=== PATIENT | female | born 1960 | race Caucasian/White ===

== ENCOUNTER 2021-03-23 08:39 | Outpatient (REF) | payer OTHER, SELFPAY ==
[2021-03-23 09:47] LABS: Binax Internal Control QC Valid; Binax Lot number: 9864; Binax Now Covid-19 Ag Negative (Negative)
== END 2021-03-23 08:40 | disposition home or self-care (01) ==
LOC: HO.LAB 08:39
PROVIDERS: Visit Provider Internal Medicine
DX: Z20.822 Contact with and (suspected) exposure to COVID-19 (principal)
CPT/HCPCS: 36415; C9803

== ENCOUNTER 2022-03-20 13:41 | Outpatient (REF) | payer OTHER, SELFPAY ==
--- NOTE | ~2022-03-20 | US_ITS ---
EXAMINATION: US VENOUS ULTRASOUND WITH DOPPLER LOWER EXTREMITY, RIGHT CLINICAL INFORMATION: Pain right leg COMPARISON: None TECHNIQUE: Ultrasound of the deep veins is performed from the hip to the calf with compression sonography and color and pulse Doppler assessment. Spectral analysis with color-flow imaging is performed. FINDINGS: There is normal venous compression and respiratory variation and augmented flow. The visualized common femoral vein, superficial femoral vein, profunda femoral vein, popliteal vein, and the trifurcation region shows no evidence of deep venous thrombosis. There is no significant popliteal fossa cyst. There is a small echogenic lymph node visualized in right proximal thigh measuring 3.0 x 0.8 x 2.0 cm. If the patient's symptoms persist, followup ultrasound in 5 days 7 days might be of value to exclude proximal propagation from a non-visualized calf vein. US/US venous duplex LE RT IMPRESSION: No DVT demonstrated in the right lower extremity.
== END 2022-03-20 13:42 | disposition home or self-care (01) ==
LOC: HO.US 13:41
PROVIDERS: PCP Physician Assistant Medical; Visit Provider Family Medicine
DX: M79.604 Pain in right leg (principal)
CPT/HCPCS: 93971

== ENCOUNTER → 2022-04-15 10:45 | Outpatient (BNVA) | payer OTHER, SELFPAY | PROVIDERS: PCP Physician Assistant Medical; Visit Provider Surgery | DX: Z13.89 Encounter for screening for other disorder (principal) ==

== ENCOUNTER → 2022-05-27 14:41 | Outpatient (BNVA) | payer OTHER, SELFPAY | PROVIDERS: PCP Physician Assistant Medical; Referring Provider Physician Assistant Medical; Visit Provider Surgery | DX: Z13.89 Encounter for screening for other disorder (principal) ==

== ENCOUNTER 2023-08-23 08:15 | Inpatient (IN) | payer OTHER, SELFPAY ==
[2023-08-23] VITALS (14 sets, daily range): BP systolic 103–144; BP diastolic 49–100; PULSE 54–166; RESP 14–20; TEMP 36.4–37.4; O2SAT 94–95; BMI 49.9; BMI 52.2
--- NOTE | 2023-08-23 | ECG_ITS ---
Test Reason : PALPITATIONS Blood Pressure : / mmHG Vent. Rate : 157 BPM Atrial Rate : 000 BPM P-R Int : 000 ms QRS Dur : 096 ms QT Int : 308 ms P-R-T Axes : 000 044 230 degrees QTc Int : 497 ms Atrial fibrillation with rapid ventricular response Marked ST abnormality, possible inferolateral subendocardial injury Abnormal ECG When compared with ECG of 15-JUN-2014 11:41, Atrial fibrillation has replaced Sinus rhythm Vent. rate has increased BY [address] now depressed in Anterolateral leads T wave inversion less evident in Inferior leads Referred By: Generic ED Physician Electronically Signed By:CYRIL TOUSSAINT
--- NOTE | ~2023-08-23 | XR_ITS ---
EXAMINATION: XR CHEST CLINICAL INFORMATION: Abnormal one view chest COMPARISON: Previous chest x-ray from earlier the same day TECHNIQUE: 2 views of the chest were obtained. FINDINGS: The cardiac and mediastinal contours are stable. There is question of bronchial wall thickening or small infiltrate at the bilateral medial lung bases. This is similar to previous exam. Lungs are otherwise clear. No pleural effusion or pneumothorax. Degenerative changes of the spine. XR/XR chest 2V IMPRESSION: Question bronchial wall thickening or small infiltrates at the lung bases.
--- NOTE | ~2023-08-23 | XR_ITS ---
EXAMINATION: XR PORTABLE CHEST CLINICAL INFORMATION: Palpitation COMPARISON: 06/16/2014 TECHNIQUE: AP portable upright view of the chest FINDINGS: EKG leads overlie the chest. There is relative obscuration of the lung bases to the underpenetration of the overlying soft tissues. Subtle opacities are present at the medial aspect of the lung bases which may correspond to atelectasis. Patchy consolidation is possible. No pneumothorax or pleural effusion identified. Cardiac and mediastinal contours are normal. No acute osseous findings. XR/XR chest 1V IMPRESSION: Subtle opacities at the medial aspect of the lung bases which may correspond to atelectasis or early consolidation. Consider follow-up PA and lateral radiographs with improved penetration.
--- NOTE | 2023-08-23 08:38 | ED.ARRPALP ---
HPI - Arrhythmia/Palpitations General Chief Complaint: Arrhythmia/Palpitations Stated Complaint: Heart palpitations Time Seen by Provider: 08/23/23 08:32 Source: patient and family Mode of arrival: ambulatory Limitations: no limitations History of Present Illness ED Provider: DR. Viveros HPI narrative: 63-year-old female history of hypertension presented today for evaluation of palpitation and chest pain. Woke up this morning with feeling palpitation and her heart is going fast and irregular, feels difficulty breathing only with exertion, no paroxysmal nocturnal dyspnea. Patient also is known to have esophagitis and is complaining of mid chest pain that has been constant since this morning feels similar to the pain when she has a acid reflux. Takes losartan, furosemide, and nifedipine for blood pressure medication. No known history of atrial fibrillation. Related Data Home Medications ?Medication ?Instructions ?Recorded ?Confirmed albuterol sulfate 90 mcg/actuation 2 puff inhalation Q6H PRN 03/20/22 05/28/22 aerosol inhaler budesonide-formoterol HFA 160 2 puff inhalation BID 03/20/22 05/28/22 mcg-4.5 mcg/actuation aerosol inhaler (Symbicort) lovastatin 20 mg tablet 20 mg PO DAILY 03/20/22 05/28/22 furosemide 20 mg tablet 20 mg PO DAILY 04/15/22 05/28/22 losartan 50 mg tablet 50 mg PO DAILY 04/15/22 05/28/22 Previous Rx's ?Medication ?Instructions ?Recorded clobetasol 0.05 % topical cream 1 appl topical BID 2 weeks #60 03/20/22 grams Allergies Allergy/AdvReac Type Severity Reaction Status Date / Time Penicillins [PENICILLINS] Allergy Severe hives/urtic Verified 08/23/23 08:22 aria Review of Systems Review of Systems: All other systems are reviewed and are negative Constitutional: Reports as per HPI and Reports no additional constitutional complaints Eyes: Reports as per HPI and Reports no additional eye complaints Reports system reviewed and no additional complaints, except as documented Cardiovascular: Reports as per HPI and Reports no additional cardiovascular complaints Respiratory: Reports as per HPI and Reports no additional respiratory complaints Gastrointestinal: Reports as per HPI and Reports no additional gastrointestinal complaints Genitourinary: Reports no additional female genitourinary complaints Musculoskeletal: Reports no additional musculoskeletal complaints Skin/Breast: Reports system reviewed and no additional complaints, except as docu Psychiatric: Reports no additional psychiatric complaints Endocrine: Reports no additional endocrine complaints Hematologic/Lymphatic: Reports no additional hematologic/lymphatic complaints Allergic/Immunologic: Reports no additional allergic/immunologic complaints Reports system reviewed and no additional complaints, except as documented and Reports Abnormal speech present [facility] Past Medical History Surgical History History of endoscopy (2004) History of wisdom tooth extraction History of colonoscopy (2014) History of delivery Family History Family History Father Liver cancer Mother Pancreatic cancer Maternal Grandmother Pancreatic cancer Sister Breast cancer Maternal Uncle Lung cancer Social History Social History Alcohol intake: current Alcohol intake frequency: a few times a week Patient Tobacco Use Status: Former Tobacco user Smoked in Last 30 Days: No Use of substances other than those prescribed or required for medical reasons: No Advance Directives: No Advance Directives Information Provided: Yes Do you have a plan to hurt others: No Plan Physical Exam Vital Signs: Vital Signs: Last Vital Signs Temp 97.5 F 08/23/23 08:21 Pulse 57 08/23/23 10:34 Resp 19 08/23/23 09:47 BP 116/59 L 08/23/23 10:34 Pulse Ox 94 08/23/23 09:47 O2 Del Method Room Air 08/23/23 09:47 BMI result Body Mass Index 49.9 Vital signs have been reviewed and appear to be correct. Blood pressure elevated. Heart rate normal. Respiratory rate normal. Temperature normal. Oxygen saturation normal. Appearance: Alert. Oriented X3. No acute distress. Head: Normal external exam. Normocephalic. Atraumatic. No Rubin signs noted. No raccoon eyes noted Eyes: PERRLA. EOMI. Conjunctiva and sclera normal. Eyelids normal. ENT: TM's Normal. Pharynx normal. Uvula midline. Moist mucous membranes. No trismus noted. No drooling noted. No muffled voice noted. Neck: Normal inspection. Neck supple. FROM. No adenopathy. Thyroid Normal. No meningeal signs. No neck mass noted. CVS: rapid AFib. No murmurs noted. Pulses normal throughout. Respiratory: No respiratory distress. Painless inspiration. Breath sounds normal. No wheezes/rales/rhonchi noted. Chest nontender. No accessory muscle usage noted or decreased air movement noted. Abdomen: Soft and nontender. Bowel sounds normal in all 4 quadrants. No distention noted. No organomegaly noted. No visible injury noted. Back: No CVA tenderness. Full range of motion noted. Skin: Skin warm and dry. Normal skin color. Normal skin turgor. No rashes/lesions/lacerations noted. Extremities: No lower extremity edema. Extremities exhibit normal range of motion. Extremities nontender. Neuro: Oriented X 3. Cranial nerve exam: II-XII are grossly intact No motor deficit. No sensory deficit. Reflexes normal. Course Reevaluation(s) Reevaluation #1: 63-year-old female presented with rapid atrial fibrillation that was controlled by giving digoxin and metoprolol in the emergency department patient converted into sinus rhythm. Patient has no symptoms, no chest pain, no SOB. Will admit for further cardiology evaluation. Time: 10:50 Medications Administered Discontinued Medications Generic Name Dose Route Start Last Admin Trade Name Freq PRN Reason Stop Dose Admin Aspirin 81 mg 08/23/23 08:39 08/23/23 08:51 Aspirin 81 Mg Tab.Chew PO 08/23/23 08:40 81 mg ONCE ONE Administration Digoxin 0.25 mg 08/23/23 08:37 08/23/23 08:51 Digoxin 0.5 Mg/2 Ml Ampul IVPUSH 08/23/23 08:38 0.25 mg ONCE ONE Administration Sodium Chloride 1,000 mls @ 999 mls/hr 08/23/23 08:32 08/23/23 10:22 Ns IV 08/23/23 09:32 Infused .Q1H1M ONE Infusion Metoprolol Tartrate 5 mg 08/23/23 08:37 08/23/23 08:51 Metoprolol Tartrate 5 Mg/5 Ml Vial IVPUSH 08/23/23 08:38 5 mg ONCE ONE Administration Protocol Metoprolol Tartrate 5 mg 08/23/23 09:47 08/23/23 10:22 Metoprolol Tartrate 5 Mg/5 Ml Vial IVPUSH 08/23/23 09:48 5 mg ONCE ONE Administration Protocol Medical Decision Making Differential Diagnosis Differential Diagnoses: The differential diagnosis associated with the presentation includes ( ACS, CHF, pneumonia, pneumothorax, pleural effusion, electrolyte derangement, severe anemia, new onset atrial fibrillation.) Admission/Observation Consideration of admission/observation: Escalation of care including admission/observation considered Consult Healthcare Provider Management of the patient was discussed with: Hospitalist ( Dr. Delaney) Lab Data MDM Lab Attestation statement: I reviewed the patient's lab results. 08/23/23 08:45 08/23/23 08:43 Labs: Lab Results 08/23/23 08/23/23 08/23/23 Range/Units 08:43 08:45 09:01 WBC 10.5 (4.8-10.8) X10*3/uL RBC 4.83 (4.20-5.50) X10*6/uL Hgb 12.9 (12.0-16.0) g/dl Hct 40.2 (37.0-47.0) % MCV 83.2 (80.0-98.0) fL MCH 26.7 L (27.0-33.0) pg MCHC 32.1 (31.0-35.0) g/dl RDW 15.7 (11.0-16.0) % Plt Count 236 (160-400) X10*3/uL MPV 9.0 L (9.4-12.3) fL Immature Gran % (Auto) 1.5 H (0.0-0.4) % Neut % (Auto) 72.3 (45-73) % Lymph % (Auto) 16.4 L (20-40) % [place] % (Auto) 5.7 (2-11) % Eos % (Auto) 3.7 (0-4) % Baso % (Auto) 0.4 (0-2) % Lymph # (Auto) 1.7 (1.2-4.9) X10*3/uL [place] # (Auto) 0.6 (0.1-1.2) X10*3/uL Eos # (Auto) 0.4 (0.0-0.4) X10*3/uL Baso # (Auto) 0.0 (0.0-0.2) X10*3/uL Abs Immat Gran (auto) 0.16 H (0.00-0.03) X10*3/uL Absolute Neuts (auto) 7.6 (2.0-8.3) x10*3/uL Absolute Nucleated RBC 0.000 (0.0-0.012) X10*3/uL Nucleated RBC % (auto) 0.0 (0.0-0.2) /100WBC PT 10.8 L (11.1-13.3) SEC INR 0.9 (0.9-1.1) APTT 35.8 (26.0-36.8) SEC Sodium 146 H (135-145) mmol/L Potassium 4.0 (3.3-5.1) mmol/L Chloride 111 H (96-108) mmol/L Carbon Dioxide 20 L (22-29) mmol/L Anion Gap 19 (12-20) BUN 14 (9-16) mg/dL Creatinine 0.61 (0.5-1.4) mg/dL Estim Creat Clear Calc 132.0 Estimated GFR > 60 Random Glucose 139 H (60-115) mg/dL Calcium 9.6 (8.4-10.2) mg/dL Total Bilirubin 0.3 (0.0-1.0) mg/dL Direct Bilirubin 0.1 (0.0-0.5) mg/dL AST 22 (5-31) U/L ALT 25 (0-31) U/L Alkaline Phosphatase 101 (39-117) U/L Troponin I High Sens 2.9 (<3.5-17.0) ng/L B-Natriuretic Peptide 188 H (<100) pg/mL Total Protein 7.5 (6.5-8.0) g/dL Albumin 4.3 (3.5-5.0) g/dL Lipase 20 (8-78) U/L Influenza Type A (PCR) NEGATIVE (Negative) Influenza Type B (PCR) NEGATIVE (Negative) RSV RNA Qual (PCR) NEGATIVE (Negative) SARS-CoV-2 RNA (RT-PCR) NEGATIVE (Negative) Independent Interpretation I performed an independent interpretation of an: Plain X-Ray Critical Care Time Critical Care Time Critical Care Time: Yes Total Critical Care Time: 60 Attestation: The patient was critically ill with a high probability of imminent or life-threatening deterioration. I spent greater than 30 minutes of discontinuous time evaluating the patient, delivering critical care at the bedside, discussing evaluating data with consultants. Critical care time does not include time spent performing separately billable procedures or teaching. Time spent performing critical care was 60 minutes. Discharge Plan Discharge Clinical Impression: New onset a-fib Patient Disposition: Admitted As Inpatient Prescriptions: No Action lovastatin 20 mg tablet 20 mg PO DAILY albuterol sulfate 90 mcg/actuation HFA aerosol inhaler 2 puff inhalation Q6H PRN budesonide-formoterol [Symbicort] 160-4.5 mcg/actuation HFA aerosol inhaler 2 puff inhalation BID clobetasol 0.05 % cream 1 appl topical BID 14 Days Qty: 60 1RF losartan 50 mg tablet 50 mg PO DAILY furosemide 20 mg tablet 20 mg PO DAILY Print Language: Upper Sorbian
[2023-08-23] MEDS: Aspirin 81 MG TAB.CHEW PO (08:51)
[2023-08-23] MEDS: 0.9 % Sodium Chloride 1,000 ML 999 ML IV (08:51)
[2023-08-23] MEDS: Metoprolol Tartrate 5 MG/5 ML VIAL IVPUSH ×2 (08:51→10:22)
[2023-08-23] MEDS: Digoxin 0.5 MG/2 ML AMPUL 0.25 MG IVPUSH (08:51)
[2023-08-23 08:53] LABS: MANUAL DIFF FLAG NO
--- NOTE | 2023-08-23 09:00 | PC.NURSE ---
pt is alert and oriented, skin pwd, respirations even and unlabored, pt reports for the last couple of days having midsternal chest pain that radiates to her back and some intermitten sob, pain at 3/10 and feels like pressure, ls clear, this morning started to have heart palpitations, he ranges from 160-130 in rapid a -fib on the monitor,
[2023-08-23 09:08] LABS: Basophils Percent Auto 0.4 % (0-2); Eosinophils Absolute Auto 0.4 X10*3/uL (0.0-0.4); Eosinophils Percent Auto 3.7 % (0-4); Hematocrit 40.2 % (37.0-47.0); Hemoglobin 12.9 g/dl (12.0-16.0); Imm Gran Abs Auto 0.16 X10*3/uL (0.00-0.03); Imm Gran Pct Auto 1.5 % (0.0-0.4); Lymphocytes Absolute Auto 1.7 X10*3/uL (1.2-4.9); Lymphocytes Percent Auto 16.4 % (20-40); Mean Corpuscular HGB Conc 32.1 g/dl (31.0-35.0); Mean Corpuscular Hemoglobin 26.7 pg (27.0-33.0); Mean Corpuscular Volume 83.2 fL (80.0-98.0); Monocytes Absolute Auto 0.6 X10*3/uL (0.1-1.2); Monocytes Percent Auto 5.7 % (2-11); Neutrophils Absolute Auto 7.6 x10*3/uL (2.0-8.3); Neutrophils Percent Auto 72.3 % (45-73); Platelet Count 236 X10*3/uL (160-400); Red Blood Count 4.83 X10*6/uL (4.20-5.50); Red Cell Distribution Width 15.7 % (11.0-16.0); White Blood Count 10.5 X10*3/uL (4.8-10.8)
[2023-08-23 09:11] LABS: Alanine Aminotransferase 25 U/L (0-31); Albumin Level 4.3 g/dL (3.5-5.0); Alkaline Phosphatase 101 U/L (39-117); Anion Gap 19 (12-20); Aspartate Amino Transferase 22 U/L (5-31); Bilirubin Direct 0.1 mg/dL (0.0-0.5); Bilirubin Total 0.3 mg/dL (0.0-1.0); Blood Urea Nitrogen 14 mg/dL (9-16); Calcium 9.6 mg/dL (8.4-10.2); Carbon Dioxide 20 mmol/L (22-29); Chloride 111 mmol/L (96-108); Estimated Glomerular Filt Rate > 60; Glucose Random 139 mg/dL (60-115); INTERNATIONAL NORM RATIO 0.9 (0.9-1.1); Lipase 20 U/L (8-78); Prothrombin Time 10.8 SEC (11.1-13.3); Sodium 146 mmol/L (135-145); Total Protein 7.5 g/dL (6.5-8.0)
[2023-08-23 09:14] LABS: B Type Natriuretic Peptide 188 pg/mL (<100); Partial Thromboplastin Time 35.8 SEC (26.0-36.8)
[2023-08-23 09:18] LABS: Troponin-I High Sensitivity 2.9 ng/L (<3.5-17.0)
[2023-08-23 09:53] LABS: Influenza A PCR NEGATIVE (Negative); Influenza B PCR NEGATIVE (Negative); Resp Syncy Virus RNA Qual PCR NEGATIVE (Negative); SARS COV2 PCR INHOUSE NEGATIVE (Negative)
--- NOTE | 2023-08-23 10:27 | ECG_ITS ---
Test Reason : RHYTHM CHANGE Blood Pressure : / mmHG Vent. Rate : 055 BPM Atrial Rate : 055 BPM P-R Int : 136 ms QRS Dur : 096 ms QT Int : 454 ms P-R-T Axes : 054 026 029 degrees QTc Int : 434 ms Sinus bradycardia Otherwise normal ECG When compared with ECG of 23-AUG-2023 08:20, Sinus rhythm has replaced Atrial fibrillation Vent. rate has decreased BY [address] no longer depressed in Inferior leads ST no longer depressed in Lateral leads Nonspecific T wave abnormality has replaced inverted T waves in Inferior leads T wave amplitude has increased in Lateral leads Referred By: Lew Viveros Electronically Signed By:ECTOR MITCHELL MD
--- NOTE | 2023-08-23 10:28 | PC.NURSE ---
Addendum entered by Mera Roth 08/23/23 10:33: sinus rhythm at this time Original Note: pt received about 1.5mg of the 5mg metoprolol and drastic rhythm change, hr rate dropped from 154 to 54, pt is asymptomatic with this change and bp stable, md aware and another ekg obtained
--- NOTE | 2023-08-23 11:17 | PM.IMHP ---
History of Present Illness Date of Service: 08/23/23 Attending physician on admission: Radha Donnelly Chief Complaint: Palpitations Pt is a 63-year-old female with a PMH significant for HTN, HLD,?prediabetes, asthma, chronic lower leg edema, and eczema who presents to the ED with chest and back pain x2 days and?palpitations since this morning. Patient reports for the past few days she has experienced constant, substernal chest pain that has radiates to her back. Yesterday patient began experience worsening chronic shortness of breath as well as increased lower leg edema. Has been experiencing SOB for many months, though worsened yesterday with difficulty even going up a half flight of stairs. This morning patient was awoken from sleep with a slight headache and ?racing heart? that prompted her visit to the ED. states has had intermittent palpitations for the past few years. Presented to PCP complaining of symptoms and was sent to Cardiology a few years ago for full workup which was negative. Chronic productive cough in the morning x6+ months at baseline. Denies fever, chills, N/V/D, or abd pain. In the ED pt was tachycardic up to 166 otherwise vitals stable. Labs were significant for sodium 146, chloride 111 , and BNP slightly elevated at 188. No leukocytosis. Stable H&H. Renal and hepatic function WNL. Troponin 2.9. Tested negative for flu, RSV. CXR showed question of bronchial wall thickening or small infiltrates at the lung bases. EKG demonstrated atrial fibrillation with RVR of [address] depression in anterior lateral leads and T-wave inversions in inferior leads. Repeat EKG showed sinus bradycardia of 55 without evidence of significant ST elevations or depressions and T-wave inversion in V1. Pt was treated with metoprolol 5 mg IV x2 doses, digoxin 0.25 mg IV, aspirin, and IVF. Pt will be admitted to the hospital under observation for treatment and further evaluation of new onset AFib with RVR. Review of Systems Review of Systems: Palpitations Substernal chest pain radiating to back Increasing chronic shortness of breath Increasing lower leg edema Headache Chronic cough at baseline Denies fever, chills, nausea, vomiting, abdominal pain PMFSH Medical History Lower leg edema Prediabetes Asthma HLD (hyperlipidemia) HTN (hypertension) Eczema Family History Father Liver cancer Mother Pancreatic cancer Maternal Grandmother Pancreatic cancer Sister Breast cancer Maternal Uncle Lung cancer Surgical History History of endoscopy (2004) History of wisdom tooth extraction History of colonoscopy (2014) History of delivery Social History Household Members: Family Housing: House Do you presently have visiting nurse or other home services: No Alcohol intake: current Alcohol intake frequency: a few times a week Patient Tobacco Use Status: Former Tobacco user Meds Allergies Allergy/AdvReac Type Severity Reaction Status Date / Time Penicillins [PENICILLINS] Allergy Severe hives/urtic Verified 08/23/23 08:22 aria Home Medications ?Medication ?Instructions ?Recorded ?Confirmed ?Last Taken ?Type albuterol sulfate 90 mcg/actuation 2 puff inhalation Q6H PRN 03/20/22 08/23/23 Unknown History aerosol inhaler Shortness Of Breath Or Wheezing furosemide 20 mg tablet 20 mg PO DAILY 04/15/22 08/23/23 08/23/23 09:00 History budesonide-formoterol HFA 80 2 puff inhalation BID 08/23/23 08/23/23 08/23/23 09:00 History mcg-4.5 mcg/actuation aerosol inhaler (Symbicort) cholecalciferol (vitamin D3) 25 25 mcg PO DAILY 08/23/23 08/23/23 08/23/23 09:00 History mcg (1,000 unit) tablet (Vitamin D3) dupilumab 300 mg/2 mL subcutaneous 300 mg subcut Q2W 08/23/23 08/23/23 08/13/23 History pen injector (Dupixent) ferrous sulfate 325 mg (65 mg 325 mg PO Q OTHER DAY 08/23/23 08/23/23 Unknown History iron) tablet,delayed release losartan 100 mg tablet 100 mg PO DAILY 08/23/23 08/23/23 08/23/23 09:00 History multivitamin with minerals-folic 1 tab PO DAILY 08/23/23 08/23/23 08/23/23 09:00 History acid 80 mcg chewable tablet (Centrum Adult 50 Plus) nifedipine 30 mg tablet,extended 30 mg PO DAILY 08/23/23 08/23/23 08/23/23 09:00 History release sertraline 50 mg tablet 50 mg PO DAILY 08/23/23 08/23/23 08/23/23 09:00 History triamcinolone acetonide 0.1 % 1 appl topical BID PRN eczema 08/23/23 08/23/23 Unknown History topical cream Physical Exam Vital Signs and Narrative: Vital Signs: Last Vital Signs Temp 97.5 F 08/23/23 08:21 Pulse 57 08/23/23 10:34 Resp 19 08/23/23 09:47 BP 116/59 L 08/23/23 10:34 Pulse Ox 94 08/23/23 09:47 O2 Del Method Room Air 08/23/23 09:47 BMI result Body Mass Index 49.9 Constitutional: Alert, in no acute distress. Mental Status: Oriented to person, place and time. Eyes: Pupils are equal, round, and reactive to light. Ear, Nose, and Throat: Oropharynx clear, mucous membranes moist. Ears and nose without deformities. Trachea midline. Respiratory: Clear to auscultation bilaterally. No wheezing, rales, or rhonchi. Cardiovascular: S1, S2 regular. 2/6 murmur heard at left sternal border. Gastrointestinal: Abdomen soft, non-tender, non-distended. Normal bowel sounds. Neurologic: Cranial nerves II-XII are grossly intact bilaterally. No focal neurological deficits. Moves all extremities spontaneously. Skin: Warm, dry. Musculoskeletal: No cyanosis or clubbing. Extremities: 2+ bilateral pitting edema. Psychiatric: Normal mood and affect. Results Labs 08/23/23 08:45 08/23/23 08:43 Labs: Laboratory Results - last 24 hr 08/23/23 08/23/23 08/23/23 08:43 08:45 09:01 MCV 83.2 MCH 26.7 L MCHC 32.1 RDW 15.7 Plt Count 236 MPV 9.0 L Immature Gran % (Auto) 1.5 H Neut % (Auto) 72.3 Lymph % (Auto) 16.4 L [place] % (Auto) 5.7 Eos % (Auto) 3.7 Baso % (Auto) 0.4 Lymph # (Auto) 1.7 [place] # (Auto) 0.6 Eos # (Auto) 0.4 Baso # (Auto) 0.0 Abs Immat Gran (auto) 0.16 H Absolute Neuts (auto) 7.6 Absolute Nucleated RBC 0.000 Nucleated RBC % (auto) 0.0 PT 10.8 L INR 0.9 APTT 35.8 Anion Gap 19 Estim Creat Clear Calc 132.0 Estimated GFR > 60 Random Glucose 139 H Calcium 9.6 Total Bilirubin 0.3 Direct Bilirubin 0.1 AST 22 ALT 25 Alkaline Phosphatase 101 Troponin I High Sens 2.9 B-Natriuretic Peptide 188 H Total Protein 7.5 Albumin 4.3 Lipase 20 Influenza Type A (PCR) NEGATIVE Influenza Type B (PCR) NEGATIVE RSV RNA Qual (PCR) NEGATIVE SARS-CoV-2 RNA (RT-PCR) NEGATIVE Imaging Radiologist's Impressions: Impressions Chest X-Ray 08/23/23 09:33 IMPRESSION: Subtle opacities at the medial aspect of the lung bases which may correspond to atelectasis or early consolidation. Consider follow-up PA and lateral radiographs with improved penetration. Assessment and Plan (1) New onset a-fib: Status: Acute Plan Pt is a 63-year-old female with a PMH significant for HTN, HLD,?prediabetes, asthma, chronic lower leg edema, and eczema who presents to the ED with chest and back pain x2 days and?palpitations since this morning. Pt will be admitted to the hospital under observation for treatment and further evaluation of new onset AFib with RVR. New onset symptomatic AFib with RVR Pt awoke with palpitations this; initial EKG showing AFib RVR of 57 Reports intermittent palpations for the past few years; previous Holter monitor negative for AFib Patient received metoprolol 5 mg IV x2 doses and digoxin 0.25 mg IV in ED with good effect Currently in sinus bradycardia in 50s [id number] score 2 points Will start on Eliquis 5mg bid Echocardiogram Cardiology consult Monitor on telemetry Chest pain/pressure radiating to back Ongoing for the past 2-3 days Likely secondary to AFib Initial EKG with T-wave inversions in inferior leads and ST depressions in anteriolateral leads Repeat EKG showing sinus bradycardia of 55 without ischemic changes Initial troponin 2.9 Patient currently asymptomatic Will repeat troponin Pt being monitored on telemetry Chronic lower leg edema 2+ pitting lower leg edema, worse past few days Continue home furosemide Asthma Not in acute exacerbation CXR showing question of bronchial wall thickening or small infiltrates in lung bases Patient with chronic productive morning cough Does not appear to be pneumonia: No fever or leukocytosis, cough limited to mornings only No indication to cover with antibiotics at this time Continue home inhalers Guaifenesin, incentive spirometry HTN BP slightly soft after metoprolol and digoxin Will hold home antihypertensives for now Awaiting cardiology input concerning Obesity class III Weight loss encouraged Full Code Attending:?Dr. Donnelly DVT Prophylaxis: On Patient will be admitted to the hospital under observation for treatment and further evaluation new onset AFib with RVR. Patient currently rate and rhythm controlled, but will require hospitalization for echocardiogram, close monitoring of cardiac function, and specialist consultation with Cardiology. Quality Stroke Does the patient have a stroke diagnosis?: No VTE Prior VTE?: No VTE Risk Level:: Medical - moderate - high VTE Device Contraindication: Treatment Not Indicated VTE Drug Contraindication: N/A - Med Ordered
[2023-08-23] MEDS: Apixaban 5 MG TABLET PO (13:06)
[2023-08-23 13:41] LABS: TSH reflex Free T4 3.63 uIU/mL (0.32-4.0)
[2023-08-23 13:49] LABS: Appearance Urine Clear; Color Urine Yellow; Glucose Urine UA Negative (Negative); Leukocyte Esterase Urine Negative (Negative); Nitrite Urine Negative (Negative); PH 6.5 (5.0-9.0); Urine Blood Negative (Negative); Urine Ketones Negative (Negative); Urine Protein Negative (Neg-Trace)
--- NOTE | 2023-08-23 14:03 | PHA.MEDREC ---
Pharmacy Consult ? Medication Reconciliation Pharmacy has completed the medication reconciliation.
[2023-08-23 15:17] LABS: Troponin-I High Sensitivity 4.5 ng/L (<3.5-17.0)
--- NOTE | 2023-08-23 15:31 | P.CONCA_ITS ---
History of Present Illness History of Present Illness Date of Service: 08/23/23 Chief complaint: new onset afib w/rvr Narrative: This is cardiology consultation regarding atrial fibrillation. Patient states that she underwent some cardiac workup about 5 years ago but she cannot recall much of information. It does not appear that There is any definitive history of coronary disease or myocardial infarction or cardiomyopathy or anything else cardiac. No prior history of atrial fibrillation. For the last few days, she has been having various symptoms. She describes pain in the chest that radiates to the back, but it is constant for the last 4 days with no changes whatsoever. Has chronic shortness of breath but a bit more so recently. Otherwise, today, she had palpitations and that led to ER visit where she was found to be having atrial Fibrillation with rapid ventricular rate. Currently, she is back to normal sinus rhythm. She has morbid obesity, asthma as well as MARGARETH on CPAP. Review of Systems 2 Review of Systems: Yes all other systems are reviewed and are negative Constitutional: Constitutional: Reports as per HPI and Reports no additional constitutional complaints Eyes: Eyes: Reports as per HPI and Denies no additional eye complaints ENT: Denies system reviewed and no additional complaints, except as documented and Reports as per HPI Cardiovascular: Cardiovascular: Reports as per HPI, Reports no additional cardiovascular complaints, Denies acrocyanosis, Denies cool extremities, Denies chest pain, Denies leg edema, Denies lightheadedness, Denies palpitations and Denies dyspnea Respiratory: Respiratory: Reports as per HPI, Denies no additional respiratory complaints and Denies dyspnea Gastrointestinal: Gastrointestinal: Reports as per HPI and Denies no additional gastrointestinal complaints Genitourinary: Genitourinary: Reports as per HPI Musculoskeletal: Musculoskeletal: Reports no additional musculoskeletal complaints and Reports as per HPI Integumentary/Breasts: Skin/Breast: Reports system reviewed and no additional complaints, except as docu Neurologic: Reports system reviewed and no additional complaints, except as documented and Reports as per HPI Psychiatric: Psychiatric: Reports no additional psychiatric complaints and Reports as per HPI Endocrine: Endocrine: Reports no additional endocrine complaints, Reports as per HPI and Denies palpitations Hematologic/Lymphatic: Hematologic/Lymphatic: Reports no additional hematologic/lymphatic complaints and Reports as per HPI Allergic/Immunologic: Allergic/Immunologic: Reports no additional allergic/immunologic complaints and Reports as per HPI REPLACED BY [facility] Past Medical History Medical History (Updated 08/23/23 @ 15:50 by Masood Raymond MD) Lower leg edema Prediabetes Asthma HLD (hyperlipidemia) HTN (hypertension) Eczema Family History Family History Father Liver cancer Mother Pancreatic cancer Maternal Grandmother Pancreatic cancer Sister Breast cancer Maternal Uncle Lung cancer Surgical History Surgical History History of endoscopy (2004) History of wisdom tooth extraction History of colonoscopy (2014) History of delivery Social History Social History Alcohol intake: current Alcohol intake frequency: a few times a week Patient Tobacco Use Status: Former Tobacco user Smoked in Last 30 Days: No Use of substances other than those prescribed or required for medical reasons: No Advance Directives: No Advance Directives Information Provided: Yes Do you have a plan to hurt others: No Plan Meds Allergies Allergy/AdvReac Type Severity Reaction Status Date / Time Penicillins [PENICILLINS] Allergy Severe hives/urtic Verified 08/23/23 08:22 aria Active Medications: Current Medications Acetaminophen (Acetaminophen 325 Mg Tablet) 650 mg PO Q6H PRN PRN Reason: Pain, Mild (Pain Scale 1-3) Albuterol Sulfate (Albuterol Sulfate 90 Mcg 8 Gm Inhaler) 2 puff INHALE Q6H PRN PRN Reason: Shortness Of Breath Or Wheezing Apixaban (Apixaban 5 Mg Tablet) 5 mg PO BID LASHONDA Docusate Sodium (Docusate Sodium 100 Mg Capsule) 100 mg PO DAILY PRN PRN Reason: Constipation Ferrous Sulfate (Ferrous Sulfate 324 Mg Tablet.Dr) 325 mg PO Q2D LASHONDA Furosemide (Furosemide 20 Mg Tablet) 20 mg PO DAILY LASHONDA; Protocol Guaifenesin/Dextromethorphan (Guaifenesin Dm 200/20/10 Ml 10 Ml Syrup) 10 ml PO Q6H PRN PRN Reason: Cough Melatonin (Melatonin 3 Mg Tablet) 6 mg PO BEDTIME PRN PRN Reason: Insomnia Multivitamins/Vitamin C (Multivitamin Tablet) 1 tab PO DAILY LASHONDA Ondansetron HCl (Ondansetron Hcl 4 Mg/2 Ml Vial) 4 mg IVPUSH Q8H PRN PRN Reason: Nausea and Vomiting Sertraline HCl (Sertraline Hcl 50 Mg Tablet) 50 mg PO DAILY [facility] Sodium Chloride (0.9 % Sodium Chloride Flush 3 Ml Syringe) 3 ml IVFLUSH QSHIFT [facility] Vitamin D (Cholecalciferol (Vitamin D3) 25 Mcg Tablet) 25 mcg PO DAILY [facility] Home Medications ?Medication ?Instructions ?Recorded ?Confirmed ?Last Taken ?Type albuterol sulfate 90 mcg/actuation 2 puff inhalation Q6H PRN 03/20/22 08/23/23 Unknown History aerosol inhaler Shortness Of Breath Or Wheezing furosemide 20 mg tablet 20 mg PO DAILY 04/15/22 08/23/23 08/23/23 09:00 History budesonide-formoterol HFA 80 2 puff inhalation BID 08/23/23 08/23/23 08/23/23 09:00 History mcg-4.5 mcg/actuation aerosol inhaler (Symbicort) cholecalciferol (vitamin D3) 25 25 mcg PO DAILY 08/23/23 08/23/23 08/23/23 09:00 History mcg (1,000 unit) tablet (Vitamin D3) dupilumab 300 mg/2 mL subcutaneous 300 mg subcut Q2W 08/23/23 08/23/23 08/13/23 History pen injector (Dupixent) ferrous sulfate 325 mg (65 mg 325 mg PO Q OTHER DAY 08/23/23 08/23/23 Unknown History iron) tablet,delayed release losartan 100 mg tablet 100 mg PO DAILY 08/23/23 08/23/23 08/23/23 09:00 History multivitamin with minerals-folic 1 tab PO DAILY 08/23/23 08/23/23 08/23/23 09:00 History acid 80 mcg chewable tablet (Centrum Adult 50 Plus) nifedipine 30 mg tablet,extended 30 mg PO DAILY 08/23/23 08/23/23 08/23/23 09:00 History release sertraline 50 mg tablet 50 mg PO DAILY 08/23/23 08/23/23 08/23/23 09:00 History triamcinolone acetonide 0.1 % 1 appl topical BID PRN eczema 08/23/23 08/23/23 Unknown History topical cream Physical Exam 2 Vital Signs: Vital Signs: Last Vital Signs Temp 99.3 F 08/23/23 15:28 Pulse 60 06/02/24 15:28 Resp 18 08/23/23 15:28 BP 144/49 H 08/23/23 15:28 Pulse Ox 94 08/23/23 15:28 O2 Del Method Room Air 08/23/23 15:28 BMI result Body Mass Index 49.9 Const: General: comfortable and no acute distress O rientation/consciousness: patient oriented x3 HEENT: Other: Unremarkable Head: Yes normal to inspection Neck: Neck: Yes normal visual inspection Chest: Chest palpation & inspection: normal inspection of the chest Resp: Auscultation: clear to auscultation bilaterally Cardio: Palpation: normal PMI Heart sounds: S1 normal heart sound present, S2 normal heart sound present, no gallops, Murmur heart sound present systolic II/ and at the right sternal border and no rubs GI: Palpation (GI): Soft to palpation Back/Spine/Pelvis: Other: unremarkable Skin: General skin exam: no rashes or lesions noted Neuro: General: patient oriented x3 Extrem: Other: 1+ edema General: Yes normal to inspection Psych: Mental Status: mental status grossly normal Objective Labs and Meds 08/23/23 08:45 08/23/23 08:43 Lab results: Laboratory Results - last 24 hr 08/23/23 08/23/23 08/23/23 08:43 08:45 09:01 WBC 10.5 RBC 4.83 Hgb 12.9 Hct 40.2 MCV 83.2 MCH 26.7 L MCHC 32.1 RDW 15.7 Plt Count 236 MPV 9.0 L Immature Gran % (Auto) 1.5 H Neut % (Auto) 72.3 Lymph % (Auto) 16.4 L [place] % (Auto) 5.7 Eos % (Auto) 3.7 Baso % (Auto) 0.4 Lymph # (Auto) 1.7 [place] # (Auto) 0.6 Eos # (Auto) 0.4 Baso # (Auto) 0.0 Abs Immat Gran (auto) 0.16 H Absolute Neuts (auto) 7.6 Absolute Nucleated RBC 0.000 Nucleated RBC % (auto) 0.0 PT 10.8 L INR 0.9 APTT 35.8 Sodium 146 H Potassium 4.0 Chloride 111 H Carbon Dioxide 20 L Anion Gap 19 BUN 14 Creatinine 0.61 Estim Creat Clear Calc 132.0 Estimated GFR > 60 Random Glucose 139 H Calcium 9.6 Total Bilirubin 0.3 Direct Bilirubin 0.1 AST 22 ALT 25 Alkaline Phosphatase 101 Troponin I High Sens 2.9 B-Natriuretic Peptide 188 H Total Protein 7.5 Albumin 4.3 Lipase 20 TSH 3.63 Urine Color Urine Appearance Urine pH Ur Specific [place] Urine Protein Urine Glucose (UA) Urine Ketones Urine Blood Urine Nitrite Ur Leukocyte Esterase Influenza Type A (PCR) NEGATIVE Influenza Type B (PCR) NEGATIVE RSV RNA Qual (PCR) NEGATIVE SARS-CoV-2 RNA (RT-PCR) NEGATIVE 08/23/23 08/23/23 13:23 13:41 WBC RBC Hgb Hct MCV MCH MCHC RDW Plt Count MPV Immature Gran % (Auto) Neut % (Auto) Lymph % (Auto) [place] % (Auto) Eos % (Auto) Baso % (Auto) Lymph # (Auto) [place] # (Auto) Eos # (Auto) Baso # (Auto) Abs Immat Gran (auto) Absolute Neuts (auto) Absolute Nucleated RBC Nucleated RBC % (auto) PT INR APTT Sodium Potassium Chloride Carbon Dioxide Anion Gap BUN Creatinine Estim Creat Clear Calc Estimated GFR Random Glucose Calcium Total Bilirubin Direct Bilirubin AST ALT Alkaline Phosphatase Troponin I High Sens 4.5 D B-Natriuretic Peptide Total Protein Albumin Lipase TSH Urine Color Yellow Urine Appearance Clear Urine pH 6.5 Ur Specific [place] 1.010 Urine Protein Negative Urine Glucose (UA) Negative Urine Ketones Negative Urine Blood Negative Urine Nitrite Negative Ur Leukocyte Esterase Negative Influenza Type A (PCR) Influenza Type B (PCR) RSV RNA Qual (PCR) SARS-CoV-2 RNA (RT-PCR) ECG Interpretation: EKG with atrial fibrillation with rapid rate; ST depression inferior and lateral leads; repeated with sinus rhythm. Imaging Radiologist's impression: Impressions Chest X-Ray 08/23/23 09:33 IMPRESSION: Subtle opacities at the medial aspect of the lung bases which may correspond to atelectasis or early consolidation. Consider follow-up PA and lateral radiographs with improved penetration. Chest X-Ray 08/23/23 11:10 IMPRESSION: Question bronchial wall thickening or small infiltrates at the lung bases. Assessment and Plan (1) Atrial fibrillation with rapid ventricular response: Status: Acute Unclear if she has had this before as she has had palpitations off and on. Precipitating factors could be obesity, history of asthma, obstructive sleep apnea. We discussed about these today. She was in atrial fibrillation rapid rate on arrival but currently back to sinus rhythm in fact slightly bradycardic. It appears that she got a combination of IV metoprolol, IV digoxin in the emergency room. We can monitor the heart rate, but probably low-dose beta- blockers may be reasonable as long as she has does not get too bradycardic. Otherwise, anticoagulation. (2) Shortness of breath: Status: Acute Presumed asthma but there is also some leg swelling. Need to evaluate for cardiomyopathy. Slight aortic systolic murmur. Echocardiogram tomorrow. (3) Precordial chest pain: Status: Acute Constant pain going from the chest to the back for the last 4 days. Does not sound clearly anginal. Troponins were unremarkable. Possibly outpatient stress test. Plan Discussed with family at bedside. Procedures Date of Service Date of Service: 08/23/23
[2023-08-23] MEDS: 0.9 % Sodium Chloride Flush 3 ML SYRINGE IVFLUSH ×2 (16:10→23:54)
[2023-08-24] VITALS: BP 121/63; PULSE 65; RESP 20; TEMP 37.3; O2SAT 93
[2023-08-24 04:00] VITALS: BP 168/74; PULSE 60; RESP 18; TEMP 36.2; O2SAT 95
--- NOTE | 2023-08-24 07:00 | CA_ITS ---
Transthoracic Echocardiogram Patient (Last, First, Middle): Karina Burks, Gender: Female Date of : 1960 Age: 63 Procedure Date: 08/24/2023 Procedure Type: Transthoracic Echocardiogram Location: [facility] [place] Height: 165.1 cm Weight: 141.98 kg BSA: 2.39 m2 Heart Rate: bpm BP: 168 / 74 mmHg Bulk System Operator: CHESTER Referring MD: Cheri AVALOS Licensed Clinical Psychologist: Henrry Carrington MD Symptoms: New onset AFib w/RVR Study Quality: Technically Difficult ECG Rhythm: Sinus Conclusions: - 1. Technically limited study despite use of contrast agent 2. Hyperdynamic LV ejection fraction of greater than 70% 3. Poorly visualized cardiac valves with Dopplers suggestive of increased gradient across the aortic valve of unclear etiology 4. Normal calculated RV systolic pressure Findings Procedure Information Contrast agent, definity, is being given per protocol without apparent complications. Left Ventricle The left ventricle was not well visualized. Normal left ventricular cavity size. The left ventricular systolic function is hyperdynamic. The visually estimated ejection fraction is >70%. Spectral Doppler is indicative of an impaired relaxation filling pattern. Elevated filling pressures. E/E prime ratio is >15, consistent with elevated filling pressures. Right Ventricle The right ventricle was not well visualized. Mildly increased right ventricular cavity size. There is normal right ventricular systolic function. Atria The left atrium was not well visualized. There is lipomatous hypertrophy of the interatrial septum. Interatrial shunt cannot be excluded. The right atrium was not well visualized. Aortic Valve The aortic valve was not well visualized. there is increased gradient across the aortic valve of unclear etiology could be related to increased stroke volume and/or LVOT obstruction or aortic stenosis. Mitral Valve The mitral valve was not well visualized. There is no mitral valve regurgitation. Pulmonic Valve The pulmonic valve was not well visualized. Tricuspid Valve The tricuspid valve was not well visualized. There is trace tricuspid valve regurgitation. The right ventricular systolic pressure is normal. Normal right atrial pressure. There is no evidence of pulmonary hypertension. Great Vessels The aorta was not well visualized. The pulmonary artery was not well visualized. Venous The inferior vena cava is normal in size and collapses greater than 50% with inspiration. Pericardium/Pleural The pericardium was not well visualized. Prior Study Comparison No prior study available for comparison. Measurements 2D Linear Measurements IVSd: 1.23 0.6-0.9/0.6-1.0 cm 2D Systolic Function EF 4C: 80.80 >55% EF 2C: 70.90 >55% EF BiP: 76.80 >55% Mitral Valve MV Pk E: 1.26 MV PK A: 1.29 MV Decel Time: 240.00 E/A: 1.00 E'Lateral: 8.81 E'Medial: 6.85 E/E' Med: 18.40 E/E' Lat: 14.30 PHT: 70.00 MVA PHT: 3.14 Decel Wells: 5.22 Aortic Valve AoV Pk Lizandro: 2.18 AoV Mn Lizandro: 1.49 AoV VTI: 0.49 AoV Pk Grad: 19.00 Aov Mn Grad: 10.00 LVOT LVOT Pk Lizandro: 1.85 LVOT Mn Lizandro: 1.20 LVOT VTI: 0.38 LVOT Pk Grad: 14.00 LVOT Mn Grad: 7.00 Diastolic Function MV Pk E: 1.26 MV Pk A: 1.29 E/A: 1.00 E'Medial: 6.85 E/E' Med: 18.40 E' Laterial: 8.81 E/E' Lat: 14.30 Right Ventricle TAPSE (mm): 22.50 TVS' Lizandro: 15.30 Tricuspid Valve TR Pk Lizandro: 2.69 TR Pk Grad: 29.00 RA Press: 3.00 RVSP: 32.00 Pulmonary Veins Pulm Vein S/D 1.30 Updated in Other Vendor System with Status of Final Henrry Carrington MD electronically signed on 08/24/2023 9:36:13 AM with status of Final
[2023-08-24 08:00] VITALS: BP 166/77; PULSE 54; RESP 20; TEMP 36.6; O2SAT 93
[2023-08-24 08:45] VITALS: BP 166/77
[2023-08-24] MEDS: Apixaban 5 MG TABLET PO (08:45)
[2023-08-24] MEDS: Furosemide 20 MG TABLET PO (08:45)
[2023-08-24] MEDS: Cholecalciferol (Vitamin D3) 25 MCG TABLET PO (08:45)
[2023-08-24] MEDS: Sertraline HCL 50 MG TABLET PO (08:45)
[2023-08-24] MEDS: Multivitamin TABLET 1 TAB PO (08:45)
[2023-08-24] MEDS: 0.9 % Sodium Chloride Flush 3 ML SYRINGE IVFLUSH (08:46)
[2023-08-24 11:13] VITALS: BP 149/75; PULSE 52; RESP 20; TEMP 36.4; O2SAT 93
--- NOTE | 2023-08-24 11:18 | PM.DS ---
DS: Providers Provider Date of Service: 08/24/23 Date of admission: 08/23/23 12:15 Primary care physician: ROBBIE Mcdonnell Consults: 08/23/23 11:25 Consult to Cardiology Routine Consulting Provider: [facility] Reason for consultation: New onset AFib w/RVR, now converted to NSR DS: Diagnosis Discharge Diagnosis (1) New onset a-fib: Status: Acute DS: Summary Hospital Course Hospital Course: History of present illness: Date of Service: 08/23/23 Attending physician on admission: Radha Donnelly Chief Complaint: Palpitations Pt is a 63-year-old female with a PMH significant for HTN, HLD,?prediabetes, asthma, chronic lower leg edema, and eczema who presents to the ED with chest and back pain x2 days and?palpitations since this morning. Patient reports for the past few days she has experienced constant, substernal chest pain that has radiates to her back. Yesterday patient began experience worsening chronic shortness of breath as well as increased lower leg edema. Has been experiencing SOB for many months, though worsened yesterday with difficulty even going up a half flight of stairs. This morning patient was awoken from sleep with a slight headache and ?racing heart? that prompted her visit to the ED. states has had intermittent palpitations for the past few years. Presented to PCP complaining of symptoms and was sent to Cardiology a few years ago for full workup which was negative. Chronic productive cough in the morning x6+ months at baseline. Denies fever, chills, N/V/D, or abd pain. In the ED pt was tachycardic up to 166 otherwise vitals stable. Labs were significant for sodium 146, chloride 111 , and BNP slightly elevated at 188. No leukocytosis. Stable H&H. Renal and hepatic function WNL. Troponin 2.9. Tested negative for flu, RSV. CXR showed question of bronchial wall thickening or small infiltrates at the lung bases. EKG demonstrated atrial fibrillation with RVR of [address] depression in anterior lateral leads and T-wave inversions in inferior leads. Repeat EKG showed sinus bradycardia of 55 without evidence of significant ST elevations or depressions and T-wave inversion in V1. Pt was treated with metoprolol 5 mg IV x2 doses, digoxin 0.25 mg IV, aspirin, and IVF. Pt will be admitted to the hospital under observation for treatment and further evaluation of new onset AFib with RVR. Hospital course: 63-year-old female with a PMH significant for HTN, HLD,?prediabetes, asthma, chronic lower leg edema, and eczema who presents to the ED with chest and back pain x2 days and?palpitations, noted to be in atrial fibrillation with rapid ventricular response, patient treated in the emergency room with metoprolol 5 mg IV x2 dosages and digoxin 0.25 mg IV x1 patient converted to sinus rhythm with bradycardia heart rate in 50s all symptoms of chest pain and palpitations resolved , troponins were negative, patient's CHADS2 vascular score was 2 therefore started on Eliquis 5 mg b.i.d. patient was admitted to telemetry unit, she remains in normal sinus rhythm, with no recurrent episodes of AFib with RVR patient was evaluated by lead systems developer an echocardiogram was obtained that showed EF greater than 70 , an impaired relaxation filling pattern was noted, since patient is hemodynamically stable she is being discharged home on Toprol-XL 25 mg and Eliquis 5 mg b.i.d., recommend outpatient ischemic workup and follow-up with Cardiology. In regard to chronic lower leg edema she has been continued on furosemide and recommend to continue home antihypertensives. In regard to mild persistent Asthma no acute exacerbation was noted,CXR showed question of bronchial wall thickening or small infiltrates in lung bases, patient was noted to have no fevers has chronic nonproductive cough likely due to asthma patient did not require antibiotic treatment. Obesity class III Weight loss encouraged. Time Attestation Discharge Coordination Time (in mins): 36 Quality: Safe Use of Opioids Does Pt have an Active Cancer Diagnosis on the Problem List?: No Quality: Stroke Does the patient have a stroke diagnosis?: No Physical Exam Vital Signs: Vital Signs: Last Vital Signs Temp 97.5 F 08/24/23 11:13 Pulse 52 08/24/23 11:13 Resp 20 08/24/23 11:13 BP 149/75 H 08/24/23 11:13 Pulse Ox 93 08/24/23 11:13 O2 Del Method Room Air 08/24/23 11:13 BMI result Body Mass Index 52.2 Const: Other: General awake alert x3, resting comfortably in no acute distress. Neck supple no JVD. CVS regular rate rhythm, Respiratory lungs clear to auscultation, no respiratory distress, no wheeze, no rhonchi. Gastrointestinal abdomen soft, non tender, bowel sounds audible Extremities trace edema. Neuro non focal Skin no rash Psych appropriate affect DS: Data Data Completed and Pending Labs on day of discharge: Laboratory Results - last 24 hr 08/23/23 08/23/23 08/23/23 08:43 13:23 13:41 Troponin I High Sens 4.5 D TSH 3.63 Urine Color Yellow Urine Appearance Clear Urine pH 6.5 Ur Specific [place] 1.010 Urine Protein Negative Urine Glucose (UA) Negative Urine Ketones Negative Urine Blood Negative Urine Nitrite Negative Ur Leukocyte Esterase Negative Discharge Plan Discharge Anticipated Discharge Date/Time: 08/24/23 11:06 Patient Disposition: Home, Self-Care Discharge Diagnosis: New onset atrial fibrillation with RVR Referrals: Tj Sandhu PA [Primary Care Provider] - 1 Week Discharge Medications: New Eliquis 5 mg Tablet 5 mg PO BID Qty: 180 0RF metoprolol succinate [Toprol XL] 25 mg tablet extended release 24 hr 25 mg PO DAILY Qty: 30 0RF Continued nifedipine 30 mg tablet extended release 30 mg PO DAILY triamcinolone acetonide 0.1 % cream 1 appl topical BID PRN (Reason: eczema) losartan 100 mg tablet 100 mg PO DAILY sertraline 50 mg tablet 50 mg PO DAILY budesonide-formoterol [Symbicort] 80-4.5 mcg/actuation HFA aerosol inhaler 2 puff inhalation BID Dupixent Pen 300 mg/2 mL pen injector 300 mg subcut Q2W ferrous sulfate 325 mg (65 mg iron) Tablet,Delayed Release (Dr/Ec) 325 mg PO Q OTHER DAY cholecalciferol (vitamin D3) [Vitamin D3] 25 mcg (1,000 unit) Tablet 25 mcg PO DAILY Centrum Adult 50 Plus 80 mcg Tablet,Chewable 1 tab PO DAILY albuterol sulfate 90 mcg/actuation HFA aerosol inhaler 2 puff inhalation Q6H PRN (Reason: Shortness Of Breath Or Wheezing) furosemide 20 mg tablet 20 mg PO DAILY Discharge Orders: Discharge Order (Routine); Ordered 08/24/23 Ordered By: Radha Donnelly Diet: Advance to usual diet Activity on Discharge: As tolerated Stand Alone Forms: Patient Portal Discharge page Print Language: Indonesian Care Plan Goals: Atrial fibrillation with RVR resolved now in normal sinus rhythm take Eliquis 5 mg 1 tablet twice daily and Toprol-XL 25 mg daily Continue all home medications Health Concerns: Asthma/hypertension Plan of Treatment: Outpatient follow-up with primary care physician and lead systems developer Dr. Gardner call for appointment Assessment: As above
[2023-08-24 11:37] VITALS: BP 149/75
[2023-08-24] MEDS: Losartan Potassium 50 MG TABLET 100 MG PO (11:37)
--- NOTE | 2023-08-24 11:40 | MHC.CM.PN ---
PT REPORTS SHE LIVES WITH HER DAUGHTER AND IS INDEPENDENT WITH CARE SHE HAS A CPAP FOR DME PCP: AFSHAN BUTTS PT COMPLETED A HCP TODAY, NOW ON FILE PT WILL DC HOME TODAY WITH NO SERVICES VIA PRIVATE TRANSPORT
--- NOTE | 2023-08-24 12:40 | PM.PNCARD ---
Subjective Subjective Date of Service: 08/24/23 Principal diagnosis: Atrial fibrillation Interval history: Patient is feeling well. He is converted to sinus rhythm. Echocardiogram showed hyperdynamic LV systolic ejection fraction as well as mildly increased gradient across the aortic valve unclear etiology. Study was of borderline quality. Blood pressure is slightly elevated. Patient denies any new symptoms Review of Systems Review of Systems Yes all other systems are reviewed and are negative Physical Exam Vital Signs: Last Vital Signs Temp 97.5 F 08/24/23 11:13 Pulse 52 08/24/23 11:13 Resp 20 08/24/23 11:13 BP 149/75 H 08/24/23 11:37 Pulse Ox 93 08/24/23 11:13 O2 Del Method Room Air 08/24/23 11:13 BMI result Body Mass Index 52.2 Const General: comfortable and no acute distress Orientation/consciousness: patient oriented x3 HEENT Other: Unremarkable Head: Yes normal to inspection Neck Neck: Yes normal visual inspection Chest Chest palpation & inspection: normal inspection of the chest Resp Auscultation: clear to auscultation bilaterally Cardio Palpation: normal PMI Heart sounds: S1 normal heart sound present, S2 normal heart sound present, no gallops, Murmur heart sound present systolic II/ and at the right sternal border and no rubs GI Palpation (GI): Soft to palpation Back/Spine/Pelvis Other: unremarkable Skin General skin exam: no rashes or lesions noted Neuro General: patient oriented x3 Extrem Other: 1+ edema General: Yes normal to inspection Psych Mental Status: mental status grossly normal Objective Labs and Meds 08/23/23 08:45 08/23/23 08:43 Lab results: Laboratory Results - last 24 hr 08/23/23 08/23/23 08/23/23 08:43 13:23 13:41 Troponin I High Sens 4.5 D TSH 3.63 Urine Color Yellow Urine Appearance Clear Urine pH 6.5 Ur Specific [place] 1.010 Urine Protein Negative Urine Glucose (UA) Negative Urine Ketones Negative Urine Blood Negative Urine Nitrite Negative Ur Leukocyte Esterase Negative Progress Note: A&P Assessment and plan (1) New onset a-fib: Status: Acute Assessment and Plan: New onset atrial fibrillation this middle-aged woman most likely related to her underlying risk factors of morbid obesity as well as obstructive sleep apnea and underlying hypertension. Pathophysiology of atrial fibrillation was discussed again with her. For now she is converted back to sinus rhythm will continue pursue rhythm control approach as she appears to be highly symptomatic. We discussed about approaches of treatment including aggressive weight loss program, and she is willing to pursue bariatric referral. Continue treatment for sleep apnea. Will start her on Toprol-XL 25 mg daily and agree with oral anticoagulation therapy, Eliquis 5 mg b.i.d.. Will set up for outpatient follow-up. Patient can be discharged home. (2) Precordial chest pain: Status: Acute Assessment and Plan: Precordial chest pain related to atrial fibrillation. Most likely related to symptomatic fast heart rate. Although myocardial ischemia needs to be ruled out given her multiple risk factors. Will set her up for outpatient vasodilating myocardial perfusion imaging to assess for the same. Continue aggressively rhythm control approach. Time Spent With Patient Time: Total time managing care of this patient today ____ minutes. Progress Note: Quality Stroke Does the patient have a stroke diagnosis?: No Procedures Date of Service Date of Service: 08/24/23
== END 2023-08-24 12:10 | disposition home or self-care (01) | DRG 309 ==
LOC: HO.ED 10:54 → HO.EDOVER 12:29 → HO.IMC 18:23
PROVIDERS: Admitting Provider Student in an Organized Health Care Education/Training Program; Emergency Provider Emergency Medicine; PCP Physician Assistant Medical; Visit Provider Hospitalist
DX: I48.91 Unspecified atrial fibrillation (principal); Z68.43 Body mass index [BMI] 50.0-59.9, adult; I10 Essential (primary) hypertension; R73.03 Prediabetes; E78.5 Hyperlipidemia, unspecified; L30.9 Dermatitis, unspecified; J45.909 Unspecified asthma, uncomplicated; E66.01 Morbid (severe) obesity due to excess calories; Z71.3 Dietary counseling and surveillance; Z20.822 Contact with and (suspected) exposure to COVID-19; Z87.891 Personal history of nicotine dependence; Z79.01 Long term (current) use of anticoagulants; Z79.899 Other long term (current) drug therapy
CPT/HCPCS: 0241U; 36415; 71045; 71046; 80048; 80076; 81003; 83690; 83880; 84443; 84484; 85025; 85610; 85730; 93005; 93306; 94660; 99222; 99285; J1160; Q9957

== ENCOUNTER → 2023-08-23 08:20 | Outpatient (BNV) | payer OTHER, SELFPAY | PROVIDERS: Emergency Provider Emergency Medicine; PCP Physician Assistant Medical; Visit Provider Internal Medicine | DX: R00.1 Bradycardia, unspecified (principal); I48.91 Unspecified atrial fibrillation | CPT/HCPCS: 93010 ==

== ENCOUNTER 2023-08-23 12:15 | Outpatient (BNV) | payer OTHER, SELFPAY | END 2023-08-24 07:00 | PROVIDERS: Admitting Provider Student in an Organized Health Care Education/Training Program; Emergency Provider Emergency Medicine; PCP Physician Assistant Medical; Visit Provider Internal Medicine Cardiovascular Disease | DX: I48.91 Unspecified atrial fibrillation (principal); R93.1 Abnormal findings on diagnostic imaging of heart and coronary circulation | CPT/HCPCS: 93306 ==

== ENCOUNTER → 2023-08-23 12:15 | Outpatient (BNV) | payer OTHER, SELFPAY | PROVIDERS: Admitting Provider Student in an Organized Health Care Education/Training Program; Emergency Provider Emergency Medicine; PCP Physician Assistant Medical; Visit Provider Internal Medicine | DX: I48.91 Unspecified atrial fibrillation (principal); R07.2 Precordial pain | CPT/HCPCS: 99223; 99233 ==

== ENCOUNTER → 2023-08-23 12:15 | Outpatient (BNV) | payer OTHER, SELFPAY | PROVIDERS: Admitting Provider Student in an Organized Health Care Education/Training Program; Emergency Provider Emergency Medicine; PCP Physician Assistant Medical; Visit Provider Student in an Organized Health Care Education/Training Program | DX: I48.91 Unspecified atrial fibrillation (principal) | CPT/HCPCS: 99222; 99239 ==

== ENCOUNTER 2023-09-23 07:00 | Outpatient (RCR) | payer OTHER, SELFPAY | END 2023-09-23 07:59 | disposition home or self-care (01) | LOC: HO.OT 07:00 | PROVIDERS: PCP Physician Assistant Medical; Visit Provider Physician Assistant | DX: S63.602D Unspecified sprain of left thumb, subsequent encounter (principal) | CPT/HCPCS: 97110; 97140; 97166; 97535 ==

== ENCOUNTER → 2023-10-15 07:58 | Outpatient (REF) | payer OTHER, SELFPAY ==
--- NOTE | ~2023-10-15 | NM_ITS ---
Lexiscan Myocardial perfusion study Indication: Shortness of breath Technique: The patient was brought in for a Lexiscan perfusion study on 10/15/2023 and was injected 0.4 mg of Lexiscan intravenously. Within a minute of this injection 40 mCi of sestamibi was given intravenously. Images were obtained using the SPECT gamma camera interlaced with the gating device. Images were obtained in supine position. Resting perfusion study was performed on 10/16/2023. Patient was administered 30 mCi of sestamibi intravenously at rest. Images were then obtained in supine position. Images were processed with the software and compared side to side in short axis, horizontal long axis and vertical long axis views. Total DLP 181mGy-cm. Findings: Raw acquisition reviewed. The stress perfusion study showed somewhat reduced uptake globally and suspect is technical. There is improvement with CT attenuation correction and hence suggestive of soft tissue attenuation/diaphragmatic attenuation artifact. There is also adjacent subdiaphragmatic tracer uptake. The gated study shows normal LV systolic function with calculated LVEF of 55%. LV cavity is normal in size. The gated study shows normal wall thickening and contraction of segments. Resting study shows no significant perfusion abnormality. Gating at rest reveals normal wall motion with ejection fraction at 56%. The findings are consistent with no definitive reversible or fixed defects. Due to suboptimal image quality, inferior wall assessment not definitive. NV/NV cardiolite stress test Impression: 1. Myocardial perfusion imaging study shows no clear evidence of any ischemia or infarction within limitation of image quality. Cannot exclude abnormalities in the basal part of inferior wall. 2. Gated LVEF is 55% during stress and 56% during rest. 3. Transient ischemic dilatation not present. EKG component of the test reported separately.
--- NOTE | 2023-10-15 08:02 | CA_ITS ---
Acquisition Time: 2023-10-15 08:17:56 Total Exercise Time: 00:02:00 Test Indications: SOB Medications: Protocol: LEXISCAN Max HR: 090 BPM 57% of Pred: 157 BPM Max BP: 118/062 mmHG Max Work Load: 1.0 METS Pharmacological stress test with Lexiscan injection while sitting and slowly kicking, without anginal symptoms, without arrhythmias, with normotensive response to injection, with nondiagnoisitic EKGs. Aminophylline 75mg IVP given to reverse Lexiscan. Nuclear images pending. Test reviewed with Dr. Raymond. Referred By: Henrry Carrington Overread By: Nu Hdez
--- NOTE | 2023-10-15 08:02 | HM_ITS ---
* Total monitoring time 3 days. * Underlying rhythm is sinus with an average rate of 62/Min. * Rare supraventricular ectopy. * Rare ventricular ectopy. * No significant pauses or AV blocks. * Patient markers used in association with sinus rhythm and supraventricular ectopy. * Shortness of breath, rapid/fast heartbeat, fluttering, flushed, headache, high BP, jittery, in patient diary associated with sinus rhythm and mild sinus tachycardia. MTDD
== END ==
LOC: HO.CARD 07:58
PROVIDERS: PCP Physician Assistant Medical; Visit Provider Internal Medicine Cardiovascular Disease
DX: R07.2 Precordial pain (principal); I48.91 Unspecified atrial fibrillation; R06.02 Shortness of breath
CPT/HCPCS: 78452; 93017; 93242; A9500; J0280; J2785

== ENCOUNTER → 2023-10-15 08:02 | Outpatient (BNV) | payer OTHER, SELFPAY | PROVIDERS: PCP Physician Assistant Medical; Visit Provider Nurse Practitioner | DX: I47.10 Supraventricular tachycardia, unspecified (principal) | CPT/HCPCS: 78452; 93016; 93018; 93244 ==

== ENCOUNTER 2023-11-18 14:28 | Outpatient (AMB) | payer OTHER, SELFPAY ==
[2023-11-18 15:03] VITALS: BP 120/60; PULSE 54; BMI 52.1
--- NOTE | 2023-11-18 15:03 | A.OFFVIS_ITS ---
Vital Signs 11/18/23 15:03 Height 5 ft 5 in Weight 313 lb 0.902 oz BMI 52.1 BP 120/60 Blood Pressure Location Lt brachial Position Sitting Pulse 54 Pulse Source Pulse Oximeter Intake Visit Reasons: F/U after testing Allergies Penicillins [PENICILLINS] Allergy (Severe, Verified 08/23/23 08:22) hives/urticaria Medication List - Last Reconciled 11/18/23 by Nu Hdez NP albuterol sulfate 90 mcg/actuation 2 puffs inhalation Q6H PRN apixaban (Eliquis) 5 mg PO BID budesonide-formoterol 80-4.5 mcg/actuation (Symbicort) 2 puffs inhalation BID cholecalciferol (vitamin D3) (Vitamin D3) 25 mcg PO DAILY dupilumab (Dupixent) 300 mg subcut Q2W ferrous sulfate 325 mg PO Q OTHER DAY furosemide 20 mg PO DAILY losartan 100 mg PO DAILY metoprolol succinate ER (Toprol XL) 25 mg PO DAILY multivit with min-folic acid 80 mcg (Centrum Adult 50 Plus) 1 tab PO DAILY nifedipine ER 30 mg PO DAILY sertraline 50 mg PO DAILY triamcinolone acetonide 0.1% 1 appl topical BID PRN HPI Comments Details: 63-year-old female presents today for hospitalization follow up for new onset atrial fibrillation. Dr. Raymond consulted on this patient back on 08/23/2023 for new onset atrial fibrillation. She was having some palpitations which brought her to the emergency room and was found to be in atrial fibrillation with rapid ventricular rate in which she was converted to sinus rhythm. She still reports some shortness of breath on exertion and an occasional flutter. She has a history of morbid obesity, asthma well as obstructive sleep apnea and uses her CPAP nightly. Since her discharge she has cut back alcohol to 190 week and has increased her walking. [facility] Medical History (Updated 11/30/23 @ 14:02 by Nu Hdez NP) MARGARETH (obstructive sleep apnea) Atrial fibrillation BMI 50.0-59.9, adult Lower leg edema Prediabetes Asthma HLD (hyperlipidemia) HTN (hypertension) Eczema Surgical History History of endoscopy (2004) History of wisdom tooth extraction History of colonoscopy (2014) History of delivery Family History Father Liver cancer Mother Pancreatic cancer Maternal Grandmother Pancreatic cancer Sister Breast cancer Maternal Uncle Lung cancer Social History Household Members: Family Housing: House Do you presently have visiting nurse or other home services: No Alcohol intake: current Alcohol intake frequency: a few times a week Patient Tobacco Use Status: Former Tobacco user service: No Review of Systems Const Denies weakness ENT Denies dizziness Card Denies chest pain, Denies chest pain with activity, Denies syncope, Denies rapid heart rate, Denies pedal edema, Denies edema, Denies leg edema, Denies lightheadedness, Denies palpitations, Denies dyspnea, Denies dyspnea on exertion and Denies orthopnea Resp Denies cough, Denies dyspnea and Denies dyspnea on exertion GI Denies hematochezia and Denies change in stool character Musc Denies abnormal gait, Denies muscle cramps, Denies muscle weakness, Denies numbn ess, Denies radiating pain into limb and Denies tingling Neuro Denies abnormal gait, Denies dizziness, Denies syncope, Denies numbness, Denies tingling and Denies weakness Endo Denies palpitations Physical Exam Vital Signs: Last Vital Signs Pulse 54 11/18/23 15:03 BP 120/60 11/18/23 15:03 BMI result Body Mass Index 52.1 Results Reviewed Results Reviewed: * Total monitoring time 3 days. * Underlying rhythm is sinus with an average rate of 62/Min. * Rare supraventricular ectopy. * Rare ventricular ectopy. * No significant pauses or AV blocks. * Patient markers used in association with sinus rhythm and supraventricular ectopy. * Shortness of breath, rapid/fast heartbeat, fluttering, flushed, headache, high BP, jittery, in patient diary associated with sinus rhythm and mild sinus tachycardia. NM/NM cardiolite stress test Impression: 1. Myocardial perfusion imaging study shows no clear evidence of any ischemia or infarction within limitation of image quality. Cannot exclude abnormalities in the basal part of inferior wall. 2. Gated LVEF is 55% during stress and 56% during rest. 3. Transient ischemic dilatation not present. Assessment & Plan Assessment & Plan (1) Atrial fibrillation: Code(s): I48.91 - Unspecified atrial fibrillation Category: Medical (2) HTN (hypertension): Code(s): I10 - Essential (primary) hypertension Category: Medical (3) MARGARETH (obstructive sleep apnea): Code(s): G47.33 - Obstructive sleep apnea (adult) (pediatric) Category: Medical (4) BMI 50.0-59.9, adult: Code(s): Z68.43 - Body mass index [BMI] 50.0-59.9, adult Category: Medical Plan New onset atrial fibrillation she is on Eliquis and metoprolol 25 mg q.day. Signs and symptoms of bleeding reviewed. Patient denies any current bleeding. Reports an occasional flutter feeling. Advised to avoid any stimulants. Importance of medication compliance reviewed. Blood pressure well optimized today. Continue use of CPAP machine. Patient's BMI is 52.1. She is interested in discussing options with the weight loss clinic. Referral put in. Patient advised to exercise as tolerated. Orders: Referrals Medical Weight Management Referral Z68.43 - Body mass index [BMI] 50.0-59.9, adult Coding Level of Care Code Est Pt Level 4 (47855) Diagnoses Atrial fibrillation I48.91 HTN (hypertension) I10 MARGARETH (obstructive sleep apnea) G47.33 BMI 50.0-59.9, adult Z68.43
== END 2023-11-18 15:54 | disposition home or self-care (01) ==
PROVIDERS: PCP Physician Assistant Medical; Visit Provider Nurse Practitioner
DX: I48.91 Unspecified atrial fibrillation (principal); I10 Essential (primary) hypertension; G47.33 Obstructive sleep apnea (adult) (pediatric); Z68.43 Body mass index [BMI] 50.0-59.9, adult
CPT/HCPCS: 99214

== ENCOUNTER → 2023-11-18 14:28 | Outpatient (BNVA) | payer OTHER, SELFPAY | PROVIDERS: PCP Physician Assistant Medical; Visit Provider Nurse Practitioner | DX: I48.91 Unspecified atrial fibrillation (principal); I10 Essential (primary) hypertension; G47.33 Obstructive sleep apnea (adult) (pediatric); Z79.01 Long term (current) use of anticoagulants; Z79.899 Other long term (current) drug therapy ==

== ENCOUNTER 2024-05-12 13:40 | Outpatient (AMB) | payer BC, SELFPAY ==
[2024-05-12 13:47] VITALS: BP 136/60; PULSE 61; BMI 53.9
--- NOTE | 2024-05-12 13:47 | A.OFFVIS_ITS ---
Vital Signs 05/12/24 13:47 Height 5 ft 5 in Weight 324 lb 1.272 oz BMI 53.9 BP 136/60 Blood Pressure Location Rt brachial Position Sitting Pulse 61 Pulse Source Pulse Oximeter Intake Visit Reasons: 6 mth f/'up Environmental Services Assistant Required: No Accompanied by: Daughter Allergies Penicillins [PENICILLINS] Allergy (Severe, Verified 08/23/23 08:22) hives/urticaria Medication List - Last Reconciled 05/12/24 by Masood Raymond MD albuterol sulfate 90 mcg/actuation 2 puffs inhalation Q6H PRN apixaban (Eliquis) 5 mg PO BID atenolol 25 mg PO DAILY budesonide-formoterol 80-4.5 mcg/actuation (Symbicort) 2 puffs inhalation BID cholecalciferol (vitamin D3) (Vitamin D3) 25 mcg PO DAILY dupilumab (Dupixent) 300 mg subcut Q2W ferrous sulfate 325 mg PO Q OTHER DAY furosemide 20 mg PO DAILY losartan 100 mg PO DAILY multivit with min-folic acid 80 mcg (Centrum Adult 50 Plus) 1 tab PO DAILY nifedipine ER 30 mg PO DAILY sertraline 50 mg PO DAILY HPI Comments Details: Karina is here for follow-up regarding atrial fibrillation. Last year, she was seen in inpatient consultation. At that time, she was admitted for chest pain, shortness of breath, palpitations and found to be in atrial fibrillation with rapid rate. She converted to sinus rhythm in the hospital. Has been on beta- blockers. For the most part she feels okay. She still gets some palpitations with activity which most likely suggest sinus tachycardia/deconditioning. Otherwise, chest pain episodes off and on with and without activity. Sounds somewhat atypical angina. She states it is in the front but goes all the way into the back. No known coronary disease or myocardial infarction. Has morbid obesity. Has obstructive sleep apnea on CPAP. [facility] Medical History (Updated 05/12/24 @ 14:19 by Masood Raymond MD) MARGARETH (obstructive sleep apnea) Atrial fibrillation BMI 50.0-59.9, adult Lower leg edema Prediabetes Asthma HLD (hyperlipidemia) HTN (hypertension) Eczema Surgical History History of endoscopy (2004) History of wisdom tooth extraction History of colonoscopy (2015) History of delivery Family History Father Liver cancer Mother Pancreatic cancer Maternal Grandmother Pancreatic cancer Sister Breast cancer Maternal Uncle Lung cancer Social History Household Members: Family Housing: House Do you presently have visiting nurse or other home services: No Alcohol intake: current Alcohol intake frequency: a few times a week Patient Tobacco Use Status: Former Tobacco user service: No Review of Systems Const Denies chills, Reports fatigue, Denies fever(s), Denies weight gain and Denies weight loss ENT Denies dizziness Card Reports chest pain, Reports irregular heart rhythm, Denies leg edema, Denies lightheadedness, Denies palpitations, Reports dyspnea on exertion, Denies orthopnea and Denies other Resp Denies cough and Reports dyspnea on exertion GI Denies hematochezia and Denies change in stool character Musc Denies abnormal gait, Denies muscle weakness, Denies numbness, Denies radiating pain into limb and Denies tingling Neuro Denies abnormal gait, Denies dizziness, Denies numbness and Denies tingling Endo Reports fatigue and Denies palpitations Physical Exam Vital Signs: Last Vital Signs Pulse 61 05/12/24 13:47 BP 136/60 05/12/24 13:47 BMI result Body Mass Index 53.9 Const General: comfortable and no acute distress Orientation/consciousness: patient oriented x3 HEENT Other: Unremarkable Head: Yes normal to inspection Neck Neck: Yes normal visual inspection Chest Chest palpation & inspection: normal inspection of the chest Resp Auscultation: clear to auscultation bilaterally Cardio Palpation: normal PMI Heart sounds: S1 normal heart sound present, S2 normal heart sound present, no gallops, Murmur heart sound present systolic II/ and no rubs GI Palpation (GI): Soft to palpation Back/Spine/Pelvis Other: unremarkable Skin General skin exam: no rashes or lesions noted Neuro General: patient oriented x3 Extrem General: Yes normal to inspection Psych Mental Status: mental status grossly normal Assessment & Plan Assessment & Plan (1) Paroxysmal atrial fibrillation: Code(s): I48.0 - Paroxysmal atrial fibrillation Category: Medical Plan: Has tiredness with metoprolol. Change to atenolol. Continue Eliquis. (2) HTN (hypertension): Code(s): I10 - Essential (primary) hypertension Category: Medical Plan: On losartan/nifedipine. (3) MARGARETH (obstructive sleep apnea): Code(s): G47.33 - Obstructive sleep apnea (adult) (pediatric) Category: Medical Plan: On CPAP. (4) BMI 50.0-59.9, adult: Code(s): Z68.43 - Body mass index [BMI] 50.0-59.9, adult Category: Medical Plan: Strongly advised weight loss. She may go for bariatric consultation. (5) Precordial chest pain: Code(s): R07.2 - Precordial pain Category: Medical Plan: Somewhat atypical as she has not at rest and exertion. In the past, perfusion imaging was unremarkable. Check coronary CTA. Orders: Orders CT Cardiac Coronary Angio Today I25.10 - Atherosclerotic heart disease of [place] coronary artery without angina pectoris, R07.2 - Precordial pain Basic Metabolic Panel Today R07.2 - Precordial pain Medications: New atenolol 25 mg PO DAILY 90 tabs 3RF Discontinued metoprolol succinate ER (Toprol XL) Discontinued Reason: Doctor's Order 25 mg PO DAILY 30 tabs 0RF Coding Level of Care Code Est Pt Level 4 (54177) Complex EM visit Add On G2211 Diagnoses Paroxysmal atrial fibrillation I48.0 HTN (hypertension) I10 MARGARETH (obstructive sleep apnea) G47.33 BMI 50.0-59.9, adult Z68.43 Precordial chest pain R07.2
--- OUTSIDE RECORDS SUMMARY | 2024-05-12 14:38 | XMS_ITS | Encounter Summary ---
Author Organization [facility] Address [address] [place] [address] Care Team Providers Care Management Planner Name Role Phone Tj Sandhu PA-C Primary Care Provider [phone] Encounter Details Date Type Department Care Team Description 06/16/2023 Pt. Non Urgent Medical Question Adult Medicine [address] [id number] Tj Sandhu PA-C [address] [place] [id number] Social History Tobacco Use Types Packs/Day Years Used Date Smoking Tobacco: Former Cigarettes 0 04/15/1971 - 10/23/1981 Smokeless Tobacco: Never Alcohol Use Standard Drinks/Week Comments Yes 0 (1 standard drink = 0.6 oz pur e alcohol) occ Alcohol Habits Answer Date Recorded How often do you have a drink containing alcohol ? 2-3 times a week 10/11/2019 How many drinks containing a lcohol do you have on a typical day when you are drinking? 3 or 4 10/11/2019 How often do you have six or more drinks on one occasion? Not asked Sex Assigned at Date Recorded Not on file Job Start Date Occupation Industry Not on file Not on file Not on file documented as of this encounter Miscellaneous Notes * Telephone Encounter - Niru Smith C.M.A - 06/16/2023 10:14 AM EDTFrom: Karina Burks To: Quintin Sandhu Sent: 06/16/2023 10:11 AM EDT Subject: Hand injury On April I tripped and when I tried to catch myself I hyper extended my thumb. I had bruising, swelling and pain. I went to urgent care, and they sent me to [facility] for x-rays. Nothing was broken so they told me to wear a splint for a few days. I am still experiencing some pain and although most of my range of motion has returned , I still have some limitations. I also have a lump on theinner knuckle of my thumb. I'm wondering if I should have it checked again. It looks like it may have been dislocated. documented in this encounter Plan of Treatment Not on file documented as of this encounter Visit Diagnoses Not on filedocumented in this encounter Care Teams Management Planner Relationship Specialty Start Date End Date Tj Sandhu PA-C [address] [place] [address] PCP - General Internal Medicine 06/14/20 documented as of this encounter
--- OUTSIDE RECORDS SUMMARY | 2024-05-12 14:38 | XMS_ITS | Encounter Summary ---
Author Organization [facility] Address [address] [place] [address] Care Team Providers Care Head Animal Trainer Name Role Phone Jaskaran García MD Primary Care Provider [phone] Tj Sandhu PA-C Primary Care Provider [phone] Reason for Referral * Non SERGEY (Routine) - Authorized/Booked Specialty Diagnoses / Procedures Referred By Yasmeen vinson Referred To Contact Gastroenterology Diagnoses History of colonic polyps Procedures REFERRAL TO GASTROENTEROLOGY Jaskaran García MD [address] [place] [id number] Wilmar Addison MD [address] [place] [id number] Referral ID Status Reason Start Date Expiration Date V isits Requested Visits Authorized [id number] Authorized/B ooked 10/11/2019 03/22/2020 12 12 Reason for Visit * Reason Onset Date Comments DME Request 09/28/2019 Encounter Details Date Type Department Care Team Description 09/28/2019 Pt. Non Urgent Medical Question Adult Medicine [address] [address] Jaskaran García MD [address] [place] [id number] MARGARETH (obstructive sleep apnea) mild AHI 12 (Primary Dx); History of colonic polyps Social History Tobacco Use Types Packs/Day Years Used Date Smoking Tobacco: Former Cigarettes 0 04/15/1971 - 10/23/1981 Smokeless Tobacco: Never Alcohol Use Standard Drinks/Week Comments Yes 0 (1 standard drink = 0.6 oz pur e alcohol) socially Alcohol Habits Answer Date Recorded How often [...] encounter Miscellaneous Notes * Telephone Encounter - Vivi Carrion M.A. - 09/28/2019 12:58 PM EDTFrom: Karina Burks To: Jaskaran García MD Sent: 09/28/2019 12:46 PM EDT Subject: C-PAP and colonoscopy The company where I have been getting my C-PAP supplies is not covered under my new insurance. Can you give me a new prescription so I can get them from [employer] ([phone]) Also, I believe I am supposed to be having a colonoscopy this year. Will that be scheduled. I'm asking mostly b ecause I have been having some pain/cramping or the last 8 days that have me concerned. Thanks Karina documented in this encounter Plan of Treatment Not on file documented as of this encounter Procedures Procedure Name Priority Date/Time Associated Diagnosis Comments CPAP/BIPAP ORDER Routine 10/12/2019 2:39 PM EDT CPAP SUPPLIES Routine 10/12/2019 2:39 PM EDT CPAP/BIPAP ORDER Routine 10/12/2019 2:36 PM EDT CPAP SUPPLIES Routine 10/12/2019 2:36 PM EDT CPAP/BIPAP ORDER Routine 10/11/2019 12:07 PM EDT MARGARETH (obstructive sleep apnea) mild AHI 12 CPAP SUPPLIES Routine 10/11/2019 12:07 PM EDT MARGARETH (obstructive sleep apnea) mild AHI 12 documented in this encounter Visit Diagnoses Diagnosis MARGARETH (obstructive sleep apnea) mild AHI 12- Primary Obstructive sleep apnea (adult) (pediatric) History of colonic polyps Personal history of colonic polyps documented in this encounter Care Teams Head Animal Trainer Relationship Specialty Start Date End Date Jaskaran García MD [address] [place] [address] [phone] PCP - General 04/03/00 06/13/20 Tj Sandhu PA-C [address] [place] [address] [id number] PCP - General Internal Medicine 06/14/20 documented as of this encounter
--- OUTSIDE RECORDS SUMMARY | 2024-05-12 14:38 | XMS_ITS | Clinical Summary ---
Author Organization [address] Address [address] [place] [id number] Phone Care Team Providers Care Secretary To The Vice President Name Role Phone Tj Sandhu Primary Care Provider [phone] Allergies Active Allergy Reactions Criticality Noted Date Comments Ceramides 1,3,6-Ii Itching,Cough Medium 01/09/2023 Cerave Hydrating Cleanser Penicillins Hives 08/24/2007 Medications Symbicort 80-4.5 mcg/actuation inhaler INHALE 2 PUFFS INTO THE LUNGS TWO TIMES A DAY 10.2 g 5 4 Active ALBUTEROL INHL Inhale into the lungs. Active diphenhydramine HCl (BENADRYL ALLERGY ORAL) Take by mouth daily as needed. Active reservoir inhalation (INSPIREASE) device Use with inhaler regularly 0 Active albuterol 2.5 mg /3 mL (0.083 %) nebulizer solution Take 1 Vial by nebulization every 4 hours as needed for Wheezing. 3 Active albuterol HFA (PROAIR HFA ; PROVENTIL HFA ; VENTOLIN HFA) 90 mcg/actuation inhaler Inhale 2 Puffs into the lungs every 4 hours as needed for Cough or Wheezing. 4 Active budesonide-form oteroL (Symbicort) 80-4.5 mcg/actuation inhaler INHALE 2 PUFFS INTO THE LUNGS TWICE A DAY 4 Active clobetasoL (TEMOVATE) 0.05 % cream APPLY TOPICALLY TO AFFECTED AREA S) TWO TIMES A DAY FOR 2 WEEKS 2 Active dupilumab (Dupixent Pen) 300 mg/2 mL pen 4 Active hydrOXYzine HCL (ATARAX) 10 mg tablet Take 1 Tablet by mouth 3 times daily as needed for Itching. 3 Active NIFEdipine (ADALAT CC) 30 mg 24 hr tablet TAKE ONE TABLET BY MOUTH EVERY DAY 4 Active semaglutide (Ozempic) 0.25 mg or 0.5 mg(2 mg/1.5 mL) injection pen Inject 0.25 mg into the skin once a week for 28 days, THEN 0.5 mg once a week for 180 days. 4 08/16/19 25 Active tirzepatide, weight loss, (Zepbound) 2.5 mg/0.5 mL injection Inject 2.5 mg into the skin once a week. 4 Active triamcinolone (KENALOG) 0.1 % cream Apply to affected areas one or two times per day for two to four weeks 3 Active Eliquis 5 mg tablet TAKE ONE TABLET BY MOUTH TWICE A DAY 180 tablet 1 4 Active metoprolol succinate (TOPROL-XL) 25 mg 24 hr tablet TAKE ONE TABLET BY MOUTH EVERY DAY 90 tablet 1 4 Active furosemide (LASIX) 20 mg tablet TAKE ONE TABLET BY MOUTH EVERY DAY 90 tablet 5 Active losartan (COZAAR) 100 mg tablet TAKE ONE TABLET BY MOUTH EVERY DAY 90 tablet 5 Active sertraline (ZOLOFT) 50 mg tablet TAKE ONE TABLET BY MOUTH EVERY DAY 90 tablet 5 Active Active Problems Problem Noted Date Diagnosed Date Morbid obesity with BMI of 45.0-49.9, adult 02/20 Prediabetes 06/22/2023 Hyperlipidemia 11/13/2020 Overview (03/04/2024): ASCVD score 5.2% Calcific tendinitis of right shoulder 2018 Intramural leiomyoma of uterus 01/08/2015 Heart murmur 03/02/2014 Overview (03/04/2024): Echo 2013 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 HTN (hypertension), benign 04/14/2011 Vitamin D deficiency 10/21/2010 MARGARETH (obstructive sleep apnea) 01/30/2009 Overview (03/04/2024): [facility] Home Polysomnogram: Date 03/04/2017; AHI 12, Unclassified apneas 1; Obstructive apneas 3; Central apneas 2; Mixed apneas 0; hypopneas 7; average oxygen saturation 93% (lowest 80% without saturations <88% for 5% or more of study) Anxiety and depression 11/09/2007 Asthma 07/04/2005 Encounters Date Type Department Care Team Description 03/18/2024 Telephone Adult Medicine [facility] [address] [place] [address] Tj Sandhu PA from Last 3 Months Immunizations Name Administration Dates Next Due COVID-19 (Moderna/Spikevax) 12yo and older 12/12/2023 Hepatitis B (Zkflcxs-Z-Fvpgc , Recombivax HB-Adult) 19yo and older 07/19/2008,02/22/2008,01/19/2008 Influenza Quadravalent, MDCK , 0.5ml, preservative free (Flucelvax) 6mo and older 12/05/2021,03/31/2019,04/15/2018 Influenza Quadravalent, MDCK , 0.5ml, with preservative (Flucelvax) 6mo and older 11/27/2016 Influenza trivalent, 0.5mL, preservative free (Fluarix; FluLaval; Fluzone) ages 6mo and older (Afluria) 3 years and older 12/12/2023,03/13/2016,02/02/2014,04/08 Influenza, Unspecified 12/20/2022 Moderna SARS-CoV-2 COVID-19, mRNA, LNP-S, preservative free 07/05/2021,02/05/2021,06/16/2020 Pfizer SARS-CoV-2 COVID-19, mRNA, LNP-S, preservative free 12/20/2022 Pneumococcal polysaccharide 23 valent (Pneumovax 23) 2yo and older 06/16/2014 Td Tetanus diptheria (Tdvax) 7yo and older 07/20/2023,05/30/2005 Tdap Tetanus diptheria acell ular pertussis (Boostrix; Adacel) 7yo and older 09/20/2012 Zoster recombinant (Shingrix ) 19yo and older 04/30/2021,01/13/2021 Surgical History Surgery Date Site/Laterality Comments COLONOSCOPY 2004 PROCEDURE: HISTORICAL COLONOSCOPY; COMMENT: normal SECTION PROCEDURE: HISTORICAL UPPER GASTROINTESTINAL ENDOSCOPY 2004 PROCEDURE: [place] UPPER GI ENDOSCOPY PERFORMED; COMMENT: normal COLONOSCOPY 2014 PROCEDURE: HISTORICAL COLONOSCOPY; COMMENT: [facility] next due 2017 WISDOM TOOTH EXTRACTION PROCEDURE: HISTORICAL WISDOM TEETH EXTRACTION OTHER SURGICAL HISTORY PROCEDURE: OUTSIDE ENDOSCOPY; COMMENT: dr. 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 History of colonic polyps 10/16/2014 DX:His tory of colonic polyps Family History Medical History Relation Name Comments Prostate cancer Brother Other cancer Father liver Diabetes Maternal Grandmother Pancreatic cancer Maternal Grandmother Breast cancer Sister 1 71 Ovarian cancer Neg Hx Relation Name Status Comments Brother Alive Daughter Alive Father (Age 68) liver canc er Maternal Grandmother Mother (Age 84) pancreatic cancer Sister 1 71 Alive mvp Sister 2 Alive mvp Sister 3 Alive mvp Social History Tobacco Use Types Packs/Day Years Used Date Smoking Tobacco: Former Cigarettes 0 04/15/1971 - 10/23/1981 Smokeless Tobacco: Never Alcohol Use Standard Drinks/Week Comments Yes 0 (1 standard drink = 0.6 oz pur e alcohol) Comments Unknown Sex and Gender Information Value Date Recorded Sex Assigned at Not on file Legal Sex Female 4:26 PM EST Gender Identity Not on file Sexual Orientation Not on file Obstetrics History Last Filed Vital Signs Vital Sign Reading Time Taken Comments Blood Pressure 130/70 01/19/2024 4:01 PM EDT Pulse 54 01/19/2024 3:41 PM EDT Temperature - - Respiratory Rate - - Oxygen Saturation - - Inhaled Oxygen Concentration - - Weight 147 kg (323 lb) 01/19/2024 3:41 PM EDT Height 165.1 cm (5' 5 ) 01/19/2024 3:41 PM EDT Body Mass Index 53.75 01/19/2024 3:41 PM EDT Plan of Treatment Upcoming Encounters Date Type Department Care Team (Late st Contact Info) Description 07/09/2024 12:30 PM EDT Appointment Radiology Department - [address] [phone] 07/19/2024 2:30 PM EDT Office Visit Adult Medicine East - [address] [phone] Tj Sandhu PA [address] [place] [address] Health Maintenance Due Date Last Done Comments Hepatitis A Vaccines (1 of 2 - Risk 2-dose series) 01/11/1979 Pneumococcal Vaccine: 50+ Years (2 of 2 - PCV) 06/17/2015 06/16/2014 Pneumococcal Vaccine: Pediatrics (0 to 5 Years) and At-Risk Patients (6 to 64 Years) (2 of 2 - PCV) 06/17/2015 06/16/2014 RSV Immunization Patients 60+ Years Old (1 - Risk 60-74 years 1-dose series) 2020 Depression Screening 03/01/2022 HIV Screening 03/01/2022 Social Influencers of Health Screening 03/01/2022 Cervical Cancer Screening: HPV 05/19/2024 05/19/2019 Hypertension/CHF/CAD Annual BMP Blood Test 03/22/2025 03/22/2024, 06/19/2023 Breast Cancer Screening 07/03/2025 07/04/19 24, 01/02/2023, 06/14/2022, Additional history exists Cholesterol Screening (Lipid Panel) 03/22/2029 03/22/2024, 06/19/2023 Colorectal Cancer Screening: Colonoscopy 07/23/2032 07/23/2022 DTaP,Tdap,and Td Vaccines (4 - Td or Tdap) 07/19/2033 07/20/2023, 09/20/2012, 05/30/2005 Hepatitis B Vaccines Completed 07/19/2008, 02/22/2008, 01/19/2008 Hepatitis C Screening Completed 08/19/2012 Zoster Vaccines Completed 04/30/2021, 01/13/2021 COVID-19 Vaccine Completed 12/12/2023, , 01/03/2022, Additional history exists Influenza Vaccine Completed 12/12/2023, , 12/05/2021, Additional history exists HIB Vaccines Aged Out No longer eligi ble based on patient's age to complete this topic HPV Vaccines Aged Out No longer eligi ble based on patient's age to complete this topic IPV Vaccines Aged Out No longer eligi ble based on patient's age to complete this topic MMR Vaccines Aged Out No longer eligi ble based on patient's age to complete this topic Meningococcal ACWY Vaccine Aged Out N o longer eligible based on patient's age to complete this topic Meningococcal B Vacine Aged Out No lo nger eligible based on patient's age to complete this topic RSV Immunization Patients Under 20 months Aged Out No longer eligible based on patient's age to complete this topic Varicella Vaccines Aged Out No longer eligible based on patient's age to complete this topic Procedures Procedure Name Priority Date/Time Associated Diagnosis Comments CBC WITH AUTO DIFFERENTIAL Routine 03/22/2024 11:10 AM EST HTN (hypertension), benign Vitamin D deficiency Hyperlipidemia Prediabetes VITAMIN D 25 HYDROXY Routine 03/22/2024 11:10 AM EST HTN (hypertension), benign Vitamin D deficiency Hyperlipidemia Prediabetes CBC AND DIFFERENTIAL Routine 03/22/2024 11:10 AM EST HTN (hypertension), benign Vitamin D deficiency Hyperlipidemia Prediabetes IRON AND TIBC Routine 03/22/2024 11:10 AM EST HTN (hypertension), benign Vitamin D deficiency Hyperlipidemia Prediabetes COMPREHENSIVE METABOLIC PANEL Routine 03/22/2024 11:10 AM EST HTN (hypertension), benign Vitamin D deficiency Hyperlipidemia Prediabetes LIPID PANEL WITH REFLEX TO DIRECT LDL Routine 03/22/2024 11:10 AM EST HTN (hypertension), benign Vitamin D deficiency Hyperlipidemia Prediabetes HEMOGLOBIN A1C Routine 03/22/2024 11:10 AM EST HTN (hypertension), benign Vitamin D deficiency Hyperlipidemia Prediabetes SCREENING MAMMOGRAPHY BI 2-VIEW BREAST INC CAD Routine 07/04/2023 12:24 PM EDT Encounter for screening mammogram for malignant neoplasm of breast HM COLONOSCOPY Routine 07/23/2022 HM HPV Routine 05/19/2019 HEPATITIS C SCREENING Routine 08/19/2012 from Last 3 Months or Most Recently Relevant to Health Maintenance Results * (ABNORMAL) Lipid panel with reflex to direct LDL (03/22/2024 11:10 AM EST) Cholesterol 188 0 - 200 mg/dL LAB CHEMISTRY METHOD 03/22/2024 3:10 PM [facility] Triglycerides 318(H) 0 - 150 mg/dL LAB CHEMISTRY METHOD 03/22/2024 3:10 PM [facility] HDL 36(L) >=40 mg/dL LAB CHEMISTRY METHOD 03/22/2024 3:10 PM [facility] LDL Calculated 88 0 - 100 mg/dL LAB CHEMISTRY METHOD 03/22/2024 3:10 PM [facility] VLDL Cholesterol Howard 63.6 mg/dL LAB CHEMISTRY METHOD 03/22/2024 3:10 PM [facility] Non HDL Chol. (LDL+VLDL) 152(H) <145 mg/dL LAB CHEMISTRY METHOD 03/22/2024 3:10 PM [facility] Chol/HDL Ratio 5.2(H) 0.0 - 4.4 LAB CHEMISTRY METHOD 03/22/2024 3:10 PM [facility] Blood Venous blood specimen / Unknown Venipuncture / Unknown 03/22/2024 11:10 AM EST 03/22/2024 11:10 AM EST Tj AVALOS LAB BLOOD ORDERABLES Amy l Result [facility] [address] [place] [address], * (ABNORMAL) CBC auto differential (03/22/2024 11:10 AM EST) WBC 10.7 4.8 - 10.8 K/mcL LAB HEMETOLOGY METHOD 03/22/2024 2:30 PM [facility] RBC 4.70 3.80 - 4.80 M/mcL LAB HEMETOLOGY METHOD 03/22/2024 2:30 PM [facility] Hemoglobin 12.2 11.5 - 16.0 g/dL LAB HEMETOLOGY METHOD 03/22/2024 2:30 PM [facility] Hematocrit 40.3 35.0 - 47.0 % LAB HEMETOLOGY METHOD 03/22/2024 2:30 PM [facility] MCV 85.7 79.0 - 98.0 FL LAB HEMETOLOGY METHOD 03/22/2024 2:30 PM [facility] MCH 26.0(L) 27.0 - 32.0 pcg LAB HEMETOLOGY METHOD 03/22/2024 2:30 PM [facility] MCHC 30.3(L) 32.0 - 37.0 g/dL LAB HEMETOLOGY METHOD 03/22/2024 2:30 PM [facility] RDW 14.8 11.0 - 15.0 % LAB HEMETOLOGY METHOD 03/22/2024 2:30 PM [facility] Platelets 289 130 - 400 K/mcL LAB HEMETOLOGY METHOD 03/22/2024 2:30 PM [facility] MPV 9.6 7.0 - 11.0 FL LAB HEMETOLOGY METHOD 03/22/2024 2:30 PM [facility] NRBC 0.0 <1.0 % LAB HEMETOLOGY METHOD 03/22/2024 2:30 PM [facility] NRBC Absolute 0.00 <0.10 K/mcL LAB HEMETOLOGY METHOD 03/22/2024 2:30 PM [facility] Neutrophils Relative 75.0 % LAB HEMETOLOGY METHOD 03/22/2024 2:30 PM [facility] Lymphocytes Relative 15.3 % LAB HEMETOLOGY METHOD 03/22/2024 2:30 PM [facility] Monocytes Relative 5.4 % LAB HEMETOLOGY METHOD 03/22/2024 2:30 PM [facility] Eosinophils Relative 3.0 % LAB HEMETOLOGY METHOD 03/22/2024 2:30 PM [facility] Basophils Relative 0.6 % LAB HEMETOLOGY METHOD 03/22/2024 2:30 PM [facility] Immature Granulocytes Relative 0.7 % LAB HEMETOLOGY METHOD 03/22/2024 2:30 PM [facility] Neutrophils Absolute 8.04(H) 1.50 - 7.00 K/mcL LAB HEMETOLOGY METHOD 03/22/2024 2:30 PM [facility] Lymphocytes Absolute 1.64 1.00 - 5.00 K/mcL LAB HEMETOLOGY METHOD 03/22/2024 2:30 PM [facility] Monocytes Absolute 0.58 0.20 - 1.00 K/mcL LAB HEMETOLOGY METHOD 03/22/2024 2:30 PM [facility] Eosinophils Absolute 0.32 0.00 - 0.50 K/mcL LAB HEMETOLOGY METHOD 03/22/2024 2:30 PM EST [facility] Basophils Absolute 0.06 0.00 - 0.20 K/mcL LAB HEMETOLOGY METHOD 03/22/2024 2:30 PM EST [facility] Immature Granulocytes Absolute 0.07(H) 0.00 - 0.03 K/mcL LAB HEMETOLOGY METHOD 03/22/2024 2:30 PM EST [facility] Blood Venous blood specimen / Unknown Venipuncture / Unknown 03/22/2024 11:10 AM EST 03/22/2024 11:10 AM EST Tj AVALOS LAB BLOOD ORDERABLES Amy l Result Performing Organization Address [facility]/ZIP Co de Phone Number [facility] [address] [place] [address], * (ABNORMAL) Iron and TIBC (03/22/2024 11:10 AM EST) Iron 40 40 - 150 mcg/dL LAB CHEMISTRY METHOD 03/22/2024 3:10 PM EST [facility] TIBC 403 250 - 450 mcg/dL LAB CHEMISTRY METHOD 03/22/2024 3:10 PM EST [facility] Iron Saturation 10(L) 15 - 50 % LAB CHEMISTRY METHOD 03/22/2024 3:10 PM EST [facility] Blood Venous blood specimen / Unknown Venipuncture / Unknown 03/22/2024 11:10 AM EST 03/22/2024 11:10 AM EST Tj AVALOS LAB BLOOD ORDERABLES Amy l Result Performing Organization Address City/[facility]/ZIP Co de Phone Number [facility] [address] [place] [address], [place] [phone] * (ABNORMAL) Vitamin D 25 hydroxy (03/22/2024 11:10 AM EST) Pathologist [facility] Vit D, 25-Hydroxy 25.7(L) 30.0 - 80.0 ng/mL LAB CHEMISTRY METHOD 03/22/2024 2:55 PM EST [facility] Blood Venous blood specimen / Unknown Venipuncture / Unknown 03/22/2024 11:10 AM EST 03/22/2024 11:10 AM EST Tj AVALOS LAB BLOOD ORDERABLES Amy l Result Performing Organization Address [facility]/ZIP Co de Phone Number [facility] [address] [place] [address], [place] [phone] * Hemoglobin A1c (03/22/2024 11:10 AM EST) [facility] Hemoglobin A1C 6.3 <6.5 % LAB CHEMISTRY METHOD 03/22/2024 8:08 PM EST [facility] Mean Bld Glu Estim. 134 mg/dL LAB CHEMISTRY METHOD 03/22/2024 8:08 PM [facility] Blood Venous blood specimen / Unknown Venipuncture / Unknown 03/22/2024 11:10 AM EST 03/22/2024 11:10 AM EST Tj AVALOS LAB BLOOD ORDERABLES Amy l Result Performing Organization Address City/[facility]/ZIP Co de Phone Number [facility] [address] [place] [address], [place] [phone] * (ABNORMAL) Comprehensive metabolic panel (03/22/2024 11:10 AM EST) [facility] Sodium 142 133 - 145 mmol/L LAB CHEMISTRY METHOD 03/22/2024 3:10 PM [facility] Potassium 3.8 3.5 - 5.5 mmol/L LAB CHEMISTRY METHOD 03/22/2024 3:10 PM [facility] Chloride 106 96 - 110 mmol/L LAB CHEMISTRY METHOD 03/22/2024 3:10 PM [facility] CO2 28 21 - 32 mmol/L LAB CHEMISTRY METHOD 03/22/2024 3:10 PM [facility] Anion Gap 8 3 - 11 LAB CHEMISTRY METHOD 03/22/2024 3:10 PM [facility] Glucose 200(H) 70 - 100 mg/dL LAB CHEMISTRY METHOD 03/22/2024 3:10 PM [facility] BUN 17 5 - 25 mg/dL LAB CHEMISTRY METHOD 03/22/2024 3:10 PM [facility] Creatinine 0.80 0.50 - 1.10 mg/dL LAB CHEMISTRY METHOD 03/22/2024 3:10 PM [facility] eGFR 82 >=60 mL/min/1. 73m2 LAB CHEMISTRY METHOD 03/22/2024 3:10 PM [facility] Comment:Calculation based on the??Chronic Kidney Disease Epidemiology Collaboration (CKD-EPI) equation refit??without adjustment for race. BUN/Creatinine Ratio 21.3 LAB CHEMISTRY METHOD 03/22/2024 3:10 PM [facility] Calcium 8.9 8.5 - 10.5 mg/dL LAB CHEMISTRY METHOD 03/22/2024 3:10 PM [facility] AST (SGOT) 14 10 - 42 unit/L LAB CHEMISTRY METHOD 03/22/2024 3:10 PM [facility] ALT (SGPT) 23 10 - 60 unit/L LAB CHEMISTRY METHOD 03/22/2024 3:10 PM [facility] Alkaline Phosphatase 104 42 - 121 unit/L LAB CHEMISTRY METHOD 03/22/2024 3:10 PM [facility] Total Protein 6.6 6.0 - 8.0 g/dL LAB CHEMISTRY METHOD 03/22/2024 3:10 PM [facility] Albumin 3.7 3.2 - 5.0 g/dL LAB CHEMISTRY METHOD 03/22/2024 3:10 PM EST [facility] Total Bilirubin 0.3 0.0 - 1.4 mg/dL LAB CHEMISTRY METHOD 03/22/2024 3:10 PM EST [facility] Blood Venous blood specimen / Unknown Venipuncture / Unknown 03/22/2024 11:10 AM EST 03/22/2024 11:10 AM EST Tj AVALOS LAB BLOOD ORDERABLES Amy l Result [facility] [address] [place] [address], * SCREENING MAMMOGRAPHY BI 2-VIEW BREAST INC CAD (07/04/2023 12:24 PM EDT) Anatomical Region Laterality Modality Radiographic Anais ging 06/14/2022 11:3 4 AM EDT Narrative 07/04/2023 2:25 PM EDT This is a summary report. The complete report is available in the patient's medical record. If you cannot access the medical record, please contact the sending organization for a detailed fax or copy. Study: SCREENING MAMMOGRAPHY BI 2-VIEW BREAST INC CAD Technique: Bilateral full-field digital screening mammography is obtained and read in conjunction with computer aided detection. ??Tomosynthesis as well as 2D C-View imaging were obtained. Comparison: Comparison made to multiple prior, most recent left diagnostic mammogram on January 02, 2023, and most remote bilateral mammogram on December 14, 2013. Breast composition: There are scattered areas of fibroglandular density. Bilateral breasts: No significant masses, suspicious calcifications or other abnormalities are seen in either breast. IMPRESSION: Impression: Bilateral breasts: Negative, no specific mammographic evidence of malignancy. ??Normal interval follow-up is recommended in 12 months. BI-RADS: Category 1: Negative Procedure Note Sam Morgan MD - 11/09/2023 This is a summary report. The complete report is available in thepatient's medical record. If you cannot access the medical record, pleasecontact the sending organization for a detailed fax or copy. Study: SCREENING MAMMOGRAPHY BI 2-VIEW BREAST INC CAD Technique: Bilateral full-field digital screening mammography is obtainedand read in conjunction with computer aided detection. Tomosynthesis aswell as 2D C-View imaging were obtained. Comparison: Comparison made to multiple prior, most recent left diagnosticmammogram on January 02, 2023, and most remote bilateral mammogram onSept2013. Breast composition: There are scattered areas of fibroglandular density. Bilateral breasts: No significant masses, suspicious calcifications orother abnormalities are seen in either breast. IMPRESSION: Impression: Bilateral breasts: Negative, no specific mammographic evidence ofmalignancy. Normal interval follow-up is recommended in 12 months. BI-RADS: Category 1: Negative Tj AVALOS IMG XR PROCEDURES Final R esult * Colonoscopy (07/23/2022) Pathologist [facility] Colonoscopy No Interpretation , Abstracted Anatomical Region Laterality Modality Other [facility] Provider HEALTH MAINTENANCE Final Result * Cervical Cancer Screening: HPV (05/19/2019) Pathologist [facility] Cervical Cancer Screening: HPV Negative, Abstracted Historical Provider HEALTH MAINTENANCE Final Result * Hepatitis C Screening (08/19/2012) Pathologist [facility] Hepatitis C Screening Abstracted Historical Provider HEALTH MAINTENANCE Final Result from Last 3 Months or Most Recently Relevant to Health Maintenance Insurance [facility] Care Teams Secretary To The Vice President Relationship Specialty Start Date End Date Tj Sandhu PA [address] [place] [address] PCP - General Internal Medicine 06/14/20
--- OUTSIDE RECORDS SUMMARY | 2024-05-12 14:38 | XMS_ITS | Encounter Summary ---
Author Organization [facility] Address [address] [place] [address] Care Team Providers Care Combination Welder Name Role Phone Tj Sandhu PA-C Primary Care Provider [phone] Reason for Visit * Reason Comments E-prescribe Rx Request Encounter Details Date Type Department Care Team Description 08/31/2021 Refill Adult Medicine [address] [phone] Tj Sandhu PA-C [address] [place] [address] [phone] E-prescribe Rx Request Social History Tobacco Use Types Packs/Day Years [...] on file documented as of this encounter Plan of Treatment Not on file documented as of this encounter Visit Diagnoses Not on filedocumented in this encounter Care Teams Combination Welder Relationship Specialty Start Date End Date Tj Sandhu PA-C [address] [place] [phone] PCP - General Internal Medicine 06/14/20 documented as of this encounter
--- OUTSIDE RECORDS SUMMARY | 2024-05-12 14:38 | XMS_ITS | Encounter Summary ---
Author Organization [facility] Address [address] [place] [address] Care Team Providers Care Elevator Mechanic Name Role Phone Jaskaran García MD Primary Care Provider + [phone] Tj Sandhu PA-C Primary Care Provider [phone] Reason for Visit * Reason Comments E-prescribe Rx Request Encounter Details Date Type Department Care Team Description 03/13/2016 Refill Adult Medicine [facility] [address] [place] [address] [phone] Jaskaran García MD [address] [place] [address] [phone] E-prescribe Rx Request Social History Tobacco Use Types Packs/Day Years Used Date Smoking Tobacco: Former Cigarettes Q uit: 10/23/1981 Smokeless Tobacco: Never Alcohol Use Standard [...] encounter Miscellaneous Notes * Telephone Encounter - Martha Braydon - 03/13/2016 8:56 AM EST Patient would like script to be: E-PRESCRIBED/FAXED TO PHARMACY WHEN WAS THE PATIENT'S LAST APPOINTMENT IN ADULT MEDICINE? 09/02/15 WHEN WAS THE LAST TIME THE PATIENT SAW THEIR PCP? Same as above Does patient have an upcoming appointment? Yes 03/13/16 (THE MEDICATION REQUESTED IS ON THE MED LIST ABOVE) All of the medications requested were on the CURRENT MEDS list Did you check the Pharmacy information above?: YES Patient wants: 30 -day supply Is this a mail order prescription request ? NO Patients current insurance carrier is: Payor: General [employer] / Plan: [employer] $20 DOMENIC [id number] / Product Type: [employer] [id number] documented in this encounter Plan of Treatment Not on file documented as of this encounter Visit Diagnoses Not on filedocumented in this encounter Care Teams Elevator Mechanic Relationship Specialty Start Date End Date Jaskaran García MD [address] [place] [phone] PCP - General 04/03/00 06/13/20 Tj Sandhu PA-C [address] [place] [phone] PCP - General Internal Medicine 06/14/20 documented as of this encounter
--- OUTSIDE RECORDS SUMMARY | 2024-05-12 14:38 | XMS_ITS | Encounter Summary ---
Author Organization [facility] Address [address] [place] [address] Care Team Providers Care Underwriting Assistant Name Role Phone Jaskaran García MD Primary Care Provider + [phone] Tj Sandhu PA-C Primary Care Provider +[phone] Encounter Details Date Type Department Care Team Description 12/28/2018 Refill Pulmonology [address] [place] [phone] Ferny Swanson MD Social History Tobacco Use Types Packs/Day Years [...] documented as of this encounter Visit Diagnoses Diagnosis GANDARA (dyspnea on exertion) Other dyspnea and respiratory abnormality documented in this encounter Care Teams Underwriting Assistant Relationship Specialty Start Date End Date Jaskaran García MD [address] [place] [address] [phone] PCP - General 04/03/00 06/13/20 Tj Sandhu PA-C [address] [place] [address] PCP - General Internal Medicine 06/14/20 documented as of this encounter
--- OUTSIDE RECORDS SUMMARY | 2024-05-12 14:38 | XMS_ITS | Encounter Summary ---
Author Organization [facility] Address [address] [place] [address] Care Team Providers Care Precinct I Police Sergeant Name Role Phone Jaskaran García MD Primary Care Provider + [phone] Tj Sandhu PA-C Primary Care Provider + [phone] Reason for Visit * Reason Onset Date Comments immunizations 05/31/2019 Encounter Details Date Type Department Care Team Description 05/31/2019 Telephone Adult Medicine [address] [phone] Jaskaran García MD [address] [place] [address] [phone] immunizations Social History Tobacco Use Types Packs/Day Years [...] encounter Miscellaneous Notes * Telephone Encounter - Irma Flores L.P.N. - 05/31/2019 4:35 PM EDT Called Pt msge left to call back to schedule chronic nurse appt for Thursday for pneumonia 23 Irma Flores L.P.N. * Telephone Encounter - Jaskaran García MD - 05/31/2019 4:18 PM EDT There is an order in the chart already for the Pneumovax 23. I spoke to patient about the pneumoniavaccines once available but recommended. At this point Please call the patient and book her for a nurse only appointment to get the Pneumovax 23 booster Next year she can get the Prevnar 13 * Telephone Encounter - Laura Ocampo M.A. - 05/31/2019 11:11 AM EDT Please order pneumonia 13 * Telephone Encounter - Danika Madrigal - 05/31/2019 10:35 AM EDT Payor: [facility] / Plan: POS $25 PRASAD [id number] / Product Type: POS [id number]-Edtgnhq Patient is requesting a list of their previous immunizations NO Does the patient have an immunization form to be completed? NO Is the patient requesting immunizations to be administered? YES If yes, which immunizations are needed? BOOSTER FOR PNEUMONIA Is the patient traveling to a foreign country: NO If traveling: Which country: Date patient is leaving: documented in this encounter Plan of Treatment Not on file documented as of this encounter Visit Diagnoses Not on filedocumented in this encounter Care Teams Precinct I Police Sergeant Relationship Specialty Start Date End Date Jaskaran García MD [address] [place] [address] 17148 PCP - General 04/03/00 06/13/20 Tj Sandhu PA-C [address] [place] [address] PCP - General Internal Medicine 06/14/20 documented as of this encounter
--- OUTSIDE RECORDS SUMMARY | 2024-05-12 14:38 | XMS_ITS | Encounter Summary ---
Author Organization [facility] Address [address] [place] [address] Care Team Providers Care Electronics Test Engineer Name Role Phone Tj Sandhu PA-C Primary Care Provider +1 [phone] Encounter Details Date Type Department Care Team Description 08/23/2023 Hospital Medical Records [address] [place], [place] [id number] [place] [address] Social History Tobacco Use Types Packs/Day Years Used Date Smoking Tobacco: Former Cigarettes 0 04/15/1971 - 10/23/1981 Smokeless Tobacco: Never Comments:Quit 40 yrs Alcohol Use Standard Drinks/Week Comments Yes 0 [...] on filedocumented in this encounter Care Teams Electronics Test Engineer Relationship Specialty Start Date End Date Tj Sandhu PA-C [address] [place], [place] [phone] PCP - General Internal Medicine 06/14/20 documented as of this encounter
--- OUTSIDE RECORDS SUMMARY | 2024-05-12 14:38 | XMS_ITS | Encounter Summary ---
Author Organization [facility] Address [address] [place] [address] Care Team Providers Care Group Account Director Name Role Phone Jaskaran García MD Primary Care Provider + [phone] Tj Sandhu PA-C Primary Care Provider + [phone] Encounter Details Date Type Department Care Team Description 08/31/2013 Orders Only Adult Medicine [address] [phone] Cherelle Chaparro PA-C Social History Tobacco Use Types Packs/Day Years [...] on filedocumented in this encounter Care Teams Group Account Director Relationship Specialty Start Date End Date Jaskaran García MD [address] [place] [address] [phone] PCP - General 04/03/00 06/13/20 Tj Sandhu PA-C [address] [place] [address] PCP - General Internal Medicine 06/14/20 documented as of this encounter
--- OUTSIDE RECORDS SUMMARY | 2024-05-12 14:38 | XMS_ITS | Encounter Summary ---
Author Organization [facility] Address [address] [place] [address] Care Team Providers Care Bank Accountant Name Role Phone Jaskaran García MD Primary Care Provider + [phone] Tj Sandhu PA-C Primary Care Provider + [phone] Encounter Details Date Type Department Care Team Description 12/22/2016 Orders Only Adult Medicine [address] [phone] Chon Griggs PA-C Abnormal cardiovascular stress test (Primary Dx) Social History Tobacco Use Types Packs/Day Years [...] as of this encounter Visit Diagnoses Diagnosis Abnormal cardiovascular stress test- Primary Other nonspecific abnormal cardiovascular system function study documented in this encounter Care Teams Bank Accountant Relationship Specialty Start Date End Date Jaskaran García MD [address] [place] [address] PCP - General 04/03/00 06/13/20 Tj Sandhu PA-C [address] [place] [address] 26[address] PCP - General Internal Medicine 06/14/20 documented as of this encounter
--- OUTSIDE RECORDS SUMMARY | 2024-05-12 14:38 | XMS_ITS | Continuity of Care Document ---
Author Organization [facility] Address [address] [place] [address]- Care Team Providers Care Program Control Analyst Name Role Phone Tj Camarena Primary Care Physician En[place] [facility] Date(s): 03/17/24 - 04/16/24 [facility] [address] [place] [id number] Encounter Type: Triage Allergies, Adverse Reactions, Alerts Substance Criticality Severity Reaction Reaction Severity Status penicillin High criticality Severe Anaphylaxis Active Immunizations Given and Recorded Vaccine Date Status Refusal Reason SARS-CoV-2 (COVID-19) mRNA-1273 vaccine 06/16/20 G iven SARS-CoV-2 (COVID-19) mRNA-1273 vaccine 05/19/20 G iven Medications Albuterol (Eqv-ProAir HFA) 90 mcg/inh inhalation aerosol 0 Refills, Maintenance, 02/04/23 3:49:00 PM EST, Partial fill upon patient request if the prescription is for a schedule II opioid drug. Start Date: 02/04/23 Status: Ordered Repeat number: 1 codeine-guaifenesin 10 mg-100 mg/5 mL oral syrup 200 mL, 0 Refill(s), TAKE 5ML BY MOUTH THREE TIMES A DAY NEEDED FOR COUGH FOR UP TO 10 DAYS, 0 Refills, 02/04/23 3:48:00 PM EST, Partial fill upon patient request if the prescription is for a schedule II opioid drug. Start Date: 02/04/23 Status: Ordered Repeat number: 1 Dupixent Pre-filled Syringe 300 mg/2 mL subcutaneous solution = 300 mg, Subcutaneous Infusion, Once, 0 Refills, Maintenance, 03/11/24 3:39:00 PM EST, Partial fill upon patient request if the prescription is for a schedule II opioid drug. Start Date: 03/11/24 Status: Ordered Repeat number: 1 Eliquis 5 mg oral tablet 1 tablet = 5 mg, By Mouth, 2 times a day, 0 Refills, Maintenance, 03/11/24 3:40:00 PM EST, Partial fill upon patient request if the prescription is for a schedule II opioid drug. Start Date: 03/11/24 Status: Ordered Repeat number: 1 fluconazole 200 mg oral tablet See Instructions, Take two tabs by mouth on day 1, then take 1 tab by mouth once daily for 14 days,# 15 tablet, 0 Refills, Maintenance, 07/19/23 3:35:00 PM EDT, Tablet, [facility], Please review side effects and dosing with patient., 165.1, cm, 07/16/23 6:56:00 EDT, Height, 135, kg, 07/16/23 6:56:00 EDT, Dry Weight Start Date: 07/19/23 Status: Ordered Quantity: 15.0 Unit: tablet Repeat number: 1 Indication: Candidal esophagitis furosemide 20 mg oral tablet 30 each, 0 Refill(s), TAKE ONE TABLET BY MOUTH EVERY DAY, Refills 0, 02/04/23 3:48:00 PM EST, Partial fill upon patient request if the prescription is for a schedule II opioid drug. Start Date: 02/04/23 Status: Ordered Repeat number: 1 LORazepam 1 mg oral tablet 1 tablet = 1 mg, By Mouth, Once, 60 min before MRI; repeat in 30 minutes if necessary for claustrophobia, # 2 tablet, 0 Refills, Soft Stop, 03/11/24 4:09:00 PM EST, [facility], Partial fill upon patient request if the prescription is for a schedule II opioid drug., 165.1, cm, 03/11/24 15:28:00 EST, Height, 147.5, kg, 03/11/24 15:28:00 EST, Dry Weight Start Date: 03/11/24 Status: Ordered Quantity: 2.0 Unit: tablet Repeat number: 1 losartan 100 mg oral tablet 30 each, 0 Refill(s), TAKE ONE TABLET BY MOUTH EVERY DAY, 0 Refills, 02/04/23 3:48:00 PM EST, Partial fill upon patient request if the prescription is for a schedule II opioid drug. Start Date: 02/04/23 Status: Ordered Repeat number: 1 metoprolol 25 mg oral tablet 25 mg, 1, tablet, By Mouth, 2 times a day, Refills 0, Maintenance, 03/11/24 3:40:00 PM EST, Partialfill upon patient request if the prescription is for a schedule II opioid drug. Start Date: 03/11/24 Status: Ordered Repeat number: 1 NIFEdipine 30 mg oral tablet, extended release 30 Unknown, Oral, 5 Refill(s), Take 1 Tablet by mouth daily., Refills 0, 07/06/22 8:00:00 PM EDT, Partial fill upon patient request if the prescription is for a schedule II opioid drug. Start Date: 07/06/22 Status: Ordered Repeat number: 1 predniSONE 20 mg oral tablet 18 each, 0 Refill(s), TAKE 3 TABLETS BY MOUTH ONCE A DAY FOR 3 DAYS, 2 TABLETS DAILY FOR 3 DAYS, THEN TAKE 1 TABLET DAILY X 3 DAYS., 0 Refills, 02/04/23 3:48:00 PM EST, Partial fill upon patient request if the prescription is for a schedule II opioid drug. Start Date: 02/04/23 Status: Ordered Repeat number: 1 sertraline 50 mg oral tablet 30 each, 0 Refill(s), TAKE ONE TABLET BY MOUTH EVERY DAY, 0 Refills, 02/04/23 3:48:00 PM EST, Partial fill upon patient request if the prescription is for a schedule II opioid drug. 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
--- OUTSIDE RECORDS SUMMARY | 2024-05-12 14:38 | XMS_ITS | Encounter Summary ---
Author Organization [facility] Address [address] [place] [address] Care Team Providers Care Licensed Nuclear Control Room Operator Name Role Phone Jaskaran García MD Primary Care Provider + [phone] Tj Sandhu PA-C Primary Care Provider +[phone] Encounter Details Date Type Department Care Team Description 05/25/2017 Pt. Non Urgent Medic al Question Pulmonology - [address] [place] [address] Ferny Swanson MD Social History Tobacco Use [...] on file documented as of this encounter Progress Notes * Shaniqua Coronado M.A. - 05/25/2017 3:22 PM ESTFrom: Karina Torrie Kimmie To: Ferny Swanson MD Sent: 05/25/2017 1:19 PM EST Subject: C-Pap Orders I spoke with [facility] to make sure that I had pre-approval for my new C-Pap machine and they said they have not received anything from your office. I have an appointment this that I may have to reschedule. Please advise. Thanks Karina documented in this encounter Plan of Treatment Not on file documented as of this encounter Visit Diagnoses Not on filedocumented in this encounter Care Teams Licensed Nuclear Control Room Operator Relationship Specialty Start Date End Date Jaskaran García MD [address] [place] [address] PCP - General 04/03/00 06/13/20 Tj Sandhu PA-C [address] [place] [address] PCP - General Internal Medicine 06/14/20 documented as of this encounter
--- OUTSIDE RECORDS SUMMARY | 2024-05-12 14:38 | XMS_ITS | Encounter Summary ---
Author Organization [facility] Address [address] [place] [address] Care Team Providers Care Research Program Intern Name Role Phone Tj Sandhu PA-C Primary Care Provider [phone] Reason for Visit * Reason Comments E-prescribe Rx Request Encounter Details Date Type Department Care Team Description 10/20/2021 Refill Adult Medicine [facility] [address] [place] [address] [phone] Tj Sandhu PA-C [address] [place] [address] [phone] E-prescribe Rx Request Social History Tobacco Use [...] encounter Miscellaneous Notes * Telephone Encounter - Jemma Lam - 10/21/2021 2:11 PM EDT Patient would like script to be: E-PRESCRIBED/FAXED TO PHARMACY WHEN WAS THE PATIENT'S LAST APPOINTMENT IN ADULT MEDICINE? 07/03/21 WHEN WAS THE LAST TIME THE PATIENT SAW THEIR PCP? Same as above Does patient have an upcoming appointment? Yes 12/05/21 (THE MEDICATION REQUESTED IS ON THE MED LIST ABOVE) All of the medications requested were on the CURRENT MEDS list Did you check the Pharmacy information above?: YES Patient wants: 90 -day supply Is this a mail order prescription request ? NO If the refill is from a FAXED refill request what is the RX # listed on the fax? N/A Patients current insurance carrier is: Payor: [employer] / Plan: POS $25 PRASAD [id number] / Product Type: POS [id number]-[id number] documented in this encounter Plan of Treatment Not on file documented as of this encounter Visit Diagnoses Not on filedocumented in this encounter Care Teams Research Program Intern Relationship Specialty Start Date End Date Tj Sandhu PA-C [address] [place] [address] PCP - General Internal Medicine 06/14/20 documented as of this encounter
--- OUTSIDE RECORDS SUMMARY | 2024-05-12 14:38 | XMS_ITS | Encounter Summary ---
Author Organization [facility] Address [address] [place] [address] Care Team Providers Care Seaming Machine Operator Name Role Phone Jaskaran García MD Primary Care Provider + [phone] Tj Sandhu PA-C Primary Care Provider [phone] Encounter Details Date Type Department Care Team Description 06/18/2014 Hospital Medical Records [address] [place] [address] Radha Donnelly Social History Tobacco Use Types Packs/Day Years [...] on filedocumented in this encounter Care Teams Seaming Machine Operator Relationship Specialty Start Date End Date Jaskaran García MD [address] [place] [address] PCP - General 04/03/00 06/13/20 Tj Sandhu PA-C [address] [place] [address] PCP - General Internal Medicine 06/14/20 documented as of this encounter
--- OUTSIDE RECORDS SUMMARY | 2024-05-12 14:38 | XMS_ITS | Encounter Summary ---
Author Organization [facility] Address [address] [place] [address] Care Team Providers Care Beverage Specialist Name Role Phone Tj Sandhu PA-C Primary Care Provider +[phone] Encounter Details Date Type Department Care Team Description 01/07/2023 Centrifuge Operator Report Medical Records [address] [place] [address] Moises Gonzalez Np Social History Tobacco Use Types Packs/Day Years [...] file Not on file Not on file COVID-19 Exposure Response Date Recorded In the last 10 days, have yo u been in contact with someone who was confirmed or suspected to have Coronavirus/COVID-19? No / Unsure 01/09/2023 10:10 AM EDT documented as of this encounter Plan of Treatment Not on file documented as of this encounter Visit Diagnoses Not on filedocumented in this encounter Care Teams Beverage Specialist Relationship Specialty Start Date End Date Tj Sandhu PA-C [address] [place], [place] [phone] PCP - General Internal Medicine 06/14/20 documented as of this encounter
--- OUTSIDE RECORDS SUMMARY | 2024-05-12 14:38 | XMS_ITS | Encounter Summary ---
Author Organization [facility] Address [address] [place] [address] Care Team Providers Care Clay Dry Press Helper Name Role Phone Jaskaran García MD Primary Care Provider + [phone] Tj Sandhu PA-C Primary Care Provider +[phone] Encounter Details Date Type Department Care Team Description 12/28/2019 Orders Only Medical Records [address] [place] [address] Wilmar Addison MD [address] [place], [place] [phone] Social History Tobacco Use Types Packs/Day Years Used Date Smoking Tobacco: Former Cigarettes 0 04/15/1971 - 10/23/1981 Smokeless Tobacco: Never Alcohol Use Standard Drinks/Week Comments Yes 0 (1 standard drink = 0.6 oz pur e alcohol) Alcohol Habits Answer Date Recorded How often [...] as of this encounter Progress Notes * Ricarda Addison MD - 01/08/2020 11:39 AM EDT Dear Karina, The polyp(s) that were removed during your colonoscopy were precancerous, but benign. Fortunately, we removed them and therefore, they will not cause any more problems in the future. Based on the number, the size, and the features of the polyp(s) removed, I recommend a follow-up colonoscopy in 3 years. Before, the 3 years are due, we will send you a reminder in the mail asking you to contact our office to have the colonoscopy scheduled. I would like to personally thank you for allowing us to take care of you. Please don't hesitate to call us for any questions or concerns. Regards, Manuel Addison MD Board Certified Gastroenterology and Internal Medicine Transplant Hepatology [facility] documented in this encounter Plan of Treatment Not on file documented as of this encounter Procedures Procedure Name Priority Date/Time Associated Diagnosis Comments OUTSIDE PATHOLOGY Routine 12/26/2019 documented in this encounter Results * OUTSIDE PATHOLOGY (12/26/2019) Wilmar Addison MD OUTSIDE LAB documented in this encounter Visit Diagnoses Not on filedocumented in this encounter Care Teams Clay Dry Press Helper Relationship Specialty Start Date End Date Jaskaran García MD [address] [place] [address] PCP - General 04/03/00 06/13/20 Tj Sandhu PA-C [address] [place] [address] PCP - General Internal Medicine 06/14/20 documented as of this encounter
--- OUTSIDE RECORDS SUMMARY | 2024-05-12 14:38 | XMS_ITS | Encounter Summary ---
Author Organization [facility] Address [address] [place] [address] Care Team Providers Care Exhibitor Sales Name Role Phone Tj Sandhu PA-C Primary Care Provider [phone] [phone] Encounter Details Date Type Department Care Team Description 04/15/2022 Automotive Brake Adjuster Report Medical Records [address] [place] [address] Ernie Martinez MD Social History Tobacco Use Types Packs/Day [...] suspected to have Coronavirus/COVID-19? No / Unsure 04/16/2022 1:58 PM EST documented as of this encounter Plan of Treatment Not on file documented as of this encounter Visit Diagnoses Not on filedocumented in this encounter Care Teams Exhibitor Sales Relationship Specialty Start Date End Date Tj Sandhu PA-C [address] [place] [address] [phone] PCP - General Internal Medicine 06/14/20 documented as of this encounter
--- OUTSIDE RECORDS SUMMARY | 2024-05-12 14:38 | XMS_ITS | Encounter Summary ---
Author Organization [facility] Address [address] [place] [address] Care Team Providers Care Pug Mill Operator Helper Name Role Phone Tj Sandhu PA-C Primary Care Provider [phone] Reason for Referral * EXTERNAL (Urgent) - Closed Specialty Diagnoses / Procedures Referred By Yasmeen vinson Referred To Contact Allergy & Immunology / Allergy Procedures REFERRAL TO ALLERGY Tj Sandhu PA-C [address] [place] [address] External Allergy Referral ID Status Reason Start Date Expiration Date Visits Re quested Visits Authorized [id number] Closed 02/09/2023 1 1 Encounter Details Date Type Department Care Team Description 02/09/2023 Pt. Non Urgent Medical Question Adult Medicine [address] [address] Tj Sandhu PA-C [address] [place] [address] Social History Tobacco Use Types Packs/Day Years [...] Recorded In the last 10 days, have alexander judd been in contact with someone who was confirmed or suspected to have Coronavirus/COVID-19? No / Unsure 01/19/2023 9:55 AM EDT documented as of this encounter Progress Notes * Mei Soto R.N. - 02/09/2023 12:56 PM EST Seen 01/19 and extended taper and started on ABX Wheezing and whistle is improved. Still congested and feels like the skin around her eyes are still breaking out and puffy Occasional phlegm production, SOB with stairs Taking Claritin every morning but does not feel it offers relief Feels like she is a little better but not improving any farther. Does not feel like the breathing is an urgent matter like before. She is speaking in complete sentences. Sounds congested, no cough, wheeze or distress noted. Please advise documented in this encounter Miscellaneous Notes * Telephone Encounter - Vivi Carrion M.A. - 02/09/2023 10:56 AM ESTFrom: Karina Burks To: Quintin Sandhu Sent: 02/09/2023 10:47 AM EST Subject: Continued Congestion Good morning, I have finished my steroids but continue to be congested, my face is irritated and I get out of breathe. My breathing is not as bad as when I saw you last but still uncomfortable. documented in this encounter Plan of Treatment Not on file documented as of this encounter Visit Diagnoses Not on filedocumented in this encounter Care Teams Pug Mill Operator Helper Relationship Specialty Start Date End Date Tj Sandhu PA-C [address] [place] [address] PCP - General Internal Medicine 06/14/20 documented as of this encounter
--- OUTSIDE RECORDS SUMMARY | 2024-05-12 14:38 | XMS_ITS | Encounter Summary ---
Author Organization [facility] Address [address] [place] [address] Care Team Providers Care Skin Piler Name Role Phone Tj Sandhu Primary Care Provider +1 [phone] Encounter Details Date Type Department Care Team (Late Contact Info) Description 03/18/2024 Telephone Adult Medicine [address] [phone] Tj Sandhu, PA [address] [place] [address] Social History Tobacco Use Types Packs/Day Years [...] on file Sexual Orientation Not on file documented as of this encounter Plan of Treatment Upcoming Encounters Date Type Department Care Team (Late Contact Info) Description 07/09/2024 12:30 PM EDT Appointment Radiology Department - [address] [phone] 07/19/2024 2:30 PM EDT Office Visit Adult Medicine [address] [phone] Tj Sandhu PA [address] [place] [address] documented as of this encounter Visit Diagnoses Not on filedocumented in this encounter Care Teams Skin Piler Relationship Specialty Start Date End Date Tj Sandhu PA [address] [place] [address] PCP - General Internal Medicine 06/14/20 documented as of this encounter
--- OUTSIDE RECORDS SUMMARY | 2024-05-12 14:38 | XMS_ITS | Continuity of Care Document ---
Author Organization [facility] Address [address] [place] [address]- Care Team Providers Care Hogshead Packer Name Role Phone Tj Camarena Primary Care Physician ( [phone] [place] [facility] [place] 03/25/24 - 04/24/24 [facility] [address] [place] [id number] Attending Physician: Ana Ramirez Admitting Physician: AdmAna segundo Referring Physician: Admtr ArJerry Encounter Type: Triage Allergies, Adverse Reactions, Alerts [...] List Condition Confirmation Course Effective Dates Status Health St [facility] Informant 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
== END 2024-05-12 14:25 | disposition home or self-care (01) ==
PROVIDERS: PCP Physician Assistant Medical; Visit Provider Internal Medicine
DX: I48.0 Paroxysmal atrial fibrillation (principal); I10 Essential (primary) hypertension; G47.33 Obstructive sleep apnea (adult) (pediatric); Z68.43 Body mass index [BMI] 50.0-59.9, adult; R07.2 Precordial pain
CPT/HCPCS: 99214

== ENCOUNTER 2024-06-14 19:30 | Inpatient (IN) | payer BC, SELFPAY ==
[2024-06-14] VITALS (7 sets, daily range): BP systolic 143–190; BP diastolic 64–73; PULSE 42–52; RESP 16–20; TEMP 36.3; O2SAT 86–95; BMI 51.6
--- NOTE | ~2024-06-14 | CT_ITS ---
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 No acute process in sinuses or mastoids. No acute bony abnormality. Impression: No acute intracranial process This document has been electronically signed by: Jeet Estrella MD on 06/14/2024 21:06:51
--- NOTE | ~2024-06-14 | XR_ITS ---
CLINICAL HISTORY: cough sob 1 view chest x-ray Comparison: 08/23/2023 Findings: Lungs are clear without acute infiltrates. No pneumothorax. Heart size enlarged. No acute bony abnormalities. Impression: No acute processes This document has been electronically signed by: Jeet Estrella MD on 06/14/2024 20:27:44
--- NOTE | ~2024-06-14 | CT_ITS ---
CLINICAL HISTORY: hypoxic CT chest without contrast Comparison: None Findings: Bilateral lower lobe atelectasis versus scar. No other significant parenchymal abnormality. No significant mediastinal adenopathy. No significant free pleural fluid. Moderate coronary artery calcification. No significant focal bony abnormalities. Impression: Bilateral lower lobe atelectasis versus scar This document has been electronically signed by: Jeet Estrella MD on 06/14/2024 22:15:30
--- NOTE | 2024-06-14 19:43 | ECG_ITS ---
Test Reason : HYPERTENSION Blood Pressure : */* mmHG Vent. Rate : 50 BPM Atrial Rate : 50 BPM P-R Int : 138 ms QRS Dur : 102 ms QT Int : 484 ms P-R-T Axes : 66 23 26 degrees QTcB Int : 441 ms Sinus bradycardia Otherwise normal ECG When compared with ECG of 23-Aug-2023 10:30, No significant change was found Referred By: Shiloh Cedeno Electronically Signed By: ECTOR MITCHELL MD
--- NOTE | 2024-06-14 19:46 | ED.GENADULT ---
HPI - General Adult General Chief complaint: General Medical Stated complaint: headache-high blood pressure/sob Time Seen by Provider: 06/14/24 21:04 Source: patient Mode of arrival: ambulatory Limitations: no limitations History of Present Illness ED Provider: Dr. Penny Kilgore HPI narrative: Patient comes to the emergency room complaining of high blood pressure and headache. Patient states that yesterday blood pressure was above 190s systolic which is unusual for her. Patient usually takes losartan , metoprolol, losartan, nifedipine. Patient states that she did not take any medication for headache including acetaminophen. Patient denies any chest pain or shortness of breath. Denies any nausea vomiting or diarrhea, denies visual changes. Related Data Home Medications ?Medication ?Instructions ?Recorded ?Confirmed albuterol sulfate 90 mcg/actuation 2 puff inhalation Q6H PRN 03/20/22 05/12/24 aerosol inhaler Shortness Of Breath Or Wheezing furosemide 20 mg tablet 20 mg PO DAILY 04/15/22 05/12/24 budesonide-formoterol HFA 80 2 puff inhalation BID 08/23/23 05/12/24 mcg-4.5 mcg/actuation aerosol inhaler (Symbicort) cholecalciferol (vitamin D3) 25 25 mcg PO DAILY 08/23/23 05/12/24 mcg (1,000 unit) tablet (Vitamin D3) dupilumab 300 mg/2 mL subcutaneous 300 mg subcut Q2W 08/23/23 05/12/24 pen injector (Dupixent) ferrous sulfate 325 mg (65 mg 325 mg PO Q OTHER DAY 08/23/23 05/12/24 iron) tablet,delayed release losartan 100 mg tablet 100 mg PO DAILY 08/23/23 05/12/24 multivitamin with minerals-folic 1 tab PO DAILY 08/23/23 05/12/24 acid 80 mcg chewable tablet (Centrum Adult 50 Plus) nifedipine 30 mg tablet,extended 30 mg PO DAILY 08/23/23 05/12/24 release sertraline 50 mg tablet 50 mg PO DAILY 08/23/23 05/12/24 Previous Rx's ?Medication ?Instructions ?Recorded apixaban 5 mg tablet (Eliquis) 5 mg PO BID #180 tabs 08/24/23 atenolol 25 mg tablet 25 mg PO DAILY #90 tabs 05/12/24 Allergies Allergy/AdvReac Type Severity Reaction Status Date / Time Penicillins [PENICILLINS] Allergy Severe hives/urtic Verified 06/14/24 19:53 aria Review of Systems Review of Systems: Constitutional : No Weight loss, No Fever, No Chills, No Night Sweats, No Fatigue, No Malaise ENT/Mouth : No Hearing loss, No Ear Pain, No Nasal Congestion, No Sinus Pain, No Hoarseness, No sore throat, No Rhinorrhea, No Swallowing Difficulty Eyes: No Eye Pain, No Swelling, No Redness, No Foreign Body, No Discharge, No Vision Changes Cardiovascular : No Chest Pain, No SOB, No Dyspnea on Exertion, No Orthopnea, No Edema, No Palpitations, complaining of high blood pressure Respiratory : No Cough, No Sputum, No Wheezing, No Smoke Exposure, No Dyspnea Gastrointestinal : No Nausea, No Vomiting, No Diarrhea, No Constipation, No abdominal Pain, No Hematochezia, No Melena Genitourinary : no irregular bleeding, No Dysuria, No Urinary Frequency, No Hematuria, No Urinary Incontinence, No Urgency, No Flank Pain, No Urinary Flow Changes, No Hesitancy Musculoskeletal : No joint pain, No Myalgias, No Joint Swelling Skin : No Skin Lesions, No rash Neuro : No Weakness, No Numbness, No Paresthesias, No Loss of Consciousness, No Dizziness, complaining of Headache Psych : No Anxiety/Panic, No Depression, No SI/HI/AH/VH, No Social Issues, Heme/Lymph: No Bruising, No Bleeding,No Lymphadenopathy Endocrine : No Polyuria, No Polydipsia, No Temperature Intolerance [facility] Past Medical History Medical History MARGARETH (obstructive sleep apnea) Atrial fibrillation BMI 50.0-59.9, adult Lower leg edema Prediabetes Asthma HLD (hyperlipidemia) HTN (hypertension) Eczema Surgical History History of endoscopy (2004) History of wisdom tooth extraction History of colonoscopy (2014) History of delivery Family History Family History Father Liver cancer Mother Pancreatic cancer Maternal Grandmother Pancreatic cancer Sister Breast cancer Maternal Uncle Lung cancer Social History Social History (Reviewed 05/12/24 @ 13:55 by REJI Hernadnez Household Members: Family Housing: House Do you presently have visiting nurse or other home services: No Alcohol intake: current Alcohol intake frequency: a few times a week Patient Tobacco Use Status: Former Tobacco user Smoked in Last 30 Days: No Use of substances other than those prescribed or required for medical reasons: No Advance Directives: No Advance Directives Information Provided: Yes Do you have a plan to hurt others: No Plan service: No Physical Exam ED Vital Signs: Vital Signs - 24 hr 06/14/24 19:43 06/14/24 21:08 06/14/24 21:40 Temperature 97.4 F Pulse Rate 52 49 L Pulse Rate [Monitor] Respiratory Rate 16 16 20 Blood Pressure 190/73 H 143/64 H Pulse Oximetry 93 93 Oxygen Delivery Method Room Air Room Air Oxygen Flow Rate 06/14/24 21:47 06/14/24 21:52 06/14/24 22:28 Temperature Pulse Rate Pulse Rate [Monitor] 46 L Respiratory Rate 16 Blood Pressure Pulse Oximetry 86 L Oxygen Delivery Method Oxygen Flow Rate 06/14/24 22:29 06/14/24 22:29 Temperature Pulse Rate 42 L 47 L Pulse Rate [Monitor] Respiratory Rate 18 Blood Pressure 156/66 H Pulse Oximetry 95 Oxygen Delivery Method Nasal Cannula Oxygen Flow Rate 2 BMI result Body Mass Index 51.6 Const Other: Appearance: Alert. Oriented X3. No acute distress. Well-appearing Eyes: Pupils equal, round and reactive to light. ENT: Pharynx normal. Neck: Normal inspection. Neck supple. No lymph nodes noted. No crepitus CVS: Normal heart rate and rhythm. Pulses normal. Normal S1 and S2 Respiratory: No respiratory distress. Breath sounds normal. No Wheezing. No rales Abdomen: Soft and nontender. No rigidity. No distention. Skin: Skin warm and dry. Normal skin color. Normal skin turgor. Small eczema lesions in bilateral arms Extremities: No lower extremity edema. No Lacerations. No Rash Neuro: Oriented X 3. No motor deficit. No sensory deficit. Moving all extremities. No slurred speech. CN 2 through 12 grossly intact Psych: calm, cooperative, normal affect Course Course Course Narrative: This is a rapid medical exam performed by Shiloh Cedeno PA-C. The patient is a 64-year-old female with a history of hypertension, AFib on Eliquis, asthma, morbid obesity, sleep apnea who presents with hypertensive urgency. Patient states she has been recently treated for an asthma exacerbation she has been on a steroid taper. She has also been taking [id number] cough and cold remedies I have been using her inhaler. Over the past few days the patient was noted that her blood pressure has been markedly elevated. Patient also states that she has been having an extreme headache. Associated chest tightness with dyspnea on exertion. Patient states she does not feel significantly improved with her current treatment for her asthma exacerbation. On exam, the patient has been active bronchospasm cough with faint expiratory wheezes. She is neurologically intact and ambulating with a steady gait. We will be screening basic labs cardiac enzyme, BNP chest x-ray and a head CT with a viral panel. Patient was stable and can return to the waiting room pending her full medical assessment. Medications Administered Discontinued Medications Generic Name Dose Route Start Last Admin Trade Name Freq PRN Reason Stop Dose Admin Metoclopramide HCl 5 mg 06/14/24 21:14 06/14/24 21:40 Metoclopramide Hcl 5 Mg Tablet PO 06/14/24 21:15 5 mg ONCE ONE Administration Morphine Sulfate 2 mg 06/14/24 21:14 06/14/24 21:40 Morphine Sulfate 2 Mg/Ml Cartridge IM 06/14/24 21:15 2 mg ONCE ONE Administration Protocol Medical Decision Making Medical Decision Making [facility] Narrative: My interpretation of EKG: My interpretation of EKG: Sinus bradycardia, heart rate 50, no ST segment depression or elevation, no T-wave inversion, QTC 441 My interpretation of lab: Patient's white blood cell count 14.9, patient is on prednisone, normal chemistry, normal LFTs, BNP 185 which is at baseline for the patient, troponin 3.4, serology negative. CT scan of the head does not show any acute abnormality Chest x-ray does not show any acute abnormalities Patient was ambulated around the emergency room, oxygen saturation dropped to 86% on room air. Patient is not oxygen dependent. Discussed with the patient that admission is recommended. Patient does not have supplemental O2 at home. CT scan of the chest does not show any obvious abnormality. No signs of pneumonia. Differential Diagnosis Differential Diagnoses: The differential diagnosis associated with the presentation includes (Asthma, CHF, pneumonia) Admission/Observation Consideration of admission/observation: Escalation of care including admission/observation considered Consult Healthcare Provider Management of the patient was discussed with: Hospitalist Lab Data [facility] Lab Attestation statement: I reviewed the patient's lab results. 06/14/24 19:55 06/14/24 19:55 Labs: Lab Results 06/14/24 Range/Units 19:55 WBC 14.9 H (4.8-10.8) X10*3/uL RBC 4.77 (4.20-5.50) X10*6/uL Hgb 12.4 (12.0-16.0) g/dl Hct 39.2 (37.0-47.0) % MCV 82.2 (80.0-98.0) fL MCH 26.0 L (27.0-33.0) pg MCHC 31.6 (31.0-35.0) g/dl RDW 14.9 (11.0-16.0) % Plt Count 315 D (160-400) X10*3/uL MPV 9.2 L (9.4-12.3) fL Immature Gran % (Auto) 2.0 H (0.0-0.4) % Neut % (Auto) 80.8 H (45-73) % Lymph % (Auto) 12.0 L (20-40) % Jack % (Auto) 4.8 (2-11) % Eos % (Auto) 0.1 (0-4) % Baso % (Auto) 0.3 (0-2) % Lymph # (Auto) 1.8 (1.2-4.9) X10*3/uL Jack # (Auto) 0.7 (0.1-1.2) X10*3/uL Eos # (Auto) 0.0 (0.0-0.4) X10*3/uL Baso # (Auto) 0.1 (0.0-0.2) X10*3/uL Abs Immat Gran (auto) 0.30 H (0.00-0.03) X10*3/uL Absolute Neuts (auto) 12.1 H (2.0-8.3) x10*3/uL Absolute Nucleated RBC 0.000 (0.0-0.012) X10*3/uL Nucleated RBC % (auto) 0.0 (0.0-0.2) /100WBC Sodium 140 (135-145) mmol/L Potassium 4.4 (3.3-5.1) mmol/L Chloride 105 (96-108) mmol/L Carbon Dioxide 26 (22-29) mmol/L Anion Gap 13 (12-20) BUN 18 H (9-16) mg/dL Creatinine 0.66 (0.5-1.4) mg/dL Estim Creat Clear Calc 127.2 Estimated GFR > 60 Random Glucose 114 (60-115) mg/dL Calcium 10.0 (8.4-10.2) mg/dL Magnesium 2.4 (1.6-2.6) mg/dL Total Bilirubin 0.3 (0.0-1.0) mg/dL AST 22 (5-31) U/L ALT 47 H (0-31) U/L Alkaline Phosphatase 82 (39-117) U/L Troponin I High Sens 3.4 (<3.5-17.0) ng/L B-Natriuretic Peptide 185 H (<100) pg/mL Total Protein 6.7 (6.5-8.0) g/dL Albumin 4.0 (3.5-5.0) g/dL Influenza Type A (PCR) NEGATIVE (Negative) Influenza Type B (PCR) NEGATIVE (Negative) RSV RNA Qual (PCR) NEGATIVE (Negative) SARS-CoV-2 RNA (RT-PCR) NEGATIVE (Negative) Independent Interpretation I performed an independent interpretation of an: Plain X-Ray and CT Scan Radiology Impression Discussion of test interpretation with radiology: I have reviewed the radiologist's reading. Radiologist Impression: Lungs are clear without acute infiltrates. No pneumothorax. Heart size enlarged. No acute bony abnormalities. Impression: No acute processes No intracranial mass, midline shift, hydrocephalus, or acute hemorrhage. No acute process in sinuses or mastoids. No acute bony abnormality. Impression: No acute intracranial process Critical Care Time Critical Care Time Critical Care Time: Yes Total Critical Care Time: 60 Attestation: I have personally provided critical care time. Time includes review of lab data, radiology results, discussion with consultants, and monitoring for potential decompensation. Intervention performed as documented. Discharge Plan Discharge Clinical Impression: Hypertensive urgency, URI (upper respiratory infection) Patient Disposition: Admitted As Inpatient Print Language: Setswana
[2024-06-14 20:10] LABS: MANUAL DIFF FLAG NO
[2024-06-14 20:12] LABS: Basophils Absolute Auto 0.1 X10*3/uL (0.0-0.2); Basophils Percent Auto 0.3 % (0-2); Eosinophils Percent Auto 0.1 % (0-4); Hematocrit 39.2 % (37.0-47.0); Hemoglobin 12.4 g/dl (12.0-16.0); Lymphocytes Absolute Auto 1.8 X10*3/uL (1.2-4.9); Mean Corpuscular HGB Conc 31.6 g/dl (31.0-35.0); Mean Corpuscular Volume 82.2 fL (80.0-98.0); Mean Platelet Volume 9.2 fL (9.4-12.3); Monocytes Absolute Auto 0.7 X10*3/uL (0.1-1.2); Monocytes Percent Auto 4.8 % (2-11); Neutrophils Absolute Auto 12.1 x10*3/uL (2.0-8.3); Neutrophils Percent Auto 80.8 % (45-73); Platelet Count 315 X10*3/uL (160-400); Red Blood Count 4.77 X10*6/uL (4.20-5.50); Red Cell Distribution Width 14.9 % (11.0-16.0); White Blood Count 14.9 X10*3/uL (4.8-10.8)
[2024-06-14 20:25] LABS: Alanine Aminotransferase 47 U/L (0-31); Alkaline Phosphatase 82 U/L (39-117); Anion Gap 13 (12-20); Aspartate Amino Transferase 22 U/L (5-31); Bilirubin Total 0.3 mg/dL (0.0-1.0); Blood Urea Nitrogen 18 mg/dL (9-16); Carbon Dioxide 26 mmol/L (22-29); Chloride 105 mmol/L (96-108); Creatinine Clr Calc Pharmacy 127.2; Estimated Glomerular Filt Rate > 60; Glucose Random 114 mg/dL (60-115); Magnesium 2.4 mg/dL (1.6-2.6); Potassium 4.4 mmol/L (3.3-5.1); Sodium 140 mmol/L (135-145); Total Protein 6.7 g/dL (6.5-8.0)
[2024-06-14 20:31] LABS: B Type Natriuretic Peptide 185 pg/mL (<100); Troponin-I High Sensitivity 3.4 ng/L (<3.5-17.0)
[2024-06-14 20:48] LABS: Influenza A PCR NEGATIVE (Negative); Influenza B PCR NEGATIVE (Negative); Resp Syncy Virus RNA Qual PCR NEGATIVE (Negative); SARS COV2 PCR INHOUSE NEGATIVE (Negative)
[2024-06-14] MEDS: Metoclopramide HCl 5 MG TABLET PO (21:40)
[2024-06-14] MEDS: Morphine Sulfate 2 MG/ML CARTRIDGE IM (21:40)
--- NOTE | 2024-06-14 23:18 | P.HPHOSP_ITS ---
History of Present Illness Date of Service: 06/14/24 <BROOKE Plata Last Filed: 06/14/24 23:31> Attending physician on admission: Krzysztof Johnson <BROOKE Plata Last Filed: 06/14/24 23:31> Chief Complaint: HTN, headache, GANDARA <BROOKE Plata Last Filed: 06/14/24 23:31> Patient is a 64-year-old female with a past medical history significant for mild persistent asthma, MARGARETH on CPAP, paroxysmal AFib, prediabetes, morbid obesity and HTN, who presented to the ED due to hypertension since yesterday, systolic into the 190s, headache and dyspnea on exertion. She is currently being treated for an asthma exacerbation with p.o. steroids and reports that she has also been taking mfft-yic-sjisrkg cough medicine. She recently had a change in her blood pressure meds and started atenolol, her pulse has been low she reports that she is symptomatic an feels her heart jump . She has been using albuterol nebulizers every 4 hours at home and does not usually use oxygen. She is ambulatory hypoxia requiring admission at this time. <BROOKE Plata Last Filed: 06/14/24 23:31> Review of Systems 2 Constitutional: Constitutional: Denies body ache(s), Reports chills, Denies fatigue, Denies fever(s) and Reports headache(s) <BROOKE Plaat Last Filed: 06/14/24 23:31> Eyes: Eyes: Denies change in vision and Denies photophobia <BROOKE Plata Last Filed: 06/14/24 23:31> ENT: Reports headache(s), Denies nasal congestion, Denies nasal discharge and Denies sore throat <BROOKE Plata Last Filed: 06/14/24 23:31> Cardiovascular: Cardiovascular: Reports chest pain (with cough), Denies rapid heart rate, Reports leg edema, Denies lightheadedness and Reports dyspnea on exertion <BROOKE Plata Last Filed: 06/14/24 23:31> Respiratory: Respiratory: Reports cough, Reports dyspnea on exertion and Reports wheezing <Ailyn Sanders PA-C - Last Filed: 06/14/24 23:31> Gastrointestinal: Gastrointestinal: Denies diarrhea, Denies nausea and Denies vomiting <Ailyn Sanders PA-C - Last Filed: 06/14/24 23:31> Genitourinary: Genitourinary: Denies hematuria, Denies dysuria and Denies urinary urgency <Ailyn Sanders PA-C - Last Filed: 06/14/24 23:31> Musculoskeletal: Musculoskeletal: Denies back pain and Denies myalgias < Ailyn Sanders PA-C - Last Filed: 06/14/24 23:31> Integumentary/Breasts: Skin/Breast: Denies rash <Ailyn Sanders PA-C - Last Filed: 06/14/24 23:31> Neurologic: Denies confusion and Reports headache(s) <FRANKO Plata - Last Filed: 06/14/24 23:31> Psychiatric: Psychiatric: Denies confusion <Ailyn Sanders PA-C - Last Filed: 06/14/24 23:31> Endocrine: Endocrine: Denies fatigue <Ailyn Sanders PA-C - Last Filed: 06/14/24 23:31> Hematologic/Lymphatic: Hematologic/Lymphatic: Denies easy bleeding and Denies easy bruising <Ailyn Sanders PA-C - Last Filed: 06/14/24 23:31> Allergic/Immunologic: Allergic/Immunologic: Reports wheezing <Ailyn Sanders PA-C - Last Filed: 06/14/24 23:31> [facility] Medical History: Medical History MARGARETH (obstructive sleep apnea) Atrial fibrillation BMI 50.0-59.9, adult Lower leg edema Prediabetes Asthma HLD (hyperlipidemia) HTN (hypertension) Eczema <Ailyn Sanders PA-C - Last Filed: 06/14/24 23:31> Functional capacity: independent ambulation <Ailyn Sanders PA-C - Last Filed: 06/14/24 23:31> Family History: Family History Father Liver cancer Mother Pancreatic cancer Maternal Grandmother Pancreatic cancer Sister Breast cancer Maternal Uncle Lung cancer <Ailyn Sanders PA-C - Last Filed: 06/14/24 23:31> Surgical History: Surgical History History of endoscopy (2004) History of wisdom tooth extraction History of colonoscopy (2014) History of delivery <Ailyn Sanders PA-C - Last Filed: 06/14/24 23:31> Social History: Social History Household Members: Family Housing: House Do you presently have visiting nurse or other home services: No Alcohol intake: current Alcohol intake frequency: a few times a week Patient Tobacco Use Status: Former Tobacco user Smoked in Last 30 Days: No Use of substances other than those prescribed or required for medical reasons: No Advance Directives: No Advance Directives Information Provided: Yes Do you have a plan to hurt others: No Plan service: No <Ailyn Sanders PA-C - Last Filed: 06/14/24 23:31> Narrative: No smoking, social occasional alcohol, no drug use <Ailyn Sanders PA-C - Last Filed: 06/14/24 23:31> Meds Allergies/Adverse reactions: Allergies Allergy/AdvReac Type Severity Reaction Status Date / Time Penicillins [PENICILLINS] Allergy Severe hives/urtic Verified 06/14/24 19:53 aria <Ailyn Sanders PA-C - Last Filed: 06/14/24 23:31> Home medications: Home Medications ?Medication ?Instructions ?Recorded ?Confirmed ?Last Taken ?Type albuterol sulfate 90 mcg/actuation 2 puff inhalation Q6H PRN 03/20/22 05/12/24 Unknown History aerosol inhaler Shortness Of Breath Or Wheezing furosemide 20 mg tablet 20 mg PO DAILY 04/15/22 05/12/24 08/23/23 09:00 History budesonide-formoterol HFA 80 2 puff inhalation BID 08/23/23 05/12/24 08/23/23 09:00 History mcg-4.5 mcg/actuation aerosol inhaler (Symbicort) cholecalciferol (vitamin D3) 25 25 mcg PO DAILY 08/23/23 05/12/24 08/23/23 09:00 History mcg (1,000 unit) tablet (Vitamin D3) dupilumab 300 mg/2 mL subcutaneous 300 mg subcut Q2W 08/23/23 05/12/24 08/13/23 History pen injector (Dupixent) ferrous sulfate 325 mg (65 mg 325 mg PO Q OTHER DAY 08/23/23 05/12/24 Unknown History iron) tablet,delayed release losartan 100 mg tablet 100 mg PO DAILY 08/23/23 05/12/24 08/23/23 09:00 History multivitamin with minerals-folic 1 tab PO DAILY 08/23/23 05/12/24 08/23/23 09:00 History acid 80 mcg chewable tablet (Centrum Adult 50 Plus) nifedipine 30 mg tablet,extended 30 mg PO DAILY 08/23/23 05/12/24 08/23/23 09:00 History release sertraline 50 mg tablet 50 mg PO DAILY 08/23/23 05/12/24 08/23/23 09:00 History <Ailyn Sanders PA-C - Last Filed: 06/14/24 23:31> Physical Exam 2 Vital Signs and Narrative: Vital Signs: Last Vital Signs Temp 97.4 F 06/14/24 19:43 Pulse 47 L 06/14/24 22:29 Resp 18 06/14/24 22:29 BP 156/66 H 06/14/24 22:29 Pulse Ox 95 06/14/24 22:29 O2 Del Method Nasal Cannula 06/14/24 22:29 O2 Flow Rate 2 06/14/24 22:29 BMI result Body Mass Index 51.6 <Ailyn Sanders PA-C - Last Filed: 06/14/24 23:31> General: AOx3, no acute distress Resp: wheezing bilaterally, no crackles. diminished throughout CVS: bradycardic, regular rhythm, no murmur GI: +BS, NT, no distention Skin: Warm, dry Neuro: Cranial nerves II-XII grossly intact bilaterally. Motor grossly intact bilaterally Extremities: 1-2+ pitting edema Psych: Appropriate affect <Ailyn Sanders PA-C - Last Filed: 06/14/24 23:31> Const: General: No confusion <Ailyn Sanders PA-C - Last Filed: 06/14/24 23:31> Orientation/consciousness: No confusion <Ailyn Sanders PA-C - Last Filed: 06/14/24 23:31> Eyes: Direct Ophthalmoscopy: No photophobia <Ailyn Sanders PA-C - Last Filed: 06/14/24 23:31> Neuro: General: No confusion <Ailyn Sanders PA-C - Last Filed: 06/14/24 23:31> Results Labs CBC and Chem 7: 06/14/24 19:55 06/14/24 19:55 <Ailyn Sanders PA-C - Last Filed: 06/14/24 23:31> Labs: Laboratory Results - last 24 hr 06/14/24 19:55 MCV 82.2 MCH 26.0 L MCHC 31.6 RDW 14.9 Plt Count 315 D MPV 9.2 L Immature Gran % (Auto) 2.0 H Neut % (Auto) 80.8 H Lymph % (Auto) 12.0 L [place] % (Auto) 4.8 Eos % (Auto) 0.1 Baso % (Auto) 0.3 Lymph # (Auto) 1.8 [place] # (Auto) 0.7 Eos # (Auto) 0.0 Baso # (Auto) 0.1 Abs Immat Gran (auto) 0.30 H Absolute Neuts (auto) 12.1 H Absolute Nucleated RBC 0.000 Nucleated RBC % (auto) 0.0 Anion Gap 13 Estim Creat Clear Calc 127.2 Estimated GFR > 60 Random Glucose 114 Calcium 10.0 Magnesium 2.4 Total Bilirubin 0.3 AST 22 ALT 47 H Alkaline Phosphatase 82 B-Natriuretic Peptide 185 H Total Protein 6.7 Albumin 4.0 Influenza Type A (PCR) NEGATIVE Influenza Type B (PCR) NEGATIVE RSV RNA Qual (PCR) NEGATIVE SARS-CoV-2 RNA (RT-PCR) NEGATIVE <BROOKE Plata Last Filed: 06/14/24 23:31> Assessment and Plan (1) Acute hypoxic respiratory failure: Status: Acute <ROBBIE Plata-C - Last Filed: 06/14/24 23:31> (2) Acute asthma exacerbation: Status: Acute <ROBBIE Plata-C - Last Filed: 06/14/24 23:31> (3) Leg edema: Status: Acute <Ailyn Sanders PA-C - Last Filed: 06/14/24 23:31> (4) HTN (hypertension): Status: Acute <Ailyn Sanders PA-C - Last Filed: 06/14/24 23:31> (5) Bradycardia: Status: Acute <Ailyn Sanders PA-C - Last Filed: 06/14/24 23:31> (6) BMI 50.0-59.9, adult: Status: Acute <ROBBIE Plata-C - Last Filed: 06/14/24 23:31> Patient is a 64-year-old female with a past medical history significant for mild persistent asthma, MARGARETH on CPAP, paroxysmal AFib, prediabetes, morbid obesity and HTN, who presented to the ED due to hypertension since yesterday, systolic into the 190s, headache and dyspnea on exertion. Acute hypoxic respiratory failure secondary to acute asthma exacerbation - patient currently being treated with p.o. prednisone outpatient and albuterol nebulizers q.4h - wheezing on exam - WBC 10.9, likely secondary to prednisone use, no tachycardia or tachypnea, no infection - CXR and chest CT negative - COVID/flu/RSV negative - given solumedrol 145mg in ED, continue prednisone 40mg PO QD - duonebs Q4H - titrate O2 as appropriately - monitor CBC and BMP Bilateral leg edema - BNP 185 - CXR and chest CT without pulmonary edema - echo 08/2023 without CHF, already evaluated outpt for LE edema by cardiology - continue lasix 20mg QD HTN/headache - likely secondary to OTC cough medication use, counseled pt - BP better now, continue to monitor - hold atenolol due to bradycardia Bradycardia - hold atenolol - monitor on tele MAGRARETH - CPAP at bedtime paroxysmal a fib - EKG with sinus venkata - hold atenolol, continue eliquis BID prediabetes - no home meds - random glucose normal Class 3 morbid obesity - BMI 51.6 - likely contributing to pulmonary issues - weight loss encouraged full code VTE prophy: juana Patient with acute hypoxic respiratory failure secondary to acute asthma exacerbation, requiring admission for at least 2 midnights stay for IV steroids, breathing treatments and monitoring <Ailyn Sanders PA-C - Last Filed: 06/14/24 23:31> Patient is a 64-year-old female with a past medical history significant for mild persistent asthma, MARGARETH on CPAP, paroxysmal AFib, prediabetes, morbid obesity and HTN, who presented to the ED due to hypertension since yesterday, systolic into the 190s, headache and dyspnea on exertion. Acute hypoxic respiratory failure secondary to acute asthma exacerbation - patient currently being treated with p.o. prednisone outpatient and albuterol nebulizers q.4h - wheezing on exam - WBC 10.9, likely secondary to prednisone use, no tachycardia or tachypnea, no infection - CXR and chest CT negative - COVID/flu/RSV negative - given solumedrol 145mg in ED, continue - duonebs Q4H - titrate O2 as appropriately - monitor CBC and BMP Bilateral leg edema - BNP 185 - CXR and chest CT without pulmonary edema - echo 08/2023 without CHF, already evaluated outpt for LE edema by cardiology - continue lasix 20mg QD HTN/headache - likely secondary to OTC cough medication use, counseled pt - BP better now, continue to monitor - hold atenolol due to bradycardia Bradycardia - hold atenolol - monitor on tele MARGARETH - CPAP at bedtime paroxysmal a fib - EKG with sinus venkata - hold atenolol, continue eliquis BID prediabetes - no home meds - random glucose normal Class 3 morbid obesity - BMI 51.6 - likely contributing to pulmonary issues - weight loss encouraged full code VTE prophy: juana Patient with acute hypoxic respiratory failure secondary to acute asthma exacerbation, requiring admission for at least 2 midnights stay for IV steroids, breathing treatments and monitoring <Krzysztof Jhonson MD - Last Filed: 06/14/24 23:35> Quality Stroke Does the patient have a stroke diagnosis?: No <Ailyn Sanders PA-C - Last Filed: 06/14/24 23:31> VTE Prior VTE?: No <Ailyn Sanders PA-C - Last Filed: 06/14/24 23:31> VTE Risk Level:: Medical - moderate - high <Ailyn Sanders PA-C - Last Filed: 06/14/24 23:31> VTE Device Contraindication: Treatment Not Indicated <Ailyn Sanders PA-C - Last Filed: 06/14/24 23:31> VTE Drug Contraindication: N/A - Med Ordered <Ailyn Sanders PA-C - Last Filed: 06/14/24 23:31>
[2024-06-15] VITALS (13 sets, daily range): BP systolic 127–154; BP diastolic 46–68; PULSE 46–72; RESP 15–22; TEMP 36.5–36.6; O2SAT 92–96
[2024-06-15] MEDS: methylPREDNISolone Sod Succ 125 MG/2 ML VIAL IVPUSH (00:08)
[2024-06-15] MEDS: Apixaban 5 MG TABLET PO ×3 (00:08→20:21)
[2024-06-15] MEDS: 0.9 % Sodium Chloride Flush 3 ML SYRINGE IVFLUSH ×3 (00:08→18:33)
--- NOTE | 2024-06-15 04:21 | MHC.EDTECH ---
This tech took over care of pt at 0330AM,rounds and vitals completed,HR is low,49 RN aware, morning labs drawn,pt is resting quietly,call de jesus within reach
[2024-06-15 04:40] LABS: MANUAL DIFF FLAG NO
[2024-06-15 04:41] LABS: Basophils Absolute Auto 0.1 X10*3/uL (0.0-0.2); Basophils Percent Auto 0.3 % (0-2); Eosinophils Percent Auto 0.2 % (0-4); Hematocrit 40.4 % (37.0-47.0); Hemoglobin 13.3 g/dl (12.0-16.0); Imm Gran Abs Auto 0.27 X10*3/uL (0.00-0.03); Imm Gran Pct Auto 1.7 % (0.0-0.4); Lymphocytes Absolute Auto 2.2 X10*3/uL (1.2-4.9); Lymphocytes Percent Auto 13.4 % (20-40); Mean Corpuscular HGB Conc 32.9 g/dl (31.0-35.0); Mean Corpuscular Hemoglobin 26.5 pg (27.0-33.0); Mean Corpuscular Volume 80.6 fL (80.0-98.0); Mean Platelet Volume 9.1 fL (9.4-12.3); Monocytes Absolute Auto 0.4 X10*3/uL (0.1-1.2); Monocytes Percent Auto 2.6 % (2-11); Neutrophils Absolute Auto 13.2 x10*3/uL (2.0-8.3); Neutrophils Percent Auto 81.8 % (45-73); Platelet Count 304 X10*3/uL (160-400); Red Blood Count 5.01 X10*6/uL (4.20-5.50); Red Cell Distribution Width 15.3 % (11.0-16.0); White Blood Count 16.1 X10*3/uL (4.8-10.8)
--- NOTE | 2024-06-15 04:41 | MHC.EDTECH ---
Patient ambulated to the bathroom with a steady gait and portable oxygen
[2024-06-15 04:56] LABS: Anion Gap 16 (12-20); Blood Urea Nitrogen 21 mg/dL (9-16); Calcium 9.9 mg/dL (8.4-10.2); Carbon Dioxide 23 mmol/L (22-29); Chloride 106 mmol/L (96-108); Creatinine Clr Calc Pharmacy 107.7; Estimated Glomerular Filt Rate > 60; Glucose Random 163 mg/dL (60-115); Potassium 4.5 mmol/L (3.3-5.1); Sodium 140 mmol/L (135-145)
[2024-06-15] MEDS: Albuterol/Iprat 2.5/0.5MG 3 ML AMPUL.NEB INHALE ×4 (07:07→18:57)
[2024-06-15] MEDS: methylPREDNISolone Sod Succ 40 MG/ML VIAL IVPUSH ×2 (07:15→20:21)
--- NOTE | 2024-06-15 08:36 | PHA.MEDREC ---
Addendum entered by Jennifer Brown RPh 06/15/24 08:44: reviewed by [facility]. Original Note: Pharmacy Consult ? Medication Reconciliation Pharmacy has completed the medication reconciliation. Spoke with patient and she confirmed her medications. Patient confirmed her Eliquis 5mg tab and confirmed she takes it twice a day. Patient confirmed her Dupixent Pen once every 2 weeks and confirmed she is due for it next Saturday 06/24. The patient confirmed she was still taking the Prednisone 20mg regimen and stated she was on day 6 of and which was her last dose of 2 tabs, which she took yesterday morning, and she was gonna be starting 1 tab for 3 days today. She confirmed she took all her medication yesterday morning and stated she got her 2nd dose of Eliquis from nurses in the ED last night.
[2024-06-15] MEDS: NIFEdipine ER 30 MG TAB.ER.24 PO (09:00)
--- NOTE | 2024-06-15 10:52 | PC.NURSE ---
Report received from MAHESH Garcia. Taken over care at this time.
--- NOTE | 2024-06-15 11:46 | CA_ITS ---
Transthoracic Echocardiogram Patient (Last, First, Middle): Karina Burks, Gender: Female Date of : 1960 Age: 64 Procedure Date: 06/15/2024 Procedure Type: Transthoracic Echocardiogram Location: ER Height: 167.64 cm Weight: 145.15 kg BSA: 2.44 m2 Heart Rate: bpm BP: 127 / 46 mmHg Marble Setter: TO Referring MD: Jn Escudero MD Knitter Mechanic: Henrry Carrington MD Symptoms: chf Study Quality: Technically Difficult/Contrast ECG Rhythm: Sinus Conclusions: - 1. Normal LV ejection fraction of 65-70% 2. Calcific aortic valve changes noted with increased gradient of unclear significance 3. Mildly elevated right ventricular systolic pressure with mildly elevated right atrial pressures 4. Mildly dilated ascending aorta at 3.8 cm Findings Procedure Information Contrast agent, definity, is being given per protocol without apparent complications. Left Ventricle Normal left ventricular size, thickness, and systolic function. The visually estimated ejection fraction is between 65-70%. Spectral Doppler is indicative of a normal filling pattern. Right Ventricle The right ventricle was not well visualized. Atria The left atrium is likely dilated. Interatrial shunt cannot be excluded. The right atrium was not well visualized. Aortic Valve The aortic valve was not well visualized. There is mild calcification of the aortic valve. The peak aortic gradient is 20 mmHg.The mean gradient is 10 mmHg. There is no aortic valve regurgitation. Mitral Valve The mitral valve was not well visualized. There is moderate mitral annular calcification. There is trace mitral valve regurgitation. There is no mitral valve stenosis. Pulmonic Valve The pulmonic valve was not well visualized. Tricuspid Valve The tricuspid valve was not well visualized. There is mild tricuspid valve regurgitation. Mildly elevated right atrial pressure. Mild pulmonary hypertension is present. Great Vessels The aorta was not well visualized. The pulmonary artery was not well visualized. There is mild dilatation of the ascending aorta measuring 3.80 cm. Venous The inferior vena cava is moderately dilated and collapses greater than 50% with inspiration. Pericardium/Pleural The pericardium was not well visualized. Prior Study Comparison Changes noted compared to prior study dated: 08/24/2023. RV systolic pressure is mildly elevated Measurements 2D Linear Measurements IVSd: 1.11 0.6-0.9/0.6-1.0 cm LVIDd: 4.71 3.9-5.3/4.2-5.9 cm LVIDd Index: 1.93 2.4-3.2/2.2-3.1 cm/m2 LVIDs: 3.30 2.0-3.6 cm LVPWd: 1.07 0.7-1.1 cm LA Diam: 3.90 2.7-3.8/3.0-4.0 cm LAIDs Index: 1.60 1.5-2.3 cm/m2 LV Mass: 231.50 67-162/88-224 g LV Mass Index: 94.88 43-95/49-115 g/m2 LVOT Diam: 2.30 3.0+(-)1.3 cm 2D Systolic Function EF 4C: 70.40 >55% EF 2C: 67.20 >55% EF BiP: 69.10 >55% Mitral Valve MV Pk E: 1.02 MV PK A: 0.97 MV Decel Time: 287.00 E/A: 1.10 E'Lateral: 9.25 E'Medial: 8.16 E/E' Med: 12.50 E/E' Lat: 11.00 PHT: 84.00 MVA PHT: 2.62 Decel Dyer: 3.56 Aortic Valve AoV Pk Lizandro: 2.25 AoV Mn Lizandro: 1.45 AoV VTI: 0.50 AoV Pk Grad: 20.00 Aov Mn Grad: 10.00 HENRIK Cont.VTI: 3.10 LVOT LVOT Pk Lizandro: 1.81 LVOT Mn Lizandro: 1.18 LVOT VTI: 0.37 LVOT Pk Grad: 13.00 LVOT Mn Grad: 6.00 LVOT Diam: 2.30 LVOT Area: 4.15 Diastolic Function MV Pk E: 1.02 MV Pk A: 0.97 E/A: 1.10 E'Medial: 8.16 E/E' Med: 12.50 E' Laterial: 9.25 E/E' Lat: 11.00 Right Ventricle TAPSE (mm): 31.50 TVS' Lizandro: 17.50 Tricuspid Valve TR Pk Lizandro: 2.86 TR Pk Grad: 33.00 RA Press: 8.00 RVSP: 41.00 Great Vessels Aorta Sinus of Valsalva: 3.53 2.0-3.5 cm Ao Asc: 3.80 2.1-3.4 cm Updated in Other Vendor System with Status of Final Henrry Carrington MD electronically signed on 06/15/2024 4:29:38 PM with status of Final
--- NOTE | 2024-06-15 11:52 | P.PNIM_ITS ---
Subjective Subjective Date of Service: 06/15/24 Interval History: sob Physical Exam 2 Vital Signs: Vital Signs: Last Vital Signs Temp 97.7 F 06/15/24 08:53 Pulse 49 L 06/15/24 11:16 Resp 15 06/15/24 11:16 BP 127/46 L 06/15/24 09:00 Pulse Ox 94 06/15/24 08:53 O2 Del Method Nasal Cannula 06/15/24 08:53 O2 Flow Rate 2 06/15/24 08:53 BMI result Body Mass Index 51.6 General: AO X 3, no acute distress Resp: wheezing bilateral, no accessory muscles used CVS: S1,S2,RRR, edema GI: soft, non tender, non distended Neuro: motor grossly intact, alert Psych: appropriate affect, appropriate insight Objective Data Active Medications Acetaminophen (Acetaminophen 325 Mg Tablet) 650 mg PO Q6H PRN PRN Reason: Pain, Mild 1-3,fever,headache Albuterol/Ipratropium (Albuterol/Iprat 2.5/0.5mg 3 Ml Ampul.Neb) 3 ml INHALE RQ4H WHILE AWAKE [facility] Last Admin: 06/15/24 11:14 Dose: 3 ml Documented By: BELKIS Albuterol/Ipratropium (Albuterol/Iprat 2.5/0.5mg 3 Ml Ampul.Neb) 3 ml INHALE Q4H PRN PRN Reason: Wheezing Apixaban (Apixaban 5 Mg Tablet) 5 mg PO BID [facility] Last Admin: 06/15/24 09:00 Dose: 5 mg Documented By: CARMELLA Calcium Carbonate (Calcium Carbonate 750 Mg Tab.Chew) 750 mg PO Q4H PRN PRN Reason: Heartburn Furosemide (Furosemide 20 Mg Tablet) 20 mg PO DAILY [facility]; Protocol Furosemide (Furosemide 40 Mg/4 Ml Vial) 40 mg IVPUSH ONCE ONE; Protocol Stop: 06/15/24 11:52 Losartan Potassium (Losartan Potassium 50 Mg Tablet) 100 mg PO DAILY [facility]; Protocol Magnesium Hydroxide (Milk Of Magnesia 30 Ml Oral.Susp) 30 ml PO DAILY PRN PRN Reason: Constipation Melatonin (Melatonin 3 Mg Tablet) 6 mg PO BEDTIME PRN PRN Reason: Insomnia Methylprednisolone Sodium Succinate (Methylprednisolone Sod Succ 40 Mg/Ml Vial) 40 mg IVPUSH Q12H [facility] Last Admin: 06/15/24 07:15 Dose: 40 mg Documented By: CARMELLA Nifedipine (Nifedipine Er 30 Mg Tab.Er.24) 30 mg PO DAILY [facility]; Protocol Last Admin: 06/15/24 09:00 Dose: 30 mg Documented By: CARMELLA Non-Formulary Medication (Budesonide-Formoterol [Symbicort]) 2 puff INHALE BID [facility] Non-Formulary Medication (Ferrous Sulfate) 325 mg PO Q48H [facility] Ondansetron HCl (Ondansetron Hcl 4 Mg/2 Ml Vial) 4 mg IVPUSH Q8H PRN PRN Reason: Nausea and Vomiting Sertraline HCl (Sertraline Hcl 50 Mg Tablet) 50 mg PO DAILY [facility] Sodium Chloride (0.9 % Sodium Chloride Flush 3 Ml Syringe) 3 ml IVFLUSH QSHIFT [facility] Last Admin: 06/15/24 07:15 Dose: 3 ml Documented By: CARMELLA Vitamin D (Cholecalciferol (Vitamin D3) 25 Mcg Tablet) 25 mcg PO DAILY [facility] Labs 06/15/24 04:26 06/15/24 04:26 Labs: Laboratory Results - last 24 hr 06/14/24 06/15/24 19:55 04:26 MCV 82.2 80.6 MCH 26.0 L 26.5 L MCHC 31.6 32.9 RDW 14.9 15.3 Plt Count 315 D 304 MPV 9.2 L 9.1 L Immature Gran % (Auto) 2.0 H 1.7 H Neut % (Auto) 80.8 H 81.8 H Lymph % (Auto) 12.0 L 13.4 L [place] % (Auto) 4.8 2.6 Eos % (Auto) 0.1 0.2 Baso % (Auto) 0.3 0.3 Lymph # (Auto) 1.8 2.2 [place] # (Auto) 0.7 0.4 Eos # (Auto) 0.0 0.0 Baso # (Auto) 0.1 0.1 Abs Immat Gran (auto) 0.30 H 0.27 H Absolute Neuts (auto) 12.1 H 13.2 H Absolute Nucleated RBC 0.000 0.000 Nucleated RBC % (auto) 0.0 0.0 Anion Gap 13 16 Estim Creat Clear Calc 127.2 107.7 Estimated GFR > 60 > 60 Random Glucose 114 163 H Calcium 10.0 9.9 Magnesium 2.4 Total Bilirubin 0.3 AST 22 ALT 47 H Alkaline Phosphatase 82 B-Natriuretic Peptide 185 H Total Protein 6.7 Albumin 4.0 Influenza Type A (PCR) NEGATIVE Influenza Type B (PCR) NEGATIVE RSV RNA Qual (PCR) NEGATIVE SARS-CoV-2 RNA (RT-PCR) NEGATIVE Assessment and Plan (1) Hypertensive urgency: Status: Acute Plan 64F PMH moderate persistent asthma, morbid obesity, MARGARETH on CPAP, paroxysmal AFib, prediabetes, hypertension presented with shortness of breath Acute hypoxic respiratory failure secondary to moderate persistent asthma with acute decompensation Steroids, nebs, wean O2 as tolerated Acute on chronic unspecified CHF We will give 1 dose of IV Lasix and continue orals, check echo Hypertensive urgency Likely due to decongestants, Hold decongestants, holding atenolol due to bradycardia, continue nifedipine, much improved Bradycardia Hold atenolol and monitor MARGARETH CPAP at bedtime Morbid obesity Weight loss recommended Paroxysmal AFib Continue Eliquis DVT prophylaxis on Eliquis Full Code reason for continued hospitalization: Hypoxia Quality Stroke Does the patient have a stroke diagnosis?: No VTE Prior VTE?: No VTE Risk Level:: Medical - moderate - high VTE Device Contraindication: Treatment Not Indicated VTE Drug Contraindication: N/A - Med Ordered
[2024-06-15] MEDS: Ferrous Sulfate 324 MG TABLET.DR PO (13:05)
[2024-06-15] MEDS: Furosemide 40 MG/4 ML VIAL IVPUSH (13:05)
--- NOTE | 2024-06-15 13:36 | MHC.CM.PN ---
Pt lives with her daughter, she does not have home health services, for DME, she has a CPAP machine. PCP confirmed: Tj Sandhu, HCP discussed, pt. will complete form here and it will be added to chart. Dtr to transport pt. home at DC. DCP: home, self care. CM to follow for DC needs.
--- NOTE | 2024-06-15 22:47 | PC.NURSE ---
Report given to MAHESH Catalan.
[2024-06-16] VITALS (10 sets, daily range): BP systolic 134–146; BP diastolic 47–54; PULSE 50–89; RESP 14–20; TEMP 36.6–36.7; O2SAT 91–96
--- NOTE | 2024-06-16 01:03 | PC.NURSE ---
this rn assumed care of pt at 2300, pt a&ox4, respirations even and unlabored, pt offers no complaints at this time.
[2024-06-16 06:11] LABS: Hematocrit 38.2 % (37.0-47.0); Hemoglobin 12.4 g/dl (12.0-16.0); Mean Corpuscular HGB Conc 32.5 g/dl (31.0-35.0); Mean Corpuscular Hemoglobin 26.3 pg (27.0-33.0); Mean Corpuscular Volume 81.1 fL (80.0-98.0); Mean Platelet Volume 9.5 fL (9.4-12.3); Platelet Count 330 X10*3/uL (160-400); Red Blood Count 4.71 X10*6/uL (4.20-5.50); White Blood Count 17.9 X10*3/uL (4.8-10.8)
[2024-06-16 06:29] LABS: Anion Gap 15 (12-20); Blood Urea Nitrogen 24 mg/dL (9-16); Calcium 9.3 mg/dL (8.4-10.2); Carbon Dioxide 27 mmol/L (22-29); Chloride 104 mmol/L (96-108); Creatinine Clr Calc Pharmacy 127.2; Estimated Glomerular Filt Rate > 60; Glucose Random 142 mg/dL (60-115); Potassium 4.8 mmol/L (3.3-5.1); Sodium 141 mmol/L (135-145)
[2024-06-16] MEDS: Albuterol/Iprat 2.5/0.5MG 3 ML AMPUL.NEB INHALE ×2 (07:44→11:24)
[2024-06-16] MEDS: NIFEdipine ER 30 MG TAB.ER.24 PO (09:11)
[2024-06-16] MEDS: Cholecalciferol (Vitamin D3) 25 MCG TABLET PO (09:12)
[2024-06-16] MEDS: Apixaban 5 MG TABLET PO (09:12)
[2024-06-16] MEDS: Sertraline HCL 50 MG TABLET PO (09:12)
[2024-06-16] MEDS: Furosemide 20 MG TABLET PO (09:12)
[2024-06-16] MEDS: Losartan Potassium 50 MG TABLET 100 MG PO (09:12)
[2024-06-16] MEDS: Fluticasone/Vilanterol 100/25 BLST.W.DEV 1 PUFF INHALE (09:13)
[2024-06-16] MEDS: 0.9 % Sodium Chloride Flush 3 ML SYRINGE IVFLUSH (09:16)
[2024-06-16] MEDS: methylPREDNISolone Sod Succ 40 MG/ML VIAL IVPUSH (09:16)
--- NOTE | 2024-06-16 10:47 | PM.DS ---
DS: Providers Provider Date of Service: 06/16/24 Date of admission: 06/14/24 23:16 Date of discharge: 06/16/24 Primary care physician: ROBBIE Mcdonnell DS: Diagnosis Discharge Diagnosis (1) Hypertensive urgency: Status: Acute DS: Summary Hospital Course Hospital Course: from initial hpi: 64-year-old female with a past medical history significant for mild persistent asthma, MARGARETH on CPAP, paroxysmal AFib, prediabetes, morbid obesity and HTN, who presented to the ED due to hypertension since yesterday, systolic into the 190s, headache and dyspnea on exertion. She is currently being treated for an asthma exacerbation with p.o. steroids and reports that she has also been taking kjtw-sdb-imdeamv cough medicine. She recently had a change in her blood pressure meds and started atenolol, her pulse has been low she reports that she is symptomatic an feels her heart jump . She has been using albuterol nebulizers every 4 hours at home and does not usually use oxygen. She is ambulatory hypoxia requiring admission at this time. hospital course: Patient was admitted for acute hypoxic respiratory failure secondary to moderate persistent asthma with acute decompensation. Was treated with steroids nebulizers and weaned off of oxygen. Her symptoms are much improved and will be discharged on 5 more days of prednisone. For acute on chronic diastolic CHF received 1 dose of IV Lasix and then continued on maintenance. Echocardiogram showed normal ejection fraction, mild elevated right ventricular systolic pressure. For hypertensive urgency likely due to decongestants blood pressure improved to normal. Was continued on nifedipine and losartan. For bradycardia her atenolol has been held, heart rate stable in the 50s. For MARGARETH continued on CPAP at night. For morbid obesity weight loss recommended. For paroxysmal AFib was continued on Eliquis. Patient is feeling better will be discharged home. Time Attestation Discharge Coordination Time (in mins): 41 Quality: Safe Use of Opioids Does Pt have an Active Cancer Diagnosis on the Problem List?: No Quality: Stroke Does the patient have a stroke diagnosis?: No Physical Exam Vital Signs: Vital Signs: Last Vital Signs Temp 98.0 F 06/16/24 09:10 Pulse 55 06/16/24 09:10 Resp 20 06/16/24 09:10 BP 146/51 H 06/16/24 09:12 Pulse Ox 94 06/16/24 09:10 O2 Del Method Nasal Cannula 06/16/24 09:10 O2 Flow Rate 2 06/16/24 09:10 BMI result Body Mass Index 51.6 General: AO X 3, no acute distress Resp: CTA bilateral, no accessory muscles used CVS: S1,S2,RRR GI: soft, non tender, non distended Neuro: motor grossly intact, alert Psych: appropriate affect, appropriate insight trace edema DS: Data Data Completed and Pending Labs on day of discharge: Laboratory Results - last 24 hr 06/16/24 05:04 WBC 17.9 H RBC 4.71 Hgb 12.4 Hct 38.2 MCV 81.1 MCH 26.3 L MCHC 32.5 RDW 15.0 Plt Count 330 MPV 9.5 Absolute Nucleated RBC 0.000 Nucleated RBC % (auto) 0.0 Sodium 141 Potassium 4.8 Chloride 104 Carbon Dioxide 27 Anion Gap 15 BUN 24 H Creatinine 0.66 Estim Creat Clear Calc 127.2 Estimated GFR > 60 Random Glucose 142 H Calcium 9.3 D Discharge Plan Discharge Anticipated Discharge Date/Time: 06/16/24 10:45 Patient Disposition: Home, Self-Care Discharge Diagnosis: asthma Referrals: Tj Sandhu PA [Primary Care Provider] - 1 Week Discharge Medications: New prednisone 20 mg tablet 40 mg PO DAILY Qty: 10 0RF Continued nifedipine 30 mg tablet extended release 30 mg PO DAILY losartan 100 mg tablet 100 mg PO DAILY sertraline 50 mg tablet 50 mg PO DAILY budesonide-formoterol [Symbicort] 80-4.5 mcg/actuation HFA aerosol inhaler 2 puff inhalation BID Dupixent Pen 300 mg/2 mL pen injector 300 mg subcut Q2W ferrous sulfate 325 mg (65 mg iron) Tablet,Delayed Release (Dr/Ec) 325 mg PO Q48H cholecalciferol (vitamin D3) [Vitamin D3] 25 mcg (1,000 unit) Tablet 25 mcg PO DAILY Centrum Adult 50 Plus 80 mcg Tablet,Chewable 1 tab PO DAILY Eliquis 5 mg Tablet 5 mg PO BID Qty: 180 0RF albuterol sulfate 2.5 mg /3 mL (0.083 %) solution for nebulization 2.5 mg inhalation Q4H PRN (Reason: Shortness Of Breath Or Wheezing) prednisone 20 mg tablet 20 mg PO DAILY Taper: Prednisone 20 mg daily for 3 Days and 0 Hour Rx Instructions: TAKE 3 TABLETS BY MOUTH EVERY MORNING FOR 3 DAYS, THEN 2 TABLETS EVERY MORNING FOR 3 DAYS, THEN 1 TABLET EVERY MORNING FOR 3 DAYS triamcinolone acetonide 0.1 % cream 1 appl topical BID PRN (Reason: Active Rash) Rx Instructions: APPLY A SMALL AMOUNT ALONG WITH CERAVE MOISTURIZER FROM OTC ONTO ACTIVE AREAS OF RASH NEEDED UP TO TWO TIMES DAILY AND TWO WEEKS AT A TIMe albuterol sulfate 90 mcg/actuation HFA aerosol inhaler 2 puff inhalation Q6H PRN (Reason: Shortness Of Breath Or Wheezing) furosemide 20 mg tablet 20 mg PO DAILY Discontinued atenolol 25 mg tablet 25 mg PO DAILY Qty: 90 3RF Discharge Orders: Discharge Order (Routine); Ordered 06/16/24 Ordered By: Jn Escudero Diet: Advance to usual diet Activity on Discharge: As tolerated Stand Alone Forms: Patient Portal Discharge page Print Language: Divehi Care Plan Goals: recovery Health Concerns: asthma Plan of Treatment: 5 more days prednisone Assessment: see above
--- NOTE | 2024-06-16 11:23 | MHC.CM.PN ---
Received notification patient will be d/c'd home without services. Met with patient. Patient verifies this is the d/c plan. Patient will call her daughter to arrange transport home. Daughter will be here around 12pm. Continue to monitor for d/c needs.
== END 2024-06-16 12:38 | disposition home or self-care (01) | DRG 199 ==
LOC: HO.ED 22:21 → HO.EDOVER 23:20
PROVIDERS: Physician Assistant Medical; Admitting Provider Student in an Organized Health Care Education/Training Program; Emergency Provider Emergency Medicine; PCP Physician Assistant Medical; Visit Provider Internal Medicine
DX: I16.0 Hypertensive urgency (principal); J96.01 Acute respiratory failure with hypoxia; I50.33 Acute on chronic diastolic (congestive) heart failure; Z68.43 Body mass index [BMI] 50.0-59.9, adult; J45.41 Moderate persistent asthma with (acute) exacerbation; E66.813 Obesity, class 3; I11.0 Hypertensive heart disease with heart failure; T48.5X5A Adverse effect of other anti-common-cold drugs, initial encounter; R00.1 Bradycardia, unspecified; R73.03 Prediabetes; I48.0 Paroxysmal atrial fibrillation; G47.33 Obstructive sleep apnea (adult) (pediatric); Z71.3 Dietary counseling and surveillance; Z20.822 Contact with and (suspected) exposure to COVID-19; Z79.52 Long term (current) use of systemic steroids; Z79.899 Other long term (current) drug therapy
CPT/HCPCS: 0241U; 36415; 70450; 71045; 71250; 80048; 80053; 83735; 83880; 84484; 85025; 85027; 93005; 93306; 94640; 99285; J1940; J2270; J2919; Q9957

== ENCOUNTER → 2024-06-14 19:43 | Outpatient (BNV) | payer BC, SELFPAY | PROVIDERS: PCP Physician Assistant Medical; Visit Provider Radiology Diagnostic Radiology | DX: R06.02 Shortness of breath (principal); J06.9 Acute upper respiratory infection, unspecified; R51.9 Headache, unspecified; I16.0 Hypertensive urgency | CPT/HCPCS: 70450; 71045; 71250 ==

== ENCOUNTER → 2024-06-14 19:43 | Outpatient (BNV) | payer BC, SELFPAY | PROVIDERS: Admitting Provider Student in an Organized Health Care Education/Training Program; Emergency Provider Emergency Medicine; PCP Physician Assistant Medical; Visit Provider Internal Medicine Cardiovascular Disease | DX: R00.1 Bradycardia, unspecified (principal); I10 Essential (primary) hypertension | CPT/HCPCS: 93010 ==

== ENCOUNTER 2024-06-14 23:16 | Outpatient (BNV) | payer BC, SELFPAY | END 2024-06-15 11:46 | PROVIDERS: Admitting Provider Student in an Organized Health Care Education/Training Program; Emergency Provider Emergency Medicine; PCP Physician Assistant Medical; Visit Provider Internal Medicine Cardiovascular Disease | DX: I27.20 Pulmonary hypertension, unspecified (principal); I35.8 Other nonrheumatic aortic valve disorders; I34.81 Nonrheumatic mitral (valve) annulus calcification; I36.1 Nonrheumatic tricuspid (valve) insufficiency | CPT/HCPCS: 93306 ==

== ENCOUNTER → 2024-06-14 23:16 | Outpatient (BNV) | payer BC, SELFPAY | PROVIDERS: Admitting Provider Student in an Organized Health Care Education/Training Program; Emergency Provider Emergency Medicine; PCP Physician Assistant Medical; Visit Provider Physician Assistant | DX: I16.0 Hypertensive urgency (principal) | CPT/HCPCS: 99223; 99233; 99239 ==

== ENCOUNTER 2024-06-24 13:06 | Outpatient (AMB) | payer BC, SELFPAY ==
--- NOTE | 2024-06-24 13:10 | MHC.OFFVIS ---
Vital Signs 06/24/24 13:11 Height 5 ft 6 in Weight 323 lb BMI 52.1 BP 136/80 Blood Pressure Location Rt brachial Position Sitting Pulse 56 Pulse Source Pulse Oximeter Pulse Oximetry (%) 96 Oxygen Delivery Method Room Air Intake Visit Reasons: Obstructive sleep apnea Frame Polisher Required: No Analyst Competitive Intelligence: Analyst Competitive Intelligence offered & declined Accompanied by: Self / Same As Patient Allergies Penicillins [PENICILLINS] Allergy (Severe, Verified 06/24/24 13:16) hives/urticaria Medication List - Last Reconciled 06/24/24 by Sadie Farrar LPN albuterol sulfate 2.5 mg inhalation Q4H PRN albuterol sulfate 90 mcg/actuation 2 puffs inhalation Q6H PRN apixaban (Eliquis) 5 mg PO BID cholecalciferol (vitamin D3) (Vitamin D3) 25 mcg PO DAILY dupilumab (Dupixent) 300 mg subcut Q2W ferrous sulfate 325 mg PO Q48H qyujgxcduvz-zqqqjhmho-xxthqggc 200-62.5-25 mcg (Trelegy Ellipta) 1 inh inhalation DAILY furosemide 20 mg PO DAILY losartan 100 mg PO DAILY multivit with min-folic acid 80 mcg (Centrum Adult 50 Plus) 1 tab PO DAILY nifedipine ER 30 mg PO DAILY sertraline 50 mg PO DAILY triamcinolone acetonide 0.1% 1 appl topical BID PRN HPI HPI Obstructive sleep apnea: Details: Karina is a pleasant 64 year old female, former 5 pack smoker, quit 30+years ago with underlying asthma, atrial fibrillation on Eliquis, HTN, eczema on Dupixent ( started 1 year) and MARGARETH. She was referred by PCP for pulmonary evaluation for MARGARETH currently on CPAP x 10 years and benefitting from use. Prior sleep study >5 years ago. DME is Ish. Of note, patient recently admitted to [facility] 06/14-06/16 for acute hypoxic respiratory failure secondary to moderate persistent asthma with acute decompensation. She attributes this to intake of decongestants and nebulized therapy resulting in hypertension. She was treated with steroids nebulizers and weaned off of oxygen, in ED desaturation to 86% on room air. She improved and was discharged on 5 more days of prednisone. She also was treated for acute on chronic diastolic CHF received 1 dose of IV Lasix, dishcarged on baseline 20 mg. Echocardiogram showed normal ejection fraction, mild elevated right ventricular systolic pressure. CT chest unremarkable. She is under the care of [facility] Cardiology, last evaluated 05/17. She recently completed prednisone two days ago and feels symptoms are significantly better. She continues with dyspnea on exertion and dry cough. She was switched from Symbicort to Trelegy a few days ago. She has albuterol MDI and neb however using infrequently. She reports asthma dx as a child, never requiring intubation. She endorses seasonal allergies and dogs at home. No recent allergy testing. [facility] Medical History (Updated 06/24/24 @ 13:56 by Penny Monte NP) MARGARETH (obstructive sleep apnea) Atrial fibrillation BMI 50.0-59.9, adult Lower leg edema Prediabetes Asthma HLD (hyperlipidemia) HTN (hypertension) Eczema Surgical History History of endoscopy (2004) History of wisdom tooth extraction History of colonoscopy (2014) History of delivery Family History Father Liver cancer Mother Pancreatic cancer Maternal Grandmother Pancreatic cancer Sister Breast cancer Maternal Uncle Lung cancer Social History (Updated 06/24/24 @ 13:20 by Sadie Farrar LPN) Household Members: Family Housing: House Do you presently have visiting nurse or other home services: No Alcohol intake: current Alcohol intake frequency: a few times a week Patient Tobacco Use Status: Former Tobacco user Cigarettes Per Day: 5 Years Smoked: 10 service: No Review of Systems Const Denies chills, Denies excessive sweating, Denies fever(s), Denies headache(s) and Denies night sweats Eyes Denies dry eyes, Denies irritation and Denies itchy eyes ENT Reports Normal hearing present, Denies headache(s), Denies nasal congestion, Denies nasal discharge, Denies post nasal drip and Denies sore throat Card Denies chest pain, Denies chest pain at rest, Denies chest pain with activity, Denies claudication, Denies orthopnea and Denies paroxysmal nocturnal dyspnea Resp Denies chest congestion, Denies excessive phlegm production, Denies pain on inspiration, Denies pain with cough, Denies stridor and Denies wheezing Musc Denies myalgias Neuro Reports Normal hearing present and Denies headache(s) Endo Denies excessive sweating Octavio/Lymph Denies lymphadenopathy Aller/Immun Denies itchy eyes, Denies seasonal rhinorrhea and Denies wheezing Physical Exam Vital Signs: Last Vital Signs Pulse 56 06/24/24 13:11 BP 136/80 06/24/24 13:11 Pulse Ox 96 06/24/24 13:11 Oxygen Delivery Method Room Air 06/24/24 13:11 BMI result Body Mass Index 52.1 Const General: cooperative, healthy appearing, comfortable, no acute distress, well developed and alert Nutritional Appearance: obese Orientation/consciousness: patient oriented x3 Limitations: no limitations HEENT Head: Yes normal to inspection, Yes normocephalic and Yes atraumatic Ears: hearing grossly normal bilaterally and external ears normal Eyes General: appearance normal, both eyes and all related structures Eyelids: Yes eyelids normal Sclerae: sclerae normal EOM: EOMs intact bilaterally Neck Neck: Yes normal visual inspection and Yes no lymphadenopathy Lymphatic: no lymphadenopathy noted Chest Chest palpation & inspection: normal inspection of the chest Resp Effort & Inspection: normal respiratory effort, able to speak in complete sentences, no audible wheezes, no cough, no stridor, not tachypneic, no tripod positioning and no use of accessory muscles Auscultation: clear to auscultation bilaterally Cardio Jugular venous distension: no JVD Rate: regular rate Rhythm: regular rhythm Skin Other: warm, dry General skin exam: no rashes or lesions noted Neuro General: patient oriented x3 Cranial nerves: Yes Normal hearing present Cognition (Neuro): normal cognition Gait exam (Neuro): Normal gait present Extrem Other: 1+pitting edema BLE Psych Appearance: grossly normal and well kempt Speech and movement: Normal speech and movement present and Clear speech present Affect: normal affect Attitude: cooperative Thought process: Normal thought process present Thought content: Normal thought content present Insight: Good insight present (Psych) Judgement: Good judgement present (Psych) Assessment & Plan Assessment & Plan (1) Asthma: Code(s): J45.909 - Unspecified asthma, uncomplicated Category: Medical (2) Environmental allergies: Code(s): Z91.09 - Other allergy status, other than to drugs and biological substances Category: Medical (3) MARGARETH on CPAP: Code(s): G47.33 - Obstructive sleep apnea (adult) (pediatric) Category: Medical Plan Karina presents for pulmonary evaluation for known h/o MARGARETH currently on CPAP therapy, in need of a new machine. Since last sleep study from 5+ years ago, will repeat. Her symptoms are likely multifactorial with contribution from pulmonary, cardiac and obesity/deconditioning. Patient recently admitted for acute respiratory failure with hypoxia, significantly improved and newly switched to Trelegy. Will reassess response at next visit. Will also send for RAST to assess for an allergic component. Last PFT performed 08/[address] [facility], will obtain report. All questions were answered and patient is in agreement of plan. Will follow up in 6-8 weeks or sooner if needed. Orders: Orders Resp Allergy Profile Region I Today Z91.09 - Other allergy status, other than to drugs and biological substances Immunoglobulin E Today Z91.09 - Other allergy status, other than to drugs and biological substances RT home sleep study Today G47.33 - Obstructive sleep apnea (adult) (pediatric) Coding Level of Care Code New Pt Level 4 (58089) Diagnoses Asthma J45.909 Environmental allergies Z91.09 MARGARETH on CPAP G47.33
[2024-06-24 13:11] VITALS: BP 136/80; PULSE 56; O2SAT 96; BMI 52.1
--- OUTSIDE RECORDS SUMMARY | 2024-06-24 14:58 | XMS_ITS | Encounter Summary ---
Author Organization [facility] Address [address] [place] [address] Care Team Providers Care Client Engagement Manager Name Role Phone Tj Sandhu Primary Care Provider [phone] Reason for Visit * Reason Comments [place] [facility] Asthma & Hypertension Encounter Details Date Type Department Care Team (Late st Contact Info) Description 06/21/2024 9:30 AM EDT Office Visit Adult Medicine [facility] [address] [place] [phone] Tj Sandhu PA [address] [place] [address] Hospital discharge follow-up (Primary Dx); Upper respiratory tract infection, unspecified type; Respiratory distress; Asthma with status asthmaticus, unspecified asthma severity, unspecified whether persistent; Morbid obesity with BMI of 45.0-49.9, adult ([facility]); MARGARETH (obstructive sleep apnea) Social History Tobacco Use Types Packs/Day Years Used Date Smoking Tobacco: Former Cigarettes 0 04/15/1971 - 10/23/1981 Smokeless Tobacco: Never Tobacco Cessation:Counseling Given: Not Answered Alcohol Use Standard Drinks/Week Comments Yes 0 (1 standard drink = 0.6 oz pur e alcohol) Housing Instability Answer Date Recorde d Are you worried that in the next 2 months you may not have stable housing? No 06/20/2024 Food Access & Nutrition Answer Date Rec orded Do you have access to a vari ety of food including fruits and vegetables? Yes 06/20/2024 Access to Healthcare Answer Date Record ed Within the last 3 months, ho w many times did you visit the emergency department for your medical care? 1 06/20/2024 Health Literacy Answer Date Recorded How often do you need to hav e someone help you when you read instructions, pamphlets, or other written material from your doctor or pharmacy? Never 06/20/2024 Caregiver: How often do you need to have someone help you when you read instructions, pamphlets, or other written material from your doctor or pharmacy? Not on file 06/20/2024 Financial Risk Answer Date Recorded How hard is it for you to pa y for the very basics like food, housing, medical care, and air conditioning / heating? Not very hard 06/20/2024 Transportation Answer Date Recorded Has the lack of transportati on kept you from meetings, work, or from getting things needed for daily living? No Has the lack of transportati on kept you from medical appointments or from getting medications? No 06/20/2024 Social Isolation Answer Date Recorded How often do you feel lonely or isolated from th ose around you? Rarely 06/20/2024 Food Risk Answer Date Recorded Within the past 12 months we worried whether our food would run out before we got money to buy more. Never true 06/20/2024 Within the past 12 months th e food we bought just didn't last and we didn't have money to get more. Never true 06/20/2024 Education Answer Date Recorded Do you think completing more education or training, like finishing a GED, going to college, or learning a trade, would be helpful for you? No 06/20/2024 Employment and Income Answer Date Recor ded During the last four weeks, have you been actively looking for work? No 06/20/2024 Living Situation Answer Date Recorded What is your living situation? 0 06/20/2024 Comments Unknown Sex and Gender Information Value Date Recorded Sex Assigned at Not on file Legal Sex Female 4:26 PM EST Gender Identity Not on file Sexual Orientation Not on file documented as of this encounter Last Filed Vital Signs Vital Sign Reading Time Taken Comments Blood Pressure 130/70 06/21/2024 9:27 AM EDT Pulse 48 06/21/2024 9:27 AM EDT Temperature 35.9 ??C (96.7 ??F) 06/21/2024 9:27 AM ED T Respiratory Rate 15 06/21/2024 9:27 AM EDT Oxygen Saturation 97% 06/21/2024 9:27 AM EDT Inhaled Oxygen Concentration - - Weight 146 kg (321 lb 3.2 oz) 06/21/2024 9:27 AM EDT Height 167.6 cm (5' 6 ) 06/21/2024 9:27 AM EDT Body Mass Index 51.84 06/21/2024 9:27 AM EDT documented in this encounter Ordered Prescriptions Prescription Sig Dispense Quantity Refills Last Filled Start Date End Date predniSONE (DELTASONE) 10 mg tablet Take 4 tablets (40 mg total) by mouth 1 (one) time each day for 3 days, THEN 3 tablets (30 mg total) 1 (one) time each day for 3 days, THEN 2 tablets (20 mg total) 1 (one) time each day for 3 days, THEN 1 tablet (10 mg total) 1 (one) time each day for 3 days, THEN 0.5 tablets (5 mg total) 1 (one) time each day for 4 days. 32 tablet 06/21/2024 fluticasone-umecli dinium-vilanterol (Trelegy Ellipta) 200-62.5-25 mcg inhaler Inhale 1 puff (200 mcg total) by mouth 1 (one) time each day. Rinse mouth with water after use to reduce aftertaste and incidence of candidiasis. Do not swallow. 1 each 12 06/21/2024 documented in this encounter Progress Notes * ROBBIE Mcdonnell - 06/21/2024 9:30 AM EDT CHIEF COMPLAINT: Hospital Follow-up [place]/16/[place] Asthma & Hypertension) IDENTIFIER: Karina Burks is a 64 y.o. old female. HPI: This pleasant patient presents today for hospital discharge follow-up. She was recently hospitalized at [facility] after developing cold symptoms. She had worsening wheezing and shortness of breath decided to do a telemetry doc appointment and was prescribed some steroids. She was carrying her 19-year-old dog up some stairs and felt a severe headache and felt very short of breath doing this the following day she was extremely short of breath with even minimal exertion. She also had some fairly high blood pressure readings at home decided to go to the ER for further evaluation. She did have some chest imaging which looked good. She was diagnosed with respiratory failure, treated with steroids. She was given a dose of IV Lasix and her normal Lasix regimen was resumed afterwards as well she didhave an echocardiogram which showed a preserved ejection fraction. Her blood pressure readings eventually came down in the hospital. Her atenolol was held due to bradycardia she has restarted this since discharge. She states that her breathing is doing much better. She has been taking 40 mg of prednisone since discharge and it sounds like today is her last day for blood pressure readings in the morning tend to be high still although perhaps getting a little bit better interestingly in the office her blood pressure seems to be very well-controlled. ROS: GENERAL: Negative for malaise, significant weight loss and fever RESPIRATORY: See HPI CARDIOVASCULAR: Negative for chest pain, leg swelling and palpitations ENDOCRINE: Negative for cold or heat intolerance, polyuria, polydipsia and goiter NEURO: No persistent headache, fainting, seizures, strokes, TIAs, weakness, numbness or tingling PAST MEDICAL HISTORY: Patient Active Problem List Diagnosis Date Noted Morbid obesity with BMI of 45.0-49.9, adult ([facility]) 03/04/2024 Prediabetes 06/22/2023 Hyperlipidemia 11/13/2020 Calcific tendinitis of right shoulder 2018 Intramural leiomyoma of uterus 01/08/2015 Heart murmur 03/02/2014 HTN (hypertension), benign 04/14/2011 Vitamin D deficiency 10/21/2010 MARGARETH (obstructive sleep apnea) 01/30/2009 Anxiety and depression 11/09/2007 Asthma 07/04/2005 Past Surgical History: Procedure Laterality Date SECTION PROCEDURE: HISTORICAL COLONOSCOPY 2004 PROCEDURE: HISTORICAL COLONOSCOPY; COMMENT: normal COLONOSCOPY 2014 PROCEDURE: HISTORICAL COLONOSCOPY; COMMENT: [facility] next due 2017 COLONOSCOPY 07/23/2022 PROCEDURE: HISTORICAL COLONOSCOPY OTHER SURGICAL HISTORY PROCEDURE: OUTSIDE ENDOSCOPY; COMMENT: dr. carter - esophageal polyp UPPER GASTROINTESTINAL ENDOSCOPY 2004 PROCEDURE: [place] UPPER GI ENDOSCOPY PERFORMED; COMMENT: normal WISDOM TOOTH EXTRACTION PROCEDURE: HISTORICAL WISDOM TEETH EXTRACTION SOCIAL HISTORY: Social History Tobacco Use Smoking status: Former Current packs/day: 0.00 Types: Cigarettes Start date: 04/15/1971 Quit date: 10/23/1981 Years since quittin.6 Smokeless tobacco: Never Substance Use Topics Alcohol use: Yes FAMILY HISTORY: Family History Problem Relation Name Age of Onset Other cancer Father liver Breast cancer Sister 71 Prostate cancer Brother Diabetes Maternal Grandmother Pancreatic cancer Maternal Grandmother 85.00 Ovarian cancer Neg Hx Family Status Relation Name Status Father at age 68 liver cancer Sister 71 Alive mvp Brother Alive MGM (Not Specified) Neg Hx (Not Specified) Mother at age 84 pancreatic cancer Sister Alive mvp Sister Alive mvp Daughter Alive No partnership data on file MEDICATIONS DISCONTINUED/REORDERED: Medications Discontinued During This Encounter Medication Reason diphenhydramine HCl (BENADRYL ALLERGY ORAL) Patient Discharge metoprolol succinate (TOPROL-XL) 25 mg 24 hr tablet Patient Discharge semaglutide (Ozempic) 0.25 mg or 0.5 mg(2 mg/1.5 mL) injection pen Patient Discharge Symbicort 80-4.5 mcg/actuation inhaler Duplicate order tirzepatide, weight loss, (Zepbound) 2.5 mg/0.5 mL injection Patient Discharge predniSONE (DELTASONE) 20 mg tablet ACTIVE MEDICATIONS: Outpatient Medications Marked as Taking for the 06/21/24 encounter (Office Visit) with ROBBIE Mcdonnell Medication Sig Dispense Refill albuterol 2.5 mg /3 mL (0.083 %) nebulizer solution Take 3 mL (2.5 mg total) by nebulization every 4 (four) hours if needed for wheezing. 75 mL 1 albuterol HFA (PROAIR HFA ; PROVENTIL HFA ; VENTOLIN HFA) 90 mcg/actuation inhaler Inhale 2 Puffs into the lungs every 4 hours as needed for Cough or Wheezing. ALBUTEROL INHL Inhale into the lungs. budesonide-formoteroL (Symbicort) 80-4.5 mcg/actuation inhaler INHALE 2 PUFFS INTO THE LUNGS TWICE A DAY clobetasoL (TEMOVATE) 0.05 % cream APPLY TOPICALLY TO AFFECTED AREA S) TWO TIMES A DAY FOR 2 WEEKS dupilumab (Dupixent Pen) 300 mg/2 mL pen Eliquis 5 mg tablet TAKE ONE TABLET BY MOUTH TWICE A DAY 180 tablet 1 furosemide (LASIX) 20 mg tablet TAKE ONE TABLET BY MOUTH EVERY DAY 90 tablet 0 hydrOXYzine HCL (ATARAX) 10 mg tablet Take 1 Tablet by mouth 3 times daily as needed for Itching. losartan (COZAAR) 100 mg tablet TAKE ONE TABLET BY MOUTH EVERY DAY 90 tablet 0 NIFEdipine (ADALAT CC) 30 mg 24 hr tablet TAKE ONE TABLET BY MOUTH EVERY DAY reservoir inhalation (INSPIREASE) device Use with inhaler regularly sertraline (ZOLOFT) 50 mg tablet TAKE ONE TABLET BY MOUTH EVERY DAY 90 tablet 0 triamcinolone (KENALOG) 0.1 % cream Apply to affected areas one or two times per day for two to four weeks ALLERGIES: Allergies Allergen Reactions Penicillins Hives PHYSICAL EXAM: Visit Vitals BP 130/70 Pulse (!) 48 Temp 35.9 ??C (96.7 ??F) (Temporal) Resp 15 Ht 1.676 m (66 ) Wt 146 kg (321 lb 3.2 oz) SpO2 97% BMI 51.84 kg/m?? Smoking Status Former BSA 2.45 m?? General appearance: alert and oriented, in no acute distress Lungs: clear to auscultation bilaterally Heart: regular rate and rhythm, S1, S2 normal, no murmur, click, rub or gallop Extremities: extremities normal, warm and well-perfused; no cyanosis, clubbing, or edema Neurologic: Grossly normal LABS/IMAGING: Hospital notes reviewed IMPRESSION: 1. Hospital discharge follow-up 2. Upper respiratory tract infection, unspecified type 3. Respiratory distress 4. Asthma with status asthmaticus, unspecified asthma severity, unspecified whether persistent 5. Morbid obesity with BMI of 45.0-49.9, adult ([facility]) 6. MARGARETH (obstructive sleep apnea) PLAN: 1. Patient status post hospitalization after upper respiratory infection and asthma exacerbation. After treatment with steroids for about 13 days total she does seem to be breathing a lot better lungs are clear on exam. Today is her last day of prednisone. I did prescribe another prednisone taper in case she needs to take this although I think she can try stopping the prednisone to see how she feels. Her blood pressure is another concern. Readings have been high at home from 170 to 190 systolic. Surprisingly in the office her blood pressure seems to be doing well I rechecked her around 118 systolic on the left side. at this point I recommended continuing the same medications but I suggestedthat she take 1 or 2 of them at night instead of altogether in the morning. We discussed inhaled medications I suggested that we try switching to Trelegy on not sure if this will be covered by insurance but it might offer an advantage over the Symbicort she does have follow-up with pulmonary scheduled and she did see cardiology fairly recently. We decided to keep our scheduled follow-up for later in June so we can recheck her blood pressure. I have spent 42 minutes during this encounter including preparing to see the patient, reviewing notes from specialists among previous encounter notes, reviewing hospital notes,labs and imaging, performing a medically appropriate examination, extensive counseling/education on the above issues in particular the breathing and asthma, discussing benefits/side effects of pharmacologic therapeutic options and documenting clinical information in the electronic health record including today's office note. Advised the patient to call me if any problems. Patient understands the plan. Patient is in agreement with the plan. documented in this encounter Plan of Treatment Upcoming Encounters Date Type Department Care Team (Late st Contact Info) Description 07/09/2024 12:30 PM EDT Appointment Radiology Department - [address] [phone] 07/19/2024 2:30 PM EDT Office Visit Adult Medicine [address] [phone] Tj Sandhu PA [address], [place] 10/06/2024 1:30 PM EDT Office Visit Bariatric Surgery - [place] [address] [phone] Marii Guan MD [address] [facility] [address] [place] [address] documented as of this encounter Visit Diagnoses Diagnosis Hospital discharge follow-up- Primary Other follow-up examination Upper respiratory tract infection, unspecified type Respiratory distress Other dyspnea and respiratory abnormality Asthma with status asthmaticus, unspecified asthma severity, unspecified whether persistent Morbid obesity with BMI of 45.0-49.9, adult ([facility]) MARGARETH (obstructive sleep apnea) Obstructive sleep apnea (adult) (pediatric) Encounter for screening mammogram for breast cancer documented in this encounter Discontinued Medications Medication Sig Discontinue Reason Start Date End Da te diphenhydramine HCl (BENADRYL ALLERGY ORAL) Take by mouth daily as needed. Patient Discharge 06/21/2024 metoprolol succinate (TOPROL-XL) 25 mg 24 hr tablet TAKE ONE TABLET BY MOUTH EVERY DAY Patient Discharge 03/15/2024 06/21/2024 semaglutide (Ozempic) 0.25 mg or 0.5 mg(2 mg/1.5 mL) injection pen Inject 0.25 mg into the skin once a week for 28 days, THEN 0.5 mg once a week for 180 days. Patient Discharge 01/21/2024 06/21/2024 Symbicort 80-4.5 mcg/actuation inhaler INHALE 2 PUFFS INTO THE LUNGS TWO TIMES A DAY Duplicate order 03/15/2024 06/21/2024 tirzepatide, weight loss, (Zepbound) 2.5 mg/0.5 mL injection Inject 2.5 mg into the skin once a week. Patient Discharge 01/19/2024 06/21/2024 predniSONE (DELTASONE) 20 mg tablet Take 2 tablets (40 mg total) by mouth 1 (one) time each day. 06/21/2024 documented as of this encounter Historical Medications * This list may reflect changes made after this encounter. predniSONE (DELTASONE) 20 mg tablet Take 2 tablets (40 mg total) by mouth 1 (one) time each day. 06/21/2024 added in this encounter Additional Health Concerns Assessment Noted Time PHQ-9 Depression Total Score: 0 06/21/19 25 6:39 PM EDT documented as of this encounter Care Teams Client Engagement Manager Relationship Specialty Start Date End Date Tj Sandhu PA [address] [place] [address] PCP - General Internal Medicine 06/14/20 documented as of this encounter
--- OUTSIDE RECORDS SUMMARY | 2024-06-24 14:58 | XMS_ITS | Clinical Summary ---
Author Organization [address] Address [address] [place] [address] Phone Care Team Providers Care Gunner'S Mate Name Role Phone Tj Sandhu Primary Care Provider [phone] [phone] Allergies Active Allergy Reactions Criticality Noted Date Comments Penicillins Hives 08/24/2007 Medications ALBUTEROL INHL Inhale into the lungs. Active reservoir inhalation (INSPIREASE) device Use with inhaler regularly 12/22/19 20 Active albuterol HFA (PROAIR HFA ; PROVENTIL HFA ; VENTOLIN HFA) 90 mcg/actuation inhaler Inhale 2 Puffs into the lungs every 4 hours as needed for Cough or Wheezing. 07/20/19 24 Active budesonide-fo rmoteroL (Symbicort) 80-4.5 mcg/actuation inhaler INHALE 2 PUFFS INTO THE LUNGS TWICE A DAY 09/07/19 24 Active clobetasoL (TEMOVATE) 0.05 % cream APPLY TOPICALLY TO AFFECTED AREA S) TWO TIMES A DAY FOR 2 WEEKS 03/21/20 22 Active dupilumab (Dupixent Pen) 300 mg/2 mL pen 07/10/19 24 Active hydrOXYzine HCL (ATARAX) 10 mg tablet Take 1 Tablet by mouth 3 times daily as needed for Itching. 02/25/20 23 Active NIFEdipine (ADALAT CC) 30 mg 24 hr tablet TAKE ONE TABLET BY MOUTH EVERY DAY 01/04/20 24 Active triamcinolone (KENALOG) 0.1 % cream Apply to affected areas one or two times per day for two to four weeks 02/25/20 23 Active Eliquis 5 mg tablet TAKE ONE TABLET BY MOUTH TWICE A DAY 180 tablet 1 03/15/20 24 Active furosemide (LASIX) 20 mg tablet TAKE ONE TABLET BY MOUTH EVERY DAY 90 tablet 04/07/19 25 Active losartan (COZAAR) 100 mg tablet TAKE ONE TABLET BY MOUTH EVERY DAY 90 tablet 04/07/19 25 Active sertraline (ZOLOFT) 50 mg tablet TAKE ONE TABLET BY MOUTH EVERY DAY 90 tablet 04/07/19 25 Active albuterol 2.5 mg /3 mL (0.083 %) nebulizer solution Take 3 mL (2.5 mg total) by nebulization every 4 (four) hours if needed for wheezing. 75 mL 1 06/14/19 25 Active fluticasone-u meclidinium-v ilanterol (Trelegy Ellipta) 200-62.5-25 mcg inhaler Inhale 1 puff (200 mcg total) by mouth 1 (one) time each day. Rinse mouth with water after use to reduce aftertaste and incidence of candidiasis. Do not swallow. 1 each 06/22/19 Active predniSONE (DELTASONE) 10 mg tablet Take 4 [...] each day for 4 days. 32 tablet 06/22/19 25 025 Active Symbicort 80-4.5 mcg/actuation inhaler INHALE 2 PUFFS INTO THE LUNGS TWO TIMES A DAY 10.2 g 5 03/15/20 24 025 Discontinued(D uplicate order) diphenhydrami ne HCl (BENADRYL ALLERGY ORAL) Take by mouth daily as needed. 025 Discontinued(P atient Discharge) albuterol 2.5 mg /3 mL (0.083 %) nebulizer solution Take 1 Vial by nebulization every 4 hours as needed for Wheezing. 01/20/20 025 Discontinued(R eorder) semaglutide (Ozempic) 0.25 mg or 0.5 mg(2 mg/1.5 mL) injection pen Inject 0.25 mg into the skin once a week for 28 days, THEN 0.5 mg once a week for 180 days. 01/21/20 025 Discontinued(P atient Discharge) tirzepatide, weight loss, (Zepbound) 2.5 mg/0.5 mL injection Inject 2.5 mg into the skin once a week. 01/19/20 025 Discontinued(P atient Discharge) metoprolol succinate (TOPROL-XL) 25 mg 24 hr tablet TAKE ONE TABLET BY MOUTH EVERY DAY 90 tablet 1 03/15/20 025 Discontinued(P atient Discharge) predniSONE (DELTASONE) 20 mg tablet Take 2 tablets (40 mg total) by mouth 1 (one) time each day. 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 HTN (hypertension), benign 04/14/2011 Vitamin D deficiency 10/21/2010 MARGARETH (obstructive sleep apnea) 01/30/2009 Overview (03/04/2024): [facility] Home Polysomnogram: Date 03/04/2017; AHI 12, Unclassified apneas 1; Obstructive apneas 3; Central apneas 2; Mixed apneas 0; hypopneas 7; average oxygen saturation 93% (lowest 80% without saturations <88% for 5% or more of study) Anxiety and depression 11/09/2007 Asthma 07/04/2005 Encounters Date Type Department Care Team Description 06/21/2024 9:30 AM EDT Office Visit Adult Medicine [address] [phone] Tj Sandhu PA Hospital discharge follow-up (Primary Dx); Upper respiratory tract infection, unspecified type; Respiratory distress; Asthma with status asthmaticus, unspecified asthma severity, unspecified whether persistent; Morbid obesity with BMI of 45.0-49.9, adult ([facility]); MARGARETH (obstructive sleep apnea) 06/17/2024 Telephone Adult Medicine [address] [phone] Tj Sandhu PA Hospital Follow-up from Last 3 Months Immunizations Name Administration Dates Next Due COVID-19 (Moderna/Spikevax) 12yo and older 12/12/2023 Hepatitis B (Pxwkapk-R-Ondyv , Recombivax HB-Adult) 19yo and older 07/19/2008,02/22/2008,01/19/2008 [...] PROCEDURE: HISTORICAL UPPER GASTROINTESTINAL ENDOSCOPY 2004 PROCEDURE: IN UPPER GI ENDOSCOPY PERFORMED; COMMENT: normal COLONOSCOPY [...] Mass Index 51.84 06/21/2024 9:27 AM EDT Plan of Treatment Upcoming Encounters Date Type Department Care Team (Late st Contact Info) Description 07/09/2024 12:30 PM EDT Appointment Radiology Department - [address] [phone] 07/19/2024 2:30 PM EDT Office Visit Adult Medicine [place] [address] [phone] Tj Sandhu PA [address] [place], [place] 10/06/2024 1:30 PM EDT Office Visit Bariatric Surgery - [place] [address] [phone] Marii Guan MD [address] [phone] Health Maintenance Due Date Last Done Comments Hepatitis A Vaccines (1 of 2 - Risk 2-dose series) 01/11/1979 Pneumococcal Vaccine: 50+ Years (2 of 2 - PCV) 06/17/2015 06/16/2014 Pneumococcal Vaccine: Pediatrics (0 to 5 Years) and At-Risk Patients (6 to 64 Years) (2 of 2 - PCV) 06/17/2015 06/16/2014 RSV Immunization Adult Patients (1 - Risk 60-74 years 1-dose series) 2020 HIV Screening 03/01/2022 Cervical Cancer Screening: HPV 05/19/2024 05/19/2019 Hypertension/CHF/CAD Annual BMP Blood Test 03/22/2025 03/22/2024, 06/19/2023 Depression Screening 06/20/2025 06/20/2024 Social Influencers of Health Screening 06/20/2025 06/20/2024 Breast Cancer Screening 07/03/2025 07/04/19, 01/02/2023, 06/14/2022, Additional history exists Cholesterol Screening [...] Procedure Name Priority Date/Time Associated Diagnosis Comments EXTERNAL VASCULAR ULTRASOUND 06/20/[address] REPORT 06/14/[address] REPORT 06/14/[address] REPORT 06/14/[address] REPORT 06/14/2024 EXTERNAL XRAY REPORT 06/14/2024 EXTERNAL XRAY REPORT 06/14/2024 COMPREHENSIVE METABOLIC PANEL Routine 03/22/2024 11:10 AM EST HTN (hypertension), benign Vitamin D deficiency Hyperlipidemia Prediabetes LIPID PANEL WITH REFLEX TO DIRECT LDL Routine 03/22/2024 11:10 AM EST HTN (hypertension), benign Vitamin D deficiency Hyperlipidemia Prediabetes SCREENING MAMMOGRAPHY BI 2-VIEW BREAST INC CAD Routine 07/04/2023 12:24 PM EDT Encounter for screening mammogram for malignant neoplasm of breast HM COLONOSCOPY Routine 07/23/2022 HPV Routine 05/19/2019 HEPATITIS C SCREENING Routine 08/19/2012 from Last 3 Months or Most Recently Relevant to Health Maintenance Results * External Vascular Ultrasound (06/20/2024) Anatomical Region Laterality Modality Ultrasound us Provider [facility] CV VASCULAR PROCEDURES F inal Result * External Xray Report (06/14/2024) Only the most recent of2 resultswithin the time period is included. Anatomical Region Laterality Modality Radiographic Anais ging us Provider [facility] IMG XR PROCEDURES Final Result * External CT Report (06/14/2024) Only the most recent of4 resultswithin the time period is included. Anatomical Region Laterality Modality Computed Tomogra phy us Provider [facility] IMG CT PROCEDURES Final Result * (ABNORMAL) Lipid panel with reflex to direct LDL (03/22/2024 11:10 AM EST) Cholesterol 188 0 - 200 mg/dL LAB CHEMISTRY METHOD 03/22/2024 3:10 PM EST [facility] Triglycerides 318(H) 0 - 150 mg/dL LAB CHEMISTRY METHOD 03/22/2024 3:10 PM EST [facility] HDL 36(L) >=40 mg/dL LAB CHEMISTRY METHOD 03/22/2024 3:10 PM EST [facility] LDL Calculated 88 0 - 100 mg/dL LAB CHEMISTRY METHOD 03/22/2024 3:10 PM EST [facility] VLDL Cholesterol Howard 63.6 mg/dL LAB CHEMISTRY METHOD 03/22/2024 3:10 PM [facility] Non HDL Chol. (LDL+VLDL) 152(H) <145 mg/dL LAB CHEMISTRY METHOD 03/22/2024 3:10 PM [facility] Chol/HDL Ratio 5.2(H) 0.0 - 4.4 LAB CHEMISTRY METHOD 03/22/2024 3:10 PM [facility] Blood Venous blood specimen / Unknown Venipuncture / Unknown 03/22/2024 11:10 AM EST 03/22/2024 11:10 AM EST Tj AVALOS LAB BLOOD ORDERABLES Amy wallace Result [facility] [address] [place] [address], [place] [phone] * (ABNORMAL) Comprehensive metabolic panel (03/22/2024 11:10 AM EST) Sodium 142 133 - 145 mmol/L LAB CHEMISTRY METHOD 03/22/2024 3:10 PM [facility] Potassium 3.8 3.5 - 5.5 mmol/L LAB CHEMISTRY METHOD 03/22/2024 3:10 PM [facility] Chloride 106 96 - 110 mmol/L LAB CHEMISTRY METHOD 03/22/2024 3:10 PM [facility] CO2 28 21 - 32 mmol/L LAB CHEMISTRY METHOD 03/22/2024 3:10 PM [facility] Anion Gap 8 3 - 11 LAB CHEMISTRY METHOD 03/22/2024 3:10 PM [facility] Glucose 200(H) 70 - 100 mg/dL LAB CHEMISTRY METHOD 03/22/2024 3:10 PM [facility] BUN 17 5 - 25 mg/dL LAB CHEMISTRY METHOD 03/22/2024 3:10 PM [facility] Creatinine 0.80 0.50 - 1.10 mg/dL LAB CHEMISTRY METHOD 03/22/2024 3:10 PM [facility] eGFR 82 >=60 mL/min/1. 73m2 LAB CHEMISTRY METHOD 03/22/2024 3:10 PM [facility] Comment:Calculation based on the??Chronic Kidney Disease Epidemiology Collaboration (CKD-EPI) equation refit??without adjustment for race. BUN/Creatinine Ratio 21.3 LAB CHEMISTRY METHOD 03/22/2024 3:10 PM [facility] Calcium 8.9 8.5 - 10.5 mg/dL LAB CHEMISTRY METHOD 03/22/2024 3:10 PM [facility] AST (SGOT) 14 10 - 42 unit/L LAB CHEMISTRY METHOD 03/22/2024 3:10 PM [facility] ALT (SGPT) 23 10 - 60 unit/L LAB CHEMISTRY METHOD 03/22/2024 3:10 PM [facility] Alkaline Phosphatase 104 42 - 121 unit/L LAB CHEMISTRY METHOD 03/22/2024 3:10 PM [facility] Total Protein 6.6 6.0 - 8.0 g/dL LAB CHEMISTRY METHOD 03/22/2024 3:10 PM [facility] Albumin 3.7 3.2 - 5.0 g/dL LAB CHEMISTRY METHOD 03/22/2024 3:10 PM [facility] Total Bilirubin 0.3 0.0 - 1.4 mg/dL LAB CHEMISTRY METHOD 03/22/2024 3:10 PM [facility] Blood Venous blood specimen / Unknown Venipuncture / Unknown 03/22/2024 11:10 AM EST 03/22/2024 11:10 AM EST Tj AVALOS LAB BLOOD ORDERABLES Amy wallace Result [facility] [address] [place] [address], * SCREENING MAMMOGRAPHY BI 2-VIEW BREAST INC [...] 02, 2023, and most remote bilateral mammogram [id number]. Breast composition: There are scattered areas of fibroglandular density. Bilateral breasts: No significant masses, suspicious calcifications orother abnormalities are seen in either breast. IMPRESSION: Impression: Bilateral breasts: Negative, no specific mammographic evidence ofmalignancy. Normal interval follow-up is recommended in 12 months. BI-RADS: Category 1: Negative Tj AVALOS IMG XR PROCEDURES Final R esult * Colonoscopy (07/23/2022) Colonoscopy No Interpretation , Abstracted Anatomical Region Laterality Modality Other Result [facility] Provider HEALTH MAINTENANCE Final Result * Cervical Cancer Screening: HPV (05/19/2019) Pathologist [facility] Cervical Cancer Screening: HPV Negative, Abstracted Result [facility] Provider HEALTH MAINTENANCE Final Result * Hepatitis C Screening (08/19/2012) Pathologist [facility] Hepatitis C Screening Abstracted [facility] Provider HEALTH MAINTENANCE Final Result from Last 3 Months or Most Recently Relevant to Health Maintenance Insurance [facility] [[email or web address]] Care Teams Gunner'S Mate Relationship Specialty Start Date End Date Tj Sandhu PA [address] [place] [address] PCP - General Internal Medicine 06/14/20
== END 2024-06-24 13:52 | disposition home or self-care (01) ==
LOC: HO.HPSW 13:06
PROVIDERS: PCP Physician Assistant Medical; Visit Provider Nurse Practitioner Family
DX: J45.909 Unspecified asthma, uncomplicated (principal); Z91.09 Other allergy status, other than to drugs and biological substances; G47.33 Obstructive sleep apnea (adult) (pediatric)
CPT/HCPCS: 99204

== ENCOUNTER 2024-06-24 13:55 | Outpatient (REF) | payer BC, SELFPAY ==
--- OUTSIDE RECORDS SUMMARY | 2024-06-24 15:42 | XMS_ITS | Encounter Summary ---
Author Organization [employer] [facility] Address [address] [place] [address] Care Team Providers Care Coffee Roaster Name Role Phone Tj Sandhu PA-C Primary Care Provider [phone] Encounter Details Date Type Department Care Team Description 09/04/2023 Orders Only Medical Records [address] [place] [address] [facility] Social History Tobacco Use Types Packs/Day Years [...] Name Priority Date/Time Associated Diagnosis Comments OUTSIDE EKG Routine 08/23/2023 documented in this encounter Results * OUTSIDE EKG (08/23/2023) [facility] CARDIOLOGY documented in this encounter Visit Diagnoses Not on filedocumented in this encounter Care Teams Coffee Roaster Relationship Specialty Start Date End Date Tj Sandhu PA-C [address] [place] [id number] PCP - General Internal Medicine 06/14/20 documented as of this encounter
--- OUTSIDE RECORDS SUMMARY | 2024-06-24 15:42 | XMS_ITS | Encounter Summary ---
Author Organization [employer] [facility] Address [address] [place] [address] Care Team Providers Care Director Occupational Name Role Phone Tj Sandhu PA-C Primary Care Provider [phone] Encounter Details Date Type Department Care Team Description 08/04/2020 Release of Information Medical Records [address] [place], [place] [id number] [place] [address] Social History Tobacco Use Types Packs/Day Years [...] Exposure Response Date Recorded In the last month, have you been in contact with someone who was confirmed or suspected to have Coronavirus / COVID-19? No / Unsure 07/20/2020 2:49 PM EDT documented as of this encounter Plan of Treatment Not on file documented as of this encounter Visit Diagnoses Not on filedocumented in this encounter Care Teams Director Occupational Relationship Specialty Start Date End Date Tj Sandhu PA-C [address] [place] [phone] PCP - General Internal Medicine 06/14/20 documented as of this encounter
--- OUTSIDE RECORDS SUMMARY | 2024-06-24 15:43 | XMS_ITS | Encounter Summary ---
Author Organization [facility] Address [address] [place] [address] Care Team Providers Care Java J2Ee Software Engineer Name Role Phone Tj Sandhu PA-C Primary Care Provider [phone] Reason for Visit * Reason Onset Date Comments Medication 07/09/2022 Encounter Details Date Type Department Care Team Description 07/09/2022 Refill Gastroenterology - [place] [address] [facility] [address] [place] [phone] Keo Forte MD [address] [facility] [address] [place] [address] Medication Social History Tobacco Use Types Packs/Day Years [...] suspected to have Coronavirus/COVID-19? No / Unsure 07/07/2022 11:49 AM EDT documented as of this encounter Plan of Treatment Not on file documented as of this encounter Visit Diagnoses Not on filedocumented in this encounter Care Teams Java J2Ee Software Engineer Relationship Specialty Start Date End Date Tj Sandhu PA-C [address] [place] [id number] PCP - General Internal Medicine 06/14/20 documented as of this encounter
--- OUTSIDE RECORDS SUMMARY | 2024-06-24 15:43 | XMS_ITS | Encounter Summary ---
Author Organization [facility] Address [address] [place] [address] Care Team Providers Care Shipping Manager Name Role Phone Tj Sandhu PA-C Primary Care Provider [phone] Reason for Referral * EXTERNAL (Urgent) - Closed Specialty Diagnoses / Procedures Referred By Yasmeen vinson Referred To Contact Allergy & Immunology / Allergy Procedures REFERRAL TO ALLERGY Tj Sandhu PA-C [address] [place] [address] External Allergy Referral ID Status Reason Start Date Expiration Date Visits Re quested Visits Authorized [id number] Closed 02/09/2023 1 1 Encounter Details Date Type Department Care Team Description 02/09/2023 Pt. Non Urgent Medical Question Adult Medicine [address] [address] Tj Sandhu PA-C [address] [place] [address] Social History Tobacco Use Types Packs/Day Years [...] on filedocumented in this encounter Care Teams Shipping Manager Relationship Specialty Start Date End Date Tj Sandhu PA-C [address] [place] [phone] PCP - General Internal Medicine 06/14/20 documented as of this encounter
--- OUTSIDE RECORDS SUMMARY | 2024-06-24 15:43 | XMS_ITS | Encounter Summary ---
Author Organization [facility] Address [address] [place] [address] Care Team Providers Care Die Cutter Operator Name Role Phone Jaskaran García MD Primary Care Provider + [phone] Tj Sandhu PA-C Primary Care Provider [phone] Encounter Details Date Type Department Care Team Description 05/25/2017 Pt. Non Urgent Medic al Question Pulmonology - [address] [place] [address] Ferny Swanson MD Social History [...] EST Subject: C-Pap Orders I spoke with [facility] to make sure that I had pre-approval for my new C-Pap machine and they said they have not received anything from your office. I have an appointment this that I may have to reschedule. Please advise. Thanks Karina documented in this encounter Plan of Treatment Not on file documented as of this encounter Visit Diagnoses Not on filedocumented in this encounter Care Teams Die Cutter Operator Relationship Specialty Start Date End Date Jaskaran García MD [address] [place] [phone] PCP - General 04/03/00 06/13/20 Tj Sandhu PA-C [address] [place] [phone] PCP - General Internal Medicine 06/14/20 documented as of this encounter
--- OUTSIDE RECORDS SUMMARY | 2024-06-24 15:43 | XMS_ITS | Clinical Summary ---
Author Organization [facility] Address [address] [place] [address] Care Team Providers Care Hardboard Press Operator Name Role Phone Tj Sandhu PA-C Primary Care Provider [phone] [phone] Allergies Active Allergy Reactions Severity Noted Date Comments Cerave Hydrating Cleanser Itching/Pruritus,Cough Medium 01/09/2023 Penicillins Hives/Urticaria 08/24/2007 Medications Medication Sig Dispensed Refills Start Date End Date Status DiphenhydrAMINE HCl (BENADRYL ALLERGY OR) Take by mouth daily as needed. 0 Active SPACER DEVICE-ADULT Use with inhaler regularly 1 Device 0 12/22/2019 Active clobetasol (TEMOVATE) 0.05 % cream APPLY TOPICALLY TO AFFECTED AREA S) TWO TIMES A DAY FOR 2 WEEKS 0 03/21/2022 Active albuterol (PROVENTIL) (2.5 MG/3ML) 0.083% nebulizer solution Take 1 Vial by nebulization every 4 hours as needed for Wheezing. 150 mL 0 01/19/2023 Active ALBUTEROL IN Inhale into the lungs. 0 Active hydrOXYzine (ATARAX) 10 MG tablet Take 1 Tablet by mouth 3 times daily as needed for Itching. 90 Tablet 0 02/24/2023 Active triamcinolone (KENALOG) 0.1 % cream Apply to affected areas one or two times per day for two to four weeks 100 g 1 02/24/2023 Active Dupixent 300 MG/2ML Solution Pen-injector 0 07/10/2023 Active ALBUTEROL SULFATE 108 (90 Base) MCG/ACT Aero Soln Inhale 2 Puffs into the lungs every 4 hours as needed for Cough or Wheezing. 8.5 g 11 07/20/2023 Active Symbicort 80-4.5 MCG/ACT inhalerIndications :Mild persistent asthma without complication INHALE 2 PUFFS INTO THE LUNGS TWICE A DAY 10.2 g 5 09/07/2023 Active Eliquis 5 MG Tab Take 1 Tablet by mouth 2 times daily. 180 Tablet 1 09/17/2023 Active metoprolol (TOPROL-XL) 25 MG 24 hr tablet Take 1 Tablet by mouth daily. 90 Tablet 1 09/17/2023 Active NIFEdipine (ADALAT CC) 30 MG 24 hr tablet TAKE ONE TABLET BY MOUTH EVERY DAY 90 Tablet 1 01/04/2024 Active sertraline (ZOLOFT) 50 MG tablet TAKE ONE TABLET BY MOUTH EVERY DAY 90 Tablet 0 01/05/2024 Active losartan (COZAAR) 100 MG tablet TAKE ONE TABLET BY MOUTH EVERY DAY 90 Tablet 0 01/05/2024 Active furosemide (LASIX) 20 MG tablet TAKE ONE TABLET BY MOUTH EVERY DAY 90 Tablet 0 01/05/2024 Active Tirzepatide-Weight Management (Zepbound) 2.5 MG/0.5ML Solution Auto-injector Inject 2.5 mg into the skin once a week. 6 mL 3 01/19/2024 Active Semaglutide,0.25 or 0.5MG/DOS, (Ozempic, 0.25 or 0.5 MG/DOSE,) 2 MG/1.5ML Solution Pen-injector Inject 0.25 mg into the skin once a week for 28 days, THEN 0.5 mg once a week for 180 days. 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 HTN (hypertension), benign 04/14/2011 Vitamin D deficiency 10/21/2010 MARGARETH (obstructive sleep apnea) mild AHI 1 2 01/30/2009 Overview: [facility] Home Polysomnogram: Date 03/04/2017; AHI 12, Unclassified apneas 1; Obstructive apneas 3; Central apneas 2; Mixed apneas 0; hypopneas 7; average oxygen saturation 93% (lowest 80% without saturations <88% for 5% or more of study) Anxiety and depression 11/09/2007 Asthma 07/04/2005 Resolved Problems Problem Noted Date Resolved Date Acute shoulder bursitis, right 2018 0 06/28/2019 Leiomyoma of uterus 04/14/2011 01/08/2015 Unspecified essential hypertension 07/27/2009 06/28/2019 OBESITY, UNSPECIFIED 07/04/2005 06/28/2019 Immunizations Name Administration Dates Next Due COVID-19 (Moderna) 07/05/2021,02/05/2021 COVID-19 (Moderna) PT Reported 06/16/2020,2020 COVID-19 (Pfizer) Pt Reported 12/20/2022 Covid-19 Moderna Omicron (PT Reported)- Spikevax 12/12/2023 Hepatitis B > 19yrs 07/19/2008,02/22/2008,2007 Influenza (> 6 Months) 12/12/2023,2015,02/02/2014,04/08 Influenza Flu (PT Reported) 12/20/2022 Influenza Vaccine-preservati ve Free-quadrivalent 4 Years 12/05/2021,03/31/2019,04/15/2018 Influenza Vaccine-quadrivale nt 4 Years Plus 11/27/2016 Pneumoccoccal(Adult) Polysac charide PPSV23 06/16/2014 Shingrix (Recombinant zoster vaccine) 04/30/2021 ,01/13/2021 TD (STATE SUPPLIED FOR ADULT S AND CHILDREN) 07/20/2023,05/30/2005 Tdap 09/20/2012 Family History Medical History Relation Name Comments CA Prostate Brother Cancer, Other Father liver Cancer of the Pancreas Maternal Grandmother Diabetes Maternal Grandmother CA Breast Sister 1 71 CA Ovarian Negative Hx Relation Name Status Comments Brother Alive Daughter Alive Father (Age 68) liver canc er Maternal Grandmother Mother (Age 84) pancreatic cancer Sister 1 71 Alive mvp Sister 2 Alive mvp Sister 3 Alive mvp Social History Tobacco Use Types Packs/Day Years Used Date Smoking Tobacco: Former Cigarettes 0 04/15/1971 - 10/23/1981 Smokeless Tobacco: Never Tobacco Cessation:Counseling Given: Not Answered Comments:Quit 40 yrs Alcohol Use Standard Drinks/Week [...] file Not on file Not on file Last Filed Vital Signs Vital Sign Reading Time Taken Comments Blood Pressure 130/70 01/19/2024 4:01 PM EDT Pulse 54 01/19/2024 3:41 PM EDT Temperature 36.5 ??C (97.7 ??F) 01/19/2024 3:41 PM ED T Respiratory Rate 18 01/19/2024 3:41 PM EDT Oxygen Saturation 94% 01/19/2023 10:37 AM EDT Inhaled Oxygen Concentration - - Weight 146.5 kg (323 lb) 01/19/2024 3:41 PM EDT Height 165.1 cm (5' 5 ) 01/19/2024 3:41 PM EDT Body Mass Index 53.75 01/19/2024 3:41 PM EDT Plan of Treatment Health Maintenance Due Date Last Done Comments CERVICAL CANCER SCREENING 05/19/20222019, 01/31/2016, 08/19/2012, Additional history exists Covid-19 Vaccine (2022-04 4 season) 2024 12/12/2023, 12/20/2022, 07/05/2021, Additional history exists BMI CHECK/ADVISE 03/23/2024 01/19/2024, 02/2024, 07/20/2023, Additional history exists MAMMOGRAM 07/03/2024 07/04/2023, 12/21, 06/14/2022, Additional history exists PNEUMOCOCCAL VACCINE FOR HIG H RISK PATIENTS (#2) 01/11/2025 03/13/2016 (External Complet ion of Vaccination per patient), 06/16/2014 COLON CANCER SCREENING 07/23/2025 , 12/26/2019, 10/16/2014 (External Completion), Additional history exists CHOLESTEROL SCREENING 06/18/2028 06/19/2023 , 06/27/2022, 12/31/2021, Additional history exists DTAP/TDAP/TD (3 - Td or Tdap) 07/19/2033, 09/20/2012, 05/30/2005 HEPATITIS C SCREENING Completed 08/19/2012 SHINGLES VACCINE Discontinued 04/30/2021, 01/13/2021 INFLUENZA Completed 12/12/2023, 11/23, 12/20/2022, Additional history exists Care Teams Hardboard Press Operator Relationship Specialty Start Date End Date Tj Sandhu PA-C [address] [place] [address] [phone] PCP - General Internal Medicine 06/14/20
--- OUTSIDE RECORDS SUMMARY | 2024-06-24 15:43 | XMS_ITS | Encounter Summary ---
Author Organization [facility] Address [address] [place] [address] Care Team Providers Care Cleat Thrower Name Role Phone Tj Sandhu PA-C Primary Care Provider +1 [phone] Encounter Details Date Type Department Care Team Description 05/27/2022 [employer] Weapons Sergeant Report Medical Records [address] [place] [address] Ernie Martinez MD Social History Tobacco Use [...] on filedocumented in this encounter Care Teams Cleat Thrower Relationship Specialty Start Date End Date Tj Sandhu PA-C [address] [place], [place] [phone] PCP - General Internal Medicine 06/14/20 documented as of this encounter
--- OUTSIDE RECORDS SUMMARY | 2024-06-24 15:43 | XMS_ITS | Encounter Summary ---
Author Organization [facility] Address [address] [place] [address] Care Team Providers Care Registered Representative Name Role Phone Tj Sandhu PA-C Primary Care Provider [phone] [phone] Encounter Details Date Type Department Care Team Description 09/02/2023 Orders Only Medical Records [address] [place] [address] [facility] Social History Tobacco Use Types Packs/Day [...] Name Priority Date/Time Associated Diagnosis Comments OUTSIDE PLAIN FILM Routine 08/23/2023 documented in this encounter Results * OUTSIDE PLAIN FILM (08/23/2023) [facility] RADIOLOGY documented in this encounter Visit Diagnoses Not on filedocumented in this encounter Care Teams Registered Representative Relationship Specialty Start Date End Date Tj Sandhu PA-C [address] [place] [id number] PCP - General Internal Medicine 06/14/20 documented as of this encounter
--- OUTSIDE RECORDS SUMMARY | 2024-06-24 15:43 | XMS_ITS | Encounter Summary ---
Author Organization [facility] Address [address] [place] [address] Care Team Providers Care Pediatric Registered Nurse Name Role Phone Tj Sandhu PA-C Primary Care Provider [phone] [phone] Encounter Details Date Type Department Care Team Description 01/08/2023 Pt. Non Urgent Medical Question Adult Medicine [address] [phone] Tj Sandhu PA-C [address] [place] [id number] Social History Tobacco Use Types Packs/Day Years [...] AM EDT documented as of this encounter Miscellaneous Notes * Telephone Encounter - Kenneth Hale - 01/08/2023 9:32 AM EDTFrom: Karina Burks To: Quintin Sandhu Sent: 01/08/2023 9:27 AM EDT Subject: Cough and inflamed skin I think I am having an allergic reaction to something coupled with a possible cold. It started with redness and flaky skin on my upper lip and around my nostrils. Now my arms are really itchy (unfortunately I have been scratching them like crazy) I have some congestion and have beentaking dayquil and nightquil for 8 days. It seems like my lungs are clear though and the congestionis upper respirtory. I do not have a fever. Just wondering what I should be doing at this point. documented in this encounter Plan of Treatment Not on file documented as of this encounter Visit Diagnoses Not on filedocumented in this encounter Care Teams Pediatric Registered Nurse Relationship Specialty Start Date End Date Tj Sandhu PA-C [address] [place] [id number] PCP - General Internal Medicine 06/14/20 documented as of this encounter
--- OUTSIDE RECORDS SUMMARY | 2024-06-24 15:43 | XMS_ITS | Encounter Summary ---
[facility] Address [address] [place] [address] Care Team Providers Care Cranberry Farm Supervisor Name Role Phone Tj Sandhu Primary Care Provider +1 [phone] Reason for Visit * Reason Comments Hospital Follow-up [facility] 06/14/24-06/16/24 Asthma & Hypertension Encounter Details Date Type Department Care Team (Late st Contact Info) Description 06/21/2024 9:30 AM EDT Office Visit Adult Medicine [facility] [address] [place] [address] Tj Sandhu PA [address] [place] [address] Hospital discharge follow-up (Primary Dx); Upper respiratory tract infection, unspecified type; Respiratory distress; Asthma with status asthmaticus, unspecified asthma severity, unspecified whether persistent; Morbid obesity with BMI of 45.0-49.9, adult ([facility]); MARGARETH (obstructive sleep apnea) Social History Tobacco [...] 9:30 AM EDT CHIEF COMPLAINT: Hospital Follow-up ([facility] 06/14/24-06/16/24 Asthma & Hypertension) IDENTIFIER: Karina Burks is a 64 y.o. old female. HPI: This pleasant patient presents today for hospital discharge follow-up. She was recently hospitalized at [facility] after developing cold symptoms. She had worsening [...] Morbid obesity with BMI of 45.0-49.9, adult ([facility]) 03/04/2024 Prediabetes 06/22/2023 Hyperlipidemia 11/13/2020 Calcific tendinitis [...] esophageal polyp UPPER GASTROINTESTINAL ENDOSCOPY 2004 PROCEDURE: [place] UPPER GI ENDOSCOPY PERFORMED; COMMENT: normal WISDOM [...] Morbid obesity with BMI of 45.0-49.9, adult ([facility]) 6. MARGARETH (obstructive sleep apnea) PLAN: 1. [...] 12:30 PM EDT Appointment Radiology Department - [address] [phone] 07/19/2024 2:30 PM EDT Office Visit Adult Medicine [address] [phone] Tj Sandhu PA [address] [place], [place] 10/06/2024 1:30 PM EDT Office Visit Bariatric Surgery - [place] [address] [phone] Marii Guan MD 175 [facility] [address] [place] [address] documented as of this encounter Visit Diagnoses Diagnosis Hospital discharge follow-up- Primary Other follow-up examination Upper respiratory tract infection, unspecified type Respiratory distress Other dyspnea and respiratory abnormality Asthma with status asthmaticus, unspecified asthma severity, unspecified whether persistent Morbid obesity with BMI of 45.0-49.9, adult ([facility]) MARGARETH (obstructive sleep apnea) Obstructive sleep apnea [...] documented as of this encounter Care Teams Cranberry Farm Supervisor Relationship Specialty Start Date End Date Tj Sandhu PA [address] [place] [address] PCP - General Internal Medicine 06/14/20 documented as of this encounter
--- OUTSIDE RECORDS SUMMARY | 2024-06-24 15:43 | XMS_ITS | Clinical Summary ---
Author Organization [address] Address [address] [place] [address] Phone Care Team Providers Care Sole Cutter Name Role Phone Tj Sandhu Primary Care Provider +1 [phone] Allergies Active Allergy Reactions Criticality Noted Date [...] MARGARETH (obstructive sleep apnea) 01/30/2009 Overview (03/04/2024): [facility] Home Polysomnogram: Date 03/04/2017; AHI 12, Unclassified apneas 1; Obstructive apneas 3; Central apneas 2; Mixed apneas 0; hypopneas 7; average oxygen saturation 93% (lowest 80% without saturations <88% for 5% or more of study) Anxiety and depression 11/09/2007 Asthma 07/04/2005 Encounters Date Type Department Care Team Description 06/21/2024 9:30 AM EDT Office Visit Adult Medicine [address] [phone] Tj Sandhu PA Hospital discharge follow-up (Primary Dx); Upper respiratory tract infection, unspecified type; Respiratory distress; Asthma with status asthmaticus, unspecified asthma severity, unspecified whether persistent; Morbid obesity with BMI of 45.0-49.9, adult ([facility]); MARGARETH (obstructive sleep apnea) 06/17/2024 Telephone Adult Medicine [address] [phone] Tj Sandhu PA Hospital Follow-up from Last 3 Months Immunizations Name Administration Dates Next Due COVID-19 (Moderna/Spikevax) 12yo and older 12/12/2023 Hepatitis B (Xokfpdy-Q-Pljak , Recombivax HB-Adult) 19yo and older 07/19/2008,02/22/2008,01/19/2008 [...] PROCEDURE: HISTORICAL UPPER GASTROINTESTINAL ENDOSCOPY 2004 PROCEDURE: [place] UPPER GI ENDOSCOPY PERFORMED; COMMENT: normal COLONOSCOPY [...] 12:30 PM EDT Appointment Radiology Department - [address] [phone] 07/19/2024 2:30 PM EDT Office Visit Adult Medicine [place] [address] [phone] Tj Sandhu PA [address] [place], [place] 10/06/2024 1:30 PM EDT Office Visit Bariatric Surgery - [place] [address] [phone] Marii Guan MD [address] [address] Health Maintenance Due Date Last Done Comments [...] Region Laterality Modality Ultrasound us Provider [facility] CV VASCULAR PROCEDURES F inal Result * [...] Modality Computed Tomogra phy us Provider [facility] IMG CT PROCEDURES Final Result * (ABNORMAL) Lipid panel with reflex to direct LDL (03/22/2024 11:10 AM EST) Cholesterol 188 0 - 200 mg/dL LAB CHEMISTRY METHOD 03/22/2024 3:10 PM EST [facility] Triglycerides 318(H) 0 - 150 mg/dL LAB CHEMISTRY METHOD 03/22/2024 3:10 PM EST [facility] HDL 36(L) >=40 mg/dL LAB CHEMISTRY METHOD 03/22/2024 3:10 PM EST [facility] LDL Calculated 88 0 - 100 mg/dL LAB CHEMISTRY METHOD 03/22/2024 3:10 PM EST [facility] VLDL Cholesterol Howard 63.6 mg/dL LAB CHEMISTRY METHOD 03/22/2024 3:10 PM [facility] Non HDL Chol. (LDL+VLDL) 152(H) <145 mg/dL LAB CHEMISTRY METHOD 03/22/2024 3:10 PM [facility] Chol/HDL Ratio 5.2(H) 0.0 - 4.4 LAB CHEMISTRY METHOD 03/22/2024 3:10 PM [facility] Blood Venous blood specimen / Unknown Venipuncture / Unknown 03/22/2024 11:10 AM EST 03/22/2024 11:10 AM EST Tj AVALOS LAB BLOOD ORDERABLES Amy wallace Result [facility] [address] [place] [address], [place] [phone] * (ABNORMAL) Comprehensive metabolic panel (03/22/2024 11:10 AM EST) Sodium 142 133 - 145 mmol/L LAB CHEMISTRY METHOD 03/22/2024 3:10 PM [facility] Potassium 3.8 3.5 - 5.5 mmol/L LAB CHEMISTRY METHOD 03/22/2024 3:10 PM [facility] Chloride 106 96 - 110 mmol/L LAB CHEMISTRY METHOD 03/22/2024 3:10 PM [facility] CO2 28 21 - 32 mmol/L LAB CHEMISTRY METHOD 03/22/2024 3:10 PM [facility] Anion Gap 8 3 - 11 LAB CHEMISTRY METHOD 03/22/2024 3:10 PM [facility] Glucose 200(H) 70 - 100 mg/dL LAB CHEMISTRY METHOD 03/22/2024 3:10 PM [facility] BUN 17 5 - 25 mg/dL LAB CHEMISTRY METHOD 03/22/2024 3:10 PM [facility] Creatinine 0.80 0.50 - 1.10 mg/dL LAB CHEMISTRY METHOD 03/22/2024 3:10 PM [facility] eGFR 82 >=60 mL/min/1. 73m2 LAB CHEMISTRY METHOD 03/22/2024 3:10 PM [facility] Comment:Calculation based on the??Chronic Kidney Disease Epidemiology Collaboration (CKD-EPI) equation refit??without adjustment for race. BUN/Creatinine Ratio 21.3 LAB CHEMISTRY METHOD 03/22/2024 3:10 PM [facility] Calcium 8.9 8.5 - 10.5 mg/dL LAB CHEMISTRY METHOD 03/22/2024 3:10 PM [facility] AST (SGOT) 14 10 - 42 unit/L LAB CHEMISTRY METHOD 03/22/2024 3:10 PM [facility] ALT (SGPT) 23 10 - 60 unit/L LAB CHEMISTRY METHOD 03/22/2024 3:10 PM [facility] Alkaline Phosphatase 104 42 - 121 unit/L LAB CHEMISTRY METHOD 03/22/2024 3:10 PM [facility] Total Protein 6.6 6.0 - 8.0 g/dL LAB CHEMISTRY METHOD 03/22/2024 3:10 PM [facility] Albumin 3.7 3.2 - 5.0 g/dL LAB CHEMISTRY METHOD 03/22/2024 3:10 PM [facility] Total Bilirubin 0.3 0.0 - 1.4 mg/dL LAB CHEMISTRY METHOD 03/22/2024 3:10 PM [facility] Blood Venous blood specimen / Unknown Venipuncture / Unknown 03/22/2024 11:10 AM EST 03/22/2024 11:10 AM EST Tj AVALOS LAB BLOOD ORDERABLES Amy wallace Result [facility] [address] [place] [address], * SCREENING MAMMOGRAPHY BI 2-VIEW BREAST INC [...] Abstracted Anatomical Region Laterality Modality Other Result [facility] Provider HEALTH MAINTENANCE Final Result * Cervical Cancer Screening: HPV (05/19/2019) Pathologist [facility] Cervical Cancer Screening: HPV Negative, Abstracted Result [facility] Provider HEALTH MAINTENANCE Final Result * Hepatitis C Screening (08/19/2012) Pathologist [facility] Hepatitis C Screening Abstracted [facility] Provider HEALTH MAINTENANCE Final Result from Last 3 Months or Most Recently Relevant to Health Maintenance Insurance [facility] Care Teams Sole Cutter Relationship Specialty Start Date End Date Tj Sandhu PA [address] [place] [address] PCP - General Internal Medicine 06/14/20
--- OUTSIDE RECORDS SUMMARY | 2024-06-24 15:43 | XMS_ITS | Encounter Summary ---
Author Organization [facility] Address [address] [place] [address] Care Team Providers Care Java Android Developer Name Role Phone Jaskaran García MD Primary Care Provider [phone] Tj Sandhu PA-C Primary Care Provider + [phone] Encounter Details Date Type Department Care Team Description 08/31/2013 Orders Only Adult Medicine [address] [phone] Cherelle Chaparro PA-C Social History Tobacco Use [...] filedocumented in this encounter Care Teams Java Android Developer Relationship Specialty Start Date End Date Jaskaran García MD [address] [place] [address] [phone] PCP - General 04/03/00 06/13/20 Tj Sandhu PA-C [address] [place] [address] PCP - General Internal Medicine 06/14/20 documented as of this encounter
--- OUTSIDE RECORDS SUMMARY | 2024-06-24 15:43 | XMS_ITS | Encounter Summary ---
Author Organization [facility] Address [address] [place] [address] Care Team Providers Care Transformer Stock Clerk Name Role Phone Tj Sandhu PA-C Primary Care Provider [phone] Reason for Visit * Reason Comments E-prescribe Rx Request Encounter Details Date Type Department Care Team Description 10/20/2021 Refill Adult Medicine [facility] [address] [place] [address] [phone] Tj Sandhu PA-C [address] [place] [address] [phone] E-prescribe Rx Request Social History Tobacco Use [...] N/A Patients current insurance carrier is: Payor: [place] [employer] / Plan: POS $25 PRASAD [id number] / Product Type: POS [id number] documented in this encounter Plan of Treatment Not on file documented as of this encounter Visit Diagnoses Not on filedocumented in this encounter Care Teams Transformer Stock Clerk Relationship Specialty Start Date End Date Tj Sandhu PA-C [address] [place] [address] PCP - General Internal Medicine 06/14/20 documented as of this encounter
--- OUTSIDE RECORDS SUMMARY | 2024-06-24 15:43 | XMS_ITS | Encounter Summary ---
Author Organization [facility] Address [address] [place] [address] Care Team Providers Care Malt House Kiln Operator Name Role Phone Jaskaran García MD Primary Care Provider [phone] Tj Sandhu PA-C Primary Care Provider [phone] Encounter Details Date Type Department Care Team Description 03/06/2017 Orders Only Medical Records [address] [place] [address] Jaskaran García MD [address] [place] [address] Social History Tobacco Use Types Packs/Day Years [...] Name Priority Date/Time Associated Diagnosis Comments OUTSIDE SLEEP STUDY Routine 03/04/2017 documented in this encounter Results * OUTSIDE SLEEP STUDY (03/04/2017) Jaskaran García MD PULMONOLOGY documented in this encounter Visit Diagnoses Not on filedocumented in this encounter Care Teams Malt House Kiln Operator Relationship Specialty Start Date End Date Jaskaran García MD [address] [place] [phone] PCP - General 04/03/00 06/13/20 Tj Sandhu PA-C [address] [place] [phone] PCP - General Internal Medicine 06/14/20 documented as of this encounter
--- OUTSIDE RECORDS SUMMARY | 2024-06-24 15:43 | XMS_ITS | Encounter Summary ---
Author Organization [facility] Address [address] [place] [address] Care Team Providers Care Gauge And Weigh Machine Operator Name Role Phone Jaskaran García MD Primary Care Provider + [phone] Tj Sandhu PA-C Primary Care Provider +[phone] Reason for Referral * Non SERGEY (Routine) - Authorized/Booked Specialty Diagnoses / Procedures Referred By Yasmeen vinson Referred To Contact Gastroenterology Diagnoses History of colonic polyps Procedures REFERRAL TO GASTROENTEROLOGY Jaskaran García MD [address] [place] [address] Wilmar Addison MD [address] [place] [address] Referral ID Status Reason Start Date Expiration Date V isits Requested Visits Authorized [id number] Authorized/B ooked 10/11/2019 03/22/2020 12 12 Reason for Visit * Reason Onset Date Comments DME Request 09/28/2019 Encounter Details Date Type Department Care Team Description 09/28/2019 Pt. Non Urgent Medical Question Adult Medicine [address] [address] Jaskaran García MD [address] [place] [phone] MARGARETH (obstructive sleep apnea) mild AHI 12 [...] prescription so I can get them from [employer] ([phone]) Also, I believe I am supposed to [...] polyps documented in this encounter Care Teams Gauge And Weigh Machine Operator Relationship Specialty Start Date End Date Jaskaran García MD [address] [place] [address] [phone] PCP - General 04/03/00 06/13/20 Tj Sandhu PA-C [address] [place] [address] [phone] PCP - General Internal Medicine 06/14/20 documented as of this encounter
--- OUTSIDE RECORDS SUMMARY | 2024-06-24 15:43 | XMS_ITS | Encounter Summary ---
Author Organization [facility] Address [address] [place] [address] Care Team Providers Care Helper Maintenance Cleaning Name Role Phone Tj Sandhu PA-C Primary Care Provider +[phone] Reason for Visit * Reason Comments E-prescribe Rx Request Encounter Details Date Type Department Care Team Description 08/31/2021 Refill Adult Medicine [address] [phone] Tj Sandhu PA-C [address] [place] [address] [phone] E-prescribe Rx Request Social History Tobacco Use [...] on filedocumented in this encounter Care Teams Helper Maintenance Cleaning Relationship Specialty Start Date End Date Tj Sandhu PA-C [address] [place] [address] PCP - General Internal Medicine 06/14/20 documented as of this encounter
--- OUTSIDE RECORDS SUMMARY | 2024-06-24 15:43 | XMS_ITS | Encounter Summary ---
Author Organization [facility] Address [address] [place] [address] Care Team Providers Care Mayonnaise Mixer Name Role Phone Jaskaran García MD Primary Care Provider + [phone] Tj Sandhu PA-C Primary Care Provider +[phone] Reason for Visit * Reason Onset Date Comments Faxed Refill 11/12/2017 Encounter Details Date Type Department Care Team Description 11/12/2017 Telephone Pulmonology - [address] [place] [phone] Ferny Swanson MD Faxed Refill Social History Tobacco Use Types Packs/Day Years [...] encounter Miscellaneous Notes * Telephone Encounter - Ferny Swanson MD - 11/17/2017 8:45 AM EDT Ordered. * Telephone Encounter - Marina JaredDiannpapi - 11/12/2017 10:52 AM EDT Patient would like script to be: E-PRESCRIBED/FAXED TO PHARMACY WHEN WAS THE PATIENT'S LAST APPOINTMENT WITH THE PRESCRIBING PROVIDER? 05/13/17 Does patient have an upcoming appointment? Yes (THE MEDICATION REQUESTED IS ON THE MED LIST ABOVE) All of the medications requested were on the CURRENT MEDS list Did you check the Pharmacy information above?: YES Patient wants: 90 -day supply Is this a mail order prescription request ? NO Patients current insurance carrier is: Payor: [employer]KS [employer] / Plan: [employer] $20 [place] [id number] / Product Type: IntercastingO [id number] documented in this encounter Plan of Treatment Not on file documented as of this encounter Visit Diagnoses Diagnosis GANDARA (dyspnea on exertion) Other dyspnea and respiratory abnormality documented in this encounter Care Teams Mayonnaise Mixer Relationship Specialty Start Date End Date Jaskaran García MD [address] [place] [address] PCP - General 04/03/00 06/13/20 Tj Sandhu PA-C [address] [place] [address] [phone] PCP - General Internal Medicine 06/14/20 documented as of this encounter
--- OUTSIDE RECORDS SUMMARY | 2024-06-24 15:43 | XMS_ITS | Encounter Summary ---
Author Organization [facility] Address [address] [place] [address] Care Team Providers Care Bottom Cager Name Role Phone Jaskaran García MD Primary Care Provider + [phone] Tj Sandhu PA-C Primary Care Provider +[phone] Reason for Visit * Reason Onset Date Comments REFERRAL 11/20/2014 Encounter Details Date Type Department Care Team Description 11/20/2014 Telephone Podiatry - [address] [phone] Ailyn Forde DPM REFERRAL Social History Tobacco Use Types Packs/Day Years [...] encounter Miscellaneous Notes * Telephone Encounter - Tarun Lopez - 11/20/2014 1:28 PM EDT Pt was referred to Podiatry re foot pain. Pt had a scheduled appt with . Pt cancelled appt with and did not wish to reschedule appt-FYI documented in this encounter Plan of Treatment Not on file documented as of this encounter Visit Diagnoses Not on filedocumented in this encounter Care Teams Bottom Cager Relationship Specialty Start Date End Date Jaskaran García MD [address] [place] [address] PCP - General 04/03/00 06/13/20 Tj Sandhu PA-C [address] [place] [address] PCP - General Internal Medicine 06/14/20 documented as of this encounter
--- OUTSIDE RECORDS SUMMARY | 2024-06-24 15:43 | XMS_ITS | Encounter Summary ---
Author Organization [facility] Address [address] [place] [address] Care Team Providers Care Rewriter Name Role Phone Jaskaran García MD Primary Care Provider + [phone] Tj Sandhu PA-C Primary Care Provider [phone] Reason for Visit * Reason Onset Date Comments Medication 02/20/2017 Encounter Details Date Type Department Care Team Description 02/20/2017 Pt. Non Urgent Medical Question Adult Medicine [address] [phone] Jaskaran García MD [address] [place] [address] Social History Tobacco Use Types Packs/Day Years [...] as of this encounter Progress Notes * Pooja Murray M.A. - 02/20/2017 4:49 PM ESTFrom: Karina Burks To: Jaskaran García MD Sent: 02/20/2017 2:17 PM EST Subject: Prescriptions My insurance plan is changing and my prescriptions are going up. I know I have asked about genericsbefore but wanted to ask again. Specifically for Symbicort and Albuteral. Thanks Karina documented in this encounter Plan of Treatment Not on file documented as of this encounter Visit Diagnoses Not on filedocumented in this encounter Care Teams Rewriter Relationship Specialty Start Date End Date Jaskaran García MD [address] [place] [address] PCP - General 04/03/00 06/13/20 Tj Sandhu PA-C [address] [place] [address] PCP - General Internal Medicine 06/14/20 documented as of this encounter
--- OUTSIDE RECORDS SUMMARY | 2024-06-24 15:43 | XMS_ITS | Encounter Summary ---
Author Organization [facility] Address [address] [place] [address] Care Team Providers Care Ticket Collector Name Role Phone Jaskaran García MD Primary Care Provider + [phone] Tj Sandhu PA-C Primary Care Provider [phone] Reason for Visit * Reason Onset Date Comments Medication 11/30/2019 prep Encounter Details Date Type Department Care Team Description 11/30/2019 Refill Gastroenterology - [address] [place] [phone] Wilmar Addison MD [address] [place] [address] [phone] Medication (prep) Social History Tobacco Use Types Packs/Day Years [...] on filedocumented in this encounter Care Teams Ticket Collector Relationship Specialty Start Date End Date Jaskaran García MD [address] [place] [address] PCP - General 04/03/00 06/13/20 Tj Sandhu PA-C [address] [place] [address] PCP - General Internal Medicine 06/14/20 documented as of this encounter
--- OUTSIDE RECORDS SUMMARY | 2024-06-24 15:43 | XMS_ITS | Encounter Summary ---
Author Organization [facility] Address [address] [place] [address] Care Team Providers Care Retention Representative Name Role Phone Jaskaran García MD Primary Care Provider + [phone] Tj Sandhu PA-C Primary Care Provider + [phone] Encounter Details Date Type Department Care Team Description 12/22/2016 Orders Only Adult Medicine [address] [phone] Chon Griggs PA-C Abnormal cardiovascular stress test [...] study documented in this encounter Care Teams Retention Representative Relationship Specialty Start Date End Date Jaskaran García MD [address] [place] [address] PCP - General 04/03/00 06/13/20 Tj Sandhu PA-C [address] [place] [address] PCP - General Internal Medicine 06/14/20 documented as of this encounter
--- OUTSIDE RECORDS SUMMARY | 2024-06-24 15:43 | XMS_ITS | Encounter Summary ---
Author Organization [facility] Address [address] [place] [address] Care Team Providers Care Cns Name Role Phone Jaskaran García MD Primary Care Provider + [phone] Tj Sandhu PA-C Primary Care Provider [phone] Reason for Visit * Reason Comments E-prescribe Rx Request Encounter Details Date Type Department Care Team Description 03/13/2016 Refill Adult Medicine [facility] [address] [place] [address] [phone] Jaskaran García MD [address] [place] [address] [phone] E-prescribe Rx Request Social History Tobacco Use [...] Miscellaneous Notes * Telephone Encounter - Martha Bryson - 03/13/2016 8:56 AM EST Patient would [...] NO Patients current insurance carrier is: Payor: [employer] / Plan: [employer] $20 [place] [id number] / Product Type: VidientO [id number] documented in this encounter Plan of Treatment Not on file documented as of this encounter Visit Diagnoses Not on filedocumented in this encounter Care Teams Cns Relationship Specialty Start Date End Date Jaskaran García MD [address] [place] [address] PCP - General 04/03/00 06/13/20 Tj Sandhu PA-C [address] [place] [address] PCP - General Internal Medicine 06/14/20 documented as of this encounter
[2024-06-24 17:53] LABS: Anion Gap 13 (12-20); Blood Urea Nitrogen 18 mg/dL (9-16); Calcium 9.6 mg/dL (8.4-10.2); Carbon Dioxide 27 mmol/L (22-29); Chloride 103 mmol/L (96-108); Estimated Glomerular Filt Rate > 60; Glucose Random 92 mg/dL (60-115); Potassium 4.2 mmol/L (3.3-5.1); Sodium 139 mmol/L (135-145)
[2024-06-26 15:13] LABS: Class Alternaria alternata 0; Class Aspergillus fumigatus 0; Class Bermuda Grass 0; Class Birch 0; Class Cat Dander 0/1; Class Cladosporium herbarum 0; Class Cockroach 0; Class Common Ragweed 0; Class Cottonwood 0; Class Derm. pterony 0; Class Dermatophagoides farinae 0; Class Dog Dander 0/1; Class Elm 0; Class Maple Box Elder 0; Class Mountain Cedar 0; Class Mouse Urine Protein 0; Class Mugwort 0; Class Oak 0; Class Penicillium crysogenum 0; Class Rough Pigweed 0; Class Sheep Sorrel 0; Class Sycamore 0; Class Timothy Grass 0; Class Walnut Tree 0; Class White Ash 0; Class White Mulberry 0; D001 IgE D pteronyssinus <0.10 kU/L; D002 - IgE D farinae <0.10 kU/L; E001 - IgE Cat Dander 0.16 kU/L; E005 - IgE Dog Dander 0.11 kU/L; E072-IgE Mouse Urine <0.10 kU/L; G002 IgE Bermuda Grass <0.10 kU/L; G006 - IgE Timothy Grass <0.10 kU/L; I006-IgE Cockroach, German <0.10 kU/L; Immunoglobulin E 5 kU/L (<OR=114); M001 IgE Penicillium chrysogen <0.10 kU/L; M002 - IgE Cladosporium herbar <0.10 kU/L; M003 - IgE Aspergillus fumigat <0.10 kU/L; M006 - IgE Alternaria alternat <0.10 kU/L; T001 IgE Maple/Box Elder <0.10 kU/L; T003 IgE Common Silver Birch <0.10 kU/L; T006 - IgE Cedar, Mountain <0.10 kU/L; T007 - IgE Oak, White <0.10 kU/L; T008 IgE Elm, American <0.10 kU/L; T010 - IgE Walnut <0.10 kU/L; T011 - IgE Maple Leaf Sycamore <0.10 kU/L; T014 - IgE Cottonwood <0.10 kU/L; T015 - IgE Ash, White <0.10 kU/L; T070 - IgE White Mulberry <0.10 kU/L; W001 - IgE Ragweed, Short <0.10 kU/L; W006 - IgE Mugwort <0.10 kU/L; W014 IgE Pigweed, Common <0.10 kU/L; W018 IgE Sheep Sorrel <0.10 kU/L
== END 2024-06-24 13:56 | disposition home or self-care (01) ==
LOC: HO.WFDLDS 13:55
PROVIDERS: Referring Provider Internal Medicine; Visit Provider Nurse Practitioner Family
DX: R07.2 Precordial pain (principal); Z91.09 Other allergy status, other than to drugs and biological substances
CPT/HCPCS: 36415; 80048; 82785; 86003

== ENCOUNTER 2024-07-27 13:17 | Outpatient (AMB) | payer BC, SELFPAY ==
[2024-07-27 13:24] VITALS: BP 122/60; PULSE 58; O2SAT 94; BMI 52.3
--- NOTE | 2024-07-27 13:24 | A.OFFVIS_ITS ---
Vital Signs 07/27/24 13:24 Height 5 ft 6 in Weight 324 lb 6 oz BMI 52.3 BP 122/60 Blood Pressure Location Lt brachial Position Sitting Pulse 58 Pulse Source Pulse Oximeter Pulse Oximetry (%) 94 Oxygen Delivery Method Room Air Intake Visit Reasons: short of breath with exertion Allergies Penicillins [PENICILLINS] Allergy (Severe, Verified 07/27/24 13:30) hives/urticaria HPI HPI short of breath with exertion: Details: Karina is a pleasant 64 year old female, former 5 pack smoker, quit 30+years ago with underlying asthma, atrial fibrillation on Eliquis, HTN, eczema on Dupixent ( started 1 year) and MARGARETH. Patient recently admitted to [facility] 06/14-06/16 for acute hypoxic respiratory failure secondary to moderate persistent asthma with acute decompensation. She attributes this to intake of decongestants and nebulized therapy resulting in hypertension. She was treated with steroids nebulizers and weaned off of oxygen, in ED desaturation to 86% on room air. She improved and was discharged on 5 more days of prednisone without the need for supplemental oxygen. She also was treated for acute on chronic diastolic CHF received 1 dose of IV Lasix, discharged on baseline 20 mg. Echocardiogram showed normal ejection fraction, mild elevated right ventricular systolic pressure. CT chest unremarkable. She is under the care of [facility] Cardiology, last evaluated 05/17. At the last visit, she had recently completed prednisone and felt symptoms were significantly better. Unfortunately, a few days later symptoms recurred and PCP placed on abx and prednisone. Today she presents for an acute visit. She has noticed increased episodes of hypoxia, desatting to 85-85% on room air with minimal exertion with associated chest tightness. She denies fever, chills, cough, chest congestion or other symptoms suggestive of infectious process. She also notes increased BLE edema and orthopnea. [facility] Medical History (Updated 07/27/24 @ 14:57 by Penny Monte NP) MARGARETH (obstructive sleep apnea) Atrial fibrillation BMI 50.0-59.9, adult Lower leg edema Prediabetes Asthma HLD (hyperlipidemia) HTN (hypertension) Eczema Surgical History History of endoscopy (2004) History of wisdom tooth extraction History of colonoscopy (2014) History of delivery Family History Father Liver cancer Mother Pancreatic cancer Maternal Grandmother Pancreatic cancer Sister Breast cancer Maternal Uncle Lung cancer Social History Household Members: Family Housing: House Do you presently have visiting nurse or other home services: No Alcohol intake: current Alcohol intake frequency: a few times a week Patient Tobacco Use Status: Former Tobacco user Cigarettes Per Day: 5 Years Smoked: 10 service: No Review of Systems Const Denies chills, Denies excessive sweating, Denies fever(s), Denies headache(s) and Denies night sweats Eyes Denies dry eyes, Denies irritation and Denies itchy eyes ENT Reports Normal hearing present, Denies headache(s), Denies nasal congestion, Denies nasal discharge, Denies post nasal drip and Denies sore throat Card Denies chest pain, Denies chest pain at rest, Denies chest pain with activity, Denies claudication, Denies leg edema, Reports dyspnea, Reports dyspnea on exertion, Reports orthopnea and Denies paroxysmal nocturnal dyspnea Resp Denies chest congestion, Reports cough, Denies excessive phlegm production, Denies pain on inspiration, Denies pain with cough, Reports dyspnea, Reports dyspnea on exertion, Denies stridor and Reports wheezing Musc Denies myalgias Neuro Reports Normal hearing present and Denies headache(s) Endo Denies excessive sweating Octavio/Lymph Denies lymphadenopathy Aller/Immun Denies itchy eyes, Denies seasonal rhinorrhea and Reports wheezing Physical Exam Vital Signs: Last Vital Signs Pulse 58 07/27/24 13:24 BP 122/60 07/27/24 13:24 Pulse Ox 94 07/27/24 13:24 Oxygen Delivery Method Room Air 07/27/24 13:24 BMI result Body Mass Index 52.3 Const General: cooperative, healthy appearing, comfortable, no acute distress, well developed and alert Nutritional Appearance: obese Orientation/consciousness: patient oriented x3 Limitations: no limitations HEENT Head: Yes normal to inspection, Yes normocephalic and Yes atraumatic Ears: hearing grossly normal bilaterally and external ears normal Eyes General: appearance normal, both eyes and all related structures Eyelids: Yes eyelids normal Sclerae: sclerae normal EOM: EOMs intact bilaterally Neck Neck: Yes normal visual inspection and Yes no lymphadenopathy Lymphatic: no lymphadenopathy noted Chest Chest palpation & inspection: normal inspection of the chest Resp Other: faint inspiratory bibasilar crackles L>R Effort & Inspection: normal respiratory effort, able to speak in complete sen tences, no audible wheezes, no cough, no stridor, not tachypneic, no tripod positioning and no use of accessory muscles Auscultation: clear to auscultation bilaterally Cardio Jugular venous distension: no JVD Rate: regular rate Rhythm: regular rhythm Skin Other: warm, dry General skin exam: no rashes or lesions noted Neuro General: patient oriented x3 Cranial nerves: Yes Normal hearing present Cognition (Neuro): normal cognition Gait exam (Neuro): Normal gait present Extrem Other: 2+pitting edema BLE Psych Appearance: grossly normal and well kempt Speech and movement: Normal speech and movement present and Clear speech present Affect: normal affect Attitude: cooperative Thought process: Normal thought process present Thought content: Normal thought content present Insight: Good insight present (Psych) Judgement: Good judgement present (Psych) Office Procedures 6 Minute Walk Time:: 14:06 SPO2 % at rest: 93 Pulse at rest: 60 SPO2 % during excercise: 84 Pulse during excercise: 86 SPO2 % after excercise: 92 Pulse after excercise: 96 Distance in yards walked: 150 Marley Score: 8 Performance Observations:: Patient walked unassisted on level ground at a moderate pace. After walking for less than 1 minute O2 saturation dropped to 84% with pulse of 86. Stopped and O2 applied at 1L via nasal cannula and O2 saturation increased to 92% pulse of 78. Continued walk for another minute with O2 saturation dropped to 85%..O2 increased to 2L with saturation returned to 92% and pulse 93.Continued walk for 2 minutes and O2 saturation dropped to 87%..O2 increased to 3L O2 saturation recovered to 91. Patient finished the walk using 3L of oxygen at 89-90% O2 saturation with pulse of 96. Patient very short of breath at the completion of walk. [id number] - 6 Minute Walk Assessment & Plan Assessment & Plan (1) Asthma: Code(s): J45.909 - Unspecified asthma, uncomplicated Category: Medical (2) Environmental allergies: Code(s): Z91.09 - Other allergy status, other than to drugs and biological substances Category: Medical (3) MARGARETH on CPAP: Code(s): G47.33 - Obstructive sleep apnea (adult) (pediatric) Category: Medical (4) Hypoventilation associated with obesity: Code(s): E66.2 - Morbid (severe) obesity with alveolar hypoventilation Category: Medical Plan Karina's symptoms are likely multifactorial with contribution from pulmonary, cardiac and obesity/deconditioning. We had long discussion regarding dyspnea and possible need for supplemental oxygen. 6MWT performed today and patient requires 3-4L supplemental oxygen with exertion. We discussed the adverse effects of hypoxia and patient agreeable to trial. She also noted difficulty expectorating mucous, denying chest congestion or other symptoms suggestive of infectious process. Encouraged use of nebulizer and will send Acapella valve to facilitate mucous clearance. Patient with faint inspiratory bibasilar crackles, 2+ pitting edema BLE, orthopnea with isolated diffusion capacity on prior PFT, questioning cardiac involvement. Will send for BNP today, will likely increase 40mg for the next three days to assess for improvement. Patient with h/o MARGARETH currently on CPAP therapy, in need of a new machine, current machine broken beyond repair, will change home sleep study to inlab titration given new onset hypoxia. All questions were answered and patient is in agreement of plan. Will follow up for regularly scheduled appointment or sooner if needed. Orders: Orders AMB 6 minute walk Today J45.909 - Unspecified asthma, uncomplicated B Type Natriuretic Peptide Today R06.00 - Dyspnea, unspecified Coding Level of Care Code Est Pt Level 4 (17690) Complex EM visit Add On G2211 Diagnoses Asthma J45.909 Environmental allergies Z91.09 MARGARETH on CPAP G47.33 Hypoventilation associated with obesity E66.2 CPT Codes Coding ([id number])
--- OUTSIDE RECORDS SUMMARY | 2024-07-27 14:33 | XMS_ITS | Encounter Summary ---
Author Organization [facility] Address [address] [place] [address] Care Team Providers Care Acid Tank Liner Name Role Phone Jaskaran García MD Primary Care Provider + [phone] Tj Sandhu PA-C Primary Care Provider [phone] Reason for Visit * Reason Onset Date Comments Medication 11/30/2019 prep Encounter Details Date Type Department Care Team Description 11/30/2019 Refill Gastroenterology - [address] [place] [phone] Wilmar Addison MD [address] [place] [address] [phone] Medication (prep) Social History Tobacco Use Types [...] on filedocumented in this encounter Care Teams Acid Tank Liner Relationship Specialty Start Date End Date Jaskaran García MD [address] [place] [address] PCP - General 04/03/00 06/13/20 Tj Sandhu PA-C [address] [place] [address] PCP - General Internal Medicine 06/14/20 documented as of this encounter
--- OUTSIDE RECORDS SUMMARY | 2024-07-27 14:33 | XMS_ITS | Encounter Summary ---
Author Organization [facility] Address [address] [place] [address] Care Team Providers Care Perfect Binder Setter Name Role Phone Tj Sandhu PA-C Primary Care Provider [phone] Encounter Details Date Type Department Care Team Description 08/23/2023 Hospital Medical Records [address] [place], [place] [phone] [place] [address] Social History Tobacco Use Types Packs/Day Years [...] on filedocumented in this encounter Care Teams Perfect Binder Setter Relationship Specialty Start Date End Date Tj Sandhu PA-C [address] [place], [place] [phone] PCP - General Internal Medicine 06/14/20 documented as of this encounter
--- OUTSIDE RECORDS SUMMARY | 2024-07-27 14:33 | XMS_ITS | Continuity of Care Document ---
Author Organization [facility] Address [address] [place] [address] [address] [place] [phone] Phone Care Team Providers Care Health Support Specialist Name Role Phone Jorge Luis FONG, ASHLIE, [...] Mins- [place] & [place] [facility], [address] [place] [address] [address], [place], [id number], [place] tel:[phone] [facility] - [place] - [place] Pain in right lower legPain in left lower legLocalized edemaCramp and spasmVenous insufficiency (chronic) (peripheral)P ruritus, unspecified May- 5 Jorge Luis FONG, APRIL DAILEY. [address] [facility], [address], [place], [id number] , [place]. tel:[phone] Referring Provider: Dave Miller, [address], [place], [address]. tel:[phone] [facility], [address] [facility] [address], [place], [id number], tel:[phone] [facility] - [place] - [place] Chronic venous hypertension (idiopathic) with other complications of bilateral lower extremity Jorge Luis FONG, RVT, RPVI Isr[place]. [address] [facility], [address], [place], [place], [id number] , [place]. tel:[phone] Referring Provider: Dave Miller, [address], [place], [address]. tel:[phone] Family History Family Member Type Diagnosis Age At Onset No Information Payers Payer name Insurance type Covered democrat ID Authorshaggy pinon(s) [facility] [id number] Social History Type Description Quantity Date Captured [...]
--- OUTSIDE RECORDS SUMMARY | 2024-07-27 14:33 | XMS_ITS | Encounter Summary ---
Author Organization [facility] Address [address] [place] [address] Care Team Providers Care Rn Training Name Role Phone Tj Sandhu PA-C Primary Care Provider [phone] Reason for Visit * Reason Onset Date Comments Failed COVID Screening 2022 Encounter Details Date Type Department Care Team Description 2022 Pt. Non Urgent Medical Question Adult Medicine [address] [address] Tj Sandhu PA-C [address] [place] [address] [phone] Social History Tobacco Use Types Packs/Day Years [...] suspected to have Coronavirus/COVID-19? No / Unsure 12/31/2021 3:41 PM EDT documented as of this encounter Miscellaneous Notes * Telephone Encounter - Vivi Carrion M.A. - 01/13/2022 7:56 AM EDTFrom: Karina Burks To: Quintin Sandhu Sent: 2022 9:07 AM EDT Subject: Covid I tested positive for Covid on Thursday. My symptoms started evening. I have head cold like symptoms. Should I be taking an anti-viral med? Thanks Karina documented in this encounter Plan of Treatment Not on file documented as of this encounter Visit Diagnoses Not on filedocumented in this encounter Care Teams Rn Training Relationship Specialty Start Date End Date jT Sandhu PA-C [address] [place] [address] PCP - General Internal Medicine 06/14/20 documented as of this encounter
--- OUTSIDE RECORDS SUMMARY | 2024-07-27 14:33 | XMS_ITS | Encounter Summary ---
Author Organization [facility] Address [address] [place] [address] Care Team Providers Care Shellfish Checker Name Role Phone Tj Sandhu PA-C Primary Care Provider +1 [phone] Reason for Visit * Reason Onset Date Comments Cellulitis 03/27/2022 Encounter Details Date Type Department Care Team Description 03/27/2022 Pt. Non Urgent Medical Question Adult Medicine [address] [address] Tj Sandhu PA-C [address] [place] [address] [phone] Social History Tobacco Use Types Packs/Day Years [...] suspected to have Coronavirus/COVID-19? No / Unsure 03/28/2022 3:14 PM EST documented as of this encounter Miscellaneous Notes * Telephone Encounter - Leanne Robertson M.A. - 03/27/2022 8:17 AM ESTFrom: Karina Burks To: Quintin Sandhu Sent: 03/27/2022 8:06 AM EST Subject: Cellulitis I was seen last Thursday for cellulitis on my right leg cause by scratching my dermatitis that I had earlier. I went to urgent care because there were no opening at [place]. I have been on antibiotics for 7 of a 10 day prescription. It has improved and I will finish the prescription but every morning when I get up, I have a lump on my le g where the cellulitis is. During the day it shrinks in size most likely due to gravity or activity but I wanted to ask if this was reason for concern. Silvia Collins documented in this encounter Plan of Treatment Not on file documented as of this encounter Visit Diagnoses Not on filedocumented in this encounter Care Teams Shellfish Checker Relationship Specialty Start Date End Date Tj Sandhu PA-C [address] [place] [address] PCP - General Internal Medicine 06/14/20 documented as of this encounter
--- OUTSIDE RECORDS SUMMARY | 2024-07-27 14:33 | XMS_ITS | Encounter Summary ---
Author Organization [facility] Address [address] [place] [address] Care Team Providers Care Tax Agent Name Role Phone Jaskaran García MD Primary Care Provider + [phone] Tj Sandhu PA-C Primary Care Provider [phone] Encounter Details Date Type Department Care Team Description 03/06/2017 Orders Only Medical Records [address] [place] [address] Jaskaran García MD [address] [place] [address] Social History Tobacco Use Types Packs/Day Years [...] on filedocumented in this encounter Care Teams Tax Agent Relationship Specialty Start Date End Date Jaskaran García MD [address] [place] [address] PCP - General 04/03/00 06/13/20 Tj Sandhu PA-C [address] [place] [address] PCP - General Internal Medicine 06/14/20 documented as of this encounter
--- OUTSIDE RECORDS SUMMARY | 2024-07-27 14:33 | XMS_ITS | Clinical Summary ---
Author Organization [facility] [address] [place] [address] [place] [address] Phone Care Team Providers Care Filling Room Operator Name Role Phone Tj Sandhu Primary Care Provider +1 [phone] Allergies Active Allergy Reactions Criticality Noted Date Comments Penicillins Hives 08/24/2007 Medications ALBUTEROL INHL Inhale into the lungs. Active reservoir inhalation (INSPIREASE) device Use with inhaler regularly 12/22/19 20 Active albuterol HFA (PROAIR HFA ; PROVENTIL HFA ; VENTOLIN HFA) 90 mcg/actuation inhaler Inhale 2 Puffs into the lungs every 4 hours as needed for Cough or Wheezing. 07/20/19 24 Active budesonide-for moteroL (Symbicort) 80-4.5 mcg/actuation inhaler INHALE 2 PUFFS [...] as needed for Itching. 02/25/20 23 Active triamcinolone (KENALOG) 0.1 % cream Apply to affected areas one or two times per day for two to four weeks 02/25/20 23 Active Eliquis 5 mg tablet TAKE ONE TABLET BY MOUTH TWICE A DAY 180 tablet 1 03/15/20 24 Active albuterol 2.5 mg /3 mL (0.083 %) nebulizer solution Take 3 mL (2.5 mg total) by nebulization every 4 (four) hours if needed for wheezing. 75 mL 1 06/14/19 25 Active fluticasone-um eclidinium-marino anterol (Trelegy Ellipta) 200-62.5-25 mcg inhaler Inhale 1 puff (200 mcg total) by mouth 1 (one) time each day. Rinse mouth with water after use to reduce aftertaste and incidence of candidiasis. Do not swallow. 1 each 12 06/22/19 25 Active NIFEdipine (ADALAT CC) 30 mg 24 hr tablet TAKE ONE TABLET BY MOUTH EVERY DAY 90 tablet 1 07/05/19 25 Active furosemide (LASIX) 20 mg tablet TAKE ONE TABLET BY MOUTH EVERY DAY 90 tablet 07/05/19 25 Active losartan (COZAAR) 100 mg tablet TAKE ONE TABLET BY MOUTH EVERY DAY 90 tablet 07/05/19 25 Active sertraline (ZOLOFT) 50 mg tablet TAKE ONE TABLET BY MOUTH EVERY DAY 90 tablet 07/05/19 25 Active predniSONE (DELTASONE) 20 mg tablet Take 3 tabs (60mg) daily for 3 days, then take 2 tabs (40mg) daily for 3 days, then take 1 tab (20mg) daily for 3 days. 18 tablet 07/20/19 25 025 Active NIFEdipine (ADALAT CC) 30 mg 24 hr tablet TAKE ONE TABLET BY MOUTH EVERY DAY 01/04/20 24 025 Discontinued furosemide (LASIX) 20 mg tablet TAKE ONE TABLET BY MOUTH EVERY DAY 90 tablet 04/07/19 25 025 Discontinued losartan (COZAAR) 100 mg tablet TAKE ONE TABLET BY MOUTH EVERY DAY 90 tablet 04/07/19 25 025 Discontinued sertraline (ZOLOFT) 50 mg tablet TAKE ONE TABLET BY MOUTH EVERY DAY 90 tablet 04/07/19 25 025 Discontinued predniSONE (DELTASONE) 10 mg tablet Take 4 [...] 4 days. 32 tablet 06/22/19 25 025 moxifloxacin (AVELOX) 400 mg tablet Take 1 tablet (400 mg total) by mouth 1 (one) time each day for 10 days. 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 HTN (hypertension), benign 04/14/2011 Vitamin D deficiency 10/21/2010 MARGARETH (obstructive sleep apnea) 01/30/2009 Overview (03/04/2024): [facility] Home Polysomnogram: Date 03/04/2017; AHI 12, Unclassified apneas 1; Obstructive apneas 3; Central apneas 2; Mixed apneas 0; hypopneas 7; average oxygen saturation 93% (lowest 80% without saturations <88% for 5% or more of study) Anxiety and depression 11/09/2007 Asthma 07/04/2005 Encounters Date Type Department Care Team Description 07/19/2024 2:30 PM EDT Office Visit Adult Medicine [address] [phone] Tj Sandhu PA Asthma with status asthmaticus, unspecified asthma severity, unspecified whether persistent (Primary Dx); Anxiety and depression; Other hyperlipidemia; HTN (hypertension), benign; Vitamin D deficiency; Morbid obesity with BMI of 45.0-49.9, adult ([facility], [facility]28); MARGARETH (obstructive sleep apnea); Prediabetes 07/05/2024 Telephone Adult Medicine [address] [phone] Khadijah Holbrook MA Shortness of Breath; Fatigue 06/21/2024 9:30 AM EDT Office Visit Adult [address] [phone] Tj Sandhu PA Hospital discharge follow-up (Primary Dx); Upper respiratory tract infection, unspecified type; Respiratory distress; Asthma with status asthmaticus, unspecified asthma severity, unspecified whether persistent; Morbid obesity with BMI of 45.0-49.9, adult ([facility]24, 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 No 07/18/2024 Food Access & Nutrition Answer Date Rec orded Do you have access to a vari ety of food including fruits and vegetables? Yes 07/18/2024 Access to Healthcare Answer Date Record ed Within the last 3 months, ho w many times did you visit the emergency department for your medical care? 1 07/18/2024 Health Literacy Answer Date Recorded How often do you need to hav e someone help you when you read instructions, pamphlets, or other written material from your doctor or pharmacy? Rarely 07/18/2024 Caregiver: How often do you need to have someone help you when you read instructions, pamphlets, or other written material from your doctor or pharmacy? Not on file 07/18/2024 Financial Risk Answer Date Recorded How hard is it for you to pa y for the very basics like food, housing, medical care, and air conditioning / heating? Not very hard 07/18/2024 Transportation Answer Date Recorded Has the lack of transportati on kept you from meetings, work, or from getting things needed for daily living? No Has the lack of transportati on kept you from medical appointments or from getting medications? No 07/18/2024 Social Isolation Answer Date Recorded How often do you feel lonely or isolated from th ose around you? Rarely 07/18/2024 Food Risk Answer Date Recorded Within the past 12 months we worried whether our food would run out before we got money to buy more. Never true 07/18/2024 Within the past 12 months th e food we bought just didn't last and we didn't have money to get more. Never true 07/18/2024 Dependent Care Answer Date Recorded Do you need help finding or paying for care for your loved ones. For example, child care director or elderly care for an older adult? No 07/18/2024 Education Answer Date Recorded Do you think completing more education or training, like finishing a GED, going to college, or learning a trade, would be helpful for you? N/A 07/18/2024 Employment and Income Answer Date Recor ded During the last four weeks, have you been actively looking for work? No 07/18/2024 Living Situation Answer Date Recorded What is your living situation? 0 07/18/2024 Comments Unknown Sex and Gender Information Value Date Recorded Sex Assigned at Not on file Legal Sex Female 4:26 PM EST Gender Identity Not on file Sexual Orientation Not on file Obstetrics History Last Filed Vital Signs Vital Sign Reading Time Taken Comments Blood Pressure 136/62 07/19/2024 2:06 PM EDT Pulse 63 07/19/2024 2:06 PM EDT Temperature 36.7 ??C (98 ??F) 07/19/2024 2:06 PM EDT Respiratory Rate 17 07/19/2024 2:06 PM EDT Oxygen Saturation 97% 06/21/2024 9:27 AM EDT Inhaled Oxygen Concentration - - Weight 145 kg (320 lb) 07/19/2024 2:06 PM EDT Height 167.6 cm (5' 6 ) 06/21/2024 9:27 AM EDT Body Mass Index 51.65 06/21/2024 9:27 AM EDT Plan of Treatment Upcoming Encounters Date Type Department Care Team (Late st Contact Info) Description 10/06/2024 1:30 PM EDT Office Visit Bariatric Surgery - [place] [address] [phone] Marii Guan MD 175 [facility] [address] [place] [address] Health Maintenance Due Date Last Done Comments [...] 07/04/19 24, 01/02/2023, 06/14/2022, Additional history exists Depression Screening 07/18/2025 07/18/2024 Social Influencers of Health Screening 07/18/2025 07/18/2024 Cholesterol Screening (Lipid Panel) 03/22/2029 03/22/2024, 06/19/2023 [...] age to complete this topic Meningococcal B Vaccine Aged Out No l onger eligible based on patient's age to complete [...] Region Laterality Modality Ultrasound us Provider [facility] CV VASCULAR PROCEDURES F inal Result * [...] Modality Computed Tomogra phy us Provider [facility] IMG CT PROCEDURES Final Result * (ABNORMAL) Lipid panel with reflex to direct LDL (03/22/2024 11:10 AM EST) Cholesterol 188 0 - 200 mg/dL LAB CHEMISTRY METHOD 03/22/2024 3:10 PM EST [facility] Triglycerides 318(H) 0 - 150 mg/dL LAB CHEMISTRY METHOD 03/22/2024 3:10 PM EST [facility] HDL 36(L) >=40 mg/dL LAB CHEMISTRY METHOD 03/22/2024 3:10 PM EST [facility] LDL Calculated 88 0 - 100 mg/dL LAB CHEMISTRY METHOD 03/22/2024 3:10 PM EST [facility] VLDL Cholesterol Howard 63.6 mg/dL LAB CHEMISTRY METHOD 03/22/2024 3:10 PM [facility] Non HDL Chol. (LDL+VLDL) 152(H) <145 mg/dL LAB CHEMISTRY METHOD 03/22/2024 3:10 PM [facility] Chol/HDL Ratio 5.2(H) 0.0 - 4.4 LAB CHEMISTRY METHOD 03/22/2024 3:10 PM [facility] Blood Venous blood specimen / Unknown Venipuncture / Unknown 03/22/2024 11:10 AM EST 03/22/2024 11:10 AM EST Tj AVALOS LAB BLOOD ORDERABLES Amy wallace Result [facility] [address] [place] [address], [place] [phone] * (ABNORMAL) Comprehensive metabolic panel (03/22/2024 11:10 AM EST) Sodium 142 133 - 145 mmol/L LAB CHEMISTRY METHOD 03/22/2024 3:10 PM [facility] Potassium 3.8 3.5 - 5.5 mmol/L LAB CHEMISTRY METHOD 03/22/2024 3:10 PM [facility] Chloride 106 96 - 110 mmol/L LAB CHEMISTRY METHOD 03/22/2024 3:10 PM [facility] CO2 28 21 - 32 mmol/L LAB CHEMISTRY METHOD 03/22/2024 3:10 PM [facility] Anion Gap 8 3 - 11 LAB CHEMISTRY METHOD 03/22/2024 3:10 PM [facility] Glucose 200(H) 70 - 100 mg/dL LAB CHEMISTRY METHOD 03/22/2024 3:10 PM [facility] BUN 17 5 - 25 mg/dL LAB CHEMISTRY METHOD 03/22/2024 3:10 PM [facility] Creatinine 0.80 0.50 - 1.10 mg/dL LAB CHEMISTRY METHOD 03/22/2024 3:10 PM [facility] eGFR 82 >=60 mL/min/1. 73m2 LAB CHEMISTRY METHOD 03/22/2024 3:10 PM [facility] Comment:Calculation based on the??Chronic Kidney Disease Epidemiology Collaboration (CKD-EPI) equation refit??without adjustment for race. BUN/Creatinine Ratio 21.3 LAB CHEMISTRY METHOD 03/22/2024 3:10 PM [facility] Calcium 8.9 8.5 - 10.5 mg/dL LAB CHEMISTRY METHOD 03/22/2024 3:10 PM [facility] AST (SGOT) 14 10 - 42 unit/L LAB CHEMISTRY METHOD 03/22/2024 3:10 PM [facility] ALT (SGPT) 23 10 - 60 unit/L LAB CHEMISTRY METHOD 03/22/2024 3:10 PM [facility] Alkaline Phosphatase 104 42 - 121 unit/L LAB CHEMISTRY METHOD 03/22/2024 3:10 PM [facility] Total Protein 6.6 6.0 - 8.0 g/dL LAB CHEMISTRY METHOD 03/22/2024 3:10 PM [facility] Albumin 3.7 3.2 - 5.0 g/dL LAB CHEMISTRY METHOD 03/22/2024 3:10 PM [facility] Total Bilirubin 0.3 0.0 - 1.4 mg/dL LAB CHEMISTRY METHOD 03/22/2024 3:10 PM [facility] Blood Venous blood specimen / Unknown Venipuncture / Unknown 03/22/2024 11:10 AM EST 03/22/2024 11:10 AM EST Tj AVALOS LAB BLOOD ORDERABLES Amy wallace Result [facility] [address] [place] [address], * SCREENING MAMMOGRAPHY BI 2-VIEW BREAST INC [...] Abstracted Anatomical Region Laterality Modality Other Result [facility] Provider HEALTH MAINTENANCE Final Result * Cervical Cancer Screening: HPV (05/19/2019) Pathologist [facility] Cervical Cancer Screening: HPV Negative, Abstracted Result [facility] Provider HEALTH MAINTENANCE Final Result * Hepatitis C Screening (08/19/2012) Pathologist [facility] Hepatitis C Screening Abstracted [facility] Provider HEALTH MAINTENANCE Final Result from Last 3 Months or Most Recently Relevant to Health Maintenance Insurance [facility] Care Teams Filling Room Operator Relationship Specialty Start Date End Date Tj Sandhu PA [address] [place] [address] PCP - General Internal Medicine 06/14/20
--- OUTSIDE RECORDS SUMMARY | 2024-07-27 14:33 | XMS_ITS | Encounter Summary ---
Author Organization [facility] Address [address] [place] [address] Care Team Providers Care Petroleum Sampler Name Role Phone Jaskaran García MD Primary Care Provider + [phone] Tj Sandhu PA-C Primary Care Provider +[phone] -[phone] Reason for Visit * Reason Onset Date Comments Faxed Refill 11/12/2017 Encounter Details Date Type Department Care Team Description 11/12/2017 Telephone Pulmonology - [address] [place] [phone] Ferny Swanson MD Faxed Refill Social [...] NO Patients current insurance carrier is: Payor: [employer] [address] / Plan: [employer] $[address] [place] [id number] / Product Type: BalzoO Ego-nut-Obbawtb documented in this encounter Plan of Treatment Not on file documented as of this encounter Visit Diagnoses Diagnosis GANDARA (dyspnea on exertion) Other dyspnea and respiratory abnormality documented in this encounter Care Teams Petroleum Sampler Relationship Specialty Start Date End Date Jaskaran García MD [address] [place] [address] PCP - General 04/03/00 06/13/20 Tj Sandhu PA-C [address] [place] [address] [id number] PCP - General Internal Medicine 06/14/20 documented as of this encounter
--- OUTSIDE RECORDS SUMMARY | 2024-07-27 14:33 | XMS_ITS | Encounter Summary ---
Author Organization [facility] Address [address] [place] [address] Care Team Providers Care Refrigeration Engine Operator Name Role Phone Jaskaran García MD Primary Care Provider + [phone] Tj Sandhu PA-C Primary Care Provider [phone] Reason for Visit * Reason Onset Date Comments Medication 02/20/2017 Encounter Details Date Type Department Care Team Description 02/20/2017 Pt. Non Urgent Medical Question Adult Medicine [address] [phone] Jaskaran García MD [address] [place] [address] Social History Tobacco Use Types Packs/Day Years [...] on filedocumented in this encounter Care Teams Refrigeration Engine Operator Relationship Specialty Start Date End Date Jaskaran García MD [address] [place] [address] PCP - General 04/03/00 06/13/20 Tj Sandhu PA-C [address] [place] [address] PCP - General Internal Medicine 06/14/20 documented as of this encounter
--- OUTSIDE RECORDS SUMMARY | 2024-07-27 14:33 | XMS_ITS | Encounter Summary ---
Author Organization [facility] Address [address] [place] [address] Care Team Providers Care Belt Sander Name Role Phone Jaskaran García MD Primary Care Provider + [phone] Tj Sandhu PA-C Primary Care Provider [phone] Encounter Details Date Type Department Care Team Description 12/28/2019 Orders Only Medical Records [address] [place] [address] Wilmar Addison MD [address] [place], [place] [phone] Social History Tobacco Use Types Packs/Day Years [...] Certified Gastroenterology and Internal Medicine Transplant Hepatology [facility] documented in this encounter Plan of Treatment Not on file documented as of this encounter Procedures Procedure Name Priority Date/Time Associated Diagnosis Comments OUTSIDE PATHOLOGY Routine 12/26/2019 documented in this encounter Results * OUTSIDE PATHOLOGY (12/26/2019) Wilmar Addison MD OUTSIDE LAB documented in this encounter Visit Diagnoses Not on filedocumented in this encounter Care Teams Belt Sander Relationship Specialty Start Date End Date Jaskaran García MD [address] [place] [address] PCP - General 04/03/00 06/13/20 Tj Sandhu PA-C [address] [place] [address] PCP - General Internal Medicine 06/14/20 documented as of this encounter
--- OUTSIDE RECORDS SUMMARY | 2024-07-27 14:33 | XMS_ITS | Encounter Summary ---
Author Organization [facility] Address [address] [place] [address] Care Team Providers Care Digital Advisor Name Role Phone Tj Sandhu PA-C Primary Care Provider [phone] Reason for Visit * Reason Comments E-prescribe Rx Request Encounter Details Date Type Department Care Team Description 08/31/2021 Refill Adult Medicine [address] [phone] Tj Sandhu PA-C [address] [place] [address] [phone] E-prescribe Rx Request Social History Tobacco Use [...] on filedocumented in this encounter Care Teams Digital Advisor Relationship Specialty Start Date End Date Tj Sandhu PA-C [address] [place] [address] PCP - General Internal Medicine 06/14/20 documented as of this encounter
--- OUTSIDE RECORDS SUMMARY | 2024-07-27 14:33 | XMS_ITS | Encounter Summary ---
Author Organization [facility] [employer] [facility] Address [address] [place] [address] Care Team Providers Care Utility Spray Operator Name Role Phone Tj Sandhu PA-C Primary Care Provider [phone] Encounter Details Date Type Department Care Team Description 09/04/2023 Orders Only Medical Records [address] [place] [address] [facility] Social History Tobacco Use Types Packs/Day [...] this encounter Results * OUTSIDE EKG (08/23/2023) [facility] CARDIOLOGY documented in this encounter Visit Diagnoses Not on filedocumented in this encounter Care Teams Utility Spray Operator Relationship Specialty Start Date End Date Tj Sandhu PA-C [address] [place] [address] PCP - General Internal Medicine 06/14/20 documented as of this encounter
--- OUTSIDE RECORDS SUMMARY | 2024-07-27 14:33 | XMS_ITS | Encounter Summary ---
Author Organization [facility] Address [address] [place] [address] Care Team Providers Care Perinatal Social Worker Name Role Phone Jaskaran García MD Primary Care Provider + [phone] Tj Sandhu PA-C Primary Care Provider + [phone] Encounter Details Date Type Department Care Team Description 12/22/2016 Orders Only Adult Medicine [address] [phone] Chon Griggs PA-C Abnormal cardiovascular stress test [...] study documented in this encounter Care Teams Perinatal Social Worker Relationship Specialty Start Date End Date Jaskaran García MD [address] [place] [address] PCP - General 04/03/00 06/13/20 Tj Sandhu PA-C [address] [place] [address] PCP - General Internal Medicine 06/14/20 documented as of this encounter
--- OUTSIDE RECORDS SUMMARY | 2024-07-27 14:33 | XMS_ITS | Encounter Summary ---
Author Organization [facility] Address [address] [place] [address] Care Team Providers Care Machine Binding Folder Name Role Phone Tj Sandhu PA-C Primary Care Provider [phone] Encounter Details Date Type Department Care Team Description 01/07/2023 Information Services Assistant Report Medical Records [address] [place] [address] Moises Gonzalez Np Social History Tobacco Use [...] on filedocumented in this encounter Care Teams Machine Binding Folder Relationship Specialty Start Date End Date Tj Sandhu PA-C [address] [place], [place] [phone] PCP - General Internal Medicine 06/14/20 documented as of this encounter
--- OUTSIDE RECORDS SUMMARY | 2024-07-27 14:33 | XMS_ITS | Encounter Summary ---
Author Organization [facility] [employer] [facility] Address [address] [place] [address] Care Team Providers Care Ship Engines Operating Engineer Name Role Phone Tj Sandhu PA-C Primary Care Provider [phone] Encounter Details Date Type Department Care Team Description 05/27/2022 Head Kiln Operator Report Medical Records [address] [place] [address] Ernie Martinez MD Social History Tobacco Use [...] on filedocumented in this encounter Care Teams Ship Engines Operating Engineer Relationship Specialty Start Date End Date Tj Sandhu PA-C [address] [place], [place] [phone] PCP - General Internal Medicine 06/14/20 documented as of this encounter
--- OUTSIDE RECORDS SUMMARY | 2024-07-27 14:33 | XMS_ITS | Encounter Summary ---
Author Organization [facility] Address [address] [place] [address] Care Team Providers Care Blow Mold Operator Name Role Phone Jaskaran García MD Primary Care Provider + [phone] Tj Sandhu PA-C Primary Care Provider [phone] Encounter Details Date Type Department Care Team Description 06/18/2014 Hospital Medical Records [address] [place] [address] Radha Donnelly Social History Tobacco Use Types [...] on filedocumented in this encounter Care Teams Blow Mold Operator Relationship Specialty Start Date End Date Jaskaran García MD [address] [place] [address] PCP - General 04/03/00 06/13/20 Tj Sandhu PA-C [address] [place] [address] PCP - General Internal Medicine 06/14/20 documented as of this encounter
--- OUTSIDE RECORDS SUMMARY | 2024-07-27 14:33 | XMS_ITS | Encounter Summary ---
Author Organization [facility] Address [address] [place] [address] Care Team Providers Care Veterinary Receptionist Name Role Phone Tj Sandhu PA-C Primary Care Provider [phone] Encounter Details Date Type Department Care Team Description 11/16/2022 Refill Adult Medicine [address] [address] Toro Marin MD [address] [place] [phone] Social History Tobacco Use Types Packs/Day Years [...] on filedocumented in this encounter Care Teams Veterinary Receptionist Relationship Specialty Start Date End Date Tj Sandhu PA-C [address] [place] [address] [phone] PCP - General Internal Medicine 06/14/20 documented as of this encounter
--- OUTSIDE RECORDS SUMMARY | 2024-07-27 14:33 | XMS_ITS | Encounter Summary ---
Author Organization [facility] Address [address] [place] [address] Care Team Providers Care Senior Sales Operations Manager Name Role Phone Tj Sandhu PA-C Primary Care Provider [phone] Reason for Visit * Reason Comments E-prescribe Rx Request Encounter Details Date Type Department Care Team Description 10/20/2021 Refill Adult Medicine [facility] [address] [place] [address] [phone] Tj Sandhu PA-C [address] [place] [address] [phone] E-prescribe Rx Request Social History Tobacco Use [...] N/A Patients current insurance carrier is: Payor: [employer] schoox / Plan: POS $25 PRASAD [id number] / Product Type: POS [id number] documented in this encounter Plan of Treatment Not on file documented as of this encounter Visit Diagnoses Not on filedocumented in this encounter Care Teams Senior Sales Operations Manager Relationship Specialty Start Date End Date Tj Sandhu PA-C [address] [place] [address] PCP - General Internal Medicine 06/14/20 documented as of this encounter
--- OUTSIDE RECORDS SUMMARY | 2024-07-27 14:34 | XMS_ITS | Continuity of Care Document ---
Author Organization [facility] Address [address] [place] [address] Social History Not on File Plan of Treatment Not on file
[2024-07-27 14:38] VITALS: PULSE 60; O2SAT 93
== END 2024-07-27 14:42 | disposition home or self-care (01) ==
LOC: HO.HPSW 13:18
PROVIDERS: PCP Physician Assistant Medical; Visit Provider Nurse Practitioner Family
DX: J45.909 Unspecified asthma, uncomplicated (principal); Z91.09 Other allergy status, other than to drugs and biological substances; G47.33 Obstructive sleep apnea (adult) (pediatric); E66.2 Morbid (severe) obesity with alveolar hypoventilation
CPT/HCPCS: 94618; 99214

== ENCOUNTER → 2024-07-27 13:17 | Outpatient (BNVA) | payer BC, SELFPAY | PROVIDERS: PCP Physician Assistant Medical; Visit Provider Nurse Practitioner Family | DX: J45.909 Unspecified asthma, uncomplicated (principal); E66.2 Morbid (severe) obesity with alveolar hypoventilation; Z68.43 Body mass index [BMI] 50.0-59.9, adult; G47.33 Obstructive sleep apnea (adult) (pediatric); Z91.09 Other allergy status, other than to drugs and biological substances | CPT/HCPCS: 94618 ==

== ENCOUNTER 2024-07-27 14:43 | Outpatient (REF) | payer BC, SELFPAY ==
--- OUTSIDE RECORDS SUMMARY | 2024-07-27 15:49 | XMS_ITS | Continuity of Care Document ---
Author Organization [facility] Address [address] [place] [address] [address] [place] [address] Phone Care Team Providers Care Manager Harbor Name Role Phone Jorge Luis FONG, ASHLIE, [...] Mins- [place] & [place] [facility], [address] [place] [address] [address], [place], [id number], [place] tel:[phone] [facility] [place] - [place] Pain in right lower legPain in left lower legLocalized edemaCramp and spasmVenous insufficiency (chronic) (peripheral)P ruritus, unspecified May- 5 Jorge Luis FONG, APRIL DAILEY. [address], [address], [facility], [id number] , [place]. tel:[phone] Referring Provider: Dave Miller, [address], [place], [address]. tel:[phone] [facility], [address] [facility] [address], [place], [id number], tel:[phone] [facility] - [place] - [place] Chronic venous hypertension (idiopathic) with other complications of bilateral lower extremity Jorge Luis FONG, RVT, RPVI Isr[place]. [address], [address], [place], [place], [id number] , [place]. tel:[phone] Referring Provider: Dave Miller, [address], [place], [address]. tel:[phone] Family History Family Member Type Diagnosis Age At Onset No Information Payers Payer name Insurance type Covered republican ID Authorshaggy pinon(s) [facility] [id number] Social History Type Description Quantity Date Captured [...]
--- OUTSIDE RECORDS SUMMARY | 2024-07-27 15:49 | XMS_ITS | Clinical Summary ---
Author Organization [facility] [address] [place] [address] [place] [address] Phone Care Team Providers Care Filling Machine Set Up Mechanic Name Role Phone Tj Sandhu Primary Care Provider [phone] Allergies Active Allergy Reactions Criticality Noted Date [...] obesity with BMI of 4 5.0-49.9, adult ([facility] V24, 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 HTN (hypertension), benign 04/14/2011 Vitamin D deficiency 10/21/2010 MARGARETH (obstructive sleep apnea) 01/30/2009 Overview (03/04/2024): [facility] Home Polysomnogram: Date 03/04/2017; AHI 12, Unclassified apneas 1; Obstructive apneas 3; Central apneas 2; Mixed apneas 0; hypopneas 7; average oxygen saturation 93% (lowest 80% without saturations <88% for 5% or more of study) Anxiety and depression 11/09/2007 Asthma 07/04/2005 Encounters Date Type Department Care Team Description 07/19/2024 2:30 PM EDT Office Visit Adult Medicine [address] [address] Tj Sandhu PA Asthma with status asthmaticus, unspecified asthma severity, unspecified whether persistent (Primary Dx); Anxiety and depression; Other hyperlipidemia; HTN (hypertension), benign; Vitamin D deficiency; Morbid obesity with BMI of 45.0-49.9, adult ([facility] V24, [facility] V28); MARGARETH (obstructive sleep apnea); Prediabetes 07/05/2024 Telephone Adult Medicine [address] [phone] Khadijah Holbrook [place] Shortness of Breath; Fatigue 06/21/2024 9:30 AM EDT Office Visit Adult [address] [phone] Tj Sandhu PA Hospital discharge follow-up (Primary Dx); Upper respiratory tract infection, unspecified type; Respiratory distress; Asthma with status asthmaticus, unspecified asthma severity, unspecified whether persistent; Morbid obesity with BMI of 45.0-49.9, adult ([facility] V24, [facility] V28); MARGARETH (obstructive sleep apnea) 06/17/2024 Telephone Adult [address] [phone] Tj Sandhu PA Hospital Follow-up from Last 3 Months Immunizations Name Administration Dates Next Due COVID-19 (Moderna/Spikevax) 12yo and older 12/12/2023 Hepatitis B (Bdwbfzc-D-Nswxq , Recombivax HB-Adult) 19yo and older 07/19/2008,02/22/2008,01/19/2008 [...] PROCEDURE: HISTORICAL UPPER GASTROINTESTINAL ENDOSCOPY 2004 PROCEDURE: DE UPPER GI ENDOSCOPY PERFORMED; COMMENT: normal COLONOSCOPY [...] your loved ones. For example, child care teacher or elderly care for an older adult? [...] PM EDT Office Visit Bariatric Surgery [place] [address] [address] Marii Guan MD 175 [facility] [address] [place] [address] Health Maintenance Due Date Last Done Comments [...] Region Laterality Modality Ultrasound us Provider [facility] CV VASCULAR PROCEDURES F inal Result * [...] Modality Computed Tomogra phy us Provider [facility] IMG CT PROCEDURES Final Result * (ABNORMAL) Lipid panel with reflex to direct LDL (03/22/2024 11:10 AM EST) Cholesterol 188 0 - 200 mg/dL LAB CHEMISTRY METHOD 03/22/2024 3:10 PM EST [facility] Triglycerides 318(H) 0 - 150 mg/dL LAB CHEMISTRY METHOD 03/22/2024 3:10 PM EST [facility] HDL 36(L) >=40 mg/dL LAB CHEMISTRY METHOD 03/22/2024 3:10 PM EST [facility] LDL Calculated 88 0 - 100 mg/dL LAB CHEMISTRY METHOD 03/22/2024 3:10 PM EST [facility] VLDL Cholesterol Howard 63.6 mg/dL [...] AVALOS LAB BLOOD ORDERABLES Amy wallace Result [facility] [address] [place] [address], [place] [phone] * (ABNORMAL) Comprehensive metabolic panel (03/22/2024 11:10 [...] LAB BLOOD ORDERABLES Amy wallace Result [facility] [address] [place] [address], * SCREENING MAMMOGRAPHY BI 2-VIEW BREAST INC [...] Abstracted Anatomical Region Laterality Modality Other Result [facility] Provider HEALTH MAINTENANCE Final Result * Cervical Cancer Screening: HPV (05/19/2019) Pathologist [facility] Cervical Cancer Screening: HPV Negative, Abstracted Result [facility] Provider HEALTH MAINTENANCE Final Result * Hepatitis C Screening (08/19/2012) Pathologist [facility] Hepatitis C Screening Abstracted [facility] Provider HEALTH MAINTENANCE Final Result from Last 3 Months or Most Recently Relevant to Health Maintenance Insurance [facility] Care Teams Filling Machine Set Up Mechanic Relationship Specialty Start Date End Date Tj Sandhu PA [address] [place] [address] PCP - General Internal Medicine 06/14/20
[2024-07-27 18:43] LABS: B Type Natriuretic Peptide 28 pg/mL (<100)
[2024-08-02 02:39] LABS: Immunoglobulin E 5 kU/L (<OR=114)
== END 2024-07-27 14:44 | disposition home or self-care (01) ==
LOC: HO.WFDLDS 14:43
PROVIDERS: Visit Provider Nurse Practitioner Family
DX: Z91.09 Other allergy status, other than to drugs and biological substances (principal); R06.00 Dyspnea, unspecified
CPT/HCPCS: 36415; 82785; 83880

== ENCOUNTER → 2024-09-04 20:30 | Outpatient (BNV) | payer BC, SELFPAY | PROVIDERS: PCP Physician Assistant Medical; Visit Provider Internal Medicine | DX: G47.33 Obstructive sleep apnea (adult) (pediatric) (principal); R06.83 Snoring | CPT/HCPCS: 95811 ==

== ENCOUNTER → 2024-09-04 20:30 | Outpatient (REF) | payer BC, SELFPAY | LOC: HO.SL 20:30 | PROVIDERS: PCP Physician Assistant Medical; Visit Provider Nurse Practitioner Family | DX: G47.33 Obstructive sleep apnea (adult) (pediatric) (principal); G25.81 Restless legs syndrome; G47.61 Periodic limb movement disorder; E66.01 Morbid (severe) obesity due to excess calories | CPT/HCPCS: 95810; 95811 ==

== ENCOUNTER 2024-09-06 12:37 | Outpatient (AMB) | payer BC, SELFPAY ==
--- NOTE | 2024-09-06 13:00 | A.OFFVIS_ITS ---
Vital Signs 09/06/24 13:01 Height 5 ft 6 in Weight 320 lb 8.834 oz BMI 51.7 BP 126/66 Blood Pressure Location Lt brachial Position Sitting Pulse 61 Pulse Source Monitor Intake Visit Reasons: 4m follow up/CTA Corrugator Machine Operator Required: No Accompanied by: Self / Same As Patient Allergies Penicillins [PENICILLINS] Allergy (Severe, Verified 07/27/24 13:30) hives/urticaria Medication List - Last Reconciled 09/06/24 by Masood Raymond MD albuterol sulfate 2.5 mg inhalation Q4H PRN albuterol sulfate 90 mcg/actuation 2 puffs inhalation Q6H PRN apixaban (Eliquis) 5 mg PO BID atenolol 25 mg PO DAILY cholecalciferol (vitamin D3) (Vitamin D3) 25 mcg PO DAILY dupilumab (Dupixent) 300 mg subcut Q2W ferrous sulfate 325 mg PO Q48H fcxoaprpneg-wfmegpxrq-ovirtieo 200-62.5-25 mcg (Trelegy Ellipta) 1 inh inhalation DAILY furosemide 20 mg PO DAILY losartan 100 mg PO DAILY multivit with min-folic acid 80 mcg (Centrum Adult 50 Plus) 1 tab PO DAILY nifedipine ER 30 mg PO DAILY sertraline 50 mg PO DAILY triamcinolone acetonide 0.1% 1 appl topical BID PRN HPI Comments Details: Karina is here for follow-up regarding atrial fibrillation. In 2023, she was seen in inpatient consultation. At that time, she was admitted for chest pain, shortness of breath, palpitations and found to be in atrial fibrillation with rapid rate. She converted to sinus rhythm in the hospital. She was on metoprolol and had some side effects and it was switched to atenolol. Otherwise, she states she feels fine for the most part. No new concerns. Since last seen, she has underwent a coronary CTA. Pertinent co-morbidities include morbid obesity and obstructive sleep apnea on CPAP. [facility] Medical History (Updated 09/06/24 @ 13:23 by Masood Raymond MD) MARGARETH (obstructive sleep apnea) Atrial fibrillation BMI 50.0-59.9, adult Lower leg edema Prediabetes Asthma HLD (hyperlipidemia) HTN (hypertension) Eczema Surgical History History of endoscopy (2005) History of wisdom tooth extraction History of colonoscopy (2014) History of delivery Family History Father Liver cancer Mother Pancreatic cancer Maternal Grandmother Pancreatic cancer Sister Breast cancer Maternal Uncle Lung cancer Social History Household Members: Family Housing: House Do you presently have visiting nurse or other home services: No Alcohol intake: current Alcohol intake frequency: a few times a week Patient Tobacco Use Status: Former Tobacco user Cigarettes Per Day: 5 Years Smoked: 10 service: No Review of Systems Const Denies chills, Denies fatigue, Denies fever(s), Denies frequent falls, Denies weakness, Denies weight gain and Denies weight loss ENT Denies dizziness Card Denies chest pain, Denies leg edema, Denies lightheadedness, Denies palpitations, Denies dyspnea and Denies dyspnea on exertion Resp Denies cough, Denies dyspnea and Denies dyspnea on exertion GI Denies hematochezia Musc Denies abnormal gait, Denies muscle weakness, Denies numbness, Denies radiating pain into limb and Denies tingling Neuro Denies abnormal gait, Denies dizziness, Denies frequent falls, Denies numbness, Denies tingling and Denies weakness Endo Denies fatigue and Denies palpitations Physical Exam Vital Signs: Last Vital Signs Pulse 61 09/06/24 13:01 BP 126/66 09/06/24 13:01 BMI result Body Mass Index 51.7 Const General: comfortable and no acute distress Orientation/consciousness: patient oriented x3 HEENT Other: Unremarkable Head: Yes normal to inspection Neck Neck: Yes normal visual inspection Chest Chest palpation & inspection: normal inspection of the chest Resp Auscultation: clear to auscultation bilaterally Cardio Palpation: normal PMI Heart sounds: S1 normal heart sound present, S2 normal heart sound present, no gallops, Murmur heart sound present systolic II/ and no rubs GI Palpation (GI): Soft to palpation Back/Spine/Pelvis Other: unremarkable Skin General skin exam: no rashes or lesions noted Neuro General: patient oriented x3 Extrem General: Yes normal to inspection Psych Mental Status: mental status grossly normal Office Procedures EKG Details: EKG with underlying sinus rhythm at 61/Min; no ischemic changes; [place]. [id number]-[id number], Complete Assessment & Plan Assessment & Plan (1) Atherosclerotic cardiovascular disease: Code(s): I25.10 - Atherosclerotic heart disease of [place] coronary artery without angina pectoris Category: Medical Plan: Coronary MII-guuw-ma-moderate calcified LAD plaque with possible mild stenosis. Circumflex with minimal stenosis. Mild dilatation of mid pulmonary artery that can be seen with pulmonary arterial hypertension. Recommend taking statins. (2) Paroxysmal atrial fibrillation: Code(s): I48.0 - Paroxysmal atrial fibrillation Category: Medical Plan: Has tiredness with metoprolol. Hence on atenolol. Tolerating that better. Continue Eliquis. (3) HTN (hypertension): Code(s): I10 - Essential (primary) hypertension Category: Medical Plan: On losartan/nifedipine. (4) HLD (hyperlipidemia): Code(s): E78.5 - Hyperlipidemia, unspecified Category: Medical Plan: Patient portal labs, LDL 88 mg/dL. Triglycerides 318 mg/dL. HDL is 36 mg/dL. Start statins and recheck labs in 3 months. (5) BMI 50.0-59.9, adult: Code(s): Z68.43 - Body mass index [BMI] 50.0-59.9, adult Category: Medical Plan: Ideally, she would lose weight as much able. That will help her tremendously. (6) MARGARETH (obstructive sleep apnea): Code(s): G47.33 - Obstructive sleep apnea (adult) (pediatric) Category: Medical Plan: On CPAP. Plan Discussion Notes I discussed with the patient the ongoing management of her cardiovascular conditions, including the importance of controlling hyperlipidemia with a statin to prevent further plaque progression. We reviewed the need for follow-ups on blood work, particularly lipid levels and blood sugar management. Consent was obtained for the proposed statin therapy, explaining the benefits of reducing cardiovascular risks. The patient was informed about combining future lab appointments for efficiency, especially regarding her upcoming appointment with PCP. Patient was informed and verbally consented to the use of an ambient scribe for clinic note documentation during this visit. Orders: Orders Lipid Panel 3 Months E78.5 - Hyperlipidemia, unspecified, I25.10 - Atherosclerotic heart disease of [place] coronary artery without angina pectoris Liver Panel 3 Months I25.10 - Atherosclerotic heart disease of [place] coronary artery without angina pectoris Medications: New atorvastatin (Lipitor) 40 mg PO QPM 90 tabs 1RF I25.10 - Atherosclerotic heart disease of [place] coronary artery without angina pectoris Patient Instructions: - Take prescribed statin daily as instructed. - Continue using your CPAP machine and await sleep study results. - Monitor your blood sugar and try to maintain a healthy diet. - Schedule and combine your future lab works with your next appointment. - Follow up in six months. Coding Level of Care Code Est Pt Level 4 (27913) Complex EM visit Add On G2211 Diagnoses Atherosclerotic cardiovascular disease I25.10 Paroxysmal atrial fibrillation I48.0 HTN (hypertension) I10 HLD (hyperlipidemia) E78.5 BMI 50.0-59.9, adult Z68.43 MARGARETH (obstructive sleep apnea) G47.33 CPT Codes EKG - CPT: 68245-Onlntzdwmtquyqmux, Complete ([id number])
[2024-09-06 13:01] VITALS: BP 126/66; PULSE 61; BMI 51.7
--- OUTSIDE RECORDS SUMMARY | 2024-09-06 14:16 | XMS_ITS | Encounter Summary ---
Author Organization [facility] Address [address] [place] [address] Care Team Providers Care Wastewater Project Manager Name Role Phone Tj Sandhu PA-C Primary Care Provider [phone] [phone] Encounter Details Date Type Department Care Team Description 08/04/2020 Release of Information Medical Records [address] [place], [place] [phone] [place] [address] Social History Tobacco Use Types Packs/Day Years [...] on filedocumented in this encounter Care Teams Wastewater Project Manager Relationship Specialty Start Date End Date Tj Sandhu PA-C [address] [place] [address] [phone] PCP - General Internal Medicine 06/14/20 documented as of this encounter
== END 2024-09-06 13:18 | disposition home or self-care (01) ==
LOC: HO.HCS 12:38
PROVIDERS: PCP Physician Assistant Medical; Visit Provider Internal Medicine
DX: I25.10 Atherosclerotic heart disease of native coronary artery without angina pectoris (principal); I48.0 Paroxysmal atrial fibrillation; I10 Essential (primary) hypertension; E78.5 Hyperlipidemia, unspecified; Z68.43 Body mass index [BMI] 50.0-59.9, adult; G47.33 Obstructive sleep apnea (adult) (pediatric)
CPT/HCPCS: 93010; 99214

== ENCOUNTER → 2024-09-06 12:37 | Outpatient (BNVA) | payer BC, SELFPAY | PROVIDERS: PCP Physician Assistant Medical; Visit Provider Internal Medicine | DX: I25.10 Atherosclerotic heart disease of native coronary artery without angina pectoris (principal); I48.0 Paroxysmal atrial fibrillation; I10 Essential (primary) hypertension | CPT/HCPCS: 93005 ==

== ENCOUNTER 2024-09-27 14:55 | Outpatient (AMB) | payer BC, SELFPAY ==
--- OUTSIDE RECORDS SUMMARY | 2024-06-20 07:30 | XMS_ITS | Continuity of Care Document ---
Author Organization [facility] Address [address] [place] [address] [address] [place] [phone] Phone Care Team Providers Care Monument Mason Name Role Phone Jorge Luis FONG, ASHLIE, [...] Mins- [place] & [place] [facility], [address] [place] [address] [address], [place], [id number], [place] tel:[phone] CV[place] Pain in right lower legPain in left lower legLocalized edemaCramp and spasmVenous insufficiency (chronic) (peripheral)P ruritus, unspecified May- 5 Jorge Luis FONG, APRIL DAILEY. [address] [facility], [address], [facility], [id number] , [place]. tel:[phone] Referring Provider: Dave Miller, [address], [place], [address]. tel:[phone] [facility], [address] [facility] [address], [place], [id number], tel:[phone] [facility] - [place] - [place] Chronic venous hypertension (idiopathic) with other complications of bilateral lower extremity Jorge Luis FONG, RVT, RPVI Isrrael. [address] [facility], [address], [place], [place], [id number] , [place]. tel:[phone] Referring Provider: Dave Miller, [address], [place], [address]. tel:[phone] Family History Family Member Type Diagnosis Age At Onset No Information Payers Payer name Insurance type Covered green party ID Authorshaggy pinon(s) [facility] [id number] Social History Type Description Quantity Date Captured [...] Of Treatment Date Type Action Status Goal Diet education completed Goal Tobacco cessation counseling completed Referral Ordered: Weight management: Referral to physician timeframe: 3 Months (related to Body mass index (BMI) 50-59.9 , adult) ordered History Of Present Illness Encounter Date Complaint History Of Prese nt Illness No Information Functional Status Date Functional Assessmen t No Information Instructions Date Instruction Additional Infor mation Compression stocking usage as conservative measure Related to Pain in right lower leg Patient education booklet given Related to Pain in right lower leg Diet education Related to Body mass index (BMI) 50-59.9 , adult Giving Encouragement to exercise Related to Body mass index (BMI) 50-59.9 , adult Lifestyle education Related to B wayne mass index (BMI) 50-59.9 , adult Assessments Type Assessment Date No Information Patient Care Teams Name Effective Dates (start - stop) Status Members No Information
--- NOTE | 2024-09-27 15:02 | MHC.PC.OV ---
Vital Signs 09/27/24 15:08 Height 5 ft 6 in Weight 326 lb 6 oz BMI 52.7 BP 112/70 Blood Pressure Location Lt brachial Position Sitting Respiration 16 Pulse 52 Pulse Source Pulse Oximeter Temp 98.2 F Temp Source Oral Pulse Oximetry (%) 96 Oxygen Delivery Method Room Air Intake Visit Reasons: est care Intake Note: New patient visit Residential Team Leader Required: No Allergies Penicillins (PENICILLINS) Allergy (Severe, Verified 09/27/24 15:05) hives/urticaria Tobacco use date assessed: 09/27/24 Fall risk assessment: No Falls in past year Last assessed Fall Risk: 09/27/24 Dental Screening Dental Screen Date: 09/27/24 Did you have a dental visit in the last 12 months?: Yes Did you have a dental problem in the last 6 months where you did not have access to dental care?: No HPI HPI Comments History of Present Illness Details The patient is a 64 year old female with a past medical history of atrial fibrillation, htn, obesity, MARGARETH on cpap, depression/anxiety presenting to [facility]. Transfer from [facility]. CV: Following with [facility] cardiology. Recent CTA. On eliquis, atenolol, lipitor, losartan, furosemide, nifedipine. Weight loss has been a huge struggle despite dietary changes. Difficult to exercise. b/l knee pain left>right. Left calf discomfort fairly severe upon standing. Has seen vascular MARGARETH on cpap. Moderate persistent asthma. [facility] MARGAR[facility]. Heme/Onc: Saw [facility] for consultation on cancer change -[facility] for breast cancer screening. MRI scheduled -GI Dr Barrett for pancreatic cancer screening Psoriasis-Sees [facility]. Continues on dupixent. BH: On sertraline 50mg daily. Eyes have been bothering her. Feel filmy, dry and irritated at times. Goes to [facility] in [place]. Mammo-07/2024. Gets breast MRIs as well. Colonoscopy 07/2022 ROS see HPI PHYSICAL EXAM: GENERAL: Alert and oriented x 3. NAD EYES: EOMI. Anicteric. HENT: Moist mucous membranes. No scleral icterus. No cervical lymphadenopathy. LUNGS: Clear to auscultation bilaterally. CARDIOVASCULAR: Regular rate and rhythm. No JVD. ABDOMEN: Soft, non-tender +bs EXTREMITIES: Non pitting edema. Non-tender. Calf does not appear assymmetric or warm SKIN: No rashes or lesions. Warm. NEUROLOGIC: No focal neurological deficits. CN II-XII grossly intact PSYCHIATRIC: Cooperative. Appropriate mood and affect [facility] Medical History MARGARETH (obstructive sleep apnea) Atrial fibrillation BMI 50.0-59.9, adult Lower leg edema Prediabetes Asthma HLD (hyperlipidemia) HTN (hypertension) Eczema Surgical History History of endoscopy (2004) History of wisdom tooth extraction History of colonoscopy (2014) History of delivery Family History Father Liver cancer Mother Pancreatic cancer Maternal Grandmother Pancreatic cancer Sister Breast cancer Maternal Uncle Lung cancer Social History Household Members: Family Housing: House Do you presently have visiting nurse or other home services: No Alcohol intake: current Alcohol intake frequency: a few times a week Patient Tobacco Use Status: Former Tobacco user Cigarettes Per Day: 5 Years Smoked: 10 e-Cigarette/Vaping Use: Never Used Second Hand Smoke Exposure: No service: No Current occupational status: employed 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 1. Little interest or pleasure in doing things: not at all 2. Feeling down, depressed, or hopeless: not at all 3. Trouble falling or staying asleep, or sleeping too much: not at all 4. Feeling tired or having little energy: not at all 5. Poor appetite or overeating: not at all 6. Feeling bad about yourself - or that you are a failure or have let yourself or your family down: not at all 7. Trouble concentrating on things, such as reading the newspaper or watching television: not at all 8. Moving or speaking so slowly that other people could have noticed. Or the opposite - being so fidgety or restless that you have been moving around a lot more than usual: not at all 9. Thoughts that you would be better off or of hurting yourself in some way: not at all Total score: 0 Depression Screening Interpretation: Negative Depression Screening Done: Yes 38702 - PHQ-9 Billing: Yes Source: Developed by Drs. Isrrael Dodd, Sandra Carballo, Shad Solis and colleagues, with an educational claudia from [employer] ([employer]). Thrive Questionnaire Date Thrive assessed: 06/15/24 I am a: Patient What is your living situation today?: I have a steady place to live Within the past 12 months, did the food you bought not last and you didn't have the money to get more?: Never true Within the past 12 months, did you worry whether your food would run out before you got money to buy more?: Never true Do you have trouble paying for medicines?: No Do you have trouble getting transportation to medical appointments?: No Do you have trouble paying your heating and electricity bill?: No Do you have trouble taking care of your child, family member or friend?: No Do you have trouble with day-to-day activities such as bathing, preparing meals, shopping, managing finances, etc.?: No Are you currently unemployed and looking for a job?: No Are you interested in more education?: No Please select the resources that you would like help with: None Currently or been in a relationship where the following occur: No concerns reported THRIVE Score: 0 AUDIT C Alcohol Use Questionnaire (AUDIT-C) 1. How often do you have a drink containing alcohol?: 2-3 times a week 2. How many drinks containing alcohol do you have on a typical day when you are drinking?: 3 or 4 3. How often do you have six or more drinks on one occasion?: Less than monthly Total Score: 5 MANUEL-7 AMB Questionnaire MANUEL-7 Feeling nervous, anxious, or on edge: 0 = Not at all Not being able to stop or control worryin = Not at all Worrying too much about different things: 0 = Not at all Trouble relaxin = Not at all Being so restless that it is hard to sit still: 0 = Not at all Becoming easily annoyed or irritable: 0 = Not at all Feeling afraid as if something awful might happen: 0 = Not at all Total MANUEL-7 score (0-4 normal; 5-9 mild; 10-14 moderate; 15-21 severe): 0 Source: Developed by Drs. Isrrael Dodd, Sandra Carballo, Shad Solis and colleagues, with an educational claudia from [employer] ([employer]). Physical exam (Primary Care) Vital Signs: Last Vital Signs Temp 98.2 F 09/27/24 15:08 Pulse 52 09/27/24 15:08 Resp 16 09/27/24 15:08 BP 112/70 09/27/24 15:08 Pulse Ox 96 09/27/24 15:08 Oxygen Delivery Method Room Air 09/27/24 15:08 BMI result Body Mass Index 52.7 Tobacco/Smoking Status: Tobacco use Status Tobacco use date assessed 09/27/24 09/27/24 15:11 Patient Tobacco Use Status Former Tobacco user 09/27/24 15:11 e-Cigarette/Vaping Use Never Used 09/27/24 15:11 PHQ-9: PHQ-9 Score PHQ-9: Total score 0 09/27/24 15:28 Depression Screening Interpretation: Negative Thrive Assessment: Date of Thrive Assessment Date Thrive assessed 06/15/24 09/27/24 15:11 Currently or been in a relationship where the following occur: No concerns reported Coding Level of Care Code New Pt Level 5 (74784) Complex EM visit Add On G2211 Diagnoses Paroxysmal atrial fibrillation I48.0 Atrial fibrillation type: paroxysmal 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; Z15.01; Z15.09 BMI 50.0-59.9, adult Z68.43 Discomfort of both eyes H57.13 Laterality: bilateral Pain of left calf M79.662 Dyspnea, unspecified type R06.00 Dyspnea type: unspecified MARGARETH (obstructive sleep apnea) G47.33 Additional Codes PHQ-9 - 24111 - PHQ-9 Billing: Yes ([id number]) Time Spent (min) 65 Assessment & Plan Assessment & Plan (1) Atrial fibrillation: Code(s): I48.91 - Unspecified atrial fibrillation Category: Medical Qualifiers: Atrial fibrillation type: paroxysmal Qualified Code(s): I48.0 - Paroxysmal atrial fibrillation (2) Monoallelic mutation of PURNIMA gene: Code(s): Z15.89 - Genetic susceptibility to other disease; Z15.01 - Genetic susceptibility to malignant neoplasm of breast; Z15.09 - Genetic susceptibility to other malignant neoplasm Category: Medical (3) BMI 50.0-59.9, adult: Code(s): Z68.43 - Body mass index [BMI] 50.0-59.9, adult Category: Medical (4) Eye discomfort: Code(s): H57.10 - Ocular pain, unspecified eye Category: Medical Qualifiers: Laterality: bilateral Qualified Code(s): H57.13 - Ocular pain, bilateral (5) Pain of left calf: Code(s): M79.662 - Pain in left lower leg Category: Medical (6) Dyspnea: Code(s): R06.00 - Dyspnea, unspecified Category: Medical Qualifiers: Dyspnea type: unspecified Qualified Code(s): R06.00 - Dyspnea, unspecified (7) MARGARETH (obstructive sleep apnea): Code(s): G47.33 - Obstructive sleep apnea (adult) (pediatric) Category: Medical Plan 64 female to establish care past medical, surgical, social reviewed dyspnea-multifactorial. continue card, pulm follow up. she is going to inquire with derm about trial off dupixent Eye discomfort. check labs. referral ophtho Left knee and calf pain-ddimer. u/s if positive. referral to ortho Obesity, MARGARETH, htn-GLP trial Orders: Orders Complete Blood Count Auto Diff 6 Months E78.5 - Hyperlipidemia, unspecified, I10 - Essential (primary) hypertension, I48.91 - Unspecified atrial fibrillation, R73.03 - Prediabetes Comprehensive Met. Panel 6 Months E78.5 - Hyperlipidemia, unspecified, I10 - Essential (primary) hypertension, I48.91 - Unspecified atrial fibrillation, R73.03 - Prediabetes Lipid Panel 6 Months E78.5 - Hyperlipidemia, unspecified, I10 - Essential (primary) hypertension, I48.91 - Unspecified atrial fibrillation, R73.03 - Prediabetes TSH reflex Free T4 6 Months E78.5 - Hyperlipidemia, unspecified, I10 - Essential (primary) hypertension, I48.91 - Unspecified atrial fibrillation, R73.03 - Prediabetes Sjogren's Antibodies 09/27/24 H57.10 - Ocular pain, unspecified eye, M79.662 - Pain in left lower leg Hemoglobin A1c 6 Months E78.5 - Hyperlipidemia, unspecified, I10 - Essential (primary) hypertension, I48.91 - Unspecified atrial fibrillation, R73.03 - Prediabetes JOHN Reflex Titer and Pattern 09/27/24 H57.10 - Ocular pain, unspecified eye, M79.662 - Pain in left lower leg Referrals Orthopedics Referral M79.662 - Pain in left lower leg Ophthalmology Referral H57.10 - Ocular pain, unspecified eye Medications: New Zepbound (tirzepatide (weight loss)) for 4 weeks 2.5 mg (0.5 mL) subcut QWEEK 2 mL 3RF NS G47.33 - Obstructive sleep apnea (adult) (pediatric), Z68.43 - Body mass index [BMI] 50.0-59.9, adult
[2024-09-27 15:08] VITALS: BP 112/70; PULSE 52; RESP 16; TEMP 36.8; O2SAT 96; BMI 52.7
--- OUTSIDE RECORDS SUMMARY | 2024-09-27 15:43 | XMS_ITS | Encounter Summary ---
Author Organization [employer] [facility] Address [address] [place] [address] Care Team Providers Care Cell Support Operator Name Role Phone Tj Sandhu PA-C Primary Care Provider [phone] Encounter Details Date Type Department Care Team Description 08/04/2020 Release of Information Medical Records [address], [place] [id number] [place] [address] Social History Tobacco Use Types Packs/Day Years [...] on filedocumented in this encounter Care Teams Cell Support Operator Relationship Specialty Start Date End Date Tj Sandhu PA-C [address] [place] [address] [id number] PCP - General Internal Medicine 06/14/20 documented as of this encounter
--- OUTSIDE RECORDS SUMMARY | 2024-09-27 15:43 | XMS_ITS | Clinical Summary ---
Author Organization [facility] [address] [place] [address] [place] [address] Phone Care Team Providers Care Fruit Room Hand Name Role Phone Tj Sandhu Primary Care Provider [phone] Allergies Active Allergy Reactions Criticality Noted Date [...] two to four weeks 02/25/20 23 Active albuterol 2.5 mg /3 mL (0.083 [...] EVERY DAY 90 tablet 07/05/19 25 Active Eliquis 5 mg tablet TAKE ONE TABLET BY MOUTH TWICE A DAY 180 tablet 1 08/30/19 25 Active Eliquis 5 mg tablet TAKE ONE TABLET BY MOUTH TWICE A DAY 180 tablet 1 03/15/20 24 025 Discontinued Active Problems Problem Noted Date Diagnosed Date Morbid obesity with BMI of 4 5.0-49.9, adult ([facility] V24, [facility] V28) 03/04/2024 Prediabetes 06/22/2023 Hyperlipidemia 11/13/2020 Overview (03/04/2024): ASCVD score 5.2% Calcific tendinitis of right shoulder 2018 Intramural leiomyoma of uterus 01/08/2015 Heart murmur 03/02/2014 Overview (03/04/2024): Echo 2013 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 HTN (hypertension), benign 04/14/2011 Vitamin D deficiency 10/21/2010 MARGARETH (obstructive sleep apnea) 01/30/2009 Overview (03/04/2024): [facility] Home Polysomnogram: Date 03/04/2017; AHI 12, Unclassified apneas 1; Obstructive apneas 3; Central apneas 2; Mixed apneas 0; hypopneas 7; average oxygen saturation 93% (lowest 80% without saturations <88% for 5% or more of study) Anxiety and depression 11/09/2007 Asthma 07/04/2005 Encounters Date Type Department Care Team Description 07/19/2024 2:30 PM EDT Office Visit Adult Medicine [place] [id number] [place], [place] [phone] Tj Sandhu PA Asthma with status asthmaticus, unspecified asthma severity, unspecified whether persistent (Primary Dx); Anxiety and depression; Other hyperlipidemia; HTN (hypertension), benign; Vitamin D deficiency; Morbid obesity with BMI of 45.0-49.9, adult ([facility] V24, [facility] V28); MARGARETH (obstructive sleep apnea); Prediabetes 07/05/2024 Telephone Adult Medicine [address] [phone] Khadijah Holbrook DC Shortness of Breath; Fatigue from Last 3 Months Immunizations Name Administration Dates Next Due COVID-19 (Moderna/Spikevax) 12yo and older 12/12/2023 Hepatitis B (Yrljvfo-I-Pvkoq , Recombivax HB-Adult) 19yo and older 07/19/2008,02/22/2008,01/19/2008 [...] PROCEDURE: HISTORICAL UPPER GASTROINTESTINAL ENDOSCOPY 2004 PROCEDURE: MA UPPER GI ENDOSCOPY PERFORMED; COMMENT: normal COLONOSCOPY [...] care for your loved ones. For example, childcare provider or elderly care for an older adult? [...] 63 07/19/2024 2:06 PM EDT Temperature 36.7 C (98 F) 07/19/2024 2:06 PM EDT Respiratory Rate 17 07/19/2024 2:06 PM EDT Oxygen Saturation 97% 06/21/2024 9:27 AM EDT Inhaled Oxygen Concentration - - Weight 145 kg (320 lb) 07/19/2024 2:06 PM EDT Height 167.6 cm (5' 6 ) 06/21/2024 9:27 AM EDT Body Mass Index 51.65 06/21/2024 9:27 AM EDT Plan of Treatment Health Maintenance Due Date Last Done Comments Hepatitis A Vaccines (1 of 2 - Risk 2-dose series) 01/11/1979 Pneumococcal Vaccine: 50+ Years (2 of 2 - PCV) 06/17/2015 06/16/2014 RSV Immunization Adult Patients (1 - Risk 60-74 years 1-dose series) 2020 HIV Screening 03/01/2022 Cervical Cancer Screening: HPV 05/19/2024 05/19/2019 Influenza Vaccine (#1) 2024 , 12/20/2022, 12/05/2021, Additional history exists Hypertension/CHF/CAD Annual BMP Blood Test 03/22/2025 03/22/2024, [...] Completed 12/12/2023, , 01/03/2022, Additional history exists HIB Vaccines Aged Out [...] Procedure Name Priority Date/Time Associated Diagnosis Comments COMPREHENSIVE METABOLIC PANEL Routine 03/22/2024 11:10 AM EST HTN (hypertension), benign Vitamin D deficiency Hyperlipidemia Prediabetes LIPID PANEL WITH REFLEX TO DIRECT LDL Routine 03/22/2024 11:10 AM EST HTN (hypertension), benign Vitamin D deficiency Hyperlipidemia Prediabetes SCREENING MAMMOGRAPHY BI 2-VIEW BREAST INC CAD Routine 07/04/2023 12:24 PM EDT Encounter for screening mammogram for malignant neoplasm of breast COLONOSCOPY Routine 07/23/2022 HPV Routine 05/19/2019 HEPATITIS C SCREENING Routine 08/19/2012 from Last 3 Months or Most Recently Relevant to Health Maintenance Results * (ABNORMAL) Lipid panel with reflex to direct LDL (03/22/2024 11:10 AM EST) Cholesterol 188 0 - 200 mg/dL LAB CHEMISTRY METHOD 03/22/2024 3:10 PM EST [facility] Triglycerides 318(H) 0 - 150 [...] [facility] LAB BLOOD ORDERABLES Amy l Result [facility] [address] [place] [address], * (ABNORMAL) Comprehensive metabolic panel (03/22/2024 11:10 AM EST) Pathologist [facility] Sodium 142 133 - 145 mmol/L LAB CHEMISTRY METHOD 03/22/2024 3:10 PM EST [facility] Potassium 3.8 3.5 - 5.5 mmol/L LAB CHEMISTRY METHOD 03/22/2024 3:10 PM EST [facility] Chloride 106 96 - 110 [...] PM [facility] Comment:Calculation based on the Chronic Kidney Disease Epidemiology Collaboration (CKD-EPI) equation refit without adjustment for race. BUN/Creatinine Ratio 21.3 LAB [...] LAB CHEMISTRY METHOD 03/22/2024 3:10 PM EST [facility] Total Bilirubin 0.3 0.0 - 1.4 mg/dL LAB CHEMISTRY METHOD 03/22/2024 3:10 PM EST [facility] Blood Venous blood specimen / Unknown Venipuncture / Unknown 03/22/2024 11:10 AM EST 03/22/2024 11:10 AM EST Tj [facility] LAB BLOOD ORDERABLES Amy l Result [facility] [address] [place] [address], * SCREENING MAMMOGRAPHY BI 2-VIEW BREAST INC [...] in conjunction with computer aided detection. Tomosynthesis as well as 2D C-View imaging were [...] Negative, no specific mammographic evidence of malignancy. Normal interval follow-up is recommended in 12 [...] esult * Colonoscopy (07/23/2022) Pathologist [facility] Colonoscopy No Interpretation , Abstracted Anatomical Region Laterality Modality Other [facility] Provider HEALTH MAINTENANCE Final Result * Cervical Cancer Screening: HPV (05/19/2019) [facility] Cervical Cancer Screening: HPV Negative, Abstracted [facility] Provider HEALTH MAINTENANCE Final Result * Hepatitis C Screening (08/19/2012) [facility] Hepatitis C Screening Abstracted [facility] Provider HEALTH MAINTENANCE Final Result from Last 3 Months or Most Recently Relevant to Health Maintenance Insurance [facility] Care Teams Fruit Room Hand Relationship Specialty Start Date End Date Tj Sandhu PA [address] [place] [address] PCP - General Internal Medicine 06/14/20
== END 2024-09-27 15:53 | disposition home or self-care (01) ==
LOC: HO.HMCFM 14:59
PROVIDERS: PCP Physician Assistant Medical; Visit Provider Internal Medicine
DX: I48.0 Paroxysmal atrial fibrillation (principal); Z68.43 Body mass index [BMI] 50.0-59.9, adult; Z15.89 Genetic susceptibility to other disease; Z15.01 Genetic susceptibility to malignant neoplasm of breast; Z15.09 Genetic susceptibility to other malignant neoplasm; H57.13 Ocular pain, bilateral; M79.662 Pain in left lower leg; R06.00 Dyspnea, unspecified; G47.33 Obstructive sleep apnea (adult) (pediatric)

== ENCOUNTER → 2024-09-27 14:55 | Outpatient (BNVA) | payer BC, SELFPAY | PROVIDERS: PCP Physician Assistant Medical; Visit Provider Internal Medicine | DX: Z76.89 Persons encountering health services in other specified circumstances (principal); I48.0 Paroxysmal atrial fibrillation; H57.13 Ocular pain, bilateral; M79.662 Pain in left lower leg; R06.00 Dyspnea, unspecified; G47.33 Obstructive sleep apnea (adult) (pediatric); I10 Essential (primary) hypertension; E66.9 Obesity, unspecified; F41.8 Other specified anxiety disorders; Z15.89 Genetic susceptibility to other disease; Z15.01 Genetic susceptibility to malignant neoplasm of breast; Z15.09 Genetic susceptibility to other malignant neoplasm; Z99.89 Dependence on other enabling machines and devices; Z13.31 Encounter for screening for depression | CPT/HCPCS: 96127 ==

== ENCOUNTER 2024-09-28 12:48 | Outpatient (REF) | payer BC, SELFPAY ==
--- OUTSIDE RECORDS SUMMARY | 2024-09-28 13:41 | XMS_ITS | Clinical Summary ---
Author Organization [facility] [address] [place] [address] [place] [address] Phone Care Team Providers Care Flyer Repairer Name Role Phone Tj Sandhu Primary Care Provider [phone] Allergies Active Allergy Reactions Criticality Noted Date Comments Penicillins Hives 08/24/2007 Medications ALBUTEROL INHL Inhale into the lungs. Active reservoir inhalation (INSPIREASE) device Use with inhaler regularly 0 Active albuterol HFA (PROAIR HFA ; PROVENTIL [...] daily as needed for Itching. 3 Active triamcinolone (KENALOG) 0.1 % cream Apply to affected areas one or two times per day for two to four weeks 3 Active albuterol 2.5 mg /3 mL (0.083 %) nebulizer solution Take 3 mL (2.5 mg total) by nebulization every 4 (four) hours if needed for wheezing. 75 mL 1 5 Active fluticasone-ume clidinium-vilan terol (Trelegy Ellipta) 200-62.5-25 mcg inhaler Inhale 1 puff (200 mcg total) by mouth 1 (one) time each day. Rinse mouth with water after use to reduce aftertaste and incidence of candidiasis. Do not swallow. 1 each 12 5 Active NIFEdipine (ADALAT CC) 30 mg 24 hr tablet TAKE ONE TABLET BY MOUTH EVERY DAY 90 tablet 1 5 Active furosemide (LASIX) 20 mg tablet TAKE ONE TABLET BY MOUTH EVERY DAY 90 tablet 5 Active losartan (COZAAR) 100 mg tablet TAKE ONE TABLET BY MOUTH EVERY DAY 90 tablet 5 Active sertraline (ZOLOFT) 50 mg tablet TAKE ONE TABLET BY MOUTH EVERY DAY 90 tablet 5 Active Eliquis 5 mg tablet TAKE ONE TABLET BY MOUTH TWICE A DAY 180 tablet 1 5 Active Active Problems Problem Noted Date Diagnosed Date Morbid obesity with BMI of 4 5.0-49.9, adult ([facility] V24, [facility] V28) 03/04/2024 Prediabetes 06/22/2023 Hyperlipidemia 11/13/2020 Overview (03/04/2024): ASCVD score 5.2% Calcific tendinitis of right shoulder 2018 Intramural leiomyoma of uterus 01/08/2015 Heart murmur 03/02/2014 Overview (03/04/2024): Echo 2013 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 HTN (hypertension), benign 04/14/2011 Vitamin D deficiency 10/21/2010 MARGARETH (obstructive sleep apnea) 01/30/2009 Overview (03/04/2024): [facility] Home Polysomnogram: Date 03/04/2017; AHI 12, Unclassified apneas 1; Obstructive apneas 3; Central apneas 2; Mixed apneas 0; hypopneas 7; average oxygen saturation 93% (lowest 80% without saturations <88% for 5% or more of study) Anxiety and depression 11/09/2007 Asthma 07/04/2005 Encounters Date Type Department Care Team Description 07/19/2024 2:30 PM EDT Office Visit Adult Medicine [facility] [address] [place] [address] Tj Sandhu PA Asthma with status asthmaticus, unspecified asthma severity, unspecified whether persistent (Primary Dx); Anxiety and depression; Other hyperlipidemia; HTN (hypertension), benign; Vitamin D deficiency; Morbid obesity with BMI of 45.0-49.9, adult (CMS/HCC V24, [facility]/HCC V28); MARGARETH (obstructive sleep apnea); Prediabetes 07/05/2024 Telephone Adult [facility] [address] [place], [place] [phone] Khadijah Holbrook MA Shortness of Breath; Fatigue from Last 3 Months Immunizations Name Administration Dates Next Due COVID-19 (Moderna/Spikevax) 12yo and older 12/12/2023 Hepatitis B (Vmolwqp-T-Efjfk , Recombivax HB-Adult) 19yo and older 07/19/2008,02/22/2008,01/19/2008 Influenza Quadravalent, MDCK , 0.5ml, preservative free (Flucelvax) 6mo and older 12/05/2021,03/31/2019,04/15/2018 Influenza Quadravalent, MDCK , 0.5ml, with preservative (Flucelvax) 6mo and older 11/27/2016 Influenza trivalent, 0.5mL, preservative free (Fluarix; FluLaval; Fluzone) ages 6mo and older (Afluria) 3 years and older 12/12/2023,03/13/2016,02/02/2014,04/08 Influenza, Unspecified 12/20/2022 Moderna SARS-CoV-2 COVID-19, mRNA, LNP-S, preservative free 07/05/2021,02/05/2021,06/16/2020 [facility] SARS-CoV-2 COVID-19, mRNA, LNP-S, preservative free 12/20/2022 [...] PROCEDURE: HISTORICAL UPPER GASTROINTESTINAL ENDOSCOPY 2004 PROCEDURE: [place] UPPER GI ENDOSCOPY PERFORMED; COMMENT: normal COLONOSCOPY 2014 PROCEDURE: HISTORICAL COLONOSCOPY; COMMENT: bmc next due 2016 WISDOM TOOTH EXTRACTION PROCEDURE: HISTORICAL WISDOM TEETH [...] care for your loved ones. For example, children counselor or elderly care for an older adult? [...] mg/dL LAB CHEMISTRY METHOD 03/22/2024 3:10 PM [facility] Triglycerides 318(H) 0 - 150 mg/dL LAB CHEMISTRY METHOD 03/22/2024 3:10 PM [facility] HDL 36(L) >=40 mg/dL LAB CHEMISTRY METHOD 03/22/2024 3:10 PM [facility] LDL Calculated 88 0 - 100 mg/dL LAB CHEMISTRY METHOD 03/22/2024 3:10 PM [facility] VLDL Cholesterol Howard 63.6 mg/dL LAB CHEMISTRY METHOD 03/22/2024 3:10 PM [facility] Non HDL Chol. (LDL+VLDL) 152(H) <145 mg/dL LAB CHEMISTRY METHOD 03/22/2024 3:10 PM [facility] Chol/HDL Ratio 5.2(H) 0.0 - 4.4 LAB CHEMISTRY METHOD 03/22/2024 3:10 PM [facility] Blood Venous blood specimen / Unknown Venipuncture / Unknown 03/22/2024 11:10 AM EST 03/22/2024 11:10 AM EST Tj AVALOS LAB BLOOD ORDERABLES Amy l Result [facility] [address] [place] [address], * (ABNORMAL) Comprehensive metabolic panel (03/22/2024 11:10 AM EST) Sodium 142 133 - 145 mmol/L LAB CHEMISTRY METHOD 03/22/2024 3:10 PM [facility] Potassium 3.8 3.5 - 5.5 mmol/L LAB CHEMISTRY METHOD 03/22/2024 3:10 PM [facility] Chloride 106 96 - 110 mmol/L LAB CHEMISTRY METHOD 03/22/2024 3:10 PM [facility] CO2 28 21 - 32 mmol/L LAB CHEMISTRY METHOD 03/22/2024 3:10 PM [facility] Anion Gap 8 3 - 11 LAB CHEMISTRY METHOD 03/22/2024 3:10 PM [facility] Glucose 200(H) 70 - 100 mg/dL LAB CHEMISTRY METHOD 03/22/2024 3:10 PM [facility] BUN 17 5 - 25 mg/dL LAB CHEMISTRY METHOD 03/22/2024 3:10 PM [facility] Creatinine 0.80 0.50 - 1.10 mg/dL LAB CHEMISTRY METHOD 03/22/2024 3:10 PM [facility] eGFR 82 >=60 mL/min/1. 73m2 LAB CHEMISTRY METHOD 03/22/2024 3:10 PM [facility] Comment:Calculation based on the Chronic Kidney Disease Epidemiology Collaboration (CKD-EPI) equation refit without adjustment for race. BUN/Creatinine Ratio 21.3 LAB CHEMISTRY METHOD 03/22/2024 3:10 PM [facility] Calcium 8.9 8.5 - 10.5 mg/dL LAB CHEMISTRY METHOD 03/22/2024 3:10 PM [facility] AST (SGOT) 14 10 - 42 unit/L LAB CHEMISTRY METHOD 03/22/2024 3:10 PM [facility] ALT (SGPT) 23 10 - 60 unit/L LAB CHEMISTRY METHOD 03/22/2024 3:10 PM [facility] Alkaline Phosphatase 104 42 - 121 unit/L LAB CHEMISTRY METHOD 03/22/2024 3:10 PM [facility] Total Protein 6.6 6.0 - 8.0 g/dL LAB CHEMISTRY METHOD 03/22/2024 3:10 PM [facility] Albumin 3.7 3.2 - 5.0 g/dL LAB CHEMISTRY METHOD 03/22/2024 3:10 PM [facility] Total Bilirubin 0.3 0.0 - 1.4 mg/dL LAB CHEMISTRY METHOD 03/22/2024 3:10 PM EST [facility] Blood Venous blood specimen / Unknown Venipuncture / Unknown 03/22/2024 11:10 AM EST 03/22/2024 11:10 AM EST us Tj AVALOS LAB BLOOD ORDERABLES Amy l Result [facility] [address] [place] [address], [place] [phone] * SCREENING MAMMOGRAPHY BI 2-VIEW BREAST INC [...] PROCEDURES Final R esult * Colonoscopy (07/23/2022) [facility] Colonoscopy No Interpretation , Abstracted Anatomical Region Laterality Modality Other Result [facility] Provider [place] HEALTH MAINTENANCE Final Result * Cervical Cancer Screening: HPV (05/19/2019) [facility] Cervical Cancer Screening: HPV Negative, Abstracted [facility] Provider HEALTH MAINTENANCE Final Result * Hepatitis C Screening (08/19/2012) [facility] Hepatitis C Screening Abstracted [facility] Provider HEALTH MAINTENANCE Final Result from Last 3 Months or Most Recently Relevant to Health Maintenance Insurance [facility] Care Teams Flyer Repairer Relationship Specialty Start Date End Date Tj Sandhu PA [address] [place] [id number] PCP - General Internal Medicine 06/14/20
[2024-09-29 14:28] LABS: Antibody to SS-A Antigen <1.0 NEG AI (<1.0 NEG); Antibody to SS-B Antigen <1.0 NEG AI (<1.0 NEG)
[2024-09-30 12:08] LABS: Anti Nuclear Antibody Screen NEGATIVE (NEGATIVE)
== END 2024-09-28 12:49 | disposition home or self-care (01) ==
LOC: HO.WFDLDS 12:48
PROVIDERS: Visit Provider Internal Medicine
DX: H57.10 Ocular pain, unspecified eye (principal); M79.662 Pain in left lower leg
CPT/HCPCS: 36415; 86038; 86235

== ENCOUNTER 2024-09-30 13:42 | Outpatient (AMB) | payer BC, SELFPAY ==
--- OUTSIDE RECORDS SUMMARY | 2024-06-20 07:30 | XMS_ITS | Continuity of Care Document ---
Author Organization [facility] Address [address] [place] [address] [address] [place] [phone] Phone Care Team Providers Care Proofreader Name Role Phone Jorge Luis FONG, ASHLIE, [...] Mins- [place] & [place] [facility], [address] [place] [address] [address], [place], [id number], [place] tel:[phone] CV[place] Pain in right lower legPain in left lower legLocalized edemaCramp and spasmVenous insufficiency (chronic) (peripheral)P ruritus, unspecified May- 5 Jorge Luis FONG, APRIL DAILEY. [address] [facility], [address], [facility], [id number] , [place]. tel:[phone] Referring Provider: Dave Miller, [address], [place], [address]. tel:[phone] [facility], [address] [facility] [address], [place], [id number], tel:[phone] [facility] - [place] - [place] Chronic venous hypertension (idiopathic) with other complications of bilateral lower extremity Jorge Luis FONG, RVT, RPVI Isrrael. [address] [facility], [address], [place], [place], [id number] , [place]. tel:[phone] Referring Provider: Dave Miller, [address], [place], [address]. tel:[phone] Family History Family Member Type Diagnosis Age At Onset No Information Payers Payer name Insurance type Covered constitution party ID Authorshaggy pinon(s) [facility] [id number] Social History Type Description Quantity Date Captured [...]
--- NOTE | 2024-09-30 11:20 | A.OFFVIS_ITS ---
Vital Signs 09/30/24 13:47 Height 5 ft 6 in Weight 326 lb BMI 52.6 BP 118/70 Pulse 61 Pulse Source Pulse Oximeter Pulse Oximetry (%) 92 Oxygen Delivery Method Room Air Intake Visit Reasons: SOB/ Sleep study FU Paint Roller Covermaker Required: No Accounts Receivable Processor: Accounts Receivable Processor offered & declined Accompanied by: Self / Same As Patient Allergies Penicillins (PENICILLINS) Allergy (Severe, Verified 09/30/24 13:49) hives/urticaria Medication List - Last Reconciled 09/30/24 by Sadie Farrar LPN albuterol sulfate 2.5 mg inhalation Q4H PRN albuterol sulfate 90 mcg/actuation 2 puffs inhalation Q6H PRN apixaban (Eliquis) 5 mg PO BID atenolol 25 mg PO DAILY atorvastatin (Lipitor) 40 mg PO QPM cholecalciferol (vitamin D3) (Vitamin D3) 25 mcg PO DAILY dupilumab (Dupixent) 300 mg subcut Q2W ferrous sulfate 325 mg PO Q48H kxaqhktmymv-cosowkoau-ckfitztz 200-62.5-25 mcg (Trelegy Ellipta) 1 inh inhalation DAILY furosemide 20 mg PO DAILY losartan 100 mg PO DAILY multivit with min-folic acid 80 mcg (Centrum Adult 50 Plus) 1 tab PO DAILY nifedipine ER 30 mg PO DAILY sertraline 50 mg PO DAILY triamcinolone acetonide 0.1% 1 appl topical BID PRN Zepbound (tirzepatide (weight loss)) 2.5 mg (0.5 mL) subcut QWEEK NS HPI HPI SOB/ Sleep study FU: Details: Karina is a pleasant 64 year old female, former 5 pack smoker, quit 30+years ago with underlying asthma, atrial fibrillation on Eliquis, CHF, HTN, eczema previously on Dupixent x 1 year recently d/c and MARGARETH and h/o acute hypoxic respiratory failure secondary to moderate persistent asthma 05/2024. She reports over the last few weeks symptoms have been relatively controlled using Trelegy and albuterol MDI/neb PRN. 6MWT performed at last visit and patient required 3-4 L of supplemental oxygen with ambulation, which she has been using with stairs at home otherwise does note use. She reports improvement in symptoms but still experiences occasional dyspnea, however has significantly decrease the amount of albuterol she uses per week. She recently underwent cardiac CT through [facility] cardiology which revealed increased pulmonary pressures and prior echo revealed RVSP 41. She is currently on Lasix, which has helped reduce peripheral edema but not significantly improved her breathing. The patient also has a history of sleep apnea, in need of a new machine and presents today to review inlab PSG. [facility] Medical History MARGARETH (obstructive sleep apnea) Atrial fibrillation BMI 50.0-59.9, adult Lower leg edema Prediabetes Asthma HLD (hyperlipidemia) HTN (hypertension) Eczema Surgical History History of endoscopy (2004) History of wisdom tooth extraction History of colonoscopy (2014) History of delivery Family History Father Liver cancer Mother Pancreatic cancer Maternal Grandmother Pancreatic cancer Sister Breast cancer Maternal Uncle Lung cancer Social History Household Members: Family Housing: House Do you presently have visiting nurse or other home services: No Alcohol intake: current Alcohol intake frequency: a few times a week Patient Tobacco Use Status: Former Tobacco user Cigarettes Per Day: 5 Years Smoked: 10 e-Cigarette/Vaping Use: Never Used Second Hand Smoke Exposure: No service: No Current occupational status: employed 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 Current occupational exposures/hazards: No Cognitive needs: No Hearing needs: No Vision needs: Yes (glasses) Review of Systems Const Denies chills, Denies excessive sweating, Denies fever(s), Denies headache(s) and Denies night sweats Eyes Denies dry eyes, Denies irritation and Denies itchy eyes ENT Reports Normal hearing present, Denies headache(s), Denies nasal congestion, Denies nasal discharge, Denies post nasal drip and Denies sore throat Card Denies chest pain, Denies chest pain at rest, Denies chest pain with activity, Denies claudication, Reports dyspnea, Reports dyspnea on exertion and Denies paroxysmal nocturnal dyspnea Resp Denies chest congestion, Denies excessive phlegm production, Denies pain on inspiration, Denies pain with cough, Reports dyspnea, Reports dyspnea on exertion and Denies stridor Musc Denies myalgias Neuro Reports Normal hearing present and Denies headache(s) Endo Denies excessive sweating Octavio/Lymph Denies lymphadenopathy Aller/Immun Denies itchy eyes and Denies seasonal rhinorrhea Physical Exam Vital Signs: Last Vital Signs Pulse 61 09/30/24 13:47 BP 118/70 09/30/24 13:47 Pulse Ox 92 09/30/24 13:47 Oxygen Delivery Method Room Air 09/30/24 13:47 BMI result Body Mass Index 52.6 Const General: cooperative, healthy appearing, comfortable, no acute distress, well developed and alert Nutritional Appearance: obese Orientation/consciousness: patient oriented x3 Limitations: no limitations HEENT Head: Yes normal to inspection, Yes normocephalic and Yes atraumatic Ears: hearing grossly normal bilaterally and external ears normal Eyes General: appearance normal, both eyes and all related structures Eyelids: Yes eyelids normal Sclerae: sclerae normal EOM: EOMs intact bilaterally Neck Neck: Yes normal visual inspection and Yes no lymphadenopathy Lymphatic: no lymphadenopathy noted Chest Chest palpation & inspection: normal inspection of the chest Resp Effort & Inspection: normal respiratory effort, able to speak in complete sentences, no audible wheezes, no cough, no stridor, not tachypneic, no tripod positioning and no use of accessory muscles Auscultation: diminished lung sounds Cardio Jugular venous distension: no JVD Rate: regular rate Rhythm: regular rhythm Skin Other: warm, dry General skin exam: no rashes or lesions noted Neuro General: patient oriented x3 Cranial nerves: Yes Normal hearing present Cognition (Neuro): normal cognition Gait exam (Neuro): Normal gait present Extrem Other: 2+pitting edema BLE Psych Appearance: grossly normal and well kempt Speech and movement: Normal speech and movement present and Clear speech present Affect: normal affect Attitude: cooperative Thought process: Normal thought process present Thought content: Normal thought content present Insight: Good insight present (Psych) Judgement: Good judgement present (Psych) Assessment & Plan Assessment & Plan (1) Asthma: Code(s): J45.909 - Unspecified asthma, uncomplicated Category: Medical (2) Environmental allergies: Code(s): Z91.09 - Other allergy status, other than to drugs and biological substances Category: Medical (3) MARGARETH on CPAP: Code(s): G47.33 - Obstructive sleep apnea (adult) (pediatric) Category: Medical (4) Hypoventilation associated with obesity: Code(s): E66.2 - Morbid (severe) obesity with alveolar hypoventilation Category: Medical Plan For asthma, the patient will maintain the use of Trelegy and a rescue inhaler, with a refill for albuterol sent to the pharmacy. Possible pulmonary hyperte nsion requires further evaluation, with repeat echo as prior was performed in patient. If RVSP continues to be elevated she may require right heart catheterization to accurately measure pulmonary pressures. The patient will continue with Lasix to manage peripheral edema as prescribed by cardiology, and weight management is advised to address obesity-related pulmonary issues, recently Zepbound approved. A repeat sleep study is planned to obtain accurate data as prior did not provide sufficient data due to minimal sleep, likely significantly underestimating severity of MARGARETH. She did note that ususally she does not have any issues with sleep and has had multiple prior sleep studies with no issues. Will enter inlab titration study to ensure optimal pressures as well as new machine. Discussed importance of using supplemental oxygen with exertion, however patient reluctant to use. Consider 6MWT at next visit to see if patient's oxygen requirements decrease. All questions were answered and shikha julio is in agreement of plan. Will follow up in 2-3 months or sooner if needed. Orders: Orders CA echo transthoracic complete Today I27.20 - Pulmonary hypertension, unspecified RT PSG in-lab sleep titration Today G47.33 - Obstructive sleep apnea (adult) (pediatric) Medications: New albuterol sulfate 90 mcg/actuation 2 puffs inhalation Q6H PRN 1 ea 3RF Shortness Of Breath Or Wheezing ljfijmtzdcn-itbobcahn-dussidqj 200-62.5-25 mcg (Trelegy Ellipta) 1 inh inhalation DAILY 60 ea 6RF Coding Level of Care Code Est Pt Level 4 (71286) Complex EM visit Add On G2211 Diagnoses Asthma J45.909 Environmental allergies Z91.09 MARGARETH on CPAP G47.33 Hypoventilation associated with obesity E66.2
--- OUTSIDE RECORDS SUMMARY | 2024-09-30 13:45 | XMS_ITS | Clinical Summary ---
Author Organization [facility] [address] [place] [address] [place] [address] Phone Care Team Providers Care Staff Antisubmarine Officer Name Role Phone Tj Sandhu Primary Care Provider [phone] Allergies Active Allergy Reactions Criticality Noted Date [...] obesity with BMI of 4 5.0-49.9, adult ([facility] V24, [facility] V28) 03/04/2024 Prediabetes 06/22/2023 Hyperlipidemia 11/13/2020 Overview (03/04/2024): ASCVD score 5.2% Calcific tendinitis of right shoulder 2018 Intramural leiomyoma of uterus 01/08/2015 Heart murmur 03/02/2014 Overview (03/04/2024): Echo 2013 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 [address] [place] [address] Tj Sandhu PA Asthma with status asthmaticus, unspecified asthma severity, unspecified whether persistent (Primary Dx); Anxiety and depression; Other hyperlipidemia; HTN (hypertension), benign; Vitamin D deficiency; Morbid obesity with BMI of 45.0-49.9, adult (CMS/HCC V24, [facility]/HCC V28); MARGARETH (obstructive sleep apnea); Prediabetes 07/05/2024 Telephone Adult [facility] [address] [place], [place] [phone] Khadijah Holbrook [place] Shortness of Breath; Fatigue from Last 3 Months Immunizations Name Administration Dates Next Due COVID-19 (Moderna/Spikevax) 12yo and older 12/12/2023 Hepatitis B (Lsozivj-M-Wkrng , Recombivax HB-Adult) 19yo and older 07/19/2008,02/22/2008,01/19/2008 Influenza Quadravalent, MDCK , 0.5ml, preservative free (Flucelvax) 6mo and older 12/05/2021,03/31/2019,04/15/2018 Influenza Quadravalent, MDCK , 0.5ml, with preservative (Flucelvax) 6mo and older 11/27/2016 Influenza trivalent, 0.5mL, preservative free (Fluarix; FluLaval; Fluzone) ages 6mo and older (Afluria) 3 years and older 12/12/2023,03/13/2016,02/02/2014,04/08 Influenza, Unspecified 12/20/2022 Moderna SARS-CoV-2 COVID-19, mRNA, LNP-S, preservative free 07/05/2021,02/05/2021,06/16/[address] [facility] SARS-CoV-2 COVID-19, mRNA, LNP-S, preservative free 12/20/2022 [...] PROCEDURE: HISTORICAL UPPER GASTROINTESTINAL ENDOSCOPY 2004 PROCEDURE: [place] UPPER GI ENDOSCOPY PERFORMED; COMMENT: normal COLONOSCOPY [...] care for your loved ones. For example, early childhood lead teacher or elderly care for an older [...] METHOD 03/22/2024 3:10 PM [facility] Triglycerides 318(H) 0 - 150 mg/dL LAB CHEMISTRY METHOD 03/22/2024 3:10 PM [facility] HDL 36(L) >=40 mg/dL LAB CHEMISTRY METHOD 03/22/2024 3:10 PM [facility] LDL Calculated 88 0 - 100 mg/dL LAB CHEMISTRY METHOD 03/22/2024 3:10 PM [facility] VLDL Cholesterol Howard 63.6 mg/dL [...] AVALOS LAB BLOOD ORDERABLES Amy l Result [facility] [address] [place] [address], * (ABNORMAL) Comprehensive metabolic panel (03/22/2024 11:10 [...] PM [facility] Comment:Calculation based on the Chronic [...] LAB CHEMISTRY METHOD 03/22/2024 3:10 PM EST [facility] Blood Venous blood specimen / Unknown Venipuncture / Unknown 03/22/2024 11:10 AM EST 03/22/2024 11:10 AM EST us Tj AVALOS LAB BLOOD ORDERABLES Amy l Result [facility]) [facility] [address] [place] [address], [place] [phone] * SCREENING MAMMOGRAPHY BI 2-VIEW BREAST INC [...] PROCEDURES Final R esult * Colonoscopy (07/23/2022) [facility] Colonoscopy No Interpretation , Abstracted Anatomical Region Laterality Modality Other Result [facility] Provider [place] HEALTH MAINTENANCE Final Result * Cervical Cancer Screening: HPV (05/19/2019) [facility] Cervical Cancer Screening: HPV Negative, Abstracted [facility] Provider HEALTH MAINTENANCE Final Result * Hepatitis C Screening (08/19/2012) [facility] Hepatitis C Screening Abstracted [facility] Provider HEALTH MAINTENANCE Final Result from Last 3 Months or Most Recently Relevant to Health Maintenance Insurance [facility] Care Teams Staff Antisubmarine Officer Relationship Specialty Start Date End Date Tj Sandhu PA [address] [place] [id number] PCP - General Internal Medicine 06/14/20
[2024-09-30 13:47] VITALS: BP 118/70; PULSE 61; O2SAT 92; BMI 52.6
== END 2024-09-30 14:23 | disposition home or self-care (01) ==
LOC: HO.HPSW 13:43
PROVIDERS: PCP Physician Assistant Medical; Visit Provider Nurse Practitioner Family
DX: J45.909 Unspecified asthma, uncomplicated (principal); Z91.09 Other allergy status, other than to drugs and biological substances; G47.33 Obstructive sleep apnea (adult) (pediatric); E66.2 Morbid (severe) obesity with alveolar hypoventilation
CPT/HCPCS: 99214

== ENCOUNTER → 2024-11-15 12:38 | Outpatient (REF) | payer BC, SELFPAY ==
--- NOTE | 2024-11-15 12:42 | CA_ITS ---
Transthoracic Echocardiogram Patient (Last, First, Middle): Karina Burks, Gender: Female Date of : 1960 Age: 64 Procedure Date: 11/15/2024 Procedure Type: Transthoracic Echocardiogram Location: OP Height: 167.64 cm Weight: 147.87 kg BSA: 2.46 m2 Heart Rate: bpm BP: 116 / 72 mmHg Oyster Worker: TO Referring MD: Penny Monte GEOLOGICAL TECHNICIAN Symptoms: I27.20 - Pulmonary hypertension, unspecified Study Quality: Fair/Contrast Conclusions: - The left ventricular systolic function is normal. The calculated ejection fraction is 63% by biplane method. - No obvious valvular pathology seen on this study. - Mild pulmonary hypertension is present. Findings Procedure Information Contrast agent, definity, is being given per protocol without apparent complications. Left Ventricle Normal left ventricular cavity size. The left ventricular systolic function is normal. The calculated ejection fraction is 63% by biplane method. There is no evidence of regional wall motion abnormalities. There is mild septal asymmetric hypertrophy. Possible grade 2 diastolic dysfunction. Right Ventricle Mildly increased right ventricular cavity size. There is normal right ventricular systolic function. Atria Both atria are normal in size. Aortic Valve There is mild calcification of the aortic valve. There is no aortic valve stenosis. There is no aortic valve regurgitation. Mitral Valve There is mild mitral annular calcification. There is no mitral valve regurgitation. There is no mitral valve stenosis. Pulmonic Valve The pulmonic valve is likely normal. Tricuspid Valve There is trace tricuspid valve regurgitation. The right ventricular systolic pressure is 43 mmHg. Mild pulmonary hypertension is present. Great Vessels The asc aorta is normal in size. Venous The inferior vena cava is normal in size and collapses greater than 50% with inspiration. Pericardium/Pleural There is no evidence of pericardial effusion. Prior Study Comparison No significant change compared to prior study dated: 06/15/2024. Recommendations, Care & Conclusions No obvious valvular pathology seen on this study. Measurements 2D Linear Measurements IVSd: 1.06 0.6-0.9/0.6-1.0 cm LVIDd: 5.66 3.9-5.3/4.2-5.9 cm LVIDd Index: 2.30 2.4-3.2/2.2-3.1 cm/m2 LVIDs: 3.39 2.0-3.6 cm LVPWd: 1.01 0.7-1.1 cm LV Mass: 291.79 67-162/88-224 g LV Mass Index: 118.61 43-95/49-115 g/m2 LVOT Diam: 2.40 3.0+(-)1.3 cm 2D Systolic Function EF 4C: 62.90 >55% EF 2C: 62.90 >55% EF BiP: 63.20 >55% Mitral Valve MV VTI: 0.51 MV Pk Lizandro: 1.45 MV Mn Lizandro: 0.76 MV Pk Grad: 8.00 MV Mn Grad: 3.00 MV Pk E: 1.38 MV PK A: 1.05 MV Decel Time: 266.00 E/A: 1.30 E'Lateral: 7.94 E'Medial: 7.51 E/E' Med: 18.40 E/E' Lat: 17.40 PHT: 78.00 MVA PHT: 2.82 MVA Continuity: 3.44 Decel [place]: 5.18 Aortic Valve AoV Pk Lizandro: 1.92 AoV Mn Lizandro: 1.21 AoV VTI: 0.39 AoV Pk Grad: 15.00 Aov Mn Grad: 7.00 HENRIK Cont.VTI: 4.44 LVOT LVOT Pk Lizandro: 1.85 LVOT Mn Lizandro: 1.05 LVOT VTI: 0.39 LVOT Pk Grad: 14.00 LVOT Mn Grad: 5.00 LVOT Diam: 2.40 LVOT Area: 4.52 Diastolic Function MV Pk E: 1.38 MV Pk A: 1.05 E/A: 1.30 E'Medial: 7.51 E/E' Med: 18.40 E' Laterial: 7.94 E/E' Lat: 17.40 Right Ventricle TAPSE (mm): 32.50 TVS' Lizandro: 20.20 Tricuspid Valve TR Pk Lizandro: 2.96 TR Pk Grad: 35.00 RA Press: 8.00 RVSP: 43.00 Great Vessels Aorta Sinus of Valsalva: 3.05 2.0-3.5 cm Ao Asc: 3.70 2.1-3.4 cm Updated in Other Vendor System with Status of Final Masood Raymond MD electronically signed on 11/16/2024 1:14:21 PM with status of Final
== END ==
LOC: HO.CARD 12:38
PROVIDERS: PCP Physician Assistant Medical; Visit Provider Nurse Practitioner Family
DX: I27.20 Pulmonary hypertension, unspecified (principal)
CPT/HCPCS: 93306; Q9957

== ENCOUNTER → 2024-11-15 12:42 | Outpatient (BNV) | payer BC, SELFPAY | PROVIDERS: PCP Physician Assistant Medical; Visit Provider Internal Medicine | DX: I27.20 Pulmonary hypertension, unspecified (principal); I51.89 Other ill-defined heart diseases; I34.81 Nonrheumatic mitral (valve) annulus calcification; I35.8 Other nonrheumatic aortic valve disorders | CPT/HCPCS: 93306 ==

== ENCOUNTER 2024-12-02 13:46 | Outpatient (AMB) | payer BC, SELFPAY ==
[2024-12-02 13:51] VITALS: BP 132/70; PULSE 54; O2SAT 95; BMI 53.3
--- NOTE | 2024-12-02 13:51 | A.OFFVIS_ITS ---
Vital Signs 12/02/24 13:51 Height 5 ft 6 in Weight 330 lb 8 oz BMI 53.3 BP 132/70 Blood Pressure Location Lt brachial Position Sitting Pulse 54 Pulse Source Pulse Oximeter Pulse Oximetry (%) 95 Oxygen Delivery Method Room Air Intake Visit Reasons: SOB/ Sleep study FU Allergies Penicillins (PENICILLINS) Allergy (Severe, Verified 12/02/24 13:56) hives/urticaria HPI HPI SOB/ Sleep study FU: Details: Karina is a pleasant 64 year old female, former 5 pack smoker, quit 30+years ago with underlying asthma, atrial fibrillation on Eliquis, CHF, HTN, eczema previously on Dupixent x 1 year recently d/c and MARGARETH and h/o acute hypoxic respiratory failure secondary to moderate persistent asthma 05/2024. 6MWT performed previously and patient required 3-4 L of supplemental oxygen with ambulation, which she has been using with stairs at home otherwise does not use. She reports moderate control on current regimen of Trelegy and albuterol MDI however reports productive cough over the last week with white sputum and associated wheezing. The patient also reports a history of pulmonary hypertension, which was identified during prior echo. She has been using a CPAP machine at night, although the settings are not optimal, and she experiences difficulty sleeping due to recent stressors, including job loss. The patient has a significant history of allergies, with previous testing indicating multiple environmental allergens. She takes Claritin intermittently to manage her symptoms. The patient also has a history of atrial fibrillation and is currently on Eliquis for management. [facility] Medical History MARGARETH (obstructive sleep apnea) Atrial fibrillation BMI 50.0-59.9, adult Lower leg edema Prediabetes Asthma HLD (hyperlipidemia) HTN (hypertension) Eczema Surgical History History of endoscopy (2004) History of wisdom tooth extraction History of colonoscopy (2014) History of delivery Family History Father Liver cancer Mother Pancreatic cancer Maternal Grandmother Pancreatic cancer Sister Breast cancer Maternal Uncle Lung cancer Social History Household Members: Family Housing: House Do you presently have visiting nurse or other home services: No Alcohol intake: current Alcohol intake frequency: a few times a week Patient Tobacco Use Status: Former Tobacco user Cigarettes Per Day: 5 Years Smoked: 10 e-Cigarette/Vaping Use: Never Used Second Hand Smoke Exposure: No service: No Current occupational status: employed 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 Current occupational exposures/hazards: No Cognitive needs: No Hearing needs: No Vision needs: Yes (glasses) Review of Systems Const Denies chills, Denies excessive sweating, Denies fever(s), Denies headache(s) and Denies night sweats Eyes Denies dry eyes, Denies irritation and Denies itchy eyes ENT Reports Normal hearing present, Denies headache(s), Denies nasal congestion, Denies nasal discharge, Denies post nasal drip and Denies sore throat Card Denies chest pain, Denies chest pain at rest, Denies chest pain with activity, Denies claudication, Denies leg edema, Reports dyspnea on exertion, Denies orthopnea and Denies paroxysmal nocturnal dyspnea Resp Denies chest congestion, Reports cough, Denies excessive phlegm production, Denies pain on inspiration, Denies pain with cough, Reports dyspnea on exertion, Denies stridor and Reports wheezing Musc Denies myalgias Neuro Reports Normal hearing present and Denies headache(s) Endo Denies excessive sweating Octavio/Lymph Denies lymphadenopathy Aller/Immun Denies itchy eyes, Denies seasonal rhinorrhea and Reports wheezing Physical Exam Vital Signs: Last Vital Signs Pulse 54 12/02/24 13:51 BP 132/70 12/02/24 13:51 Pulse Ox 95 12/02/24 13:51 Oxygen Delivery Method Room Air 12/02/24 13:51 BMI result Body Mass Index 53.3 Const General: cooperative, healthy appearing, comfortable, no acute distress, well d eveloped and alert Nutritional Appearance: obese Orientation/consciousness: patient oriented x3 Limitations: no limitations HEENT Head: Yes normal to inspection, Yes normocephalic and Yes atraumatic Ears: hearing grossly normal bilaterally and external ears normal Eyes General: appearance normal, both eyes and all related structures Eyelids: Yes eyelids normal Sclerae: sclerae normal EOM: EOMs intact bilaterally Neck Neck: Yes normal visual inspection and Yes no lymphadenopathy Lymphatic: no lymphadenopathy noted Chest Chest palpation & inspection: normal inspection of the chest Resp Effort & Inspection: normal respiratory effort, able to speak in complete sentences, no audible wheezes, no stridor, not tachypneic, no tripod positioning and no use of accessory muscles Auscultation: wheezes and diminished lung sounds Cardio Jugular venous distension: no JVD Rate: regular rate Rhythm: regular rhythm Skin Other: warm, dry General skin exam: no rashes or lesions noted Neuro General: patient oriented x3 Cranial nerves: Yes Normal hearing present Cognition (Neuro): normal cognition Gait exam (Neuro): Normal gait present Extrem General: Yes normal to inspection, Yes capillary refill normal, Yes no clubbing, cyanosis or edema and Yes no pedal edema Psych Appearance: grossly normal and well kempt Speech and movement: Normal speech and movement present and Clear speech present Affect: normal affect Attitude: cooperative Thought process: Normal thought process present Thought content: Normal thought content present Insight: Good insight present (Psych) Judgement: Good judgement present (Psych) Assessment & Plan Assessment & Plan (1) Asthma: Code(s): J45.909 - Unspecified asthma, uncomplicated Category: Medical (2) Environmental allergies: Code(s): Z91.09 - Other allergy status, other than to drugs and biological substances Category: Medical (3) MARGARETH on CPAP: Code(s): G47.33 - Obstructive sleep apnea (adult) (pediatric) Category: Medical (4) Hypoventilation associated with obesity: Code(s): E66.2 - Morbid (severe) obesity with alveolar hypoventilation Category: Medical Plan We discussed the management of the patient's persistent cough, recommending a course of prednisone and a follow-up in four to six weeks to ensure resolution. Advised to continue Trelegy and albuterol MDI. The importance of consistent CPAP use was emphasized to manage pulmonary hypertension and sleep apnea. Reviewed in-lab PSG from August 2024 which revealed mild MARGARETH however likely underestimated the severity of sleep apnea due to poor sleep efficiency. Will send order to [facility] for replacement machine with settings 5-20 cm H2O. Once established will send for overnight oximetry to assess for resolution of nocturnal hypoxemia with the use of CPAP therapy. Will likely need to recent for in-lab titration study to ensure optimal pressures. We also reviewed the patient's allergy management with Claritin. Pulmonary hypertension was identified via echo RVSP 43 10/2024, and the patient is advised to continue using CPAP therapy to optimize pulmonary pressures. A follow-up echo is recommended after consistent CPAP use to assess improvement. All questions were answered and patient is in agreement of plan. Will follow-up in 4-6 weeks or sooner if needed. Coding Level of Care Code Est Pt Level 4 (63797) Diagnoses Asthma J45.909 Environmental allergies Z91.09 MARGARETH on CPAP G47.33 Hypoventilation associated with obesity E66.2
--- OUTSIDE RECORDS SUMMARY | 2024-12-02 16:42 | XMS_ITS | Clinical Summary ---
Author Organization [facility] [address] [place] [address] [place] [address] Phone Care Team Providers Care Dispatch Lead Name Role Phone Tj Sandhu Primary Care Provider [phone] Allergies Active Allergy Reactions Criticality Noted Date [...] EVERY DAY 90 tablet 1 5 Active Eliquis 5 mg tablet TAKE ONE TABLET BY MOUTH TWICE A DAY 180 tablet 1 5 Active furosemide (LASIX) 20 mg tablet TAKE ONE TABLET BY MOUTH EVERY DAY 90 tablet 5 Active losartan (COZAAR) 100 mg tablet TAKE ONE TABLET BY MOUTH EVERY DAY 90 tablet 2 5 Active sertraline (ZOLOFT) 50 mg tablet TAKE ONE TABLET BY MOUTH EVERY DAY 90 tablet 5 Active Active Problems Problem Noted Date Diagnosed Date Morbid obesity with BMI of 4 5.0-49.9, adult ([facility] V24, [facility] V28) 03/04/2024 Prediabetes 06/22/2023 Hyperlipidemia 11/13/2020 Overview (03/04/2024): ASCVD score 5.2% Calcific tendinitis of right shoulder 2018 Intramural leiomyoma of uterus 01/08/2015 Heart murmur 03/02/2014 Overview (03/04/2024): Echo 2013 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 HTN (hypertension), benign 04/14/2011 Vitamin D deficiency 10/21/2010 MARGARETH (obstructive sleep apnea) 01/30/2009 Overview (03/04/2024): [facility] Home Polysomnogram: Date 03/04/2017; AHI 12, Unclassified apneas 1; Obstructive apneas 3; Central apneas 2; Mixed apneas 0; hypopneas 7; average oxygen saturation 93% (lowest 80% without saturations <88% for 5% or more of study) Anxiety and depression 11/09/2007 Asthma 07/04/2005 Immunizations Name Administration Dates Next Due COVID-19 (Moderna/Spikevax) 12yo and older 12/12/2023 Hepatitis B ([id number] , Recombivax HB-Adult) 19yo and older 07/19/2008,02/22/2008,01/19/2008 [...] PROCEDURE: HISTORICAL UPPER GASTROINTESTINAL ENDOSCOPY 2004 PROCEDURE: AK UPPER GI ENDOSCOPY PERFORMED; COMMENT: normal COLONOSCOPY [...] for your loved ones. For example, child and adolescent therapist or elderly care for an older adult? [...] 07/04/19 24, 01/02/2023, 06/14/2022, Additional history exists Social Influencers of Health Screening 07/18/2025 07/18/2024 Cholesterol Screening (Lipid Panel) 03/22/2029 03/22/2024, 06/19/2023 Colorectal Cancer Screening: Colonoscopy 07/23/2032 07/23/2022 DTaP,Tdap,and Td Vaccines (4 - Td or Tdap) 07/19/2033 07/20/2023, 09/20/2012, 05/30/2005 Hepatitis B Vaccines Completed 07/19/2008, 02/22/2008, 01/19/2008 Hepatitis C Screening Completed 08/19/2012 Zoster Vaccines Completed 04/30/2021, 01/13/2021 COVID-19 Vaccine Completed 12/12/2023, , 01/03/2022, Additional history exists Depression Screening Completed 07/18/2024 HIB Vaccines Aged Out No longer eligi [...] mg/dL LAB CHEMISTRY METHOD 03/22/2024 3:10 PM [facility] Triglycerides 318(H) 0 - 150 mg/dL LAB CHEMISTRY METHOD 03/22/2024 3:10 PM [facility] HDL 36(L) >=40 mg/dL LAB CHEMISTRY METHOD 03/22/2024 3:10 PM [facility] LDL Calculated 88 0 - 100 mg/dL LAB CHEMISTRY METHOD 03/22/2024 3:10 PM [facility] VLDL Cholesterol Howard 63.6 mg/dL LAB CHEMISTRY METHOD 03/22/2024 3:10 PM [facility] Non HDL Chol. (LDL+VLDL) 152(H) <145 mg/dL LAB CHEMISTRY METHOD 03/22/2024 3:10 PM [facility] Chol/HDL Ratio 5.2(H) 0.0 - 4.4 LAB CHEMISTRY METHOD 03/22/2024 3:10 PM [facility] Blood Venous blood specimen / Unknown Venipuncture / Unknown 03/22/2024 11:10 AM EST 03/22/2024 11:10 AM EST us Tj AVALOS LAB BLOOD ORDERABLES Amy l Result [facility] [address] [place] [address], * (ABNORMAL) Comprehensive metabolic panel (03/22/2024 11:10 AM EST) Sodium 142 133 - 145 mmol/L LAB CHEMISTRY METHOD 03/22/2024 3:10 PM [facility] Potassium 3.8 3.5 - 5.5 mmol/L LAB CHEMISTRY METHOD 03/22/2024 3:10 PM [facility] Chloride 106 96 - 110 mmol/L LAB CHEMISTRY METHOD 03/22/2024 3:10 PM [facility] CO2 28 21 - 32 mmol/L LAB CHEMISTRY METHOD 03/22/2024 3:10 PM [facility] Anion Gap 8 3 - 11 LAB CHEMISTRY METHOD 03/22/2024 3:10 PM [facility] Glucose 200(H) 70 - 100 mg/dL LAB CHEMISTRY METHOD 03/22/2024 3:10 PM [facility] BUN 17 5 - 25 mg/dL LAB CHEMISTRY METHOD 03/22/2024 3:10 PM [facility] Creatinine 0.80 0.50 - 1.10 mg/dL LAB CHEMISTRY METHOD 03/22/2024 3:10 PM [facility] eGFR 82 >=60 mL/min/1. 73m2 LAB CHEMISTRY METHOD 03/22/2024 3:10 PM [facility] Comment:Calculation based on the Chronic Kidney Disease Epidemiology Collaboration (CKD-EPI) equation refit without adjustment for race. BUN/Creatinine Ratio 21.3 LAB CHEMISTRY METHOD 03/22/2024 3:10 PM [facility] Calcium 8.9 8.5 - 10.5 mg/dL LAB CHEMISTRY METHOD 03/22/2024 3:10 PM [facility] AST (SGOT) 14 10 - 42 unit/L LAB CHEMISTRY METHOD 03/22/2024 3:10 PM [facility] ALT (SGPT) 23 10 - 60 unit/L LAB CHEMISTRY METHOD 03/22/2024 3:10 PM [facility] Alkaline Phosphatase 104 42 - 121 unit/L LAB CHEMISTRY METHOD 03/22/2024 3:10 PM [facility] Total Protein 6.6 6.0 - 8.0 g/dL LAB CHEMISTRY METHOD 03/22/2024 3:10 PM [facility] Albumin 3.7 3.2 - 5.0 g/dL LAB CHEMISTRY METHOD 03/22/2024 3:10 PM [facility] Total Bilirubin 0.3 0.0 - 1.4 mg/dL LAB CHEMISTRY METHOD 03/22/2024 3:10 PM [facility] Blood Venous blood specimen / Unknown Venipuncture / Unknown 03/22/2024 11:10 AM EST 03/22/2024 11:10 AM EST us Tj AVALOS LAB BLOOD ORDERABLES Amy l Result [facility] [address] [place] [address], * SCREENING MAMMOGRAPHY BI 2-VIEW BREAST INC [...] , Abstracted Anatomical Region Laterality Modality Other Historical Provider HEALTH MAINTENANCE Final Result * Cervical Cancer Screening: HPV (05/19/2019) Cervical Cancer Screening: HPV Negative, Abstracted Historical Provider HEALTH MAINTENANCE Final Result * Hepatitis C Screening (08/19/2012) Pathologist [facility] Hepatitis C Screening Abstracted Result [facility] Provider HEALTH MAINTENANCE Final Result from Last 3 Months or Most Recently Relevant to Health Maintenance Insurance [facility] Care Teams Dispatch Lead Relationship Specialty Start Date End Date Tj Sandhu PA [address] [place] [address] PCP - General Internal Medicine 06/14/20
== END 2024-12-02 14:29 | disposition home or self-care (01) ==
LOC: HO.HPSW 13:47
PROVIDERS: PCP Physician Assistant Medical; Visit Provider Nurse Practitioner Family
DX: J45.909 Unspecified asthma, uncomplicated (principal); Z91.09 Other allergy status, other than to drugs and biological substances; G47.33 Obstructive sleep apnea (adult) (pediatric); E66.2 Morbid (severe) obesity with alveolar hypoventilation
CPT/HCPCS: 99214

== ENCOUNTER 2024-12-28 15:06 | Outpatient (AMB) | payer BC, SELFPAY ==
--- NOTE | 2024-12-28 15:32 | A.OFFVIS_ITS ---
Vital Signs 12/28/24 15:33 Height 5 ft 6 in Weight 330 lb 8 oz BMI 53.3 BP 148/82 H Blood Pressure Location Rt brachial Position Sitting Pulse 54 Pulse Source Pulse Oximeter Pulse Oximetry (%) 96 Oxygen Delivery Method Room Air Intake Visit Reasons: SOB/ Sleep study FU Allergies Penicillins (PENICILLINS) Allergy (Severe, Verified 12/28/24 15:42) hives/urticaria HPI HPI SOB/ Sleep study FU: Details: Karina is a pleasant 64 year old female, former 5 pack smoker, quit 30+years ago with underlying asthma, atrial fibrillation on Eliquis, CHF, HTN, eczema on Dupixent, MARGARETH on CPAP and h/o acute hypoxic respiratory failure secondary to moderate persistent asthma 05/2024. 6MWT performed previously and patient required 3-4 L of supplemental oxygen with ambulation, which she has been using with stairs at home otherwise does not use. Today patient presents without supplemental oxygen, maintaining 96%. At the last visit, patient reports ongoing cough with white sputum and associated wheezing. She completed a course of prednisone however no improvement, now cough productive with brownish sputum. Denies fevers or chills. She reports moderate control on current regimen of Trelegy and albuterol MDI. [facility]LY [facility] Medical History MARGARETH (obstructive sleep apnea) Atrial fibrillation BMI 50.0-59.9, adult Lower leg edema Prediabetes Asthma HLD (hyperlipidemia) HTN (hypertension) Eczema Surgical History History of endoscopy (2004) History of wisdom tooth extraction History of colonoscopy (2014) History of delivery Family History Father Liver cancer Mother Pancreatic cancer Maternal Grandmother Pancreatic cancer Sister Breast cancer Maternal Uncle Lung cancer Social History Household Members: Family Housing: House Do you presently have visiting nurse or other home services: No Alcohol intake: current Alcohol intake frequency: a few times a week Patient Tobacco Use Status: Former Tobacco user Cigarettes Per Day: 5 Years Smoked: 10 e-Cigarette/Vaping Use: Never Used Second Hand Smoke Exposure: No service: No Current occupational status: employed 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 Current occupational exposures/hazards: No Cognitive needs: No Hearing needs: No Vision needs: Yes (glasses) Review of Systems Const Denies chills, Denies excessive sweating, Denies fever(s), Denies headache(s) and Denies night sweats Eyes Denies dry eyes, Denies irritation and Denies itchy eyes ENT Reports Normal hearing present, Denies headache(s), Denies nasal congestion, Denies nasal discharge, Denies post nasal drip and Denies sore throat Card Denies chest pain, Denies chest pain at rest, Denies chest pain with activity, Denies claudication, Denies leg edema, Reports dyspnea on exertion, Denies orthopnea and Denies paroxysmal nocturnal dyspnea Resp Denies chest congestion, Reports cough, Denies excessive phlegm production, Denies pain on inspiration, Denies pain with cough, Reports dyspnea on exertion, Denies stridor and Reports wheezing Musc Denies myalgias Neuro Reports Normal hearing present and Denies headache(s) Endo Denies excessive sweating Octavio/Lymph Denies lymphadenopathy Aller/Immun Denies itchy eyes, Denies seasonal rhinorrhea and Reports wheezing Physical Exam Vital Signs: Last Vital Signs Pulse 54 12/28/24 15:33 BP 148/82 H 12/28/24 15:33 Pulse Ox 96 12/28/24 15:33 Oxygen Delivery Method Room Air 12/28/24 15:33 BMI result Body Mass Index 53.3 Const General: cooperative, healthy appearing, comfortable, no acute distress, well developed and alert Nutritional Appearance: obese Orientation/consciousness: patient oriented x3 Limitations: no limitations HEENT Head: Yes normal to inspection, Yes normocephalic and Yes atraumatic Ears: hearing grossly normal bilaterally and external ears normal Eyes General: appearance normal, both eyes and all related structures Eyelids: Yes eyelids normal Sclerae: sclerae normal EOM: EOMs intact bilaterally Neck Neck: Yes normal visual inspection and Yes no lymphadenopathy Lymphatic: no lymphadenopathy noted Chest Chest palpation & inspection: normal inspection of the chest Resp Effort & Inspection: normal respiratory effort, able to speak in complete sentences, no audible wheezes, no stridor, not tachypneic, no tripod positioning and no use of accessory muscles Auscultation: no crackles, no rhonchi, no wheezes and diminished lung sounds Cardio Jugular venous distension: no JVD Rate: regular rate Rhythm: regular rhythm Skin Other: warm, dry General skin exam: no rashes or lesions noted Neuro General: patient oriented x3 Cranial nerves: Yes Normal hearing present Cognition (Neuro): normal cognition Gait exam (Neuro): Normal gait present Extrem General: Yes normal to inspection, Yes capillary refill normal, Yes no clubbing, cyanosis or edema and Yes no pedal edema Psych Appearance: grossly normal and well kempt Speech and movement: Normal speech and movement present and Clear speech present Affect: normal affect Attitude: cooperative Thought process: Normal thought process present Thought content: Normal thought content present Insight: Good insight present (Psych) Judgement: Good judgement present (Psych) Assessment & Plan Assessment & Plan (1) Asthma: Code(s): J45.909 - Unspecified asthma, uncomplicated Category: Medical (2) Environmental allergies: Code(s): Z91.09 - Other allergy status, other than to drugs and biological substances Category: Medical (3) MARGARETH on CPAP: Code(s): G47.33 - Obstructive sleep apnea (adult) (pediatric) Category: Medical (4) Hypoventilation associated with obesity: Code(s): E66.2 - Morbid (severe) obesity with alveolar hypoventilation Category: Medical Plan Karina reports ongoing bronchitic symptoms, with minimal improvement with prednisone, will treat with doxycycline. Patient aware to call if symptoms do not improve. Encouraged use of nebulizer with flutter valve to improve expectoration. Will also send for CXR given length of symptoms. May need to obtain sputum and CT if persists. All questions were answered and patient is in agreement of plan. Will follow-up in 4-6 weeks or sooner if needed. Orders: Orders XR chest 2V Today R05.9 - Cough, unspecified Medications: New doxycycline hyclate 100 mg PO BID 14 caps 0RF albuterol sulfate 2.5 mg (3 mL) inhalation Q4-6H PRN 90 mL 0RF shortness of breath or wheezing Refilled albuterol sulfate 90 mcg/actuation 2 puffs inhalation Q6H PRN 1 ea 3RF Shortness Of Breath Or Wheezing Coding Level of Care Code Est Pt Level 4 (41605) Diagnoses Asthma J45.909 Environmental allergies Z91.09 MARGARETH on CPAP G47.33 Hypoventilation associated with obesity E66.2
[2024-12-28 15:33] VITALS: BP 148/82; PULSE 54; O2SAT 96; BMI 53.3
== END 2024-12-28 16:20 | disposition home or self-care (01) ==
LOC: HO.HPSW 15:07
PROVIDERS: PCP Physician Assistant Medical; Visit Provider Nurse Practitioner Family
DX: J45.909 Unspecified asthma, uncomplicated (principal); Z91.09 Other allergy status, other than to drugs and biological substances; G47.33 Obstructive sleep apnea (adult) (pediatric); E66.2 Morbid (severe) obesity with alveolar hypoventilation
CPT/HCPCS: 99214

== ENCOUNTER 2024-12-28 15:06 | Outpatient (REF) | payer BC, SELFPAY ==
[2024-12-28 18:55] LABS: Alanine Aminotransferase 26 U/L (0-31); Albumin Level 4.1 g/dL (3.5-5.0); Alkaline Phosphatase 97 U/L (39-117); Aspartate Amino Transferase 27 U/L (5-31); Cholesterol 114 mg/dL (<200); HDL Cholesterol 29 mg/dL (>40); Total Protein 6.4 g/dL (6.5-8.0); Triglycerides 184 mg/dL (<150)
== END 2024-12-28 15:07 | disposition home or self-care (01) ==
LOC: HO.WFDLDS 15:06
PROVIDERS: Internal Medicine; PCP Physician Assistant Medical; Visit Provider Nurse Practitioner Family
DX: J45.909 Unspecified asthma, uncomplicated (principal); G47.33 Obstructive sleep apnea (adult) (pediatric); L30.9 Dermatitis, unspecified; I48.91 Unspecified atrial fibrillation; I25.10 Atherosclerotic heart disease of native coronary artery without angina pectoris; E78.5 Hyperlipidemia, unspecified; Z99.89 Dependence on other enabling machines and devices; Z79.620 Long term (current) use of immunosuppressive biologic; Z79.01 Long term (current) use of anticoagulants; Z87.891 Personal history of nicotine dependence; Z79.51 Long term (current) use of inhaled steroids; Z79.899 Other long term (current) drug therapy; Z91.09 Other allergy status, other than to drugs and biological substances
CPT/HCPCS: 36415; 80061; 80076

== ENCOUNTER 2024-12-29 12:09 | Outpatient (REF) | payer BC, SELFPAY ==
--- NOTE | ~2024-12-29 | XR_ITS ---
EXAMINATION: XR CHEST 2 VIEWS HISTORY: R05.9 - Cough, unspecified COMPARISON: Comparison is made with the prior examination dated 06/14/2024. FINDINGS: PA and lateral views of the chest are submitted. There are mild increased interstitial markings in the left lower lung zone without change. There are no focal airspace opacities. There is no pleural effusion, pneumothorax, or pulmonary vascular congestion. The heart is normal in size. There is degenerative disc disease of the spine. XR/XR chest 2V IMPRESSION: No acute cardiopulmonary abnormality. Electronically signed by: Isrrael Rico MD 12/29/2024 12:23 PM EDT
== END 2024-12-29 12:10 | disposition home or self-care (01) ==
LOC: HO.HMGCX 12:09
PROVIDERS: PCP Internal Medicine; Visit Provider Nurse Practitioner Family
DX: R05.9 Cough, unspecified (principal)
CPT/HCPCS: 71046

== ENCOUNTER → 2024-12-29 12:13 | Outpatient (BNV) | payer BC, SELFPAY | PROVIDERS: PCP Internal Medicine; Visit Provider Radiology Diagnostic Radiology | DX: R05.9 Cough, unspecified (principal) | CPT/HCPCS: 71046 ==

== ENCOUNTER 2025-01-17 16:03 | Outpatient (AMB) | payer BC, SELFPAY ==
--- NOTE | 2025-01-17 15:36 | MHC.PC.OV ---
Intake Visit Reasons: discuss anxiety medicaiton Intake Note: patient here for Telehealth follow up on anxiety medication Oil Inspector Required: No Is last menstrual period known: No Post menopausal: No Patient : No Allergies Penicillins (PENICILLINS) Allergy (Severe, Verified 01/17/25 15:37) hives/urticaria Tobacco use date assessed: 01/17/25 Fall risk assessment: No Falls in past year Last assessed Fall Risk: 01/17/25 Dental Screening Dental Screen Date: 01/17/25 Did you have a dental visit in the last 12 months?: Yes Did you have a dental problem in the last 6 months where you did not have access to dental care?: No Was dental information given to patient?: Patient has dentist HPI HPI Comments History of Present Illness Details The patient is a 65 year old female with a past medical history of atrial fibrillation, htn, obesity, MARGARETH on cpap, depression/anxiety presenting for anxiety/depression follow up (telehealth) She tells me she recently has been tapering her sertraline over the past couple weeks-now taking approx 12.5. In the past few days has noticed increased anxiety/depressive symptoms. CV: [place] [facility] [place] Recent [place]A. On eliquis, atenolol, lipitor, losartan, furosemide, nifedipine. Weight loss has been a huge struggle despite dietary changes. Difficult to exercise. b/l knee pain left>right. Has seen vascular MARGARETH on cpap. Moderate persistent asthma. Follows with [facility] for MARGARETH. Heme/Onc: [facility] for consultation on cancer change -[facility] breast [facility] for breast cancer screening. MRI scheduled -GI Dr Barrett for pancreatic cancer screening Psoriasis-Sees [facility]. Continues on dupixent. BH: tapered her sertraline 50mg daily she is planning to return to the 50mg Eyes have been bothering her. Feel filmy, dry and irritated at times. Goes to [facility] in [place]. Mammo-07/2024. Gets breast MRIs as well. Colonoscopy 07/2022 ROS see HPI PHYSICAL EXAM: Telehealth [facility] Medical History (Updated 01/19/25 @ 11:20 by Nichol Capps MD) MARGARETH (obstructive sleep apnea) Atrial fibrillation BMI 50.0-59.9, adult Lower leg edema Prediabetes Asthma HLD (hyperlipidemia) HTN (hypertension) Eczema Surgical History History of endoscopy (2005) History of wisdom tooth extraction History of colonoscopy (2014) History of delivery Family History Father Liver cancer Mother Pancreatic cancer Maternal Grandmother Pancreatic cancer Sister Breast cancer Maternal Uncle Lung cancer Social History Household Members: Family Housing: House Do you presently have visiting nurse or other home services: No Alcohol intake: current Alcohol intake frequency: a few times a week Patient Tobacco Use Status: Former Tobacco user Cigarettes Per Day: 5 Years Smoked: 10 Packs per year/per ci.50 e-Cigarette/Vaping Use: Never Used Second Hand Smoke Exposure: No Patient : No service: No Current occupational status: employed 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 1. Little interest or pleasure in doing things: not at all 2. Feeling down, depressed, or hopeless: not at all 3. Trouble falling or staying asleep, or sleeping too much: several days 4. Feeling tired or having little energy: not at all 5. Poor appetite or overeating: several days 6. Feeling bad about yourself - or that you are a failure or have let yourself or your family down: not at all 7. Trouble concentrating on things, such as reading the newspaper or watching television: not at all 8. Moving or speaking so slowly that other people could have noticed. Or the opposite - being so fidgety or restless that you have been moving around a lot more than usual: not at all 9. Thoughts that you would be better off or of hurting yourself in some way: not at all Total score: 2 Depression Screening Interpretation: Negative Depression Screening Done: Yes 16775 - PHQ-9 Billing: Yes Source: Developed by Drs. Isrrael Dodd, Sandra Carballo, Shad Solis and colleagues, with an educational claudia from [employer] Thrive Questionnaire Date Thrive assessed: 09/20/24 I am a: Patient What is your living situation today?: I have a steady place to live Within the past 12 months, did the food you bought not last and you didn't have the money to get more?: Never true Within the past 12 months, did you worry whether your food would run out before you got money to buy more?: Never true Do you have trouble paying for medicines?: No Do you have trouble getting transportation to medical appointments?: No Do you have trouble paying your heating and electricity bill?: No Do you have trouble taking care of your child, family member or friend?: No Do you have trouble with day-to-day activities such as bathing, preparing meals, shopping, managing finances, etc.?: No Are you currently unemployed and looking for a job?: No Are you interested in more education?: No Please select the resources that you would like help with: None Currently or been in a relationship where the following occur: No concerns reported THRIVE Score: 0 MANUEL-7 AMB Questionnaire MANUEL-7 Date MANUEL - 7 assessed: 01/17/25 Feeling nervous, anxious, or on edge: 3 = Nearly every day Not being able to stop or control worryin = Nearly every day Worrying too much about different things: 3 = Nearly every day Trouble relaxin = Several days Being so restless that it is hard to sit still: 1 = Several days Becoming easily annoyed or irritable: 1 = Several days Feeling afraid as if something awful might happen: 1 = Several days Total MANUEL-7 score (0-4 normal; 5-9 mild; 10-14 moderate; 15-21 severe): 13 Source: Developed by Drs. Isrrael Dodd, Sandra Carballo, Shad Solis and colleagues, with an educational claudia from [employer] MANUEL-7 Assessment Billing MANUEL-7 Assessment Tool: MANUEL-7 Assessment 03894 Physical exam (Primary Care) Tobacco/Smoking Status: Tobacco use Status Tobacco use date assessed 01/17/25 01/17/25 15:42 Patient Tobacco Use Status Former Tobacco user 01/17/25 15:42 e-Cigarette/Vaping Use Never Used 01/17/25 15:42 PHQ-9: PHQ-9 Score PHQ-9: Total score 2 01/18/25 14:05 Depression Screening Interpretation: Negative Thrive Assessment: Date of Thrive Assessment Date Thrive assessed 09/20/24 01/17/25 15:42 Currently or been in a relationship where the following occur: No concerns reported Telehealth Telehealth Telehealth Platform: Telephone Location of provider rendering services: practice address Location of patient: address on file Patient Identification confirmed using: Name, : Yes Telehealth method: voice only Patient verbally consented to treatment: Yes Patient verbally consented to billing insurance company: Yes Patient informed of any privacy concerns related to visit: Yes Minutes spent on Phone/Video with Pt.: 21 Coding Level of Care Code Tele Est Pt Level 3 (11233) Diagnoses Anxiety F41.9 Mild episode of recurrent major depressive disorder F33.0 Major depression recurrence: recurrent Active/Remission status: currently active Major depression episode severity: mild Additional Codes MANUEL-7 Assessment Billing - MANUEL-7 Assessment Tool: MANUEL-7 Assessment 51108 ([id number]) PHQ-9 - 68862 - PHQ-9 Billing: Yes ([id number]) Assessment & Plan Assessment & Plan (1) Anxiety: Code(s): F41.9 - Anxiety disorder, unspecified Category: Medical (2) MDD (major depressive disorder): Code(s): F32.9 - Major depressive disorder, single episode, unspecified Category: Medical Qualifiers: Major depression recurrence: recurrent Active/Remission status: currently active Major depression episode severity: mild Qualified Code(s): F33.0 - Major depressive disorder, recurrent, mild Plan Patient has had recurrent flare in anxiety/depression since trying to taper off medication She is agreeable to restarting the medication at her former dose Lorazepam script while SSRI gets back to baseline Medications: New lorazepam 0.5 mg PO BID PRN 60 tabs 0RF anxiety sertraline 50 mg PO DAILY 90 tabs 3RF
--- OUTSIDE RECORDS SUMMARY | 2025-01-17 20:07 | XMS_ITS | Clinical Summary ---
Author Organization [facility] [address] [place] [address] [place] [address] Phone Care Team Providers Care Esol Teacher Assistant Name Role Phone Unavailable Primary Care Provider Unavailabl e Allergies Active Allergy Reactions Criticality Noted Date [...] swallow. 1 each 12 06/22/19 25 Active Eliquis 5 mg tablet TAKE ONE TABLET BY MOUTH TWICE A DAY 180 tablet 1 08/30/19 25 Active furosemide (LASIX) 20 mg tablet TAKE ONE TABLET BY MOUTH EVERY DAY 90 tablet 10/06/19 25 Active losartan (COZAAR) 100 mg tablet TAKE ONE TABLET BY MOUTH EVERY DAY 90 tablet 2 10/08/19 25 Active NIFEdipine (ADALAT CC) 30 mg 24 hr tablet TAKE ONE TABLET BY MOUTH EVERY DAY 90 tablet 1 01/12/20 25 Active sertraline (ZOLOFT) 50 mg tablet TAKE ONE TABLET BY MOUTH EVERY DAY 90 tablet 01/12/20 25 Active NIFEdipine (ADALAT CC) 30 mg 24 hr tablet TAKE ONE TABLET BY MOUTH EVERY DAY 90 tablet 1 07/05/19 25 025 Discontinued sertraline (ZOLOFT) 50 mg tablet TAKE ONE TABLET BY MOUTH EVERY DAY 90 tablet 10/11/19 25 025 Discontinued Active Problems Problem Noted Date Diagnosed Date Morbid obesity with BMI of 4 5.0-49.9, adult ([facility] V24, [facility] V28) 03/04/2024 Prediabetes 06/22/2023 Hyperlipidemia 11/13/2020 Overview (03/04/2024): ASCVD score 5.2% Calcific tendinitis of right shoulder 2018 Intramural leiomyoma of uterus 01/08/2015 Heart murmur 03/02/2014 Overview (03/04/2024): Echo 2013 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 HTN (hypertension), benign 04/14/2011 Vitamin D deficiency 10/21/2010 MARGARETH (obstructive sleep apnea) 01/30/2009 Overview (03/04/2024): [facility] Home Polysomnogram: Date 03/04/2017; AHI 12, Unclassified apneas 1; Obstructive apneas 3; Central apneas 2; Mixed apneas 0; hypopneas 7; average oxygen saturation 93% (lowest 80% without saturations <88% for 5% or more of study) Anxiety and depression 11/09/2007 Asthma 07/04/2005 Immunizations Immunization Administration Dates Next Due COVID-19 (Moderna/Spikevax) 12yo and older 12/12/2023 Hepatitis B (Aezvhgb-J-Ijotb , Recombivax HB-Adult) 19yo and older 07/19/2008,02/22/2008,01/19/2008 [...] Surgical History Surgery Date Site/Laterality Comments COLONOSCOPY 2005 PROCEDURE: HISTORICAL COLONOSCOPY; COMMENT: normal SECTION PROCEDURE: [...] Record ed Within the last 3 months, to[place] many times did you visit the emergency [...] your loved ones. For example, early childhood worker or elderly care for an older adult? [...] Date Recorded What is your living situation? Unrecognized valu e 07/18/2024 Comments Unknown Sex and Gender Information [...] of 2 - Risk 2-dose series) 01/11/1979 RSV Immunization Adult Patients (1 - Risk 50-74 years 1-dose series) 01/11/2010 Pneumococcal Vaccine: 50+ Years (2 of 2 - PCV) 06/17/2015 06/16/2014 Osteoporosis Screening (Bone Density Screening) 03/01/2022 Cervical Cancer Screening: HPV 05/19/2024 05/19/2019 Influenza Vaccine (#1) 2024 , 12/20/2022, 12/05/2021, Additional history exists COVID-19 Vaccine () 01/11/2025 12/12/2023, 12/20/2022, 01/03/2022, Additional history exists Falls Risk Assessment 01/11/2025 Hypertension/CHF/CAD Annual BMP Blood Test 03/22/2025 03/22/2024, [...] Completed 08/19/2012 Zoster Vaccines Completed 04/30/2021, 01/13/2021 Depression Screening Completed 07/18/2024 HIB Vaccines Aged [...] Name Priority Date/Time Associated Diagnosis Comments EXTERNAL CLINICAL LAB 12/28/2024 COMPREHENSIVE METABOLIC PANEL Routine 03/22/2024 11:10 AM [...] Relevant to Health Maintenance Results * External clinical lab (12/28/2024) us Provider [facility] LAB BLOOD ORDERABLES Fin al Result * (ABNORMAL) Lipid panel with reflex to direct LDL (03/22/2024 11:10 AM EST) Cholesterol 188 0 - 200 mg/dL LAB CHEMISTRY METHOD 03/22/2024 3:10 PM EST [facility] Triglycerides 318(H) 0 - 150 mg/dL LAB CHEMISTRY METHOD 03/22/2024 3:10 PM EST [facility] HDL 36(L) >=40 mg/dL LAB CHEMISTRY METHOD 03/22/2024 3:10 PM [facility] LDL Calculated 88 0 - 100 mg/dL LAB CHEMISTRY METHOD 03/22/2024 3:10 PM [facility] VLDL Cholesterol Howard 63.6 mg/dL LAB CHEMISTRY METHOD 03/22/2024 3:10 PM EST [facility] Non HDL Chol. (LDL+VLDL) 152(H) <145 mg/dL LAB CHEMISTRY METHOD 03/22/2024 3:10 PM [facility] Chol/HDL Ratio 5.2(H) 0.0 - 4.4 LAB CHEMISTRY METHOD 03/22/2024 3:10 PM [facility] Blood Venous blood specimen / Unknown Venipuncture / Unknown 03/22/2024 11:10 AM EST 03/22/2024 11:10 AM EST [facility] LAB BLOOD ORDERABLES Amy l Result [facility] [address] [place] [address], * (ABNORMAL) Comprehensive metabolic panel (03/22/2024 11:10 AM EST) Sodium 142 133 - 145 mmol/L LAB CHEMISTRY METHOD 03/22/2024 3:10 PM [facility] Potassium 3.8 3.5 - 5.5 mmol/L LAB CHEMISTRY METHOD 03/22/2024 3:10 PM [facility] Chloride 106 96 - 110 mmol/L LAB CHEMISTRY METHOD 03/22/2024 3:10 PM [facility] CO2 28 21 - 32 mmol/L LAB CHEMISTRY METHOD 03/22/2024 3:10 PM [facility] Anion Gap 8 3 - 11 LAB CHEMISTRY METHOD 03/22/2024 3:10 PM [facility] Glucose 200(H) 70 - 100 mg/dL LAB CHEMISTRY METHOD 03/22/2024 3:10 PM [facility] BUN 17 5 - 25 mg/dL LAB CHEMISTRY METHOD 03/22/2024 3:10 PM [facility] Creatinine 0.80 0.50 - 1.10 mg/dL LAB CHEMISTRY METHOD 03/22/2024 3:10 PM [facility] eGFR 82 >=60 mL/min/1. 73m2 LAB CHEMISTRY METHOD 03/22/2024 3:10 PM [facility] Comment:Calculation based on the Chronic Kidney Disease Epidemiology Collaboration (CKD-EPI) equation refit without adjustment for race. BUN/Creatinine Ratio 21.3 LAB CHEMISTRY METHOD 03/22/2024 3:10 PM [facility] Calcium 8.9 8.5 - 10.5 mg/dL LAB CHEMISTRY METHOD 03/22/2024 3:10 PM [facility] AST (SGOT) 14 10 - 42 unit/L LAB CHEMISTRY METHOD 03/22/2024 3:10 PM [facility] ALT (SGPT) 23 10 - 60 unit/L LAB CHEMISTRY METHOD 03/22/2024 3:10 PM [facility] Alkaline Phosphatase 104 42 - 121 unit/L LAB CHEMISTRY METHOD 03/22/2024 3:10 PM [facility] Total Protein 6.6 6.0 - 8.0 g/dL LAB CHEMISTRY METHOD 03/22/2024 3:10 PM [facility] Albumin 3.7 3.2 - 5.0 g/dL LAB CHEMISTRY METHOD 03/22/2024 3:10 PM [facility] Total Bilirubin 0.3 0.0 - 1.4 mg/dL LAB CHEMISTRY METHOD 03/22/2024 3:10 PM [facility] Blood Venous blood specimen / Unknown Venipuncture / Unknown 03/22/2024 11:10 AM EST 03/22/2024 11:10 AM EST us [facility] LAB BLOOD ORDERABLES Amy wallace Result [facility] [address] [place] [address], [place] [phone] * SCREENING MAMMOGRAPHY BI 2-VIEW BREAST INC [...] PROCEDURES Final R esult * Colonoscopy (07/23/2022) [facility] Colonoscopy No Interpretation , Abstracted Anatomical Region Laterality Modality Other Result [facility] Provider HEALTH MAINTENANCE Final Result * Cervical Cancer Screening: HPV (05/19/2019) [facility] Cervical Cancer Screening: HPV Negative, Abstracted Result [facility] Provider HEALTH MAINTENANCE Final Result * Hepatitis C Screening (08/19/2012) [facility] Hepatitis C Screening Abstracted Result [facility] Provider HEALTH MAINTENANCE Final Result from Last 3 Months or Most Recently Relevant to Health Maintenance Insurance [facility]
== END 2025-01-17 16:05 | disposition home or self-care (01) ==
LOC: HO.HMCFM 16:04
PROVIDERS: PCP Internal Medicine; Visit Provider Internal Medicine
DX: F41.9 Anxiety disorder, unspecified (principal); F33.0 Major depressive disorder, recurrent, mild

== ENCOUNTER → 2025-01-17 16:03 | Outpatient (BNVA) | payer BC, SELFPAY | PROVIDERS: PCP Internal Medicine; Visit Provider Internal Medicine | DX: F41.9 Anxiety disorder, unspecified (principal); F33.0 Major depressive disorder, recurrent, mild; Z13.31 Encounter for screening for depression; Z13.39 Encounter for screening examination for other mental health and behavioral disorders | CPT/HCPCS: 96127 ==

== ENCOUNTER 2025-02-14 14:58 | Outpatient (AMB) | payer MEDICARE, SELFPAY ==
--- OUTSIDE RECORDS SUMMARY | 2024-06-20 06:30 | XMS_ITS | Continuity of Care Document ---
Author Organization [facility] Address [address] [place] [address] [address] [place] [address] Phone Care Team Providers Care Environmental Technology Professor Name Role Phone Jorge Luis FONG, ASHLIE, Isrrael CHEN Unavailable U navailable Procedures Procedure Date Office/Oupt E&M New Pt 30 Mins- CT & [place] Surgical Stockings CVR Reveal Knee High Duplex Scan-extrem Veins; Comp- CT & [place] Advance Directives Directive Yes / No Effective Date File Name Other Directive No 06/20/2024 N/A WARNING:The information contained in this section is historical and is provided for information only and does not constitute a legal document or any assurance that the information is still accurate. Please verify the information with the pruett of the legal document before using it for clinical purposes. Encounters Encounter Description Practice Location Reason(s) For Visit Diagnoses Date Provider Providers Copied on Encounter Office/Oupt E&M New Pt 30 Mins- [place] & [place] [facility], [address] [place] [address] [address], [place], [id number], [place] tel:[phone] CV[place] - [place] Pain in right lower legPain in left lower legLocalized edemaCramp and spasmVenous insufficiency (chronic) (peripheral)P ruritus, unspecified May- 5 Jorge Luis FONG, APRIL DAILEY. [address], [address], [facility], [id number] , [place]. tel:[phone] Referring Provider: Dave Miller, [address], [place], [address]. tel:[phone] [facility], [address] [facility] [address], [place], [id number], tel:[phone] CVR - [place] Chronic venous hypertension (idiopathic) with other complications of bilateral lower extremity Jorge Luis FONG, RVT, RPVI Isrrael. [address], [address], [place], [place], [id number] , [place]. tel:[phone] Referring Provider: Dave Miller, [address], [place], [address]. tel:[phone] Family History Family Member Type Diagnosis Age At Onset No Information Payers Payer name Insurance type Covered green party ID Authorshaggy pinon(s) [facility] [id number] Social History Type Description Quantity Date Captured Comments Alcohol Use Details Unknown Caffeine Use Details Unknown Tobacco Use Status No Information Smoking Status Former Smoker Non-Smoking Tobacco Use Details : No Details Available : No Details Available Sex Female Vital Signs Date / Time: Height Weight BMI Pulse Rate Blood Pressure Temperature Respiratory Rate Body Surface Area Head Circumference Head Circ. Percentile Wt./Marino. Percentile BMI percentile Pulse Ox Inhaled Ox 142.880 kg (315.00 lbs) 50.9 9 kg/m eter (2) 122/80 mm[Hg] Chief Complaint And Reason For Visit No Information Reason For Referral Reason For Referral No Information Plan Of Treatment Date Type Action Status Goal Tobacco cessation counseling completed Goal Diet education completed Referral Ordered: Weight management: Referral to physician timeframe: 3 Months (related to Body mass index (BMI) 50-59.9 , adult) ordered History Of Present Illness Encounter Date Complaint History Of Prese nt Illness No Information Functional Status Date Functional Assessmen t No Information Instructions Date Instruction Additional Infor mation Lifestyle education Related to B wayne mass index (BMI) 50-59.9 , adult Giving Encouragement to exercise Related to Body mass index (BMI) 50-59.9 , adult Diet education Related to Body mass index (BMI) 50-59.9 , adult Patient education booklet given Related to Pain in right lower leg Compression stocking usage as conservative measure Related to Pain in right lower leg Assessments Type Assessment Date No Information Patient Care Teams Name Effective Dates (start - stop) Status Members No Information
[2025-02-14 15:02] VITALS: BP 148/72; PULSE 49; O2SAT 95; BMI 53.3
--- NOTE | 2025-02-14 15:02 | MHC.OFFVIS ---
Vital Signs 02/14/25 15:02 Height 5 ft 6 in Weight 330 lb BMI 53.3 BP 148/72 H Blood Pressure Location Lt brachial Position Sitting Pulse 49 L Pulse Source Pulse Oximeter Pulse Oximetry (%) 95 Oxygen Delivery Method Room Air Intake Visit Reasons: Shortness of breath Allergies Penicillins (PENICILLINS) Allergy (Severe, Verified 02/14/25 15:05) hives/urticaria HPI HPI Shortness of breath: Details: Karina is a pleasant 65 year old female, former 5 pack smoker, quit 30+years ago with underlying asthma, atrial fibrillation on Eliquis, CHF, HTN, eczema on Dupixent, MARGARETH on CPAP and h/o acute hypoxic respiratory failure secondary to moderate persistent asthma 05/2024. 6MWT performed 07/2024, demonstrating need for 3-4 L of supplemental oxygen with ambulation, which she has been using with stairs or engages in moderate activity at home, otherwise does not use. She reports checking oxygen saturation at home frequently and will put supplemental oxygen on when <90% which only occurs with activity. Today patient presents without supplemental oxygen, maintaining 95%. At the last visit, patient reports ongoing cough which has since resolved. She continues to report dyspnea on exertion despite Trelegy and Dupixent which is prescribed by derm. Of note, patient with significant BLE edema, currently on lasix 20 mg QD. Since the last visit, she did obtain a new CPAP machine in APAP mode pressures [id number] and has been benefitting from use. Today she presents to review compliance report. DME is [facility] Medical History (Updated 01/19/25 @ 11:20 by Nichol Capps MD) MARGARETH (obstructive sleep apnea) Atrial fibrillation BMI 50.0-59.9, adult Lower leg edema Prediabetes Asthma HLD (hyperlipidemia) HTN (hypertension) Eczema Surgical History History of endoscopy (2004) History of wisdom tooth extraction History of colonoscopy (2014) History of delivery Family History Father Liver cancer Mother Pancreatic cancer Maternal Grandmother Pancreatic cancer Sister Breast cancer Maternal Uncle Lung cancer Social History Household Members: Family Housing: House Do you presently have visiting nurse or other home services: No Alcohol intake: current Alcohol intake frequency: a few times a week Patient Tobacco Use Status: Former Tobacco user Cigarettes Per Day: 5 Years Smoked: 10 e-Cigarette/Vaping Use: Never Used Second Hand Smoke Exposure: No service: No Current occupational status: employed 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 Current occupational exposures/hazards: No Cognitive needs: No Hearing needs: No Vision needs: Yes (glasses) Review of Systems Const Denies chills, Denies excessive sweating, Denies fever(s), Denies headache(s) and Denies night sweats Eyes Denies dry eyes, Denies irritation and Denies itchy eyes ENT Reports Normal hearing present, Denies headache(s), Denies nasal congestion, Denies nasal discharge, Denies post nasal drip and Denies sore throat Card Denies chest pain, Denies chest pain at rest, Denies chest pain with activity, Denies claudication, Denies leg edema, Reports dyspnea on exertion, Denies orthopnea and Denies paroxysmal nocturnal dyspnea Resp Denies change in phlegm color, Denies chest congestion, Denies cough, Denies hemoptysis, Denies excessive phlegm production, Denies pain on inspiration, Denies pain with cough, Reports dyspnea on exertion, Denies stridor and Reports wheezing Musc Denies myalgias Neuro Reports Normal hearing present and Denies headache(s) Endo Denies excessive sweating Octavio/Lymph Denies lymphadenopathy Aller/Immun Denies itchy eyes, Denies seasonal rhinorrhea and Reports wheezing Physical Exam Vital Signs: Last Vital Signs Pulse 49 L 02/14/25 15:02 BP 148/72 H 02/14/25 15:02 Pulse Ox 95 02/14/25 15:02 Oxygen Delivery Method Room Air 02/14/25 15:02 BMI result Body Mass Index 53.3 Const General: cooperative, healthy appearing, comfortable, no acute distress, well developed and alert Nutritional Appearance: obese Orientation/consciousness: patient oriented x3 Limitations: no limitations HEENT Head: Yes normal to inspection, Yes normocephalic and Yes atraumatic Ears: hearing grossly normal bilaterally and external ears normal Eyes General: appearance normal, both eyes and all related structures Eyelids: Yes eyelids normal Sclerae: sclerae normal EOM: EOMs intact bilaterally Neck Neck: Yes normal visual inspection and Yes no lymphadenopathy Lymphatic: no lymphadenopathy noted Chest Chest palpation & inspection: normal inspection of the chest Resp Effort & Inspection: normal respiratory effort, able to speak in complete sentences, no audible wheezes, no stridor, not tachypneic, no tripod positioning and no use of accessory muscles Auscultation: no crackles, no rhonchi, no wheezes and diminished lung sounds Cardio Jugular venous distension: no JVD Rate: regular rate Rhythm: regular rhythm Skin Other: warm, dry General skin exam: no rashes or lesions noted Neuro General: patient oriented x3 Cranial nerves: Yes Normal hearing present Cognition (Neuro): normal cognition Gait exam (Neuro): Normal gait present Extrem Other: 2-3+ pitting edema BLE Psych Appearance: grossly normal and well kempt Speech and movement: Normal speech and movement present and Clear speech present Affect: normal affect Attitude: cooperative Thought process: Normal thought process present Thought content: Normal thought content present Insight: Good insight present (Psych) Judgement: Good judgement present (Psych) Assessment & Plan Assessment & Plan (1) Asthma: Code(s): J45.909 - Unspecified asthma, uncomplicated Category: Medical (2) Environmental allergies: Code(s): Z91.09 - Other allergy status, other than to drugs and biological substances Category: Medical (3) MARGARETH on CPAP: Code(s): G47.33 - Obstructive sleep apnea (adult) (pediatric) Category: Medical (4) Hypoventilation associated with obesity: Code(s): E66.2 - Morbid (severe) obesity with alveolar hypoventilation Category: Medical Plan Reviewed compliance report for the last 30 days which reveals greater than 4 use 90% of the time, AHI is 0.2 with minimal leaking. She has been benefitting from therapy and is motivated to continue to use. Will send for overnight oximetry on CPAP to ensure resolution of nocturnal hypoxemia. In regards to dyspnea patient currently on Trelegy and Dupixent, may be underlying cardiac etiology for symptoms, given significant pedal edema. Will increase Lasix to 40 mg for the next 5 days and she will call the office to report back if she had any improvement. She does follow with cardiology and may need to schedule follow-up sooner. Discussed importance of compliance with supplemental oxygen to maintain oxygen saturation greater than 92%. All questions were answered and patient is in agreement of plan. Will follow-up in 8-10 weeks or sooner if needed. Orders: Orders Overnight Pulse Oximetry Today E66.2 - Morbid (severe) obesity with alveolar hypoventilation Coding Level of Care Code Complex visit Add On G2211 Diagnoses Asthma J45.909 Environmental allergies Z91.09 MARGARETH on CPAP G47.33 Hypoventilation associated with obesity E66.2
--- OUTSIDE RECORDS SUMMARY | 2025-02-14 18:43 | XMS_ITS | Clinical Summary ---
Author Organization [facility] [address] [place] [address] [place] [address] Phone Care Team Providers Care Maternity Nurse Name Role Phone Unavailable Primary Care Provider [...] not swallow. 1 each 12 5 Active Eliquis 5 mg tablet TAKE ONE TABLET BY MOUTH TWICE A DAY 180 tablet 1 5 Active furosemide (LASIX) 20 mg tablet TAKE ONE TABLET BY MOUTH EVERY DAY 90 tablet 5 Active losartan (COZAAR) 100 mg tablet TAKE ONE TABLET BY MOUTH EVERY DAY 90 tablet 2 5 Active NIFEdipine (ADALAT CC) 30 mg 24 hr tablet TAKE ONE TABLET BY MOUTH EVERY DAY 90 tablet 1 5 Active sertraline (ZOLOFT) 50 mg tablet TAKE ONE TABLET BY MOUTH EVERY DAY 90 tablet 5 Active Active Problems Problem Noted Date Diagnosed Date Morbid obesity with BMI of 4 5.0-49.9, adult ([facility] V24, [facility] V28) 03/04/2024 Prediabetes 06/22/2023 Hyperlipidemia 11/13/2020 Overview (03/04/2024): ASCVD score 5.2% Calcific tendinitis of right shoulder 2018 Intramural leiomyoma of uterus 01/08/2015 Heart murmur 03/02/2014 Overview (03/04/2024): Echo 2013 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 HTN (hypertension), benign 04/14/2011 Vitamin D deficiency 10/21/2010 MARGARETH (obstructive sleep apnea) 01/30/2009 Overview (03/04/2024): [facility] Home Polysomnogram: Date 03/04/2017; AHI 12, Unclassified apneas 1; Obstructive apneas 3; Central apneas 2; Mixed apneas 0; hypopneas 7; average oxygen saturation 93% (lowest 80% without saturations <88% for 5% or more of study) Anxiety and depression 11/09/2007 Asthma 07/04/2005 Immunizations Immunization Administration Dates Next Due COVID-19 (Moderna/Spikevax) 12yo and older 12/12/2023 Hepatitis B (Utjezft-N-Ckpqe , Recombivax HB-Adult) 19yo and older 07/19/2008,02/22/2008,01/19/2008 [...] PROCEDURE: HISTORICAL UPPER GASTROINTESTINAL ENDOSCOPY 2004 PROCEDURE: [place] UPPER GI ENDOSCOPY PERFORMED; COMMENT: normal COLONOSCOPY [...] Years Used Date Smoking Tobacco: Former Cigarettes 10.5 0 04/15/1971 - 10/23/1981 Smokeless Tobacco: Never [...] ed Within the last 3 months, ho [place] many times did you visit the emergency [...] for your loved ones. For example, child protective services social worker or elderly care for an older [...] 03/01/2022 Cervical Cancer Screening: HPV 05/19/2024 05/19/2019 COVID-19 Vaccine ( season) 2024 12/12/2023, 12/20/2022, 01/03/2022, Additional history exists Influenza Vaccine (#1) 2024 , 12/20/2022, 12/05/2021, Additional history exists Falls Risk Assessment 01/11/2025 [...] LAB CHEMISTRY METHOD 03/22/2024 3:10 PM EST [facility] Triglycerides 318(H) 0 - 150 mg/dL LAB CHEMISTRY METHOD 03/22/2024 3:10 PM EST [facility] HDL 36(L) >=40 mg/dL LAB CHEMISTRY METHOD 03/22/2024 3:10 PM EST [facility] LDL Calculated 88 0 - 100 mg/dL LAB CHEMISTRY METHOD 03/22/2024 3:10 PM EST [facility] VLDL Cholesterol Howard 63.6 mg/dL LAB CHEMISTRY METHOD 03/22/2024 3:10 PM EST [facility] Non HDL Chol. (LDL+VLDL) 152(H) <145 mg/dL LAB CHEMISTRY METHOD 03/22/2024 3:10 PM [facility] Chol/HDL Ratio 5.2(H) 0.0 - 4.4 LAB CHEMISTRY METHOD 03/22/2024 3:10 PM [facility] Blood Venous blood specimen / Unknown Venipuncture / Unknown 03/22/2024 11:10 AM EST 03/22/2024 11:10 AM EST [facility] LAB BLOOD ORDERABLES Amy l Result [facility] [address] [place] [address], * (ABNORMAL) Comprehensive metabolic panel (03/22/2024 11:10 AM EST) Sodium 142 133 - 145 mmol/L LAB CHEMISTRY METHOD 03/22/2024 3:10 PM [facility] Potassium 3.8 3.5 - 5.5 mmol/L LAB CHEMISTRY METHOD 03/22/2024 3:10 PM [facility] Chloride 106 96 - 110 mmol/L LAB CHEMISTRY METHOD 03/22/2024 3:10 PM [facility] CO2 28 21 - 32 mmol/L LAB CHEMISTRY METHOD 03/22/2024 3:10 PM [facility] Anion Gap 8 3 - 11 LAB CHEMISTRY METHOD 03/22/2024 3:10 PM [facility] Glucose 200(H) 70 - 100 mg/dL LAB CHEMISTRY METHOD 03/22/2024 3:10 PM [facility] BUN 17 5 - 25 mg/dL LAB CHEMISTRY METHOD 03/22/2024 3:10 PM [facility] Creatinine 0.80 0.50 - 1.10 mg/dL LAB CHEMISTRY METHOD 03/22/2024 3:10 PM [facility] eGFR 82 >=60 mL/min/1. 73m2 LAB CHEMISTRY METHOD 03/22/2024 3:10 PM [facility] Comment:Calculation based on the Chronic Kidney Disease Epidemiology Collaboration (CKD-EPI) equation refit without adjustment for race. BUN/Creatinine Ratio 21.3 LAB CHEMISTRY METHOD 03/22/2024 3:10 PM [facility] Calcium 8.9 8.5 - 10.5 mg/dL LAB CHEMISTRY METHOD 03/22/2024 3:10 PM [facility] AST (SGOT) 14 10 - 42 unit/L LAB CHEMISTRY METHOD 03/22/2024 3:10 PM [facility] ALT (SGPT) 23 10 - 60 unit/L LAB CHEMISTRY METHOD 03/22/2024 3:10 PM [facility] Alkaline Phosphatase 104 42 - 121 unit/L LAB CHEMISTRY METHOD 03/22/2024 3:10 PM [facility] Total Protein 6.6 6.0 - 8.0 g/dL LAB CHEMISTRY METHOD 03/22/2024 3:10 PM [facility] Albumin 3.7 3.2 - 5.0 g/dL LAB CHEMISTRY METHOD 03/22/2024 3:10 PM [facility] Total Bilirubin 0.3 0.0 - 1.4 mg/dL LAB CHEMISTRY METHOD 03/22/2024 3:10 PM [facility] Blood Venous blood specimen / Unknown Venipuncture / Unknown 03/22/2024 11:10 AM EST 03/22/2024 11:10 AM EST [facility] LAB BLOOD ORDERABLES Amy wallace Result [facility] [address] [place] [address], * SCREENING MAMMOGRAPHY BI 2-VIEW BREAST INC [...] PROCEDURES Final R esult * Colonoscopy (07/23/2022) [facility] Colonoscopy No Interpretation , Abstracted Anatomical Region Laterality Modality Other Result [facility] Provider HEALTH MAINTENANCE Final Result * Cervical Cancer Screening: HPV (05/19/2019) [facility] Cervical Cancer Screening: HPV Negative, Abstracted Result [facility] Provider HEALTH MAINTENANCE Final Result * Hepatitis C Screening (08/19/2012) [facility] Hepatitis C Screening Abstracted Result [facility] Provider HEALTH MAINTENANCE Final Result from Last 3 Months or Most Recently Relevant to Health Maintenance Insurance [facility]
== END 2025-02-14 15:40 | disposition home or self-care (01) ==
LOC: HO.HPSW 15:00
PROVIDERS: PCP Physician Assistant Medical; Visit Provider Nurse Practitioner Family
DX: J45.909 Unspecified asthma, uncomplicated (principal); Z91.09 Other allergy status, other than to drugs and biological substances; G47.33 Obstructive sleep apnea (adult) (pediatric); E66.2 Morbid (severe) obesity with alveolar hypoventilation
CPT/HCPCS: 99213; G2211

== ENCOUNTER → 2025-02-14 14:58 | Outpatient (BNVA) | payer MEDICARE, SELFPAY | PROVIDERS: PCP Physician Assistant Medical; Visit Provider Nurse Practitioner Family | DX: J45.909 Unspecified asthma, uncomplicated (principal); G47.33 Obstructive sleep apnea (adult) (pediatric); E66.01 Morbid (severe) obesity due to excess calories; Z91.09 Other allergy status, other than to drugs and biological substances; Z99.89 Dependence on other enabling machines and devices | CPT/HCPCS: 99212 ==